=== PATIENT | male | born 1980 | race Caucasian/White ===

== ENCOUNTER → 2020-12-14 14:58 | Outpatient (CLI) | payer MEDICARE, MEDICAID, SELFPAY ==
--- NOTE | ~2020-12-14 | XR_ITS ---
XR knee RT 3V DATE: 12/14/2020 15:35 INDICATION: Right knee pain TECHNIQUE: AP, PA and crosstable lateral views COMPARISON: 10/30/2006 right knee FINDINGS: There is severe diffuse osteopenia. No fracture or dislocation or joint effusion. No periosteal reaction or bone destruction. No radiopaq ue intra-articular loose body or chondrocalcinosis. IMPRESSION: Severe osteopenia Reviewed, dictated and finalized at location A. IMPRESSION: Severe osteopenia
== END ==
PROVIDERS: PCP Internal Medicine; Visit Provider Nurse Practitioner
DX: M25.561 Pain in right knee (principal); M85.861 Other specified disorders of bone density and structure, right lower leg
CPT/HCPCS: 73562

== ENCOUNTER 2022-06-22 15:02 | Observation (INO) | payer MEDICARE, MEDICAID, SELFPAY ==
[2022-06-22] VITALS (20 sets, daily range): BP systolic 78–134; BP diastolic 39–90; PULSE 79–98; RESP 12–23; TEMP 36.4–36.6; O2SAT 96–99; BMI 27.2
--- NOTE | ~2022-06-22 | CT_ITS ---
EXAMINATION: CT abdomen pelvis w con DATE: 06/22/2022 17:20 INDICATION: Leukocytosis, syncope TECHNIQUE: Computed tomography (CT) of the abdomen and pelvis was performed with 100 mL Omnipaque-350 intravenous contrast. Automated exposure control and iterative reconstruction technique were employe d. The dose-length product was 860.61 mGy-cm. COMPARISON: 07/15/2011. FINDINGS: Lower thorax: Bilateral gynecomastia. Bibasilar scar/atelectasis. Liver: Normal. Biliary/Gallbladder: Gallbladder is normal. No bile duct dilation. Pancreas: No mass or duct dilation. Spleen: Normal. Adrenals:No mass. Kidneys: No mass, stone, or hydronephrosis. GI tract: No small or large bowel dilation. Normal appendix. Right lower quadrant colostomy. Mesentery/Peritoneum: No ascites, mass, or free air. Retroperitoneum: No mass. Pelvis: Bladder decompressed by a suprapubic catheter. Soft Tissues: Right-sided infusion pump, catheter enters the spinal canal and terminates above the fi eld-of-view. Bones: Superior endplate deformity and moderate height loss at L3 and L4, new since the prior study. IMPRESSION: Moderate compression deformities at L3 and L4 of uncertain age, correlate with pain/tenderness. Other borges, no acute abdominopelvic process detected Reviewed, dictated and finalized at location K. ER SHREDDER HELPER IMPRESSION: Moderate compression deformities at L3 and L4 of uncertain age, correlate with pain/tenderness. Otherwise, no acute abdominopelvic process detected
--- NOTE | 2022-06-22 15:41 | ECG_ITS ---
Measurements Intervals [place] Rate: 79 P: 52 AL: 196 QRS: 54 QRSD: 109 T: 52 QT: 368 QTc: 424 Interpretive Statements SINUS RHYTHM WITHIN NORMAL LIMITS NO PREVIOUS ECG AVAILABLE FOR COMPARISON Electronically Signed On 06-23-2022 8:02:36 [employer]ATION[employer] FI[employer]MAN by Elier Webber M.D.
[2022-06-22 15:58] LABS: Basophils Percent Auto 0.2 % (0.2-1.2); Eosinophils Percent Auto 0.2 % (0-4.4); Hematocrit 42.1 % (42.0-52.0); Immature Granulocyte Absolute 0.11 K/mm3 (0.00-0.031); Immature Granulocyte Percent A 0.6 % (0-0.5); Immature Platelet Fraction Pct 8.5 % (0.9-11.2); Lymphocytes Absolute Auto 0.66 K/mm3 (0.9-3.2); Lymphocytes Percent Auto 3.4 % (18.3-44.2); Mean Corpuscular HGB Conc 33.3 g/dl (32-36); Mean Corpuscular Hemoglobin 29.9 pg (26-34); Mean Platelet Volume 11.7 fl (7.4-10.4); Monocytes Absolute Auto 1.7 K/mm3 (0.1-0.6); Monocytes Percent Auto 8.9 % (2.6-8.5); Neutrophils Absolute Auto 16.7 K/mm3 (1.3-6.7); Neutrophils Percent Auto 86.7 % (45.5-73.1); Platelet Count Result 127 k/mm3 (150-375); Red Blood Count 4.68 M/mm3 (4.6-6.20); Red Cell Distribution Width 14.3 % (11.5-14.5); White Blood Count 19.3 K/mm3 (4.5-10.0)
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
[2022-06-22 16:09] LABS: Alanine Aminotransferase 27 U/L (6-50); Albumin Level 4.3 g/dL (3.5-5.1); Alkaline Phosphatase 86 U/L (38-126); Anion Gap 5 mmol/L (8-16); Aspartate Amino Transferase 26 U/L (17-59); Bilirubin,Total 0.6 mg/dL (0.2-1.3); Blood Urea Nitrogen 19 mg/dL (9-20); Calcium 9.2 mg/dL (8.4-10.2); Carbon Dioxide 31 mmol/L (22-30); Chloride 94 mmol/L (98-107); Estimated Glomerular Filt Rate > 60; Glucose 89 mg/dL (65-110); Potassium 4.2 mmol/L (3.4-5.0); Sodium 130 mmol/L (137-145)
[2022-06-22] MEDS: SODIUM CHLORIDE 0.9% IV 1,000 ML 999 ML IV CONT ×2 (16:27→18:50)
[2022-06-22 16:41] LABS: Appearance Urine Clear (Clear); Bilirubin Urine Negative (Negative); Blood Urine Trace-intact (Negative); Color Urine Yellow (Yellow); Glucose Urine UA Negative (Negative); Ketones Urine Negative (Negative); Leukocyte Esterase Ur 2+ LEU/UL (Negative); Nitrate Urine Positive (Negative); Protein Urine Negative (Negative); Specific Grav Ur <= 1.005 (1.001-1.035); Urobilinogen Urine 0.2 mg/dL (<2.0)
[2022-06-22 17:05] LABS: Bacteria Urine Trace /hpf; RBC Urine 0-2 /hpf (0-2)
[2022-06-22 17:36] LABS: Add Urine Microscopic? YES
--- NOTE | 2022-06-22 17:45 | PC.NURSE ---
PT PLEASANTLY REFUSING TO CHANGE OUT OF CLOTHES AND GET ON OUR BED. STATED THAT HE CAN USE HIS CHAIR BED PROVIDER AWARE.
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
[2022-06-22 18:54] LABS: Reflex Lactic Acid Yes or No Add Lactic
[2022-06-22 19:38] LABS: Influenza A QL RT-PCR Negative (Negative); Influenza B QL RT-PCR Negative (Negative); SARS-CoV-2 RNA PCR Negative
[2022-06-22 19:59] LABS: Lactic Acid 1.3 mmol/L (0.7-2.0)
[2022-06-22] MEDS: SODIUM CHLORIDE 0.9% IV 1,000 ML 125 ML IV CONT (20:40)
--- NOTE | 2022-06-22 23:05 | PC.NURSE ---
pt a&o x4, able to make needs known. pt admitted for uti/syncopal episodes. urinary suprapubic catheter present, colostomy appliance present, electric wheelchair used for ambulation, hands contracted. pt transferred to bed, call light easily accessible, safety precautions discussed. pt denies pain, comfortably resting in bed. medications reviewed, confirmed. no further questions.
[2022-06-22 23:11] LABS: Anion Gap 5 mmol/L (8-16); Blood Urea Nitrogen 18 mg/dL (9-20); Calcium 8.2 mg/dL (8.4-10.2); Carbon Dioxide 28 mmol/L (22-30); Chloride 98 mmol/L (98-107); Estimated CRCL calculation 113 ml/min; Estimated Glomerular Filt Rate > 60; Glucose 170 mg/dL (65-110); Potassium 3.9 mmol/L (3.4-5.0); Sodium 131 mmol/L (137-145)
[2022-06-23] VITALS (9 sets, daily range): BP systolic 97–111; BP diastolic 55–69; PULSE 60–83; RESP 18–20; TEMP 36.1–36.6; O2SAT 94–99
[2022-06-23 00:07] LABS: Thyroid Stimulating Hormone Reflex 0.742 uIU/mL (0.465-4.68)
[2022-06-23] MEDS: PREGABALIN (*CRX) 50 MG CAPSULE 200 MG PO ×3 (05:33→22:29)
[2022-06-23 06:35] LABS: Anion Gap 1 mmol/L (8-16); Blood Urea Nitrogen 14 mg/dL (9-20); Calcium 8.3 mg/dL (8.4-10.2); Carbon Dioxide 29 mmol/L (22-30); Chloride 102 mmol/L (98-107); Estimated CRCL calculation 186 ml/min; Estimated Glomerular Filt Rate > 60; Glucose 91 mg/dL (65-110); Magnesium 1.9 mg/dL (1.6-2.3); Potassium 3.8 mmol/L (3.4-5.0); Sodium 132 mmol/L (137-145)
[2022-06-23 06:43] LABS: Hematocrit 35.1 % (42.0-52.0); Hemoglobin 11.6 g/dL (14.0-18.0); Immature Platelet Fraction Pct 7.3 % (0.9-11.2); Mean Corpuscular Hemoglobin 29.4 pg (26-34); Mean Corpuscular Volume 89.1 fl (80-100); Mean Platelet Volume 11.6 fl (7.4-10.4); Platelet Count Result 92 k/mm3 (150-375); Red Blood Count 3.94 M/mm3 (4.6-6.20); Red Cell Distribution Width 14.5 % (11.5-14.5); White Blood Count 14.3 K/mm3 (4.5-10.0)
--- NOTE | 2022-06-23 08:47 | PM.IMPN ---
Progress Note: A&P Assessment and Plan (1) Sepsis: Code(s): A41.9 - Sepsis, unspecified organism Status: Acute Assessment and Plan: Unsure of etiology now that urine culture came back negative for infection Blood cultures pending, check CRP and procalcitonin (2) Urinary tract infection: Code(s): N39.0 - Urinary tract infection, site not specified Status: Acute Assessment and Plan: Urinalysis came back positive for nitrates, leuk esterase and white blood cells, however, culture has come back with mixed genital monae only Leukocytosis improving, monitor Thrombocytopenia worsening, continue to monitor (3) Syncope: Qualifiers: Encounter type: initial encounter Code(s): R55 - Syncope and collapse Status: Acute Assessment and Plan: Unsure of etiology, check orthostatics, monitor telemetry (4) Quadriplegia: Code(s): G82.50 - Quadriplegia, unspecified Status: Acute Assessment and Plan: Partial, stable, unchanged Suprapubic bladder catheter in place, stable (5) Colostomy status: Code(s): Z93.3 - Colostomy status Status: Acute Assessment and Plan: Colostomy irrigation tomorrow at 10:00 a.m. per patient is protocol, working well, stable (6) Lactic acidosis: Code(s): E87.20 - Acidosis, unspecified Status: Acute Assessment and Plan: Resolved after IV fluids (7) Hyponatremia: Code(s): E87.1 - Hypo-osmolality and hyponatremia Status: Acute Assessment and Plan: Improving Plan DVT prophylaxis with Lovenox GI prophylaxis not indicated Code status full code Subjective Date/time seen: 06/23/22 08:47 Interval history: No overnight events noted. No chest pain or shortness of breath. No nausea, vomiting or diarrhea. No fevers or chills. Patient states he is feeling much better than when he came in. He has had bladder infections before, but he has never had as many syncopal episodes as he did this time. He is concerned this infection was much more severe than usual. His mother is at bedside and states they are going to do a colostomy irrigation tomorrow prior to discharge. They usually do it at 10:00 a.m. every other day. Review of Systems Review of Systems: 12 point review of systems was assessed and was negative except as noted in the HPI Exam Narrative: General: No acute distress, alert and oriented per baseline HEENT: Atraumatic, normocephalic, mucous membranes moist CV: Regular rate and rhythm, S1, S2 Lungs: Clear to auscultation bilaterally, no rales or crackles noted, no wheezes, good air entry Abdomen: Soft, nontender, nondistended Extremities: Atrophic, contracted bilateral upper extremities, erythema that is blanching and blotchy noted on posterior thighs Psych: Euthymic, normal affect Objective Data Vital Signs Vital Signs: Vital Signs - 24 hr 06/22/22 15:06 06/22/22 15:52 06/22/22 15:51 Temperature 97.5 F L Pulse Rate 82 87 83 Respiratory Rate 18 19 Blood Pressure 78/49 L 117/78 Pulse Oximetry 96 99 Oxygen Delivery Room Air 06/22/22 16:03 06/22/22 16:15 06/22/22 16:16 Temperature Pulse Rate 85 92 86 Respiratory Rate 20 16 15 Blood Pressure 132/90 Pulse Oximetry Oxygen Delivery 06/22/22 16:30 06/22/22 16:32 06/22/22 18:51 Temperature Pulse Rate 95 98 92 Respiratory Rate 14 15 23 H Blood Pressure 134/39 L Pulse Oximetry 99 Oxygen Delivery 06/22/22 19:07 06/22/22 19:15 06/22/22 19:16 Temperature Pulse Rate 90 89 90 Respiratory Rate 18 12 14 Blood Pressure 106/60 Pulse Oximetry 97 Oxygen Delivery 06/22/22 19:30 06/22/22 19:31 06/22/22 19:56 Temperature Pulse Rate 85 83 82 Respiratory Rate 14 13 16 Blood Pressure Pulse Oximetry Oxygen Delivery 06/22/22 20:07 06/22/22 20:22 06/22/22 22:00 Temperature 98 F Pulse R
[2022-06-23] MEDS: ACIDOPHILUS/BULGARICUS CHEWABLE TABLET 2 TABLET BY MOUTH (11:01)
[2022-06-23] MEDS: CYANOCOBALAMIN 1,000 MCG TABLET 1000 MCG PO (11:01)
[2022-06-23] MEDS: FERROUS SULFATE 324 MG TABLET PO (11:01)
[2022-06-23] MEDS: MULTIVITAMINS THERAPEUTIC TAB (*BKC) 1 TABLET PO (11:02)
[2022-06-23] MEDS: methADONE HCL (*CRX) 5 MG TABLET PO ×2 (11:02→22:29)
[2022-06-23] MEDS: SOLIFENACIN 5 MG TABLET 10 MG PO (11:02)
[2022-06-23] MEDS: VITAMIN B COMPLEX CAPSULE 1 CAP PO (11:02)
[2022-06-23] MEDS: polyethylene glycoL 3350 17 GM POWD.PACK PO (11:04)
--- NOTE | 2022-06-23 14:06 | PC.NURSE ---
Spoke with mother at bedside and she requested to do turnings and feedings for the patient while she is here.
[2022-06-23] MEDS: DOCUSATE SODIUM 100 MG CAPSULE 200 MG PO (22:29)
[2022-06-23] MEDS: NORTRIPTYLINE HCL 25 MG CAPSULE PO (22:29)
[2022-06-23] MEDS: MELATONIN 5 MG TABLET PO (22:30)
[2022-06-24] VITALS: PULSE 74
--- NOTE | 2022-06-24 | ECHO_ITS ---
Patient Info Name: Segundo Wetzel Age: 41 years : 1980 Gender: Male Ht: 67 in Wt: 174 lbs BSA: 1.95 m2 HR: 67 bpm BP: 134 / 80 mmHg Heart Rhythm: Sinus Rhythm Technical Quality: Fair Exam Date: 06/24/2022 7:49 AM Exam Location: [facility] Card Pulmonary Patient Status: Inpatient Admit Date: 06/22/2022 Staff Ordering Physician: Brandee Maravilla DO Lung Splitter: [place] RDCS Attending Provider: Claudio Rosado MD Referring Physician: Renita AVILA; Exam Type: CA echo doppler color flow Study Info Indications R55 - Syncope and collapse Complete two-dimensional, color flow and Doppler transthoracic echocardiogram is performed. Summary 1. Complete two-dimensional, color flow and Doppler transthoracic echocardiogram is performed. 2. Left ventricular chamber dimension is normal. 3. Left ventricular systolic function is normal, estimated at 60-65%. 4. The left ventricular diastolic function is normal. 5. E/e' 7 is not elevated. 6. There is trace mitral valve regurgitation. 7. There is trace tricuspid valve regurgitation. 8. No pulmonary hypertension, estimated pulmonary arterial systolic pressure is 17 mmHg. Left Ventricle E/e' 7 is not elevated. Left ventricular chamber dimension is normal. Left ventricular systolic function is normal, estimated at 60-65%. The left ventricular diastolic function is normal. Right Ventricle Right ventricular systolic function is normal and with normal TAPSE 2.1 cm. Right ventricular chamber dimension is normal. Left Atria Left atrial chamber dimension is normal. Right Atria Right atrial chamber dimension is normal. Aortic Valve The aortic valve is trileaflet. There is no aortic valve stenosis. There is no aortic valve regurgitation. Pulmonic Valve There is no pulmonic regurgitation. Mitral Valve There is no mitral valve stenosis. There is trace mitral valve regurgitation. Tricuspid Valve There is trace tricuspid valve regurgitation. No pulmonary hypertension, estimated pulmonary arterial systolic pressure is 17 mmHg. Pericardium/Pleural There is no pericardial effusion. Inferior Vena Cava Normal inferior vena cava with >50% collapse upon inspiration consistent with normal right atrial pressure, 5 mmHg. Aorta The aortic root size at the sinus of Valsalva is normal. Left Ventricular Outflow Tract Name Value Normal LVOT 2D LVOT Diameter 2.1 cm LVOT Doppler LVOT Peak Gradient 2 mmHg LVOT Mean Gradient 1 mmHg LVOT VTI 17 cm LVOT VTI/AV VTI Ratio 0.6 LVOT Stroke Volume 59 ml LVOT CO 3.5 l/min LVOT CI 1.8 l/min/m2 Pulmonic Valve Name Value Normal RVOT Doppler
[2022-06-24] MEDS: diphenhydrAMINE HCl CAP 25 MG CAPSULE 50 MG PO (00:31)
[2022-06-24 04:00] VITALS: PULSE 68
[2022-06-24 04:57] VITALS: BP 134/80; PULSE 105; RESP 18; TEMP 36.2; O2SAT 97
[2022-06-24 05:58] LABS: Basophils Percent Auto 0.1 % (0.2-1.2); Eosinophils Absolute Auto 0.1 K/mm3 (0-0.3); Eosinophils Percent Auto 1.3 % (0-4.4); Hematocrit 36.5 % (42.0-52.0); Hemoglobin 11.9 g/dL (14.0-18.0); Immature Granulocyte Absolute 0.03 K/mm3 (0.00-0.031); Immature Granulocyte Percent A 0.4 % (0-0.5); Lymphocytes Absolute Auto 1.35 K/mm3 (0.9-3.2); Lymphocytes Percent Auto 15.9 % (18.3-44.2); Mean Corpuscular HGB Conc 32.6 g/dl (32-36); Mean Corpuscular Hemoglobin 29.5 pg (26-34); Mean Corpuscular Volume 90.3 fl (80-100); Mean Platelet Volume 11.4 fl (7.4-10.4); Monocytes Absolute Auto 0.8 K/mm3 (0.1-0.6); Monocytes Percent Auto 9.2 % (2.6-8.5); Neutrophils Absolute Auto 6.2 K/mm3 (1.3-6.7); Neutrophils Percent Auto 73.1 % (45.5-73.1); Platelet Count Result 102 k/mm3 (150-375); Red Blood Count 4.04 M/mm3 (4.6-6.20); Red Cell Distribution Width 14.4 % (11.5-14.5); White Blood Count 8.5 K/mm3 (4.5-10.0)
[2022-06-24 06:42] LABS: CRP 23.4 mg/dL (<1.0)
[2022-06-24 06:52] LABS: Procalcitonin 0.6 ng/mL
[2022-06-24 07:45] LABS: Alanine Aminotransferase 30 U/L (6-50); Albumin Level 3.5 g/dL (3.5-5.1); Alkaline Phosphatase 72 U/L (38-126); Anion Gap 2 mmol/L (8-16); Aspartate Amino Transferase 25 U/L (17-59); Bilirubin,Total 0.3 mg/dL (0.2-1.3); Blood Urea Nitrogen 8 mg/dL (9-20); Calcium 8.9 mg/dL (8.4-10.2); Carbon Dioxide 32 mmol/L (22-30); Chloride 101 mmol/L (98-107); Estimated CRCL calculation 238 ml/min; Estimated Glomerular Filt Rate > 60; Glucose 84 mg/dL (65-110); Potassium 3.5 mmol/L (3.4-5.0); Sodium 135 mmol/L (137-145)
[2022-06-24 08:00] VITALS: PULSE 54
[2022-06-24] MEDS: PREGABALIN (*CRX) 50 MG CAPSULE 200 MG PO ×2 (09:25→14:51)
[2022-06-24] MEDS: MULTIVITAMINS THERAPEUTIC TAB (*BKC) 1 TABLET PO (09:28)
[2022-06-24] MEDS: ACIDOPHILUS/BULGARICUS CHEWABLE TABLET 2 TABLET BY MOUTH (09:28)
[2022-06-24] MEDS: FERROUS SULFATE 324 MG TABLET PO (09:28)
[2022-06-24] MEDS: CYANOCOBALAMIN 1,000 MCG TABLET 1000 MCG PO (09:28)
[2022-06-24] MEDS: SOLIFENACIN 5 MG TABLET 10 MG PO (09:28)
[2022-06-24] MEDS: VITAMIN B COMPLEX CAPSULE 1 CAP PO (09:28)
[2022-06-24] MEDS: methADONE HCL (*CRX) 5 MG TABLET PO (09:30)
[2022-06-24 10:30] VITALS: BP 85/51
[2022-06-24 14:00] VITALS: BP 144/79; PULSE 57; RESP 16; TEMP 36.2; O2SAT 95
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
[2022-06-24] MEDS: IBUPROFEN 400 MG TABLET PO (14:51)
== END 2022-06-24 16:03 | disposition home or self-care (01) ==
LOC: ANHED 18:05 → ANH3MED 06-24 14:15
PROVIDERS: Physician Assistant; Admitting Provider Internal Medicine; Emergency Provider Emergency Medicine; PCP Internal Medicine; Visit Provider Student in an Organized Health Care Education/Training Program
DX: A41.9 Sepsis, unspecified organism (principal); N39.0 Urinary tract infection, site not specified; D69.6 Thrombocytopenia, unspecified; R55 Syncope and collapse; G82.50 Quadriplegia, unspecified; T14.90XS Injury, unspecified, sequela; V89.2XXS Person injured in unspecified motor-vehicle accident, traffic, sequela; Z93.3 Colostomy status; E87.20 Acidosis, unspecified; E87.1 Hypo-osmolality and hyponatremia; I95.9 Hypotension, unspecified; G89.4 Chronic pain syndrome; S32.000A Wedge compression fracture of unspecified lumbar vertebra, initial encounter for closed fracture; Z96.0 Presence of urogenital implants; F10.90 Alcohol use, unspecified, uncomplicated; Z20.822 Contact with and (suspected) exposure to COVID-19; F12.90 Cannabis use, unspecified, uncomplicated; Z86.16 Personal history of COVID-19; Z87.440 Personal history of urinary (tract) infections; Z87.891 Personal history of nicotine dependence; Z79.899 Other long term (current) drug therapy
CPT/HCPCS: 36415; 74177; 80048; 80053; 81001; 83605; 83735; 83930; 84145; 84443; 85025; 85027; 85055; 86140; 87040; 87086; 87088; 87636; 93005; 93306; 96361; 96365; 96366; 99285; A9270; G0378; J0696; J1650; J7030; Q9967

== ENCOUNTER 2023-04-30 15:06 | Outpatient (CLI) | payer OTHER, MEDICAID, SELFPAY ==
--- NOTE | ~2023-04-30 | CT_ITS ---
EXAMINATION: CT abdomen pelvis w con DATE: 04/30/2023 16:11 INDICATION: Left lower quadrant, mid abdominal pain TECHNIQUE: Computed tomography (CT) of the abdomen and pelvis was performed with 100 CC Omnipaque 350 intravenous contrast. Automated exposure control and iterative reconstruction technique were employe d. Exam dose: 622.81 mGy-cm total exam DLP. COMPARISON: June 22, 2022 CT abdomen pelvis FINDINGS: There is patchy infiltrate/atelectasis in the dependent aspect of the right lower lobe and to a lesser extent left lower lobe. Borderline heart size. No pericardial or pleural effusion. Mild bilateral gynecomastia. The liver, gallbladder, bile ducts, spleen, pancreas, pancreatic duct, and adrenal glands and kidneys appear normal. No urinary tract calculus or hydroureteronephrosis. There is a cystostomy catheter wi thin the urinary bladder. The bladder wall appears diffusely prominent in thickness which may be due to evacuation of the bladder versus cystitis. The prostate gland appears unremarkable. Normal caliber of the abdominal aorta. No intraperitoneal or retroperitoneal or pelvic mass lesion or adenopathy or ascites is noted. Normal appendix. No bowel obstruction or intraperitoneal free air is detected. There is an infusion pump within the anterior right abdominal wall with catheter terminating in the p osterior thoracic spinal canal at the lower T5 level. Chronic L3 and L4 moderate compression fracture deformities, present on June 22, 2022; new modera tely prominent L1 compression fracture deformity since June 22, 2022. There is squaring of the anterior margin of the thoracic vertebral bodies and ankylosis at the sacroi liac joints suggesting ankylosing spondylitis or other spondyloarthropathy. Bilateral hip osteoarthritis. IMPRESSION: Bilateral patchy dependent lower lobe infiltrate or atelectasis, right greater than left Bilateral mild gynecomastia Cystostomy catheter, bladder wall thickening; cannot exclude cystitis Right anterior abdominal wall infusion pump New moderately prominent L1 compression fracture deformity and chronic L3-L4 moderate compression fra cture deformities Suggestion of ankylosing spondylitis or other spondyloarthropathy Bilateral hip osteoarthritis Reviewed, dictated and finalized at Location [facility]. Reviewed, dictated and finalized at location B. REMENT CONSULTANT IMPRESSION: Bilateral patchy dependent lower lobe infiltrate or atelectasis, r ight greater than left Bilateral mild gynecomastia Cystostomy catheter, bladder wall thickening; cannot exclude cystitis Right anterior abdominal wall infusion pump New moderately prominent L1 compression fracture deformity and chronic L3-L4 mo derate compression fracture deformities Suggestion of ankylosing spondylitis or other spondyloarthropathy Bilateral hip osteoarthritis
== END 2023-04-30 15:07 | disposition home or self-care (01) ==
PROVIDERS: PCP Family Medicine; Visit Provider Nurse Practitioner Family
DX: R91.8 Other nonspecific abnormal finding of lung field (principal); N62 Hypertrophy of breast; S32.010A Wedge compression fracture of first lumbar vertebra, initial encounter for closed fracture; S32.030A Wedge compression fracture of third lumbar vertebra, initial encounter for closed fracture; S32.040A Wedge compression fracture of fourth lumbar vertebra, initial encounter for closed fracture; M16.0 Bilateral primary osteoarthritis of hip; Z93.59 Other cystostomy status; Z97.8 Presence of other specified devices; X58.XXXA Exposure to other specified factors, initial encounter
CPT/HCPCS: 74177; Q9967

== ENCOUNTER 2023-05-04 11:37 | Emergency (ER) | payer OTHER, MEDICAID, SELFPAY ==
[2023-05-04 11:43] VITALS: BP 114/80; PULSE 61; RESP 18; TEMP 36.6; O2SAT 100
--- NOTE | 2023-05-04 12:15 | ED.GENADULT ---
HPI - General Adult General Chief complaint: Unspecified Stated complaint: UTI, broken back Time Seen by Provider: 05/04/23 12:24 Source: patient and other (caregiver Cherelle) Mode of arrival: wheelchair Limitations: no limitations History of Present Illness HPI narrative: 42yo male paraplegic presents with concern for reduced ostomy output and questions about recent imaging. He is on antibiotics (cipro) for a UTI currently; no bloody output. He typically leaves his ostomy site open (states it has been discussed with his colorectal surgeon) and irrigates it frequently while in the shower. However, it has become more difficult with reduced output. He has tried to change diet for higher fiber content. He is on methadone and at baseline uses 2 doses of Miralax every overy other day as well as Colace regularly. He hasn't had a significant amount of stool output for 6 weeks. He did try Senna x1 and this produced a fair amount of output. He feels like maybe he needs a clean out similar to the bowel prep he undergoes for colonoscopies. He underwent CT imaging 04/30/23 which did not comment on stool burden but he is concerned he is constipated. There was notation of an L1 compression fracture. His neurologist expressed concern that this might be due to stool impaction. Colorectal surgeon = Dr Rodas ([facility]) Neurologist @ [facility] for past 20 years (last seen 04/23/23 for baclofen pump replacement; f/u q 3 mos) Related Data Home Medications Medication Instructions Recorded Confirmed Lactobacillus 1 cap PO DAILY 06/22/22 03/27/23 acidophilus-Bifidobac.animalis 2.5 billion cell capsule (Daily Probiotic) cholecalciferol (vitamin D3) 125 125 mcg PO 3XW 06/22/22 03/27/23 mcg (5,000 unit) tablet cyanocobalamin (vitamin B-12) 1 tablet PO DAILY 06/22/22 03/27/23 ibuprofen 200 mg tablet 200 mg PO Q6H PRN Pain (Scale 06/22/22 03/27/23 Score 1-3) multivitamin 1 tablet PO DAILY 06/22/22 03/27/23 nortriptyline 25 mg capsule 25 mg PO HS 06/22/22 03/27/23 polyethylene glycol 3350 17 gram 17 - 34 g PO DAILY PRN Constipation 06/22/22 03/27/23 oral powder packet (Miralax) vitamin B complex 1 cap PO DAILY 06/22/22 03/27/23 Allergies Allergy/AdvReac Type Severity Reaction Status Date / Time adhesive tape Allergy Rash Verified 03/27/23 14:40 PMFSH Past Medical History Medical History Chronic pain syndrome COVID-19 Erectile dysfunction Nephrolithiasis Osteopenia determined by x-ray Peripheral neuropathy Quadriplegia Vitamin D deficiency Surgical History Surgical History History of colostomy History of fusion of cervical spine C2-C6. 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 Code status: Full code. Years smoked: 1 Smoking status: Former smoker Tobacco type: cigars Second hand tobacco smoke exposure: No Smoking end date: 04/28/04 Alcohol intake: current Alcohol use details: Social alcohol use in moderation. Substance use: current Substance use type: marijuana Lack of Transportation: No Lack of Food: Never True Current Housing: I Have Housing Concerned About Future Housing: No Difficulty Paying Gas/Electric Bills: No Difficulty Paying for Meds: No Currently Unemployed: No Education: Bachelor's Degree Difficulty w/ Childcare or Family Care: No Spiritual care concerns: No Exam Const: General: cooperative, comfortable, no acute distress, w
== END 2023-05-04 13:15 | disposition home or self-care (01) ==
PROVIDERS: Emergency Provider Student in an Organized Health Care Education/Training Program; PCP Family Medicine
DX: K59.03 Drug induced constipation (principal); T40.3X5A Adverse effect of methadone, initial encounter; M45.6 Ankylosing spondylitis lumbar region; S32.010A Wedge compression fracture of first lumbar vertebra, initial encounter for closed fracture; N39.0 Urinary tract infection, site not specified; G82.50 Quadriplegia, unspecified; G62.9 Polyneuropathy, unspecified; E55.9 Vitamin D deficiency, unspecified; M85.80 Other specified disorders of bone density and structure, unspecified site; Z93.3 Colostomy status; Z86.16 Personal history of COVID-19; Z87.442 Personal history of urinary calculi; Z87.891 Personal history of nicotine dependence; X58.XXXA Exposure to other specified factors, initial encounter
CPT/HCPCS: 99283

== ENCOUNTER 2023-06-11 12:09 | Inpatient (IN) | payer MEDICARE, MEDICAID, SELFPAY ==
[2023-06-11] VITALS (25 sets, daily range): BP systolic 115–154; BP diastolic 67–103; PULSE 41–61; RESP 8–17; TEMP 34–36.2; O2SAT 95–98
--- NOTE | ~2023-06-11 | XR_ITS ---
EXAMINATION: XR chest 1V portable DATE: 06/13/2023 08:47 INDICATION: Infection TECHNIQUE: frontal view of the chest was obtained. COMPARISON: Chest radiograph dated 08/27/2010 FINDINGS: The lungs are clear with no focal airspace opacities, pulmonary edema, pleural effusion or pneumothor ax. The cardiomediastinal silhouette is normal. Upper thoracic levoscoliosis. Partially visualized in strumented posterior spinal fusion in the lower cervical spine with bilateral vertical rajwinder and latera l mass screw fixation. IMPRESSION: 1. No acute cardiopulmonary disease. Reviewed, dictated and finalized at location A. OR ADMINISTRATOR SUPPORT
--- NOTE | ~2023-06-11 | CT_ITS ---
Non-contrast CT scan of the Abdomen and Pelvis Clinical indication: Infection Technique: 2.5 mm axial scans were obtained through the abdomen and pelvis without intravenous or or al contrast. Dose reduction technique was used on this scan by utilizing automated exposure control a nd iterative reconstruction technique. The dose-length product (DLP) was 906.43 mGy-cm. COMPARISON: 04/30/2023 Findings: Images through the lung bases reveal hazy left upper lobe airspace disease, compatible wit h pneumonia. There is no evidence of renal or ureteral calculi. The kidneys and the ureters are nondilated. The liver, spleen, pancreas, gallbladder, and adrenals appear normal. There is no aortic aneurysm. There is no evidence of bowel obstruction. Partial distal colectomy present with left lower quadrant ostomy in place. Images through the pelvis were performed. There is no evidence of ascites or lymphadenopathy. Urinary bladder collapsed around a suprapubic catheter. Prostate gland and seminal vesicles are unremarkable . L1 compression fractures present, possibly acute to subacute. Chronic appearing compression fractures of L3 and L4 present. Impression: Probable left upper lobe pneumonia. L1 compression fractures likely acute to subacute. Chronic-appearing L3 and L4 compression fractures. Mild bladder wall thickening is probably due to collapsed state with suprapubic catheter in place. Co rrelate clinically and with urinalysis for cystitis. Reviewed, dictated and finalized at [facility]. DRY ENGINEER Impression: Probable left upper lobe pneumonia. L1 compression fractures likely acute to subacute. Chronic-appearing L3 and L4 compression fractures. Mild bladder wall thickening is probably due to collapsed state with suprapubic catheter in place. Correlate clinically and with urinalysis for cystitis.
--- NOTE | ~2023-06-11 | CT_ITS ---
EXAMINATION: CT brain wo con DATE: 06/11/2023 13:35 INDICATION: Altered mental status since yesterday. Quadriplegia TECHNIQUE: Computed tomography (CT) of the head was performed without intravenous contrast. The mA wa s adjusted according to patient size. Iterative reconstruction technique was employed. Exam dose: 68 1.00 mGy-cm total exam DLP. COMPARISON: None FINDINGS: No intracranial mass lesion or hemorrhage or cerebrovascular accident. No midline shift or mass effect. Normal ventricular size. Normal wolfe-white matter differentiation. No subdural or epidur al hematoma. The mastoid air cells are well pneumatized and aerated. Included paranasal sinuses are unremarkable. No fracture or bone destruction of the cranial vault. IMPRESSION: No significant abnormality Reviewed, dictated and finalized at [facility]. Reviewed, dictated and finalized at location B. ATION CHECKER IMPRESSION: No significant abnormality
--- NOTE | ~2023-06-11 | MR_ITS ---
MRI of the brain Clinical History: Altered mental status Technique: Axial and sagittal T1-weighted images were acquired. These were followed by axial T2-weigh rosa, diffusion weighted, gradient, and FLAIR images. Following intravenous administration of 15 cc Mu ltiHance gadolinium, T1-weighted fat-sat imaging was performed in the axial and coronal planes. Findings: No abnormal signal seen in the brain parenchyma. No acute infarct, intracranial hemorrhage, or mass lesion. Ventricles and subarachnoid spaces are unremarkable. Orbits are unremarkable. Paranasal sinuses and m astoid air cells are clear. Major intracranial flow voids are intact. Sagittal midline structures are intact. No abnormal postcontrast enhancement identified. IMPRESSION: Unremarkable exam. Reviewed, dictated and finalized at location M. LER MECHANIC IMPRESSION: Unremarkable exam.
--- NOTE | 2023-06-11 12:11 | ECG_ITS ---
Measurements Intervals [place] Rate: 55 P: ND: 0 QRS: 72 QRSD: 132 T: 66 QT: 472 QTc: 452 Interpretive Statements INDETERMINATE RHYTHM INTRAVENTRICULAR CONDUCTION DELAY [130+ ms QRS DURATION] BASELINE ARTIFACT GREATLY LIMITS INTERPRETATION ABNORMAL ECG Electronically Signed On 06-11-2023 13:19:50 C S S REPRESENTATIVE by Angel De M.D.
[2023-06-11 12:37] LABS: Basophils Percent Auto 0.3 % (0.2-1.2); Eosinophils Absolute Auto 0.1 K/mm3 (0-0.3); Eosinophils Percent Auto 0.8 % (0-4.4); Hematocrit 41.3 % (42.0-52.0); Hemoglobin 13.4 g/dL (14.0-18.0); Immature Granulocyte Absolute 0.03 K/mm3 (0.00-0.031); Immature Granulocyte Percent A 0.5 % (0-0.5); Immature Platelet Fraction Pct 14.3 % (0.9-11.2); Lymphocytes Absolute Auto 0.93 K/mm3 (0.9-3.2); Lymphocytes Percent Auto 15.5 % (18.3-44.2); Mean Corpuscular HGB Conc 32.4 g/dl (32-36); Mean Corpuscular Hemoglobin 30.1 pg (26-34); Mean Corpuscular Volume 92.8 fl (80-100); Mean Platelet Volume 11.9 fl (7.4-10.4); Monocytes Absolute Auto 0.6 K/mm3 (0.1-0.6); Monocytes Percent Auto 9.8 % (2.6-8.5); Neutrophils Absolute Auto 4.4 K/mm3 (1.3-6.7); Neutrophils Percent Auto 73.1 % (45.5-73.1); Platelet Count Result 68 k/mm3 (150-375); Red Blood Count 4.45 M/mm3 (4.6-6.20); Red Cell Distribution Width 16.7 % (11.5-14.5)
[2023-06-11 12:49] LABS: Prothrombin Time 13.5 Seconds (11.1-14.7)
[2023-06-11 12:50] LABS: Partial Thromboplastin Time 43.8 SECONDS (22.3-36.8)
[2023-06-11 12:51] LABS: Alanine Aminotransferase 53 U/L (6-50); Albumin Level 3.8 g/dL (3.5-5.1); Alkaline Phosphatase 98 U/L (38-126); Anion Gap 1 mmol/L (8-16); Aspartate Amino Transferase 42 U/L (17-59); Bilirubin,Total 0.6 mg/dL (0.2-1.3); Blood Urea Nitrogen 12 mg/dL (9-20); Calcium 9.4 mg/dL (8.4-10.2); Carbon Dioxide 35 mmol/L (22-30); Chloride 103 mmol/L (98-107); Estimated CRCL calculation 152 ml/min; Estimated Glomerular Filt Rate > 60; Glucose 85 mg/dL (65-110); Potassium 4.9 mmol/L (3.4-5.0); Sodium 139 mmol/L (137-145)
[2023-06-11 13:02] LABS: Appearance Urine Cloudy (Clear); Bacteria Urine Rare /hpf; Bilirubin Urine Negative (Negative); Blood Urine 2+ (Negative); Budding Yeast Urine Present /hpf; Color Urine Yellow (Yellow); Glucose Urine UA Negative (Negative); Ketones Urine Negative (Negative); Leukocyte Esterase Ur 3+ LEU/UL (Negative); Nitrate Urine Positive (Negative); Non Pathogenic Casts 0-2; Protein Urine Negative (Negative); Specific Grav Ur 1.008 (1.001-1.035); Squamous Epithelial Cell Urine None seen /hpf (Few); Urobilinogen Urine 0.2 mg/dL (<2.0); WBC Urine >100 /hpf
[2023-06-11 13:04] LABS: Add Urine Microscopic? YES
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
[2023-06-11 15:28] LABS: Lactic Acid Reflex < 0.5 mmol/L (0.7-2.0)
--- NOTE | 2023-06-11 16:44 | PC.NURSE ---
700ml urine emptied from suprapubic catheter at this time
--- NOTE | 2023-06-11 17:14 | ADMGEN ---
This patient, Segundo Wetzel, was admitted to Medical Room 248-. Patient/family oriented to hospital policies and general routines including ID bracelet, bed and alarms, visiting hours, pain management, procedures, bathroom and other care routines, personal items, smoking policy, room service/diet, and visiting hours. Information on how to activate the Rapid Response Team has been discussed. Patient/Family are encouraged to report perceived risks to care and to ask questions if they do not understand what they are told or what they should do.
[2023-06-11] MEDS: PREGABALIN (*CRX) 50 MG CAPSULE 200 MG PO (20:37)
[2023-06-11] MEDS: NORTRIPTYLINE HCL 25 MG CAPSULE PO (20:37)
[2023-06-11] MEDS: SOLIFENACIN 5 MG TABLET 10 MG PO (20:37)
[2023-06-11] MEDS: ACETAMINOPHEN 325 MG TABLET 650 MG PO (20:37)
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
[2023-06-12] VITALS (11 sets, daily range): BP systolic 127–138; BP diastolic 59–91; PULSE 54–80; RESP 16–18; TEMP 36.3–36.4; O2SAT 95–97
[2023-06-12] MEDS: PREGABALIN (*CRX) 50 MG CAPSULE 200 MG PO ×3 (04:15→20:34)
[2023-06-12 05:19] LABS: Basophils Percent Auto 0.3 % (0.2-1.2); Eosinophils Absolute Auto 0.1 K/mm3 (0-0.3); Eosinophils Percent Auto 1.6 % (0-4.4); Hematocrit 41.3 % (42.0-52.0); Hemoglobin 13.2 g/dL (14.0-18.0); Immature Granulocyte Absolute 0.03 K/mm3 (0.00-0.031); Immature Granulocyte Percent A 0.8 % (0-0.5); Immature Platelet Fraction Pct 14.8 % (0.9-11.2); Lymphocytes Absolute Auto 0.92 K/mm3 (0.9-3.2); Lymphocytes Percent Auto 25.1 % (18.3-44.2); Mean Corpuscular Volume 93.9 fl (80-100); Mean Platelet Volume 12.1 fl (7.4-10.4); Monocytes Absolute Auto 0.2 K/mm3 (0.1-0.6); Neutrophils Absolute Auto 2.4 K/mm3 (1.3-6.7); Neutrophils Percent Auto 66.2 % (45.5-73.1); Platelet Count Result 68 k/mm3 (150-375); Red Cell Distribution Width 16.6 % (11.5-14.5); White Blood Count 3.7 K/mm3 (4.5-10.0)
[2023-06-12 05:29] LABS: Anion Gap 2 mmol/L (8-16); Blood Urea Nitrogen 10 mg/dL (9-20); Calcium 9.1 mg/dL (8.4-10.2); Carbon Dioxide 34 mmol/L (22-30); Chloride 104 mmol/L (98-107); Estimated CRCL calculation 152 ml/min; Estimated Glomerular Filt Rate > 60; Glucose 69 mg/dL (65-110); Potassium 4.8 mmol/L (3.4-5.0); Sodium 140 mmol/L (137-145)
--- NOTE | 2023-06-12 08:00 | ECG_ITS ---
Measurements Intervals [place] Rate: 72 P: 74 ME: 214 QRS: 84 QRSD: 121 T: 16 QT: 392 QTc: 429 Interpretive Statements SINUS RHYTHM WITH FIRST DEGREE AV BLOCK MODERATE INTRAVENTRICULAR CONDUCTION DELAY [110+ ms QRS DURATION] NONSPECIFIC T-WAVE ABNORMALITY ABNORMAL ECG COMPARED TO ECG 06/11/2023 12:13:48 SINUS RHYTHM NOW PRESENT FIRST DEGREE AV BLOCK NOW PRESENT T-WAVE ABNORMALITY NOW PRESENT Electronically Signed On 06-12-2023 12:40:35 CARPENTER INSPECTOR by Angel De M.D.
[2023-06-12] MEDS: VITAMIN B COMPLEX CAPSULE 1 CAP PO (09:42)
[2023-06-12] MEDS: methADONE HCL (*CRX) 5 MG TABLET PO (09:43)
[2023-06-12] MEDS: MULTIVITAMINS THERAPEUTIC TAB (*BKC) 1 TABLET PO (09:43)
--- NOTE | 2023-06-12 14:27 | PM.IMPN ---
Progress Note: A&P Assessment and Plan (1) Acute UTI: Code(s): N39.0 - Urinary tract infection, site not specified Status: Acute Assessment and Plan: UA: Cloudy, 2+ blood, positive nitrates, 3+ leuk esterase, 6-10 RBC, >100 WBC, yeast budding present, rare bacteria, no epithelial cells - Urine Culture pending - started on ceftriaxone on 06/11 - does not meet SIRS criteria, lactic acid <0.5 - consider suprapubic catheter exchange - no previous UCs on file - pt has been on ciprofloxacin for approximately 1 year due to UTIs. (2) Transient confusion: Code(s): R41.0 - Disorientation, unspecified Status: Acute Assessment and Plan: - no focal deficits - Head CT unremarkable - suspect transient episodes of AMS are secondary to current UTI - if episodes persist despite atb/treatment of UTI, consider consultation to neuro for EEG and to r/o absent seizures - tele monitoring, repeat EKG in AM due to artifact on intake EKG - monitor glucose, hypoglycemia protocol in place - monitor BP, has previously been on midodrine. not currently prescribed this medication (3) Chronic pain syndrome: Code(s): G89.4 - Chronic pain syndrome Status: Acute Assessment and Plan: - continue home medications: Ibuprofen, methadone, nortriptyline, Lyrica Subjective Date/time seen: 06/12/23 14:27 Interval history: Patient is still altered today. Discussed with patient's caregiver apparently patient has been on ciprofloxacin for approximately 1 year due to ongoing UTIs. Discussed with patient's caregiver that this is not standard of care and patient will need to be taken off ciprofloxacin on discharge. Will continue to wait for urine culture. Patient's mental status is likely due to UTI. There are no current cultures on record at [facility] but according to the caregiver patient does have significant history of UTI infections. He does get his urinary catheter exchanged monthly at this time. Exam Narrative: GENERAL: Comfortable, no acute distress HENMT: moist mucous membranes EYES: EOM intact b/l NECK: no lymphadenopathy RESPIRATORY: clear to auscultation CARDIO: RRR GI: soft, nontender, bowel sounds present SKIN: no rashes EXTREMITIES: no edema, redness or tenderness Objective Data Vital Signs Vital Signs: Vital Signs - 24 hr 06/11/23 14:30 06/11/23 15:10 06/11/23 15:15 Temperature Pulse Rate 48 L 45 L 54 L Respiratory Rate 13 14 Blood Pressure 137/101 H Pulse Oximetry 97 98 97 Oxygen Delivery 06/11/23 15:16 06/11/23 15:30 06/11/23 15:31 Temperature Pulse Rate 53 L 46 L 45 L Respiratory Rate 12 8 L Blood Pressure 123/102 H 142/93 H Pulse Oximetry 97 98 97 Oxygen Delivery 06/11/23 15:45 06/11/23 15:46 06/11/23 16:07 Temperature Pulse Rate 55 L 53 L 56 L Respiratory Rate 15 14 Blood Pressure 154/100 H Pulse Oximetry 97 95 Oxygen Delivery 06/11/23 16:20 06/11/23 16:43 06/11/23 17:01 Temperature 93.2 F L Pulse Rate 45 L 41 L 52 L Respiratory Rate 15 Blood Pressure 115/67 124/83 Pulse Oximetry 96 96 Oxygen Delivery 06/11/23 18:43 06/11/23 16:00 06/11/23 20:58 Temperature 97.1 F L Pulse Rate 59 L 61 Respiratory Rate 17 Blood Pressure 125/79 Pulse Oximetry 96 Oxygen Delivery Room Air 06/11/23 21:56 06/11/23 20:00 06/11/23 20:00 Temperature 97.1 F L Pulse Rate 61 46 L Respiratory Rate 17 Blood Pressure Pulse Oximetry 96 Oxygen Delivery Room Air 06/12/23 00:00 06/12/23 05:03 06/12/23 04:00 Temperature 97.4 F L Pulse Rate 64 63 59 L Respiratory Rate 18 Blood Pressure 138/84 Pulse Oximetry 96 Oxygen Delivery 06/12/23 08:09 06/12/23 09:15 06/11/23 17:37 Temperature 93.2 F L Pulse Rate 52 L Respiratory Rate 15 Blood Pressure 124/83 Pulse Oximetry 95 Oxygen Delivery Room Air Room Air Intake/Output Intake/Output: I
--- NOTE | 2023-06-12 15:28 | PC.NURSE ---
On 06/12/23, the student, [Jay De Paz], provided care and completed [facility] documentation on this patient. I have reviewed the student's documentation and agree with the findings.
[2023-06-12 18:34] LABS: Glucose Point of Care 70 mg/dl (65-105)
[2023-06-12] MEDS: SOLIFENACIN 5 MG TABLET 10 MG PO (20:34)
[2023-06-12] MEDS: ACIDOPHILUS/BULGARICUS CHEWABLE TABLET 1 TABLET PO (20:34)
[2023-06-12] MEDS: NORTRIPTYLINE HCL 25 MG CAPSULE PO (20:34)
[2023-06-12] MEDS: DOCUSATE SODIUM LIQ 100 MG/10 ML UDC 50 MG PO (20:39)
[2023-06-12] MEDS: polyethylene glycoL 3350 17 GM POWD.PACK PO (20:40)
[2023-06-12 21:44] LABS: Appearance Urine Clear (Clear); Bacteria Urine None Seen /hpf; Bilirubin Urine Negative (Negative); Color Urine Yellow (Yellow); Glucose Urine UA Negative (Negative); Ketones Urine Trace mg/dL (Negative); Leukocyte Esterase Ur 2+ LEU/UL (NEGATIVE); Need Manual Microscopic Reviewed; Nitrate Urine Positive (Negative); Non Pathogenic Casts 0-2; Protein Urine Negative (Negative); Specific Grav Ur 1.007 (1.001-1.035); Squamous Epithelial Cell Urine None seen /hpf (Few); Urobilinogen Urine 0.2 mg/dL (<2.0); WBC Urine 21-50 /hpf (0-3)
[2023-06-12 21:45] LABS: Add Urine Microscopic? YES
[2023-06-12] MEDS: DEXTROSE 5% 1,000 ML 1,000 ML 100 ML IVPB (21:54)
[2023-06-13] VITALS (9 sets, daily range): BP systolic 96–146; BP diastolic 64–90; PULSE 58–85; RESP 16; TEMP 36.1–36.6; O2SAT 96–98
[2023-06-13 00:33] LABS: Glucose Point of Care 94 mg/dl (65-105)
[2023-06-13 00:33] LABS: Glucose Point of Care 79 mg/dl (65-105)
[2023-06-13] MEDS: DEXTROSE 5% 1,000 ML 1,000 ML 100 ML IVPB (05:56)
[2023-06-13 05:59] LABS: Basophils Percent Auto 0.2 % (0.2-1.2); Eosinophils Absolute Auto 0.1 K/mm3 (0-0.3); Eosinophils Percent Auto 1.4 % (0-4.4); Hematocrit 41.8 % (42.0-52.0); Hemoglobin 13.7 g/dL (14.0-18.0); Immature Granulocyte Absolute 0.02 K/mm3 (0.00-0.031); Immature Granulocyte Percent A 0.4 % (0-0.5); Immature Platelet Fraction Pct 11.8 % (0.9-11.2); Lymphocytes Absolute Auto 1.09 K/mm3 (0.9-3.2); Lymphocytes Percent Auto 21.7 % (18.3-44.2); Mean Corpuscular HGB Conc 32.8 g/dl (32-36); Mean Corpuscular Hemoglobin 30.1 pg (26-34); Mean Corpuscular Volume 91.9 fl (80-100); Mean Platelet Volume 11.9 fl (7.4-10.4); Monocytes Absolute Auto 0.3 K/mm3 (0.1-0.6); Neutrophils Absolute Auto 3.5 K/mm3 (1.3-6.7); Neutrophils Percent Auto 70.3 % (45.5-73.1); Platelet Count Result 73 k/mm3 (150-375); Red Blood Count 4.55 M/mm3 (4.6-6.20); Red Cell Distribution Width 16.3 % (11.5-14.5)
[2023-06-13 06:20] LABS: Alanine Aminotransferase 46 U/L (6-50); Albumin Level 3.9 g/dL (3.5-5.1); Alkaline Phosphatase 103 U/L (38-126); Anion Gap 5 mmol/L (8-16); Aspartate Amino Transferase 38 U/L (17-59); Bilirubin,Total 0.5 mg/dL (0.2-1.3); Blood Urea Nitrogen 8 mg/dL (9-20); Calcium 9.1 mg/dL (8.4-10.2); Carbon Dioxide 31 mmol/L (22-30); Chloride 103 mmol/L (98-107); Estimated CRCL calculation 152 ml/min; Estimated Glomerular Filt Rate > 60; Glucose 88 mg/dL (65-110); Potassium 4.4 mmol/L (3.4-5.0); Sodium 139 mmol/L (137-145)
[2023-06-13 06:30] LABS: Glucose Point of Care 79 mg/dl (65-105)
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
[2023-06-13] MEDS: VANCOMYCIN 1,250 MG/NS 250 ML 1,250 MG/250 ML BAG 166.67 MG IVPB ×2 (09:58→20:15)
[2023-06-13] MEDS: methADONE HCL (*CRX) 5 MG TABLET PO (10:00)
[2023-06-13] MEDS: MICONAZOLE NITRATE 2% CREAM 30 GM TUBE 1 APPLIC TOPICAL (10:01)
[2023-06-13 12:01] LABS: Glucose Point of Care 77 mg/dl (65-105)
[2023-06-13] MEDS: PREGABALIN (*CRX) 50 MG CAPSULE 200 MG PO ×2 (13:15→20:15)
[2023-06-13] MEDS: DEXTROSE 50% 25 GM/50 ML SYRINGE IV PUSH (13:15)
[2023-06-13 14:29] LABS: Glucose Point of Care 125 mg/dl (65-105)
--- NOTE | 2023-06-13 15:06 | PM.IMPN ---
Progress Note: A&P Assessment and Plan (1) Acute UTI: Code(s): N39.0 - Urinary tract infection, site not specified Status: Acute Assessment and Plan: UA: Cloudy, 2+ blood, positive nitrates, 3+ leuk esterase, 6-10 RBC, >100 WBC, yeast budding present, rare bacteria, no epithelial cells - Urine Culture with coag neg staph - Mental status not improving. Family states that he usually needs vancomycin to treat his UTIs. Assuming patient has hx of enterococcus - suprapubic catheter exchange today 06/13/23 - pt has been on ciprofloxacin for approximately 1 year due to UTIs. This was not a maintenance dose but treatment. - Due to being on Cipro for so long urine culture may not be accurate. Will treat with vancomycin at this time. (2) Pneumonia: Code(s): J18.9 - Pneumonia, unspecified organism Status: Acute Assessment and Plan: CT of the abdomen pelvis showing left upper lobe pneumonia. Unlikely aspiration pneumonia due to location. Started patient on azithromycin in addition to vancomycin. MRSA swab ordered. Patient not experiencing any coughing although according to the family he has difficulty coughing due to diaphragm restrictions secondary to quadriplegia. Patient has difficulty fully expanding his lungs (3) Transient confusion: Code(s): R41.0 - Disorientation, unspecified Status: Acute Assessment and Plan: - no focal deficits - Head CT unremarkable - suspect transient episodes of AMS are secondary to current UTI - if episodes persist despite atb/treatment of UTI, consider consultation to neuro for EEG and to r/o absent seizures - tele monitoring, repeat EKG in AM due to artifact on intake EKG - monitor glucose, hypoglycemia protocol in place - monitor BP, has previously been on midodrine. not currently prescribed this medication (4) Chronic pain syndrome: Code(s): G89.4 - Chronic pain syndrome Status: Acute Assessment and Plan: - continue home medications: Ibuprofen, methadone, nortriptyline, Lyrica Subjective Date/time seen: 06/13/23 15:06 Interval history: Had long discussion with patient and family members. Patient's mother and grandmother were in the room. Discussed that patients mental status is likely due to active infection. Will continue to monitor this. Hopeful to patient's mental status will improve with IV antibiotic therapy. Patient continues to have altered mental status will consider EEG. Patient's MRI was negative for acute stroke. Patient did have spine stimulator interrogated which showed his stimulator is working properly. Exam Narrative: GENERAL: Comfortable, no acute distress HENMT: moist mucous membranes EYES: EOM intact b/l NECK: no lymphadenopathy RESPIRATORY: clear to auscultation CARDIO: RRR GI: soft, nontender, bowel sounds present SKIN: no rashes EXTREMITIES: no edema, redness or tenderness Objective Data Vital Signs Vital Signs: Vital Signs - 24 hr 06/12/23 16:00 06/12/23 19:47 06/12/23 20:53 Temperature 97.6 F Pulse Rate 59 L 54 L 61 Respiratory Rate 16 16 Blood Pressure 127/91 H Pulse Oximetry 96 97 Oxygen Delivery Room Air 06/12/23 20:00 06/13/23 00:22 06/13/23 00:00 Temperature 97.8 F Pulse Rate 66 66 71 Respiratory Rate 16 Blood Pressure 113/90 Pulse Oximetry 96 Oxygen Delivery 06/13/23 04:00 06/13/23 06:33 06/13/23 10:00 Temperature 97.7 F Pulse Rate 58 L 60 Respiratory Rate 16 Blood Pressure 146/82 H Pulse Oximetry 98 Oxygen Delivery Room Air 06/13/23 08:00 06/13/23 14:36 06/13/23 12:00 Temperature 96.9 F L Pulse Rate 58 L 65 66 Respiratory Rate 16 Blood Pressure 96/64 L Pulse Oximetry 96 Oxygen Delivery Intake/Output Intake/Output: Intake & Output 06/10/23 06/11/23 06/12/23 06/13/23 23:59 23:59 23:59 23:59 Intake Total 290 1270 1270 Output Total 1200 4150 25
[2023-06-13] MEDS: AZITHROMYCIN 500 MG/NS 250 ML 500 MG/250 ML BAG 250 MG IVPB (15:25)
[2023-06-13 17:49] LABS: MRSA (PCR) NOT DETECTED (NOT DETECTE)
[2023-06-13 18:25] LABS: Glucose Point of Care 196 mg/dl (65-105)
[2023-06-13] MEDS: SOLIFENACIN 5 MG TABLET 10 MG PO (20:15)
[2023-06-13] MEDS: NORTRIPTYLINE HCL 25 MG CAPSULE PO (20:15)
[2023-06-13] MEDS: ACIDOPHILUS/BULGARICUS CHEWABLE TABLET 1 TABLET PO (20:15)
[2023-06-13] MEDS: DOCUSATE SODIUM LIQ 100 MG/10 ML UDC 50 MG PO (20:16)
[2023-06-14 00:37] LABS: Glucose Point of Care 69 mg/dl (65-105)
[2023-06-14] MEDS: DEXTROSE 5% 1,000 ML 1,000 ML 100 ML IVPB (00:43)
[2023-06-14 05:45] LABS: Hematocrit 40.9 % (42.0-52.0); Hemoglobin 13.5 g/dL (14.0-18.0); Immature Platelet Fraction Pct 12.1 % (0.9-11.2); Mean Corpuscular Hemoglobin 30.4 pg (26-34); Mean Corpuscular Volume 92.1 fl (80-100); Mean Platelet Volume 11.7 fl (7.4-10.4); Platelet Count Result 65 k/mm3 (150-375); Red Blood Count 4.44 M/mm3 (4.6-6.20); Red Cell Distribution Width 16.3 % (11.5-14.5)
[2023-06-14 05:49] LABS: Anion Gap 3 mmol/L (8-16); Blood Urea Nitrogen 8 mg/dL (9-20); Calcium 8.8 mg/dL (8.4-10.2); Carbon Dioxide 34 mmol/L (22-30); Chloride 104 mmol/L (98-107); Estimated CRCL calculation 152 ml/min; Estimated Glomerular Filt Rate > 60; Glucose 92 mg/dL (65-110); Potassium 4.1 mmol/L (3.4-5.0); Sodium 141 mmol/L (137-145)
[2023-06-14 06:00] VITALS: BP 119/67; PULSE 60; RESP 16; TEMP 36.6; O2SAT 99
[2023-06-14] MEDS: PREGABALIN (*CRX) 50 MG CAPSULE 200 MG PO ×3 (06:10→20:27)
[2023-06-14 06:14] LABS: Glucose Point of Care 81 mg/dl (65-105)
[2023-06-14] MEDS: VANCOMYCIN 1,250 MG/NS 250 ML 1,250 MG/250 ML BAG 166.67 MG IVPB ×2 (08:32→21:20)
[2023-06-14] MEDS: PANTOPRAZOLE 40 MG TABLET PO (08:33)
[2023-06-14] MEDS: MULTIVITAMINS THERAPEUTIC TAB (*BKC) 1 TABLET PO (08:33)
[2023-06-14] MEDS: VITAMIN B COMPLEX CAPSULE 1 CAP PO (08:33)
[2023-06-14] MEDS: MICONAZOLE NITRATE 2% CREAM 30 GM TUBE 1 APPLIC TOPICAL (08:33)
[2023-06-14] MEDS: methADONE HCL (*CRX) 5 MG TABLET PO (08:33)
[2023-06-14 08:40] VITALS: PULSE 72
[2023-06-14 12:00] VITALS: PULSE 72
[2023-06-14 12:42] LABS: Glucose Point of Care 48 mg/dl (65-105)
[2023-06-14 12:42] LABS: Glucose Point of Care 50 mg/dl (65-105)
[2023-06-14 13:31] LABS: Glucose Point of Care 136 mg/dl (65-105)
--- NOTE | 2023-06-14 14:02 | PM.IMPN ---
Progress Note: A&P Assessment and Plan (1) Acute UTI: Code(s): N39.0 - Urinary tract infection, site not specified Status: Acute Assessment and Plan: UA: Cloudy, 2+ blood, positive nitrates, 3+ leuk esterase, 6-10 RBC, >100 WBC, yeast budding present, rare bacteria, no epithelial cells - Urine Culture with coag neg staph - Mental status not improving. Family states that he usually needs vancomycin to treat his UTIs. Assuming patient has hx of enterococcus - suprapubic catheter exchange today 06/13/23 - pt has been on ciprofloxacin for approximately 1 year due to UTIs. This was not a maintenance dose but treatment. - Due to being on Cipro for so long urine culture may not be accurate. Will treat with vancomycin at this time. - Pts mental status improving. (2) Pneumonia: Code(s): J18.9 - Pneumonia, unspecified organism Status: Acute Assessment and Plan: CT of the abdomen pelvis showing left upper lobe pneumonia. Unlikely aspiration pneumonia due to location. Started patient on azithromycin in addition to vancomycin. MRSA swab negative. Patient not experiencing any coughing although according to the family he has difficulty coughing due to diaphragm restrictions secondary to quadriplegia. Patient has difficulty fully expanding his lungs (3) Transient confusion: Code(s): R41.0 - Disorientation, unspecified Status: Acute Assessment and Plan: - no focal deficits - Head CT unremarkable - suspect transient episodes of AMS are secondary to current UTI - if episodes persist despite atb/treatment of UTI, consider consultation to neuro for EEG and to r/o absent seizures - tele monitoring, repeat EKG in AM due to artifact on intake EKG - monitor glucose, hypoglycemia protocol in place - monitor BP, has previously been on midodrine. not currently prescribed this medication - 06/14/23 mental status improved (4) Chronic pain syndrome: Code(s): G89.4 - Chronic pain syndrome Status: Acute Assessment and Plan: - continue home medications: Ibuprofen, methadone, nortriptyline, Lyrica Subjective Date/time seen: 06/14/23 14:02 Interval history: Patient doing much better today. He denies any pain at this time. He feels more awake and less fatigued today. He is much more talkative than he is alert oriented x4. Continue current management. Exam Narrative: GENERAL: Comfortable, no acute distress HENMT: moist mucous membranes EYES: EOM intact b/l NECK: no lymphadenopathy RESPIRATORY: clear to auscultation CARDIO: RRR GI: soft, nontender, bowel sounds present SKIN: no rashes EXTREMITIES: no edema, redness or tenderness Objective Data Vital Signs Vital Signs: Vital Signs - 24 hr 06/13/23 14:36 06/13/23 16:00 06/13/23 20:16 Temperature 96.9 F L 97.6 F Pulse Rate 65 80 85 Respiratory Rate 16 16 Blood Pressure 96/64 L 117/75 Pulse Oximetry 96 96 Oxygen Delivery 06/13/23 20:00 06/14/23 06:00 06/14/23 08:40 Temperature 97.8 F Pulse Rate 60 72 Respiratory Rate 16 Blood Pressure 119/67 Pulse Oximetry 99 Oxygen Delivery Room Air 06/14/23 08:40 06/14/23 12:00 Temperature Pulse Rate 72 Respiratory Rate Blood Pressure Pulse Oximetry Oxygen Delivery Room Air Intake/Output Intake/Output: Intake & Output 06/11/23 06/12/23 06/13/23 06/14/23 23:59 23:59 23:59 23:59 Intake Total 290 1270 3250 1730 Output Total 1200 4150 3800 2950 Balance -910 -2880 -550 -1220 Meds/Results Medications: Active Medications Generic Name Dose Route Start Last Admin Trade Name Hugoq PRN Reason Stop Dose Admin Acetaminophen 650 mg 06/11/23 14:51 06/11/23 20:37 Acetaminophen 325 Mg Tablet PO 650 mg Q4H PRN Administration Mild Pain (1-3) or Fever Hydrocodone Bitart/Acetaminophen 1 tab 06/11/23 14:51 Hydrocodone/Acetaminophen (*Crx) 5-325 Mg Tablet PO
[2023-06-14 14:06] VITALS: BP 105/59; PULSE 72; RESP 14; TEMP 35.8; O2SAT 98
[2023-06-14] MEDS: AZITHROMYCIN 500 MG/NS 250 ML 500 MG/250 ML BAG 250 MG IVPB (14:36)
[2023-06-14] MEDS: IBUPROFEN 200 MG TABLET PO (14:36)
[2023-06-14 17:13] LABS: Glucose Point of Care 60 mg/dl (65-105)
[2023-06-14 17:44] LABS: Glucose Point of Care 127 mg/dl (65-105)
[2023-06-14 19:40] LABS: Vancomycin Trough 13.9 ug/mL (10.0-20.0)
[2023-06-14] MEDS: SOLIFENACIN 5 MG TABLET 10 MG PO (20:27)
[2023-06-14] MEDS: ACIDOPHILUS/BULGARICUS CHEWABLE TABLET 1 TABLET PO (20:27)
[2023-06-14] MEDS: NORTRIPTYLINE HCL 25 MG CAPSULE PO (20:27)
[2023-06-14 21:11] VITALS: BP 110/63; PULSE 62; RESP 18; TEMP 36.2; O2SAT 97
[2023-06-15 00:44] LABS: Glucose Point of Care 74 mg/dl (65-105)
[2023-06-15] MEDS: PREGABALIN (*CRX) 50 MG CAPSULE 200 MG PO ×2 (05:05→12:02)
[2023-06-15 06:00] VITALS: BP 144/89; PULSE 54; RESP 18; O2SAT 96
[2023-06-15 06:06] LABS: Hematocrit 39.7 % (42.0-52.0); Hemoglobin 12.7 g/dL (14.0-18.0); Immature Platelet Fraction Pct 11.4 % (0.9-11.2); Mean Corpuscular Volume 93.6 fl (80-100); Mean Platelet Volume 11.8 fl (7.4-10.4); Platelet Count Result 64 k/mm3 (150-375); Red Blood Count 4.24 M/mm3 (4.6-6.20); Red Cell Distribution Width 16.4 % (11.5-14.5); White Blood Count 5.7 K/mm3 (4.5-10.0)
[2023-06-15 06:43] LABS: Anion Gap 2 mmol/L (8-16); Blood Urea Nitrogen 9 mg/dL (9-20); Calcium 8.7 mg/dL (8.4-10.2); Carbon Dioxide 33 mmol/L (22-30); Chloride 107 mmol/L (98-107); Estimated CRCL calculation 152 ml/min; Estimated Glomerular Filt Rate > 60; Glucose 65 mg/dL (65-110); Sodium 142 mmol/L (137-145)
[2023-06-15 07:44] LABS: Glucose Point of Care 64 mg/dl (65-105)
[2023-06-15] MEDS: VANCOMYCIN 1,250 MG/NS 250 ML 1,250 MG/250 ML BAG 166.67 MG IVPB (07:55)
[2023-06-15] MEDS: MULTIVITAMINS THERAPEUTIC TAB (*BKC) 1 TABLET PO (07:56)
[2023-06-15] MEDS: methADONE HCL (*CRX) 5 MG TABLET PO (07:56)
[2023-06-15] MEDS: VITAMIN B COMPLEX CAPSULE 1 CAP PO (07:56)
[2023-06-15] MEDS: PANTOPRAZOLE 40 MG TABLET PO (07:56)
[2023-06-15] MEDS: MICONAZOLE NITRATE 2% CREAM 30 GM TUBE 1 APPLIC TOPICAL (07:57)
[2023-06-15] MEDS: AZITHROMYCIN 250 MG TABLET 500 MG PO (08:02)
[2023-06-15 08:18] LABS: Glucose Point of Care 67 mg/dl (65-105)
[2023-06-15 11:50] LABS: Glucose Point of Care 56 mg/dl (65-105)
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
[2023-06-15 13:42] LABS: Glucose Point of Care 78 mg/dl (65-105)
[2023-06-15 14:00] VITALS: BP 99/57; PULSE 69; RESP 16; TEMP 36.2; O2SAT 95
== END 2023-06-15 15:50 | disposition home or self-care (01) | DRG 698 ==
LOC: ANHED 14:50 → ANH2MED 16:28
PROVIDERS: Internal Medicine; Student in an Organized Health Care Education/Training Program; Admitting Provider Internal Medicine; Emergency Provider Emergency Medicine; PCP Family Medicine; Visit Provider Internal Medicine Critical Care Medicine
DX: T83.510A Infection and inflammatory reaction due to cystostomy catheter, initial encounter (principal); G82.50 Quadriplegia, unspecified; J18.9 Pneumonia, unspecified organism; N39.0 Urinary tract infection, site not specified; B95.7 Other staphylococcus as the cause of diseases classified elsewhere; N31.9 Neuromuscular dysfunction of bladder, unspecified; G89.4 Chronic pain syndrome; M85.80 Other specified disorders of bone density and structure, unspecified site; G62.9 Polyneuropathy, unspecified; E55.9 Vitamin D deficiency, unspecified; D50.9 Iron deficiency anemia, unspecified; E16.2 Hypoglycemia, unspecified; Z86.16 Personal history of COVID-19; Z98.1 Arthrodesis status; V89.2XXS Person injured in unspecified motor-vehicle accident, traffic, sequela
CPT/HCPCS: 36415; 70450; 70553; 71045; 74176; 80048; 80053; 80202; 81001; 82948; 83605; 85025; 85027; 85055; 85610; 85730; 87040; 87086; 87181; 87641; 93005; 96365; 96366; 96367; 96368; 96376; 99285; A9270; A9577; G0378; J0456; J0696; J3370; J7070

== ENCOUNTER 2023-06-26 13:52 | Outpatient (CLI) | payer MEDICARE, MEDICAID, SELFPAY ==
--- NOTE | ~2023-06-26 | XR_ITS ---
Right Knee Technique: AP, lateral, and oblique views were obtained. Clinical History: Pain Findings: No fracture or dislocation is seen. Osseous alignment is anatomic. Joint spaces are preserv ed without degenerative or erosive change. Soft tissues are unremarkable. No joint effusion is seen. Impression: Unremarkable right knee radiographs. Reviewed, dictated and finalized at [facility]. T LIME DRAWER Impression: Unremarkable right knee radiographs.
[2023-06-26 14:19] LABS: Hematocrit 37.3 % (42.0-52.0); Hemoglobin 12.1 g/dL (14.0-18.0); Mean Corpuscular HGB Conc 32.4 g/dl (32-36); Mean Corpuscular Hemoglobin 30.7 pg (26-34); Mean Corpuscular Volume 94.7 fl (80-100); Mean Platelet Volume 11.8 fl (7.4-10.4); Platelet Count Result 112 k/mm3 (150-375); Red Blood Count 3.94 M/mm3 (4.6-6.20); Red Cell Distribution Width 16.4 % (11.5-14.5); White Blood Count 4.2 K/mm3 (4.5-10.0)
[2023-06-26 14:25] LABS: Alanine Aminotransferase 54 U/L (6-50); Albumin Level 3.8 g/dL (3.5-5.1); Alkaline Phosphatase 91 U/L (38-126); Anion Gap 2 mmol/L (8-16); Aspartate Amino Transferase 47 U/L (17-59); Bilirubin,Total 0.3 mg/dL (0.2-1.3); Blood Urea Nitrogen 17 mg/dL (9-20); Calcium 9.3 mg/dL (8.4-10.2); Carbon Dioxide 33 mmol/L (22-30); Chloride 103 mmol/L (98-107); Estimated Glomerular Filt Rate > 60; Glucose 91 mg/dL (65-110); Potassium 5.4 mmol/L (3.4-5.0); Sodium 138 mmol/L (137-145)
[2023-06-26 15:22] LABS: Appearance Urine Cloudy (Clear); Bacteria Urine None Seen /hpf; Bilirubin Urine Negative (Negative); Blood Urine Negative (Negative); Budding Yeast Urine Present /hpf; Color Urine Dark Yellow (Yellow); Glucose Urine UA Negative (Negative); Ketones Urine Negative (Negative); Leukocyte Esterase Ur 2+ LEU/UL (NEGATIVE); Nitrate Urine Negative (Negative); Non Pathogenic Casts 0-2; Protein Urine Trace mg/dL (Negative); Specific Grav Ur 1.017 (1.001-1.035); Squamous Epithelial Cell Urine None seen /hpf (Few); Urobilinogen Urine 0.2 mg/dL (<2.0); WBC Urine >100 /hpf (0-3)
[2023-06-26 15:23] LABS: Add Urine Microscopic? YES
[2023-06-26 15:39] LABS: Hemoglobin A1C 4.5 % (<5.7)
== END 2023-06-26 13:53 | disposition home or self-care (01) ==
PROVIDERS: PCP Family Medicine; Visit Provider Family Medicine
DX: M25.561 Pain in right knee (principal); G89.4 Chronic pain syndrome; J18.9 Pneumonia, unspecified organism; M79.2 Neuralgia and neuritis, unspecified; N31.9 Neuromuscular dysfunction of bladder, unspecified; N39.0 Urinary tract infection, site not specified; R41.0 Disorientation, unspecified; L89.90 Pressure ulcer of unspecified site, unspecified stage; R73.9 Hyperglycemia, unspecified; T78.40XA Allergy, unspecified, initial encounter
CPT/HCPCS: 36415; 73562; 80053; 81001; 83036; 85027; 85055; 86003; 87086; 87088; 87106

== ENCOUNTER 2023-06-29 13:08 | Inpatient (IN) | payer MEDICARE, MEDICAID, SELFPAY ==
[2023-06-29] VITALS (10 sets, daily range): BP systolic 66–132; BP diastolic 34–85; PULSE 40–70; RESP 9–18; TEMP 35.1–35.7; O2SAT 96–100; BMI 24.7
--- NOTE | ~2023-06-29 | CT_ITS ---
EXAMINATION: CT brain wo con DATE: 06/29/2023 13:43 INDICATION: Altered mental status. TECHNIQUE: Computed tomography (CT) of the head was performed without intravenous contrast. The mA wa s adjusted according to patient size. Iterative reconstruction technique was employed. The dose-lengt h product was 605.33 mGy-cm. COMPARISON: Head CT 06/11/2023, brain MRI 06/13/2023 FINDINGS: There is no intracranial hemorrhage, acute infarction, or abnormal intracranial mass lesion . The ventricles are normal in size. There is mild mucosal thickening in the paranasal sinuses. The o rbits are normal. The mastoid air cells are normal. IMPRESSION: 1. Normal brain. Reviewed, dictated and finalized at location A. PRESS OPERATOR IMPRESSION: 1. Normal brain.
--- NOTE | ~2023-06-29 | XR_ITS ---
Portable chest x-ray Comparison: 06/29/2023 Clinical History: Pneumonia Findings: Left-sided PICC line is in place. Lungs are clear, without focal consolidation or pleural effusion. Cardiomediastinal silhouette is stable. Bones and soft tissues are unremarkable. Impression: Clear lungs. Left-sided PICC line. Reviewed, dictated and finalized at location . READER Impression: Clear lungs. Left-sided PICC line.
--- NOTE | ~2023-06-29 | XR_ITS ---
EXAMINATION: XR chest 1V DATE: 06/29/2023 13:45 INDICATION: Altered mental status. Bradycardia. TECHNIQUE: A single frontal view of the chest was obtained. COMPARISON: Chest single view 06/13/2023, CT abdomen and pelvis 06/13/2023 FINDINGS: There are mild airspace opacities in left upper lobe and left lower lobe. No pleural effusi on or pneumothorax. The heart size is normal. There are changes of posterior fusion procedure in cerv ical spine. IMPRESSION: 1. Mild airspace opacities in left upper lobe and left lower lobe, likely pneumonia. Reviewed, dictated and finalized at location A. EGG PACKER IMPRESSION: 1. Mild airspace opacities in left upper lobe and left lower lobe, likely pneum onia.
--- NOTE | ~2023-06-29 | CT_ITS ---
EXAMINATION:CT diagnostic chest wo con DATE: 06/30/2023 09:56 INDICATION: Abnormal chest radiograph. Mental status change. TECHNIQUE: Computed tomography (CT) of the chest was performed without intravenous contrast. Automate d exposure control and iterative reconstruction technique were employed. The dose-length product (DLP ) was 702.11 mGy-cm. COMPARISON: CT abdomen and pelvis 06/13/2023, 04/30/23, 06/22/22, chest single view 06/29/2023 FINDINGS: There are centrilobular nodules and tree-in-bud opacities in the upper lobes. There is mild atelectasis in the lower lobes. There are tree-in-bud opacities in left lower lobe. There is a 12 mm nodule in right thyroid lobe, likely not clinically significant. The heart size is normal. No perica rdial effusion. There is bilateral gynecomastia. There is an intrathecal catheter. There are changes of posterior fusion procedure in cervical spine. There is mild thoracic spondylosis. There is a burst fracture of L2 with 2/5 loss of height. There is levoscoliosis of upper thoracic spine. IMPRESSION: 1. Pneumonia involving the upper lobes and left lower lobe. 2. Subacute L2 burst fracture, stable from 04/30/2023. Reviewed, dictated and finalized at location E. S DATA WRITER
--- NOTE | 2023-06-29 13:06 | ED.AMS ---
HPI - Altered Mental Status General Chief Complaint: Altered Mental Status <Elmer Wilson APRN - Last Filed: 06/29/23 16:15> Stated Complaint: ams <Elmer Wilson APRN - Last Filed: 06/29/23 16:15> Time Seen by Provider: 06/29/23 13:10 <Elmer Wilson APRN - Last Filed: 06/29/23 16:15> Source: family, EMS, RN notes reviewed and old records reviewed <Elmer Wilson APRN - Last Filed: 06/29/23 16:15> Mode of arrival: ambulatory <Elmer Wilson APRN - Last Filed: 06/29/23 16:15> Limitations: no limitations <Elmer Wilson APRN - Last Filed: 06/29/23 16:15> History of Present Illness HPI narrative: Segundo is a 42-year-old male quadriplegia patient presenting to the ER today with complaints altered mental status. Mother reports patient has a history of bradycardia and hypothermia. States that he became more altered this morning and he has a current urinary tract infection. Is currently taking Bactrim for the past 2 days for urinary tract infection. Mother reports that he had recent admission to the hospital for urine infection and placed on vanco at that time. Patient is awake and alert to verbal and tactile response. Denies any pain at this time. Blood sugar was 68 upon arrival. <Elmer Wilson APRN - Last Filed: 06/29/23 16:15> Related Data Home Medications: Home Medications Medication Instructions Recorded Confirmed Lactobacillus 1 cap PO HS 06/22/22 06/29/23 acidophilus-Bifidobac.animalis 2.5 billion cell capsule (Daily Probiotic) ibuprofen 200 mg tablet 200 mg PO Q6H PRN Pain (Scale 06/22/22 06/29/23 Score 1-3) multivitamin 1 tablet PO DAILY 06/22/22 06/29/23 nortriptyline 25 mg capsule 25 mg PO HS 06/22/22 06/29/23 polyethylene glycol 3350 17 gram 17 - 34 g PO HS PRN Constipation 06/22/22 06/29/23 oral powder packet (Miralax) vitamin B complex 1 cap PO DAILY 06/22/22 06/29/23 docusate sodium 50 mg capsule 100 mg PO HS 06/11/23 06/29/23 pregabalin 200 mg capsule (Lyrica) 200 mg PO Q8H 06/11/23 06/29/23 ramelteon 8 mg tablet 8 mg PO QHS sleep 06/29/23 06/29/23 <Elmer Wilson APRN - Last Filed: 06/29/23 16:15> Allergies/Adverse Reactions: Allergies Allergy/AdvReac Type Severity Reaction Status Date / Time adhesive tape Allergy Rash Verified 06/26/23 13:03 <Elmer Wilson APRN - Last Filed: 06/29/23 16:15> Review of Systems Review of Systems: Pertinent positives per HPI. Patient denies any fever, chills, rash, headache, visual changes, dizziness, cough, runny nose, sore throat, shortness of breath, chest pain, palpitations, nausea, vomiting, diarrhea, constipation, abdominal pain. <Elmer Wilson APRN - Last Filed: 06/29/23 16:15> [facility] Past Medical History Medical History: Medical History (Updated 06/29/23 @ 17:22 by Neil Welch MD) Anemia Anxiety Chronic pain syndrome Chronic seasonal allergic rhinitis Chronic, continuous use of opioids COVID-19 Erectile dysfunction Hypertriglyceridemia Hypotension Insomnia Nephrolithiasis Osteopenia determined by x-ray Peripheral neuropathy Quadriplegia Sensorineural hearing loss of combined sites, bilateral Vitamin D deficiency <Elmer Wilson APRN - Last Filed: 06/29/23 16:15> Surgical History Surgical History: Surgical History History of colostomy History of fusion of cervical spine C2-C6. History of tracheostomy Status post insertion of spinal cord stimulator <Elmer Wilson APRN - Last Filed: 06/29/23 16:15> Family History Family History: Family History Mother Patient's mother is in good health Sibling Patient's brother is in good health Father Patient's father is in good health <Elmer Wilson APRN - Last Filed: 06/29/23 16:15> Social History Social History: Social Histor
--- NOTE | 2023-06-29 13:12 | ECG_ITS ---
Measurements Intervals Regent Rate: 45 P: 42 AR: 231 QRS: 32 QRSD: 116 T: 58 QT: 456 QTc: 395 Interpretive Statements SINUS BRADYCARDIA WITH FIRST DEGREE AV BLOCK INTRAVENTRICULAR CONDUCTION DELAY BASELINE ARTIFACT- I, II, III, AVR, AVF, V4-V6 ABNORMAL ECG COMPARED TO ECG 06/12/2023 08:25:28 SINUS BRADYCARDIA NOW PRESENT Electronically Signed On 06-29-2023 15:28:09 MOTION PICTURE SET GRIP by Kike Villegas D.O.
[2023-06-29 13:14] LABS: Glucose Point of Care 68 mg/dl (65-105)
[2023-06-29] MEDS: DEXTROSE 50% 25 GM/50 ML SYRINGE IV PUSH (13:21)
[2023-06-29] MEDS: SODIUM CHLORIDE 0.9% IV 1,000 ML 999 ML IV CONT (13:21)
[2023-06-29 13:27] LABS: Basophils Percent Auto 0.2 % (0.2-1.2); Eosinophils Absolute Auto 0.1 K/mm3 (0-0.3); Eosinophils Percent Auto 0.9 % (0-4.4); Hematocrit 38.3 % (42.0-52.0); Hemoglobin 12.4 g/dL (14.0-18.0); Immature Granulocyte Absolute 0.01 K/mm3 (0.00-0.031); Immature Granulocyte Percent A 0.2 % (0-0.5); Immature Platelet Fraction Pct 8.9 % (0.9-11.2); Lymphocytes Absolute Auto 1.58 K/mm3 (0.9-3.2); Lymphocytes Percent Auto 28.6 % (18.3-44.2); Mean Corpuscular HGB Conc 32.4 g/dl (32-36); Mean Corpuscular Hemoglobin 30.5 pg (26-34); Mean Corpuscular Volume 94.1 fl (80-100); Mean Platelet Volume 11.9 fl (7.4-10.4); Monocytes Absolute Auto 0.4 K/mm3 (0.1-0.6); Neutrophils Absolute Auto 3.4 K/mm3 (1.3-6.7); Neutrophils Percent Auto 62.1 % (45.5-73.1); Platelet Count Result 98 k/mm3 (150-375); Red Blood Count 4.07 M/mm3 (4.6-6.20); Red Cell Distribution Width 16.4 % (11.5-14.5); White Blood Count 5.5 K/mm3 (4.5-10.0)
[2023-06-29 13:36] LABS: Prothrombin Time 13.2 Seconds (11.1-14.7)
[2023-06-29 13:37] LABS: Lactic Acid Reflex 0.5 mmol/L (0.7-2.0); Partial Thromboplastin Time 39.6 SECONDS (22.3-36.8)
[2023-06-29 13:39] LABS: Alanine Aminotransferase 55 U/L (6-50); Albumin Level 3.7 g/dL (3.5-5.1); Alkaline Phosphatase 84 U/L (38-126); Anion Gap 1 mmol/L (8-16); Aspartate Amino Transferase 52 U/L (17-59); Bilirubin,Total 0.5 mg/dL (0.2-1.3); Blood Urea Nitrogen 20 mg/dL (9-20); CRP < 0.5 mg/dL (<1.0); Calcium 8.8 mg/dL (8.4-10.2); Carbon Dioxide 31 mmol/L (22-30); Chloride 104 mmol/L (98-107); Estimated Glomerular Filt Rate > 60; Glucose 69 mg/dL (65-110); Potassium 5.6 mmol/L (3.4-5.0); Sodium 136 mmol/L (137-145)
[2023-06-29 14:13] LABS: Influenza A QL RT-PCR Negative (Negative); Influenza B QL RT-PCR Negative (Negative); RSV RNA, RT-PCR Negative (Negative); SARS-CoV-2 RNA PCR Negative (Negative)
[2023-06-29 14:42] LABS: Appearance Urine Clear (Clear); Bacteria Urine None Seen /hpf; Bilirubin Urine Negative (Negative); Blood Urine Negative (Negative); Color Urine Yellow (Yellow); Glucose Urine UA Negative (Negative); Ketones Urine Negative (Negative); Leukocyte Esterase Ur 2+ LEU/UL (Negative); Need Manual Microscopic Reviewed; Nitrate Urine Negative (Negative); Protein Urine Negative (Negative); Specific Grav Ur 1.009 (1.001-1.035); Squamous Epithelial Cell Urine None seen /hpf (Few); Urobilinogen Urine 0.2 mg/dL (<2.0); WBC Urine 21-50 /hpf
[2023-06-29] MEDS: CEFEPIME 1 GM/NS 50 ML 1 GM/50 ML BAG IVPB ×2 (14:50→23:46)
[2023-06-29 14:54] LABS: Add Urine Microscopic? YES
[2023-06-29] MEDS: VANCOMYCIN 1,250 MG/NS 250 ML 1,250 MG/250 ML BAG 166.67 MG IVPB ×2 (15:45→17:13)
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
--- NOTE | 2023-06-29 16:20 | ADMGEN ---
This patient, Segundo Wetzel, was admitted to Medical Room 342-01. Patient/family oriented to hospital policies and general routines including ID bracelet, bed and alarms, visiting hours, pain management, procedures, bathroom and other care routines, personal items, smoking policy, room service/diet, and visiting hours. Information on how to activate the Rapid Response Team has been discussed. Patient/Family are encouraged to report perceived risks to care and to ask questions if they do not understand what they are told or what they should do.
[2023-06-29 16:52] LABS: MRSA (PCR) NOT DETECTED (NOT DETECTE)
[2023-06-29] MEDS: DEXTROSE 5%/0.9% SOD CHL 1,000 ML 100 ML IV CONT (17:13)
[2023-06-29 17:16] LABS: Glucose Point of Care 62 mg/dl (65-105)
[2023-06-29 18:11] LABS: Troponin I < 0.012 ng/mL (0.000-0.034)
[2023-06-29] MEDS: DOXYCYCLINE 100 MG/NS 100 ML 100 MG/100 ML BAG IVPB (20:47)
[2023-06-29] MEDS: FLUCONAZOLE 400 MG/NACL 200 ML 400 MG/200 ML BAG 100 MG IVPB (21:36)
[2023-06-29] MEDS: LACTATED RINGERS 1,000 ML 999 ML IV CONT ×2 (21:50→22:03)
[2023-06-29] MEDS: NALOXONE HCL 0.4 MG/ML VIAL 0.1 MG IV PUSH ×3 (21:51→21:53)
[2023-06-29 22:05] LABS: Alveolar/Arterial O2 Gradient < 0.0 mmHg; Base Excess ABG 0.2 mEq/l (+/-2.0); Fractional Inspired Oxygen 21 %; HCO3 ABG 28.7 mEq/l (22.0-26.0); Oxygen Content ABG 15.7 %vol (16.0-22.0); Oxygen Saturation ABG 93.6 % (95.0-100.0); Oxyhemoglobin 92.7 % THb (90.0-100.0); PO2 ABG 80.1 mmHg (80.0-100.0); PO2 FiO2 Ratio Arterial Blood 3.81 %
[2023-06-29 22:07] LABS: PCO2 ABG 66.8 mmHg (35.0-45.0); pH ABG 7.251 (7.350-7.450)
[2023-06-29 22:08] LABS: Modified Allen's Test Pass; Site Drawn LEFT RADIAL
[2023-06-29 22:15] LABS: Glucose Point of Care 201 mg/dl (65-105)
--- NOTE | 2023-06-29 22:22 | P.PNCROSS_ITS ---
Event Note Event Note Event Note: At 9:31 p.m. notified by patient's nurse he was snoring and unable to be arouse d. Upon evaluation the patient was having a very deep snoring and unable to wake up with deep sternal chest rub. His mother at bedside who is his manufacturing plant manager reports the patient has been in and out of hospitals becoming altered whenever he is sick. However, this is more than usual. Vitals included temperature 95.2? F which is not far from his normal, heart rate 46, respiratory rate 10 blood pressure 78/46. Narcan 0.4 mg IV x1 given and immediately after arterial puncture for ABG the patient woke up back to his normal mental status, reporting the pain will come. He is likely overdosed on methadone/Lyrica due to his hypotension and decreased metabolic clearance among other factors. His Lyrica and methadone have been discontinued altogether. Ammonia level pending. Repeat BMP and magnesium for hyperkalemia is also pending. His ABG demonstrating a pH is 7.2 with a pCO2 of 66.8 and a bicarb 28.7. It appears he has a respiratory acidosis secondary to hypercapnia secondary to somnolence. We do not have ABG comparisons, maybe there is a small component of chronicity given the partial compensation with metabolic alkalosis. None the less BiPAP has been ordered continuously with settings 12/6 and respiratory rate 12. Repeat ABG in the a.m. Avoid sedatives and narcotics He was also given another 2 L of lactated Ringer's for hypotension although correcting his acidosis would be most useful.
[2023-06-29 22:37] LABS: Immature Reticulocyte Fraction 8.5 % (3.0-15.9); Reticulocyte Hemoglobin Conten 32.4 pg (28.2-35.7); Reticulocyte Percent 1.98 % (0.7-4.3); Reticulocytes Absolute 0.08 M/mm3 (0.02-0.1)
[2023-06-29 22:49] LABS: Ammonia < 9 umol/L (9-30); Anion Gap 4 mmol/L (8-16); Blood Urea Nitrogen 15 mg/dL (9-20); Calcium 8.4 mg/dL (8.4-10.2); Carbon Dioxide 25 mmol/L (22-30); Chloride 113 mmol/L (98-107); Estimated CRCL calculation 129 ml/min; Estimated Glomerular Filt Rate > 60; Glucose 154 mg/dL (65-110); Magnesium 2.2 mg/dL (1.6-2.3); Potassium 5.2 mmol/L (3.4-5.0); Sodium 142 mmol/L (137-145)
[2023-06-29 22:49] LABS: Iron 89 ug/dL (49-181)
[2023-06-29 22:58] LABS: Percent Iron Saturation 30 % (20-50)
[2023-06-29 23:06] LABS: Procalcitonin 0.1 ng/mL
[2023-06-29 23:20] LABS: Hepatitis B Surface Antigen Negative (Negative)
[2023-06-29] MEDS: ALBUTEROL SULFATE NEB 2.5 MG/3 ML INH INHALATION (23:30)
[2023-06-29 23:31] LABS: HIV 1/2 Ab P24 Ag Result Negative (Negative)
[2023-06-29 23:57] LABS: Folic Acid 10.7 ng/mL (2.76->20); Vitamin B12 > 1000.0 pg/mL (239-931)
[2023-06-30] VITALS (23 sets, daily range): BP systolic 98–159; BP diastolic 52–95; PULSE 55–96; RESP 8–26; TEMP 33.9–37.2; O2SAT 97–100
[2023-06-30] MEDS: VANCOMYCIN 1,500 MG/NS 500 ML 1,500 MG/500 ML BAG 125 MG IVPB ×2 (03:03→16:41)
[2023-06-30] MEDS: DOXYCYCLINE 100 MG/NS 100 ML 100 MG/100 ML BAG IVPB ×2 (05:48→17:55)
[2023-06-30 05:53] LABS: Alveolar/Arterial O2 Gradient < 0.0 mmHg; Base Excess ABG 2.7 mEq/l (+/-2.0); Fractional Inspired Oxygen 21 %; HCO3 ABG 29.2 mEq/l (22.0-26.0); Oxygen Content ABG 15.7 %vol (16.0-22.0); Oxygen Saturation ABG 97.8 % (95.0-100.0); PCO2 ABG 53.8 mmHg (35.0-45.0); PO2 FiO2 Ratio Arterial Blood 5.29 %; Total Hemoglobin 11.5 g/dL (12.0-18.0); pH ABG 7.352 (7.350-7.450)
[2023-06-30 05:54] LABS: Modified Allen's Test Pass; Site Drawn LEFT RADIAL
[2023-06-30 05:58] LABS: Hematocrit 33.9 % (42.0-52.0); Hemoglobin 10.8 g/dL (14.0-18.0); Immature Platelet Fraction Pct 10.8 % (0.9-11.2); Mean Corpuscular HGB Conc 31.9 g/dl (32-36); Mean Corpuscular Volume 97.4 fl (80-100); Mean Platelet Volume 11.8 fl (7.4-10.4); Platelet Count Result 78 k/mm3 (150-375); Red Blood Count 3.48 M/mm3 (4.6-6.20); Red Cell Distribution Width 16.7 % (11.5-14.5)
[2023-06-30 06:24] LABS: Alanine Aminotransferase 46 U/L (6-50); Alkaline Phosphatase 75 U/L (38-126); Anion Gap -1 mmol/L (8-16); Aspartate Amino Transferase 37 U/L (17-59); Bilirubin,Total 0.2 mg/dL (0.2-1.3); Blood Urea Nitrogen 13 mg/dL (9-20); Calcium 8.2 mg/dL (8.4-10.2); Carbon Dioxide 32 mmol/L (22-30); Chloride 111 mmol/L (98-107); Estimated CRCL calculation 152 ml/min; Estimated Glomerular Filt Rate > 60; Glucose 45 mg/dL (65-110); Potassium 5.2 mmol/L (3.4-5.0); Sodium 142 mmol/L (137-145)
[2023-06-30] MEDS: DEXTROSE 50% 25 GM/50 ML SYRINGE IV PUSH ×2 (06:29→08:29)
[2023-06-30 06:51] LABS: Glucose Point of Care 88 mg/dl (65-105)
[2023-06-30 08:45] LABS: Glucose Point of Care 37 mg/dl (65-105)
[2023-06-30 08:54] LABS: Glucose Point of Care 82 mg/dl (65-105)
[2023-06-30] MEDS: DEXTROSE 10% 1,000 ML 100 ML IV CONT ×2 (09:06→20:20)
[2023-06-30] MEDS: SODIUM BICARBONATE TAB 325 MG TABLET PO (09:12)
[2023-06-30] MEDS: CALCIUM GLUC 1,000 MG/NS 50 ML 1,000 MG/50 ML BAG 100 MG IVPB (09:13)
--- NOTE | 2023-06-30 09:59 | PC.NURSE ---
This patient, Segundo Wetzel, was received from [[id number]] on 06/30/23 at 0959. Patient/family oriented to unit policies and routines
[2023-06-30] MEDS: ALBUTEROL SULFATE NEB 2.5 MG/3 ML INH 10 MG INHALATION (10:20)
--- NOTE | 2023-06-30 10:22 | PC.NURSE ---
This patient, Segundo Wetzel, was transferred to ICU 2 on 06/30/23 at 1022. Personal belongings sent with patient. Report given to Fany. Appropriate documentation sent with patient.
[2023-06-30 10:25] LABS: Glucose Point of Care 111 mg/dl (65-105)
--- NOTE | 2023-06-30 10:47 | WPDCNINT ---
Assessment and Plan Assessment and plan (1) Encephalopathy acute: Code(s): G93.40 - Encephalopathy, unspecified Status: Acute Assessment and Plan: Likely related to underlying infection, could also be related to methadone, Lyrica and nortriptyline -on 06/29/2023 late evening patient was also unresponsive and was given Narcan and woke up back to his normal mental status. His methadone, Lyrica and nortriptyline have been held -patient also hypothermic and hypoglycemic which could be causing altered mental status -patient's mother and the caregiver stated that his body temperature is very between 93 and 97?. They also stated that his blood sugars have also been fluctuating between 40s to 70s -neurology has been consulted 06/29/2023 CT head on admission did not show any acute intracranial hemorrhage, acute infarction abdominal intracranial mass lesion. 06/13/2023 MRI brain showed an unremarkable exam with no abdominal signal seen in the brain parenchyma, no acute infarct, intracranial hemorrhage or mass lesion. (2) Hypoglycemia: Code(s): E16.2 - Hypoglycemia, unspecified Status: Acute Assessment and Plan: Patient does have a history of chronic hyperglycemia according the mother and the caregiver -currently on D10 at 100 mL/hour, PICC line will be placed (3) Hypothermia: Code(s): T68.XXXA - Hypothermia, initial encounter Status: Acute Assessment and Plan: Patient does have a history of chronic hypothermia and his body temperatures ranged between 93-97 F status according to the mother and the caregiver (4) Acute UTI: Code(s): N39.0 - Urinary tract infection, site not specified Status: Acute Assessment and Plan: 06/26/2023 urine cultures growing Nara parapsilosis -patient has been started on fluconazole IV (5) Pneumonia: Code(s): J18.9 - Pneumonia, unspecified organism Status: Acute Assessment and Plan: Continue doxycycline, vancomycin and cefepime as patient has been in out of hospitals -chest x-ray reviewed -currently on room (6) Chronic pain syndrome: Code(s): G89.4 - Chronic pain syndrome Status: Acute Assessment and Plan: History of chronic pain syndrome, on methadone, Lyrica and nortriptyline -06/28 late evening patient was given Narcan after which he woke up and was back to his normal self. -currently methadone, Lyrica and nortriptyline on hold (7) Thrombocytopenia: Code(s): D69.6 - Thrombocytopenia, unspecified Status: Acute Assessment and Plan: History of chronic thrombocytopenia, no bleeding noted, will continue to monitor Plan DVT prophylaxis: SCDs Stress ulcer prophylaxis: Not indicated Nutrition: NPO for now Code Status: Full code Critical Care Time Spent: 49 minutes Discussed with patient's mother and caregiver and updated them with patient's condition and plan of care. Due to a high probability of clinically significant, life threatening deterioration, the patient required my highest level of preparedness to intervene emergently and I personally spent this critical care time directly and personally managing the patient. This critical care time included obtaining a history; examining the patient; pulse oximetry; ordering and review of studies; arranging urgent treatment with development of a management plan; evaluation of patient's response to treatment; frequent reassessment; and discussions with other providers. It was exclusive of separately billable procedures and treating other patients and teaching time. Please see Assessment and Plan section and the rest of the note for further information on patient assessment and treatment This dictation may have been done utilizing a voice recognition system. Attempts have been made to correct errors. However, there may be uncorrected grammatical, spelling, and recognitions errors present. Pullman Car Repairer Consult Note Consult date: 06/30/23 Reas
[2023-06-30] MEDS: LIDOCAINE HCL 1% PF INJ 5 ML VIAL INFILTRATE (11:30)
[2023-06-30] MEDS: CEFEPIME 1 GM/NS 50 ML 1 GM/50 ML BAG IVPB (12:24)
[2023-06-30 12:51] LABS: Glucose Point of Care 134 mg/dl (65-105)
--- NOTE | 2023-06-30 13:22 | P.PNIM_ITS ---
Progress Note: A&P Assessment and Plan (1) Encephalopathy acute: Code(s): G93.40 - Encephalopathy, unspecified Status: Acute Assessment and Plan: * CT brain w/o structural abnormalities * Suspect due to underlying infection (recurrent and resolved with treatment of infection in recent past) * Continue low dose methadone, reduce Lyrica dose, hold nortriptyline and solfenicin * TSH WNL * B12 >1000 * Monitor mental status and pursue further evaluation if not improving (2) Acute UTI: Code(s): N39.0 - Urinary tract infection, site not specified Status: Acute Assessment and Plan: * Urine c/s grew Nara parapsilosis * UA culture pending * He is high risk for fungal UTI due to suprapubic catheter and multiple exposures to antibacterial antibiotics * empiric Amphotericin B, cefepime and vancomycin pending culture results (no azoles due to methadone) (3) Pneumonia: Code(s): J18.9 - Pneumonia, unspecified organism Status: Acute Assessment and Plan: * Faint lung infiltrates in left upper and left lower lobes on CXR w/o cough, congestion, tachypnea, hypoxia * Similar findings at last admission * Could be related to aspiration, vaping, atelectasis, or infection * CT chest: * Empiric doxycycline, cefepime, vancomycin (no azithromycin due to methadone) (4) Hypothermia: Code(s): T68.XXXA - Hypothermia, initial encounter Status: Acute Assessment and Plan: * chronic per mother report - ranges between 93-95 at baseline * Maintain warmth - fluids on warmer * bear hugger if needed (5) Bradycardia: Code(s): R00.1 - Bradycardia, unspecified Status: Acute Assessment and Plan: * Hx baseline bradycardia with NL echo 05/2023 * Likely worsened by hypothermia * Telemetry (6) Chronic pain syndrome: Code(s): G89.4 - Chronic pain syndrome Status: Chronic Assessment and Plan: * takes methadone - d/c overnight by patient transition specialist * Reduce Lyrica due to altered mental status (7) Neuralgia and neuritis, unspecified: Code(s): M79.2 - Neuralgia and neuritis, unspecified Status: Chronic (8) Neurogenic bladder: Code(s): N31.9 - Neuromuscular dysfunction of bladder, unspecified Status: Chronic Assessment and Plan: * Suprapubic catheter site is clean and nontender (9) Thrombocytopenia: Code(s): D69.6 - Thrombocytopenia, unspecified Status: Chronic Assessment and Plan: * Chronic and stable * Possible ITP * Avoid enoxaparin * F/u CBC (10) Hyperkalemia: Code(s): E87.5 - Hyperkalemia Status: Acute Assessment and Plan: * Likely due to trimethoprim inhibiting renal potassium excretion * IVF * Albuterol 10 mg given, sodium bicarb BID (11) Hypoglycemia: Code(s): E16.2 - Hypoglycemia, unspecified Status: Acute Assessment and Plan: * Both fasting and reactive with home glucometer readings as low as 48 * Glucometer QID and prn * Increase to dextrose 10 IV fluids due to poor response to D5 and hypoglycemic protocol (12) Anemia: Code(s): D64.9 - Anemia, unspecified Status: Chronic Assessment and Plan: * Evaluate for nutritional deficiency, blood loss, hemolysis Plan Patient moved to ICU this morning. Subjective Date/time seen: 06/30/23 13:22 Interval history: Went to patient bedside this morning after receiving call from nursing staff regarding patient condition and concerns for acuity o
--- NOTE | 2023-06-30 13:22 | PM.IMPN ---
Progress Note: A&P Assessment and Plan (1) Encephalopathy acute: Code(s): G93.40 - Encephalopathy, unspecified Status: Acute Assessment and Plan: CT brain w/o structural abnormalities Suspect due to underlying infection (recurrent and resolved with treatment of infection in recent past) Continue low dose methadone, reduce Lyrica dose, hold nortriptyline and solfenicin TSH WNL B12 >1000 Monitor mental status and pursue further evaluation if not improving (2) Acute UTI: Code(s): N39.0 - Urinary tract infection, site not specified Status: Acute Assessment and Plan: Urine c/s grew Nara parapsilosis UA culture pending He is high risk for fungal UTI due to suprapubic catheter and multiple exposures to antibacterial antibiotics empiric Amphotericin B, cefepime and vancomycin pending culture results (no azoles due to methadone) (3) Pneumonia: Code(s): J18.9 - Pneumonia, unspecified organism Status: Acute Assessment and Plan: Faint lung infiltrates in left upper and left lower lobes on CXR w/o cough, congestion, tachypnea, hypoxia Similar findings at last admission Could be related to aspiration, vaping, atelectasis, or infection CT chest: Empiric doxycycline, cefepime, vancomycin (no azithromycin due to methadone) (4) Hypothermia: Code(s): T68.XXXA - Hypothermia, initial encounter Status: Acute Assessment and Plan: chronic per mother report - ranges between 93-95 at baseline Maintain warmth - fluids on warmer bear hugger if needed (5) Bradycardia: Code(s): R00.1 - Bradycardia, unspecified Status: Acute Assessment and Plan: Hx baseline bradycardia with NL echo 05/2023 Likely worsened by hypothermia Telemetry (6) Chronic pain syndrome: Code(s): G89.4 - Chronic pain syndrome Status: Chronic Assessment and Plan: takes methadone - d/c overnight by high density finishing operator Reduce Lyrica due to altered mental status (7) Neuralgia and neuritis, unspecified: Code(s): M79.2 - Neuralgia and neuritis, unspecified Status: Chronic (8) Neurogenic bladder: Code(s): N31.9 - Neuromuscular dysfunction of bladder, unspecified Status: Chronic Assessment and Plan: Suprapubic catheter site is clean and nontender (9) Thrombocytopenia: Code(s): D69.6 - Thrombocytopenia, unspecified Status: Chronic Assessment and Plan: Chronic and stable Possible ITP Avoid enoxaparin F/u CBC (10) Hyperkalemia: Code(s): E87.5 - Hyperkalemia Status: Acute Assessment and Plan: Likely due to trimethoprim inhibiting renal potassium excretion IVF Albuterol 10 mg given, sodium bicarb BID (11) Hypoglycemia: Code(s): E16.2 - Hypoglycemia, unspecified Status: Acute Assessment and Plan: Both fasting and reactive with home glucometer readings as low as 48 Glucometer QID and prn Increase to dextrose 10 IV fluids due to poor response to D5 and hypoglycemic protocol (12) Anemia: Code(s): D64.9 - Anemia, unspecified Status: Chronic Assessment and Plan: Evaluate for nutritional deficiency, blood loss, hemolysis Plan Patient moved to ICU this morning. Subjective Date/time seen: 06/30/23 13:22 Interval history: Went to patient bedside this morning after receiving call from nursing staff regarding patient condition and concerns for acuity on the floor. Overnight, he became difficult to arouse and was given Narcan for concern of methadone related cognitive changes. Patient VS taken at that time, but does not appear a BS was charted. Blood sugars were difficult to stabilize this am even with D5, requiring hypoglycemic protocol twice. Patient's mother and supervisory aide at bedside attempting to feed patient breakfast this morning on exam. He is not verbal this morning, but is alert. He is in no acute distress this am. Planned
[2023-06-30] MEDS: CENTRAL LINE FLUSH 10 ML IV PUSH ×2 (13:50→22:35)
[2023-06-30 15:09] LABS: Glucose Point of Care 124 mg/dl (65-105)
[2023-06-30 16:37] LABS: Glucose Point of Care 100 mg/dl (65-105)
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
[2023-06-30] MEDS: PREGABALIN (*CRX) 75 MG CAPSULE PO (20:20)
[2023-06-30] MEDS: FLUCONAZOLE 400 MG/NACL 200 ML 400 MG/200 ML BAG 100 MG IVPB (20:45)
[2023-06-30 20:56] LABS: Glucose Point of Care 93 mg/dl (65-105)
[2023-07-01] VITALS (10 sets, daily range): BP systolic 116–151; BP diastolic 72–85; PULSE 51–547; RESP 11–17; TEMP 34.7–36.5; O2SAT 97–99
[2023-07-01] MEDS: CEFEPIME 1 GM/NS 50 ML 1 GM/50 ML BAG IVPB ×3 (00:06→23:55)
[2023-07-01 00:14] LABS: Glucose Point of Care 93 mg/dl (65-105)
[2023-07-01 03:58] LABS: Basophils Percent Auto 0.4 % (0.2-1.2); Eosinophils Percent Auto 0.8 % (0-4.4); Hematocrit 32.5 % (42.0-52.0); Hemoglobin 10.2 g/dL (14.0-18.0); Immature Granulocyte Absolute 0.01 K/mm3 (0.00-0.031); Immature Granulocyte Percent A 0.2 % (0-0.5); Immature Platelet Fraction Pct 8.1 % (0.9-11.2); Lymphocytes Absolute Auto 1.11 K/mm3 (0.9-3.2); Lymphocytes Percent Auto 21.1 % (18.3-44.2); Mean Corpuscular HGB Conc 31.4 g/dl (32-36); Mean Corpuscular Hemoglobin 30.4 pg (26-34); Mean Corpuscular Volume 96.7 fl (80-100); Mean Platelet Volume 11.1 fl (7.4-10.4); Monocytes Absolute Auto 0.6 K/mm3 (0.1-0.6); Monocytes Percent Auto 11.8 % (2.6-8.5); Neutrophils Absolute Auto 3.5 K/mm3 (1.3-6.7); Neutrophils Percent Auto 65.7 % (45.5-73.1); Platelet Count Result 88 k/mm3 (150-375); Red Blood Count 3.36 M/mm3 (4.6-6.20); Red Cell Distribution Width 16.5 % (11.5-14.5); White Blood Count 5.3 K/mm3 (4.5-10.0)
[2023-07-01 04:07] LABS: Lactic Acid Reflex 0.9 mmol/L (0.7-2.0)
[2023-07-01 04:09] LABS: Ammonia < 9 umol/L (9-30)
[2023-07-01 04:10] LABS: Alanine Aminotransferase 36 U/L (6-50); Albumin Level 2.9 g/dL (3.5-5.1); Alkaline Phosphatase 75 U/L (38-126); Anion Gap 1 mmol/L (8-16); Aspartate Amino Transferase 30 U/L (17-59); Bilirubin,Total 0.3 mg/dL (0.2-1.3); Blood Urea Nitrogen 9 mg/dL (9-20); CRP < 0.5 mg/dL (<1.0); Calcium 8.1 mg/dL (8.4-10.2); Carbon Dioxide 31 mmol/L (22-30); Chloride 103 mmol/L (98-107); Estimated CRCL calculation 152 ml/min; Estimated Glomerular Filt Rate > 60; Glucose 400 mg/dL (65-110); Magnesium 1.7 mg/dL (1.6-2.3); Phosphorus 2.2 mg/dL (2.5-4.5); Potassium 3.7 mmol/L (3.4-5.0); Sodium 135 mmol/L (137-145)
[2023-07-01 04:28] LABS: Glucose Point of Care 90 mg/dl (65-105)
[2023-07-01 05:07] LABS: Vancomycin Trough 16.3 ug/mL (10.0-20.0)
[2023-07-01] MEDS: DOXYCYCLINE 100 MG/NS 100 ML 100 MG/100 ML BAG IVPB ×2 (05:32→17:53)
[2023-07-01] MEDS: CENTRAL LINE FLUSH 10 ML IV PUSH ×3 (05:32→21:47)
[2023-07-01] MEDS: VANCOMYCIN 1,500 MG/NS 500 ML 1,500 MG/500 ML BAG 250 MG IVPB ×2 (05:32→16:58)
[2023-07-01] MEDS: PREGABALIN (*CRX) 75 MG CAPSULE PO ×3 (05:33→21:46)
[2023-07-01] MEDS: DEXTROSE 10% 1,000 ML 100 ML IV CONT ×2 (06:29→13:44)
[2023-07-01 08:03] LABS: Glucose Point of Care 80 mg/dl (65-105)
[2023-07-01] MEDS: POTASSIUM/PHOSPHORUS/SODIUM 1.5 GM PACKET 1 PACKET PO (08:31)
--- NOTE | 2023-07-01 09:35 | WPDNEUROLOGY ---
Neurology EEG Report General Information Date of Study: 07/01/23 TEST eeg DIAGNOSIS Encephalopathy CONDITION OF RECORDING awake drowsy and sleep EEG NUMBER [id number] CLINICAL HISTORY patient was brought into the hospital for urinary tract infection and is handicapped while here he had an episode of unresponsiveness and at present remains nonverbal. EEG DESCRIPTION Basic resting occipital frequency consists of low-voltage 11 to 13 hertz per 2nd alpha admixed with low-voltage 15 to 18 hertz per 2nd beta with poor anterior to posterior gradient. And admixed with multiple movement artifacts and muscle artifacts. Bilateral symmetrical sleep activity is noted with symmetrical sleep spindles. Hyperventilation not done photic stimulation not done as the study was done at the bedside. Non paroxysmal. Nonfocal. Nonlateralizing. IMPRESSION No significant abnormalities noted in this tracing which is particularly during sleep and also admixed with multiple movements artifacts. Clinical correlation recommended.
--- NOTE | 2023-07-01 09:55 | WPDINTPN ---
Progress Note: A&P Assessment and Plan (1) Encephalopathy acute: Code(s): G93.40 - Encephalopathy, unspecified Status: Acute Assessment and Plan: Likely related to underlying infection, could also be related to methadone, Lyrica and nortriptyline -on 06/29/2023 late evening patient was also unresponsive and was given Narcan and woke up back to his normal mental status. His methadone, Lyrica and nortriptyline have been held -patient also hypothermic and hypoglycemic which could be causing altered mental status -patient's mother and the caregiver stated that his body temperature is very between 93 and 97?. They also stated that his blood sugars have also been fluctuating between 40s to 70s -appreciate Neurology evaluation recommendation -06/30: EEG showed no significant abnormalities -patient more awake this morning, back to baseline per mother 06/29/2023 CT head on admission did not show any acute intracranial hemorrhage, acute infarction abdominal intracranial mass lesion. 06/13/2023 MRI brain showed an unremarkable exam with no abdominal signal seen in the brain parenchyma, no acute infarct, intracranial hemorrhage or mass lesion. (2) Hypoglycemia: Code(s): E16.2 - Hypoglycemia, unspecified Status: Acute Assessment and Plan: Patient does have a history of chronic hyperglycemia according the mother and the caregiver -currently on D10 at 100 mL/hour, PICC line will be placed -Will check for adrenal insufficiency, ACTH stimulation test, renin, aldosterone -will check insulin like growth factor (IGF) -autonomic dysfunction can sometimes cause hypoglycemia -patient require noodle press operator for further workup (3) Hypothermia: Code(s): T68.XXXA - Hypothermia, initial encounter Status: Acute Assessment and Plan: Patient does have a history of chronic hypothermia and his body temperatures ranged between 93-97 F status according to the mother and the caregiver -body temperatures are within normal limits (4) Acute UTI: Code(s): N39.0 - Urinary tract infection, site not specified Status: Acute Assessment and Plan: 06/26/2023 urine cultures growing Nara parapsilosis -continue fluconazole IV (5) Pneumonia: Code(s): J18.9 - Pneumonia, unspecified organism Status: Acute Assessment and Plan: Continue doxycycline, vancomycin and cefepime as patient has been in out of hospitals -chest x-ray reviewed -currently on room (6) Chronic pain syndrome: Code(s): G89.4 - Chronic pain syndrome Status: Chronic Assessment and Plan: History of chronic pain syndrome, on methadone, Lyrica and nortriptyline -06/28 late evening patient was given Narcan after which he woke up and was back to his normal self. -holding methadone and nortriptyline -restarted on Lyrica per Neurology recommendation -patient is on [place] prevented methadone withdrawal (7) Thrombocytopenia: Code(s): D69.6 - Thrombocytopenia, unspecified Status: Chronic Assessment and Plan: History of chronic thrombocytopenia, no bleeding noted, will continue to monitor Plan DVT prophylaxis: SCDs Stress ulcer prophylaxis: Not indicated Nutrition: Patient tolerating diet Code Status: Full code Critical Care Time Spent: 33 minutes Discussed with patient's mother and updated them with patient's condition and plan of care. Transfer out of the ICU if okay with hospitalist Due to a high probability of clinically significant, life threatening deterioration, the patient required my highest level of preparedness to intervene emergently and I personally spent this critical care time directly and personally managing the patient. This critical care time included obtaining a history; examining the patient; pulse oximetry; ordering and review of studies; arranging urgent treatment with development of a management plan; evaluation of patient's response to treatment; frequent re
[2023-07-01] MEDS: COSYNTROPIN 0.25 MG/ML VIAL IV PUSH (11:15)
[2023-07-01 12:17] LABS: Cortisol Baseline 4.81 ug/dL
--- NOTE | 2023-07-01 13:59 | PC.NURSE ---
This patient, Segundo Wetzel, was transferred to [ 2 medical bed 246] on 07/01/23 at 1359. Personal belongings sent with patient. Report given to [Nuria DHILLON ]. Appropriate documentation sent with patient.
--- NOTE | 2023-07-01 14:00 | PC.NURSE ---
Received from ICU/ via bed. Bander at bedside. Reyes draining yellow urine. Ostomy contains soft brown stool.
--- NOTE | 2023-07-01 17:01 | PCCDE ---
06/30/23: ?12:05 -12:30 pm ? Consult received:? 07/01/23 admitted Hyperkalemia; h/o Quadriplegia; various infections, colostomy, altered mental status, hypoglycemia which was seen on previous [facility] admission. At that time he was given a glucometer. No Diabetes diagnosis. He has an aide at home, mother also helps care for him. apparently mother with most of the questions, not in room at the time. Answered questions they knew (aide in room w/patient). Educated importance consistent balance meals to prevent hypoglycemia and appropriate treatment of hypoglycemia. Also discussed benefits of CGM (including alarm to wake him if low overnight)
[2023-07-01 17:04] LABS: Glucose Point of Care 95 mg/dl (65-105)
--- NOTE | 2023-07-01 17:12 | PM.IMPN ---
Progress Note: A&P Assessment and Plan (1) Encephalopathy acute: Code(s): G93.40 - Encephalopathy, unspecified Status: Acute Assessment and Plan: -06/30: EEG showed no significant abnormalities -neurology rounding - vitals are more stable pt less confused now temp and sugars better 06/29/2023 CT head on admission did not show any acute intracranial hemorrhage, acute infarction abdominal intracranial mass lesion. 06/13/2023 MRI brain showed an unremarkable exam with no abdominal signal seen in the brain parenchyma, no acute infarct, intracranial hemorrhage or mass lesion. (2) Hypoglycemia: Code(s): E16.2 - Hypoglycemia, unspecified Status: Acute Assessment and Plan: Patient does have a history of chronic hyperglycemia according the mother and the caregiver -currently on D10 at 100 mL/hour (3) Hypothermia: Code(s): T68.XXXA - Hypothermia, initial encounter Status: Acute Assessment and Plan: -body temperatures are within normal limits (4) Acute UTI: Code(s): N39.0 - Urinary tract infection, site not specified Status: Acute Assessment and Plan: 06/26/2023 urine cultures growing Nara parapsilosis -continue fluconazole IV (5) Pneumonia: Code(s): J18.9 - Pneumonia, unspecified organism Status: Acute Assessment and Plan: Continue doxycycline, vancomycin and cefepime (6) Chronic pain syndrome: Code(s): G89.4 - Chronic pain syndrome Status: Chronic Assessment and Plan: History of chronic pain syndrome, on methadone, Lyrica and nortriptyline -patient is on [place] prevents methadone withdrawal (7) Thrombocytopenia: Code(s): D69.6 - Thrombocytopenia, unspecified Status: Chronic Assessment and Plan: History of chronic thrombocytopenia, no bleeding noted, will continue to monitor Subjective Date/time seen: 07/01/23 17:12 Interval history: 42-year-old gentleman who is quadriplegic.? Is been hospitalized 4 times since the beginning of 2023, twice a day [place], twice at [place].? All were due to infections.? With each episode he becomes more confused and unable to speak and experiences increased generalized weakness.? Today his mother noted that he was not speaking as usual, more withdrawn, and more weak.? He was not coughing nor was he complaining of any increasing chronic pain.? To her observation he was not experiencing any fevers chills or sweats.? She noted no change in his urine. She brought him to the emergency department where he was found to have an abnormal chest x-ray with suggestion of mild left upper and lower lobe infiltrates as well as an abnormal urinalysis.? He was given cefepime, azithromycin, and vancomycin, 1 dose each in the emergency department. Pt is better now glucose is better temp is better vitals stable for transfer to medical floor Review of Systems Review of Systems: No specific complaints Exam Narrative: General: Paraplegic gentleman, awake, in no acute distress HEENT:? Pupils equal and reactive sclera is clear Neck:? Supple Respiratory:? Coarse breath sounds bilaterally, decreased at bases, adequate air entry Cardiac:? S1-S2 is Will, regular rate and rhythm Abdomen:? Soft, nontender, nondistended, left-sided ostomy noted, normoactive bowel sounds Extremities:? No edema, contraction of upper extremities and the elbows Neuro:? Patient is awake, opens his eyes, nods intermittently, does not answer any questions or follows simple commands Skin:? Warm and dry Psych:? Unable to assess at this time Objective Data Vital Signs Vital Signs: Vital Signs - 24 hr 06/30/23 18:00 06/30/23 18:00 06/30/23 20:00 Temperature 36.8 C Pulse Rate 77 77 89 Respiratory Rate 13 Blood Pressure 119/68 Pulse Oximetry 97 Oxygen Delivery 06/30/23 20:00 06/30/23 20:00 06/30/23 22:00 Temperature 37.2 C Pulse Rate 89 86 Respiratory Rate 26 H
[2023-07-01 19:32] LABS: IFOB Positive Control Positive; Immunochemical Fecal Occult Bl Negative (N)
[2023-07-01 21:00] LABS: Glucose Point of Care 122 mg/dl (65-105)
[2023-07-01] MEDS: FLUCONAZOLE 400 MG/NACL 200 ML 400 MG/200 ML BAG 100 MG IVPB (21:47)
--- NOTE | 2023-07-01 22:50 | PC.NURSE ---
Called Devi Milligan APRN @0620, because pt requesting medication to sleep. Pt stated he usually takes ramelteon 8 mg for sleep at home. Provider reviewed pt's chart and resumed home med, but was unable to restart for tonight. Called pharmacy to let them know of order and that the medication was wanted for tonight. Pharmacy let me know that the medication was non-formulary and would most likely needed to be changed to Ambien since that is the most common therapeutic substitute. Pharmacy contacted [facility] to get Ambien approved. In the meantime, I let pt know of the therapeutic substitute. Pt stated that he would prefer to not have Ambien because he thought it would be too strong. Pt asked if he could get sleep aid changed to something less strong. Called KELVIN Quinonez @[phone] to let her know pt was wanting something less strong, such as Melatonin, which pt is agreeable to. Received order for Melatonin 5 mg PO HS.
[2023-07-01] MEDS: MELATONIN 5 MG TABLET PO (22:57)
[2023-07-02] MEDS: DEXTROSE 10% 1,000 ML 100 ML IV CONT (00:29)
[2023-07-02] MEDS: CENTRAL LINE FLUSH 10 ML IV PUSH ×3 (05:27→22:04)
[2023-07-02] MEDS: CENTRAL LINE FLUSH 20 ML IV PUSH (05:28)
[2023-07-02] MEDS: DOXYCYCLINE 100 MG/NS 100 ML 100 MG/100 ML BAG IVPB (05:29)
[2023-07-02] MEDS: VANCOMYCIN 1,500 MG/NS 500 ML 1,500 MG/500 ML BAG 250 MG IVPB (05:31)
[2023-07-02] MEDS: PREGABALIN (*CRX) 75 MG CAPSULE PO ×3 (05:34→22:02)
[2023-07-02 05:47] LABS: Hematocrit 31.7 % (42.0-52.0); Hemoglobin 10.3 g/dL (14.0-18.0); Immature Platelet Fraction Pct 9.4 % (0.9-11.2); Mean Corpuscular HGB Conc 32.5 g/dl (32-36); Mean Corpuscular Hemoglobin 30.9 pg (26-34); Mean Corpuscular Volume 95.2 fl (80-100); Mean Platelet Volume 11.7 fl (7.4-10.4); Platelet Count Result 86 k/mm3 (150-375); Red Blood Count 3.33 M/mm3 (4.6-6.20); Red Cell Distribution Width 16.1 % (11.5-14.5); White Blood Count 4.2 K/mm3 (4.5-10.0)
[2023-07-02 06:02] LABS: Alanine Aminotransferase 41 U/L (6-50); Alkaline Phosphatase 77 U/L (38-126); Anion Gap 0 mmol/L (8-16); Aspartate Amino Transferase 39 U/L (17-59); Bilirubin,Total 0.3 mg/dL (0.2-1.3); Blood Urea Nitrogen 8 mg/dL (9-20); Carbon Dioxide 33 mmol/L (22-30); Chloride 105 mmol/L (98-107); Estimated CRCL calculation 184 ml/min; Estimated Glomerular Filt Rate > 60; Glucose 93 mg/dL (65-110); Magnesium 1.8 mg/dL (1.6-2.3); Phosphorus 2.3 mg/dL (2.5-4.5); Potassium 3.4 mmol/L (3.4-5.0); Sodium 138 mmol/L (137-145)
[2023-07-02 07:35] LABS: Hemoglobin A1C 4.5 % (<5.7)
[2023-07-02 08:10] LABS: Glucose Point of Care 71 mg/dl (65-105)
[2023-07-02 09:27] VITALS: BP 132/76; PULSE 54; RESP 18; O2SAT 99
--- NOTE | 2023-07-02 11:04 | PM.IMPN ---
Progress Note: A&P Assessment and Plan (1) Encephalopathy acute: Code(s): G93.40 - Encephalopathy, unspecified Status: Acute Assessment and Plan: 07/01 - Dc D10 pt doing well awaiting full culture reports -06/30: EEG showed no significant abnormalities -neurology rounding - vitals are more stable pt less confused now temp and sugars better 06/29/2023 CT head on admission did not show any acute intracranial hemorrhage, acute infarction abdominal intracranial mass lesion. 06/13/2023 MRI brain showed an unremarkable exam with no abdominal signal seen in the brain parenchyma, no acute infarct, intracranial hemorrhage or mass lesion. (2) Hypoglycemia: Code(s): E16.2 - Hypoglycemia, unspecified Status: Acute Assessment and Plan: Patient does have a history of chronic hyperglycemia according the mother and the caregiver - can DC D10 (3) Hypothermia: Code(s): T68.XXXA - Hypothermia, initial encounter Status: Acute Assessment and Plan: -body temperatures are within normal limits (4) Acute UTI: Code(s): N39.0 - Urinary tract infection, site not specified Status: Acute Assessment and Plan: 06/26/2023 urine cultures growing Nara parapsilosis -continue fluconazole IV (5) Pneumonia: Code(s): J18.9 - Pneumonia, unspecified organism Status: Acute Assessment and Plan: Continue doxycycline, vancomycin and cefepime (6) Chronic pain syndrome: Code(s): G89.4 - Chronic pain syndrome Status: Chronic Assessment and Plan: History of chronic pain syndrome, on methadone, Lyrica and nortriptyline -patient is on [place] prevents methadone withdrawal (7) Thrombocytopenia: Code(s): D69.6 - Thrombocytopenia, unspecified Status: Chronic Assessment and Plan: History of chronic thrombocytopenia, no bleeding noted, will continue to monitor Subjective Date/time seen: 07/02/23 11:05 Interval history: 42-year-old gentleman who is quadriplegic.? Is been hospitalized 4 times since the beginning of 2023, twice a day [place], twice at [place].? All were due to infections.? With each episode he becomes more confused and unable to speak and experiences increased generalized weakness.? Today his mother noted that he was not speaking as usual, more withdrawn, and more weak.? He was not coughing nor was he complaining of any increasing chronic pain.? To her observation he was not experiencing any fevers chills or sweats.? She noted no change in his urine. She brought him to the emergency department where he was found to have an abnormal chest x-ray with suggestion of mild left upper and lower lobe infiltrates as well as an abnormal urinalysis.? He was given cefepime, azithromycin, and vancomycin, 1 dose each in the emergency department. Pt was in ICU transferred to medical floor yesterday Pt is better now glucose is better temp is better vitals stable for transfer to medical floor Pt is doing better awaiting full culture reports Pt still on D 5 will dc today Review of Systems Review of Systems: No specific complaints Exam Narrative: General: Paraplegic gentleman, awake, in no acute distress, alert awake HEENT:? Pupils equal and reactive sclera is clear Neck:? Supple Respiratory:? Clear lungs today Cardiac:? S1-S2 is Will, regular rate and rhythm Abdomen:? Soft, nontender, nondistended, left-sided ostomy noted, normoactive bowel sounds Extremities:? No edema, contraction of upper extremities and the elbows Neuro:? Patient is awake, opens his eyes, nods intermittently, does not answer any questions or follows simple commands Skin:? Warm and dry Objective Data Vital Signs Vital Signs: Vital Signs - 24 hr 07/01/23 14:22 07/01/23 15:15 07/01/23 21:34 Temperature 36.3 C L Pulse Rate 547 H Respiratory Rate 14 14 Blood Pressure 151/85 H Pulse Oximetry 99 98 Oxygen Delivery Room Air
[2023-07-02 11:45] LABS: Glucose Point of Care 116 mg/dl (65-105)
--- NOTE | 2023-07-02 12:44 | WPDNEUROPN ---
Subjective Date/time seen: 07/02/23 12:44 Interval history: 42 years old right-handed male was initially seen by Dr. 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 Patient has been on baclofen pump and Lyrica and nortriptyline is being followed by the neurologist at [facility] his MRI about 2 weeks ago was reportedly negative. He has continued to use the opioids and pneumonia admitted for the change in the mental status in addition the possibility of myoclonic seizure disorder patient was started on pregabalin 20mg 3 times a day for the possibility of use for the anticonvulsant as well as the chronic pain and other treatment was continued as such. At present he looks stable has no specific questions but he will be followed by the physician at [facility] Objective Data Vital Signs Vital Signs: Vital Signs - 24 hr 07/01/23 14:22 07/01/23 15:15 07/01/23 21:34 Temperature 36.3 C L Pulse Rate 547 H Respiratory Rate 14 14 Blood Pressure 151/85 H Pulse Oximetry 99 98 Oxygen Delivery Room Air Room Air 07/01/23 23:59 07/02/23 09:27 07/02/23 08:00 Temperature 36.2 C L Pulse Rate 51 L 54 L Respiratory Rate 17 18 Blood Pressure 145/84 H 132/76 Pulse Oximetry 97 99 Oxygen Delivery Room Air Intake/Output Intake/Output: Intake & Output 06/29/23 06/30/23 07/01/23 07/02/23 23:59 23:59 23:59 23:59 Intake Total 4199 3533 3787 1810 Output Total 415 6050 6575 350 Balance 2178 -3384 -4436 1460 Meds/Results Medications: Active Medications Generic Name Dose Route Start Last Admin Trade Name Freq PRN Reason Stop Dose Admin Acetaminophen 650 mg 06/30/23 22:07 Acetaminophen 325 Mg Tablet PO Q6H PRN Mild Pain (1-3) or Fever Hydrocodone Bitart/Acetaminophen 1 tab 06/30/23 22:07 Hydrocodone/Acetaminophen (*Crx) 5-325 Mg Tablet PO Q6H PRN Pain Rated 4-6 Dextrose 12.5 gm 06/29/23 18:24 06/30/23 08:29 Dextrose 50% 25 Gm/50 Ml Syringe IV PUSH 12.5 gm PRN PRN Administration Hypoglycemia Protocol Glucagon 1 mg 06/29/23 18:24 Glucagon For Inj 1 Mg Vial IM PRN PRN Hypoglycemia Protocol Glucose 15 gm 06/29/23 18:24 Glucose Oral Gel 15 Gm Of Glucse In 37.5 Gm Tube PO PRN PRN Hypoglycemia Protocol Doxycycline Hyclate 100 mg in 100 mls @ 100 mls/hr 06/29/23 18:00 07/02/23 05:29 Vibramycin 100 Mg/Ns 100 Ml IVPB 100 mls/hr Q12H KEV Administration Cefepime HCl 1 gm in 50 mls @ 100 mls/hr 06/30/23 00:00 07/02/23 00:25 Maxipime 1 Gm/Ns 50 Ml IVPB Infused Q12H KEV Infusion Dextrose 1,000 mls @ 100 mls/hr 06/29/23 18:24 Dextrose 5% 1,000 Ml IVPB PRN PRN Hypoglycemia Protocol Fluconazole 400 mg in 200 mls @ 100 mls/hr 06/29/23 20:00 07/01/23 23:47 Diflucan 400 Mg/Nacl 200 Ml IVPB Infused Q24H KEV Infusion Vancomycin HCl 1,500 mg in 500 mls @ 250 mls/hr 07/01/23 05:00 07/02/23 05:31 Vancomycin 1,500 Mg/Ns 500 Ml IVPB 250 mls/hr Q12H KEV Administration Melatonin 5 mg 07/01/23 22:25 07/01/23 22:57 Melatonin 5 Mg Tablet PO 5 mg HS KEV Administration Naloxone HCl 0.1 mg 06/29/23 21:38 06/29/23 21:53 Naloxone Hcl 0.4 Mg/Ml Vial IV PUSH 0.1 mg Q5MIN PRN Administration Sedation Naloxone HCl 1 mg 06/29/23 21:51 Naloxone Hcl Inj 2 Mg/2 Ml Amp IV PUSH Q5MIN PRN Sedation Pregabalin 75 mg 06/30/23 22:00 07/02/23 05:34 Pregabalin (*Crx) 75 Mg Capsule PO 75 mg Q8HR KEV Administration Sodium Chloride 20 ml 06/30/23 12:09 07/02/23 05:28 Central Line Flush IV PUSH 20 ml PRN PRN Administration after blood draws Sodium Chloride 10 ml 06/30/23 12:09 Central Line Flush IV PUSH PRN PRN with TPN bag changes Sodium Chloride 10 ml 06/30/23 14:00 07/02/23 05:27 Central Line Flush IV PUSH 10 ml
[2023-07-02] MEDS: CEFEPIME 1 GM/NS 50 ML 1 GM/50 ML BAG IVPB (12:47)
--- NOTE | 2023-07-02 12:48 | P.CDI_ITS ---
Wrong provider CDI Query Clarification Request Assessment and Plan (1) Encephalopathy acute: ?Code(s): G93.40 - Encephalopathy, unspecified ?Status:?Acute ?Assessment and Plan: 07/01 - Dc D10 pt doing well awaiting full culture reports -06/30:? EEG showed no significant abnormalities -neurology rounding - vitals are more stable pt less confused now temp and sugars better 06/29/2023 CT head on admission did not show any acute intracranial hemorrhage, acute infarction abdominal intracranial mass lesion. Encephalopathy has been documented. Please clarify type of encephalopathy: * Metabolic * Toxic * Hepatic * Hypertensive * Other * Unable to Determine
[2023-07-02 14:01] VITALS: PULSE 57; RESP 18; O2SAT 99
[2023-07-02 17:18] LABS: Glucose Point of Care 99 mg/dl (65-105)
[2023-07-02 17:28] VITALS: BP 170/92
[2023-07-02] MEDS: DOXYCYCLINE HYCLATE 100 MG TABLET PO (18:36)
[2023-07-02 20:44] VITALS: BP 155/92; PULSE 60; RESP 16; TEMP 36.6; O2SAT 96
[2023-07-02 21:37] LABS: Glucose Point of Care 94 mg/dl (65-105)
[2023-07-02] MEDS: FLUCONAZOLE 400 MG/NACL 200 ML 400 MG/200 ML BAG 100 MG IVPB (21:59)
[2023-07-02] MEDS: MELATONIN 5 MG TABLET PO (22:02)
[2023-07-03] MEDS: CENTRAL LINE FLUSH 20 ML IV PUSH (04:47)
[2023-07-03] MEDS: CENTRAL LINE FLUSH 10 ML IV PUSH ×3 (04:47→21:51)
[2023-07-03] MEDS: PREGABALIN (*CRX) 75 MG CAPSULE PO ×3 (04:48→21:50)
[2023-07-03] MEDS: DOXYCYCLINE HYCLATE 100 MG TABLET PO ×2 (04:48→17:27)
[2023-07-03 04:57] LABS: Hematocrit 31.7 % (42.0-52.0); Hemoglobin 10.5 g/dL (14.0-18.0); Mean Corpuscular HGB Conc 33.1 g/dl (32-36); Mean Corpuscular Hemoglobin 30.9 pg (26-34); Mean Corpuscular Volume 93.2 fl (80-100); Mean Platelet Volume 11.6 fl (7.4-10.4); Platelet Count Result 80 k/mm3 (150-375); Red Cell Distribution Width 16.1 % (11.5-14.5); White Blood Count 6.5 K/mm3 (4.5-10.0)
[2023-07-03 05:07] LABS: Alanine Aminotransferase 49 U/L (6-50); Albumin Level 3.1 g/dL (3.5-5.1); Alkaline Phosphatase 102 U/L (38-126); Anion Gap 3 mmol/L (8-16); Aspartate Amino Transferase 40 U/L (17-59); Bilirubin,Total 0.4 mg/dL (0.2-1.3); Blood Urea Nitrogen 5 mg/dL (9-20); Calcium 8.2 mg/dL (8.4-10.2); Carbon Dioxide 34 mmol/L (22-30); Chloride 102 mmol/L (98-107); Estimated CRCL calculation 184 ml/min; Estimated Glomerular Filt Rate > 60; Glucose 74 mg/dL (65-110); Potassium 3.4 mmol/L (3.4-5.0); Sodium 139 mmol/L (137-145)
[2023-07-03 05:53] LABS: Glucose Point of Care 103 mg/dl (65-105)
[2023-07-03 06:01] LABS: Glucose Point of Care 70 mg/dl (65-105)
[2023-07-03 08:32] LABS: Glucose Point of Care 83 mg/dl (65-105)
--- NOTE | 2023-07-03 11:08 | P.CDI_ITS ---
CDI Query Clarification Request Assessment and Plan (1) Encephalopathy acute: ?Code(s): G93.40 - Encephalopathy, unspecified ?Status:?Acute ?Assessment and Plan: 07/01 - Dc D10 pt doing well awaiting full culture reports -06/30:? EEG showed no significant abnormalities -neurology rounding - vitals are more stable pt less confused now temp and sugars better 06/29/2023 CT head on admission did not show any acute intracranial hemorrhage, acute infarction abdominal intracranial mass lesion. Encephalopathy has been documented. Please clarify type of encephalopathy: * Metabolic * Toxic * Hepatic * Hypertensive * Other * Unable to Determine <Penny Jung RN - Last Filed: 07/03/23 11:08> Clarified Diagnosis Clarified Diagnosis: metabolic encephalopathy secondary to hypoglycemia <Chloe Alvarez MD - Last Filed: 07/03/23 15:59>
--- NOTE | 2023-07-03 12:15 | PM.IMPN ---
Progress Note: A&P Assessment and Plan (1) Encephalopathy acute: Code(s): G93.40 - Encephalopathy, unspecified Status: Acute Assessment and Plan: 07/02 - pt having hypoglycemic episode in AM, UC shows nara, BC is not fully back - pt is not a known DM - eating well in hospital - bryn order cpeptide level and insulin level in am - hbaic is 4 - continue to watch in hospital 07/01 - Dc D10 pt doing well awaiting full culture reports -06/30: EEG showed no significant abnormalities -neurology rounding - vitals are more stable pt less confused now temp and sugars better 06/29/2023 CT head on admission did not show any acute intracranial hemorrhage, acute infarction abdominal intracranial mass lesion. 06/13/2023 MRI brain showed an unremarkable exam with no abdominal signal seen in the brain parenchyma, no acute infarct, intracranial hemorrhage or mass lesion. (2) Hypoglycemia: Code(s): E16.2 - Hypoglycemia, unspecified Status: Acute Assessment and Plan: Patient does have a history of chronic hyperglycemia according the mother and the caregiver not a known DM pt seen DM educator in hospital (3) Hypothermia: Code(s): T68.XXXA - Hypothermia, initial encounter Status: Acute Assessment and Plan: -body temperatures are within normal limits (4) Acute UTI: Code(s): N39.0 - Urinary tract infection, site not specified Status: Acute Assessment and Plan: 06/26/2023 urine cultures growing Nara parapsilosis -continue fluconazole IV transition to oral today (5) Pneumonia: Code(s): J18.9 - Pneumonia, unspecified organism Status: Acute Assessment and Plan: Continue doxycycline, vancomycin and cefepime transitioned to oral (6) Chronic pain syndrome: Code(s): G89.4 - Chronic pain syndrome Status: Chronic Assessment and Plan: History of chronic pain syndrome, on methadone, Lyrica and nortriptyline -patient is on [place] prevents methadone withdrawal (7) Thrombocytopenia: Code(s): D69.6 - Thrombocytopenia, unspecified Status: Chronic Assessment and Plan: History of chronic thrombocytopenia, no bleeding noted, will continue to monitor Subjective Date/time seen: 07/03/23 12:15 Interval history: 42-year-old gentleman who is quadriplegic.? Is been hospitalized 4 times since the beginning of 2023, twice a day [place], twice at [place].? All were due to infections.? With each episode he becomes more confused and unable to speak and experiences increased generalized weakness.? Today his mother noted that he was not speaking as usual, more withdrawn, and more weak.? He was not coughing nor was he complaining of any increasing chronic pain.? To her observation he was not experiencing any fevers chills or sweats.? She noted no change in his urine. She brought him to the emergency department where he was found to have an abnormal chest x-ray with suggestion of mild left upper and lower lobe infiltrates as well as an abnormal urinalysis.? He was given cefepime, azithromycin, and vancomycin, 1 dose each in the emergency department. Pt was in ICU transferred to medical floor yesterday Pt is better now glucose is better temp is better vitals stable for transfer to medical floor Pt is doing better awaiting full culture reports Pt still on D 10 will dc today Cultures are not bad However pt still having hypoglycemia events in AM Not a known DM will continue to watch in hospital Review of Systems Review of Systems: Pt drowsy from am hypoglycemia Exam Narrative: General: Paraplegic gentleman, tired and weak HEENT:? Pupils equal and reactive sclera is clear Neck:? Supple Respiratory:? Clear lungs today Cardiac:? S1-S2 is Will, regular rate and rhythm Abdomen:? Soft, nontender, nondistended, left-sided ostomy noted, normoactive bowel sounds Extremities:? No edema, contraction of
[2023-07-03 12:23] LABS: Glucose Point of Care 76 mg/dl (65-105)
[2023-07-03 14:23] VITALS: BP 161/89; PULSE 56; RESP 18; TEMP 36.3; O2SAT 96
[2023-07-03] MEDS: AMOXICILLIN/CLAVULANATE K 500-125 MG TAB 1 TABLET PO ×2 (14:28→21:50)
[2023-07-03 17:00] LABS: Glucose Point of Care 104 mg/dl (65-105)
[2023-07-03] MEDS: ACETAMINOPHEN 325 MG TABLET 650 MG PO (20:02)
[2023-07-03 20:08] VITALS: BP 103/77; PULSE 57; RESP 16; TEMP 36.6; O2SAT 98
[2023-07-03 21:01] LABS: Glucose Point of Care 117 mg/dl (65-105)
[2023-07-03] MEDS: MELATONIN 5 MG TABLET PO (21:50)
[2023-07-03 23:50] VITALS: O2SAT 98
[2023-07-04] MEDS: AMOXICILLIN/CLAVULANATE K 500-125 MG TAB 1 TABLET PO ×2 (05:01→14:47)
[2023-07-04] MEDS: PREGABALIN (*CRX) 75 MG CAPSULE PO ×2 (05:01→14:47)
[2023-07-04] MEDS: CENTRAL LINE FLUSH 10 ML IV PUSH ×2 (05:01→14:47)
[2023-07-04 05:15] LABS: Glucose Point of Care 77 mg/dl (65-105)
[2023-07-04 05:17] VITALS: BP 137/85; PULSE 98; RESP 16; TEMP 36.6; O2SAT 100
[2023-07-04 05:23] LABS: Hematocrit 34.7 % (42.0-52.0); Hemoglobin 11.3 g/dL (14.0-18.0); Immature Platelet Fraction Pct 10.9 % (0.9-11.2); Mean Corpuscular HGB Conc 32.6 g/dl (32-36); Mean Corpuscular Hemoglobin 30.5 pg (26-34); Mean Corpuscular Volume 93.5 fl (80-100); Mean Platelet Volume 11.6 fl (7.4-10.4); Platelet Count Result 93 k/mm3 (150-375); Red Blood Count 3.71 M/mm3 (4.6-6.20); Red Cell Distribution Width 15.9 % (11.5-14.5); White Blood Count 5.5 K/mm3 (4.5-10.0)
[2023-07-04 05:35] LABS: Alanine Aminotransferase 44 U/L (6-50); Albumin Level 3.4 g/dL (3.5-5.1); Alkaline Phosphatase 106 U/L (38-126); Anion Gap 6 mmol/L (8-16); Aspartate Amino Transferase 37 U/L (17-59); Bilirubin,Total 0.5 mg/dL (0.2-1.3); Blood Urea Nitrogen 8 mg/dL (9-20); Calcium 8.6 mg/dL (8.4-10.2); Carbon Dioxide 33 mmol/L (22-30); Chloride 102 mmol/L (98-107); Estimated CRCL calculation 184 ml/min; Estimated Glomerular Filt Rate > 60; Glucose 87 mg/dL (65-110); Potassium 3.2 mmol/L (3.4-5.0); Sodium 141 mmol/L (137-145)
--- NOTE | 2023-07-04 07:57 | PM.IMPN ---
Progress Note: A&P Assessment and Plan (1) Encephalopathy acute: Code(s): G93.40 - Encephalopathy, unspecified Status: Acute (2) Hypoglycemia: Code(s): E16.2 - Hypoglycemia, unspecified Status: Acute (3) Hypothermia: Code(s): T68.XXXA - Hypothermia, initial encounter Status: Acute (4) Acute UTI: Code(s): N39.0 - Urinary tract infection, site not specified Status: Acute (5) Pneumonia: Code(s): J18.9 - Pneumonia, unspecified organism Status: Acute (6) Chronic pain syndrome: Code(s): G89.4 - Chronic pain syndrome Status: Chronic (7) Thrombocytopenia: Code(s): D69.6 - Thrombocytopenia, unspecified Status: Chronic Plan 42-year-old gentleman who is quadriplegic.? Is been hospitalized 4 times since the beginning of 2023, twice a day [place], twice at [facility].? All were due to infections.? With each episode he becomes more confused and unable to speak and experiences increased generalized weakness.? Today his mother noted that he was not speaking as usual, more withdrawn, and more weak.? He was not coughing nor was he complaining of any increasing chronic pain.? To her observation he was not experiencing any fevers chills or sweats.? She noted no change in his urine. She brought him to the emergency department where he was found to have an abnormal chest x-ray with suggestion of mild left upper and lower lobe infiltrates as well as an abnormal urinalysis.? He was given cefepime, azithromycin, and vancomycin, 1 dose each in the emergency department. CT chest revealed pneumonia involving the upper lobes and left lower lobe. Subacute L2 burst fracture stable from 04/30/2023. CT head with normal brain. He was also noted to be hypoglycemic on presentation. MRI brain unremarkable on 06/13/2023 Hypoglycemia could be related to seizure/infection. C-peptide level and insulin level pending A1c is 4.6 not a known diabetic. No hypoglycemic agents Hypothermia normalized now Chronic thrombocytopenia Hypokalemia replaced Urine culture with Nara parapsilosis species complex. Blood culture negative to date treated with fluconazole Pneumonia treated with antibiotics Post traumatic mild clonic seizure Chronic pain syndrome on baclofen pump/Lyrica and nortriptyline also on methadone Subjective Date/time seen: 07/04/23 07:57 Interval history: No new complaints. More awake. Chart reviewed Review of Systems Review of Systems: All systems reviewed & are unremarkable except as noted in HPI and below Exam Narrative: General: Paraplegic gentleman, awake and alert and conversant HEENT:? Pupils equal and reactive sclera is clear Neck:? Supple Respiratory:? Clear lungs Cardiac:? S1-S2 is Will, regular rate and rhythm Abdomen:? Soft, nontender, nondistended, left-sided ostomy noted, normoactive bowel sounds Extremities:? No edema, contraction of upper extremities and the elbows Neuro:? Patient is awake, alert conversant following commands. Objective Data Vital Signs Vital Signs: Vital Signs - 24 hr 07/03/23 08:30 07/03/23 14:23 07/03/23 20:08 Temperature 97.3 F L 97.8 F Pulse Rate 56 L 57 L Respiratory Rate 18 16 Blood Pressure 161/89 H 103/77 Pulse Oximetry 96 98 Oxygen Delivery Room Air 07/04/23 05:17 07/03/23 23:50 Temperature 97.9 F Pulse Rate 98 Respiratory Rate 16 Blood Pressure 137/85 Pulse Oximetry 100 98 Oxygen Delivery Room Air Intake/Output Intake/Output: Intake & Output 07/01/23 07/02/23 07/03/23 07/04/23 23:59 23:59 23:59 23:59 Intake Total 4710 2860 2600 500 Output Total 6575 3400 4250 2850 Balance -0655 -540 -5500 -4352 Meds/Results Medications: Active Medications Generic Name Dose Route Start Last Admin Trade Name Hugoq PRN Reason Stop Dose Admin Acetaminophen 650 mg 06/30/23 22:07 07/03/23 20:02 Acetaminophen 325 Mg Tablet PO 650 mg Q6H PRN Administration Mild Pa
[2023-07-04 08:04] LABS: Glucose Point of Care 73 mg/dl (65-105)
[2023-07-04 08:18] LABS: Glucose Point of Care 104 mg/dl (65-105)
[2023-07-04 08:23] VITALS: O2SAT 98
[2023-07-04] MEDS: FLUCONAZOLE 100 MG TABLET PO (08:47)
[2023-07-04] MEDS: POTASSIUM CHLORIDE 20 MEQ ER TABLET 40 MEQ PO (08:47)
[2023-07-04 12:12] LABS: Glucose Point of Care 75 mg/dl (65-105)
[2023-07-04 14:23] VITALS: BP 103/71; PULSE 66; RESP 18; TEMP 36.6; O2SAT 96
--- NOTE | 2023-07-04 16:04 | PM.DS ---
DS: Admitting Diagnosis Discharge Date 07/04/2023 Admitting Diagnosis Altered mental status DS: Discharge Diagnosis Discharge Diagnosis (1) Encephalopathy acute: Code(s): G93.40 - Encephalopathy, unspecified Status: Acute (2) Hypoglycemia: Code(s): E16.2 - Hypoglycemia, unspecified Status: Acute (3) Hypothermia: Code(s): T68.XXXA - Hypothermia, initial encounter Status: Acute (4) Acute UTI: Code(s): N39.0 - Urinary tract infection, site not specified Status: Acute (5) Pneumonia: Code(s): J18.9 - Pneumonia, unspecified organism Status: Acute (6) Chronic pain syndrome: Code(s): G89.4 - Chronic pain syndrome Status: Chronic (7) Thrombocytopenia: Code(s): D69.6 - Thrombocytopenia, unspecified Status: Chronic DS: Summary Hospital Course Hospital Course: 42-year-old gentleman who is quadriplegic.? Is been hospitalized 4 times since the beginning of 2023, twice a day [place], twice at [place].? All were due to infections.? With each episode he becomes more confused and unable to speak and experiences increased generalized weakness.? Today his mother noted that he was not speaking as usual, more withdrawn, and more weak.? He was not coughing nor was he complaining of any increasing chronic pain.? To her observation he was not experiencing any fevers chills or sweats.? She noted no change in his urine. She brought him to the emergency department where he was found to have an abnormal chest x-ray with suggestion of mild left upper and lower lobe infiltrates as well as an abnormal urinalysis.? He was given cefepime, azithromycin, and vancomycin, 1 dose each in the emergency department.? CT chest revealed pneumonia involving the upper lobes and left lower lobe.? Subacute L2 burst fracture stable from 04/30/2023.? CT head with normal brain.? He was also noted to be hypoglycemic on presentation.? MRI brain unremarkable on 06/13/2023 Hypoglycemia could be related to seizure/infection.? C-peptide level and insulin level pending A1c is 4.6 not a known diabetic.? No hypoglycemic agents. Lyrica is also associated with hypoglycemic episodes dosing has been reduced. Will continue to follow-up as an outpatient basis. Continues glucose monitor at least for short period Might be helpful. Order has been placed however might need to follow-up with his PCP Hypothermia normalized now Chronic thrombocytopenia Hypokalemia replaced Urine culture with Nara parapsilosis species complex.? Blood culture negative to date treated with fluconazole. Will treat with 2 weeks course of fluconazole Pneumonia treated with antibiotics and completes treatment during hospital stay Post traumatic mild clonic seizure Chronic pain syndrome on baclofen pump/Lyrica and nortriptyline also on methadone Time Spent with Patient Time attestation: Total time spent providing and/or coordinating discharge services: 35 minutes Exam Narrative: General: Paraplegic gentleman, awake and alert and conversant HEENT:? Pupils equal and reactive sclera is clear Neck:? Supple Respiratory:? Clear lungs Cardiac:? S1-S2 is Will, regular rate and rhythm Abdomen:? Soft, nontender, nondistended, left-sided ostomy noted, normoactive bowel sounds suprapubic catheter in-situ Extremities:? No edema, contraction of upper extremities and the elbows Neuro:? Patient is awake, alert conversant following commands. DS: Data Data Completed and Pending Labs on day of discharge: Labs from last 24 hours 07/04/23 07/04/23 07/04/23 12:02 08:16 07:53 WBC RBC Hgb Hct MCV MCH MCHC RDW Plt Count MPV % Immature Plt Fraction Sodium Potassium Chloride Carbon Dioxide Anion Gap BUN Creatinine Estim Creat Clear Calc Estimated GFR Glucose POC Capillary Glucose 75 104 73 C-Peptide Calcium Total Bilirubin AST ALT [place]
[2023-07-04 17:00] LABS: Glucose Point of Care 89 mg/dl (65-105)
[2023-07-09 07:25] LABS: C-Peptide 1.98 ng/mL (0.80-3.85)
[2023-07-11 08:59] LABS: IGFBP-1 <5
[2023-07-11 12:27] LABS: Renin 0.12 ng/mL/h (0.25-5.82)
== END 2023-07-04 18:07 | disposition home or self-care (01) | DRG 698 ==
LOC: ANHED 15:29 → ANH3MED 15:53 → ANHICU 06-30 10:04 → ANH2MED 07-01 13:55
PROVIDERS: Family Medicine; General Practice; Internal Medicine; Student in an Organized Health Care Education/Training Program; Admitting Provider Internal Medicine; Emergency Provider Nurse Practitioner Family; PCP Family Medicine; Visit Provider Internal Medicine
DX: T83.510A Infection and inflammatory reaction due to cystostomy catheter, initial encounter (principal); G82.50 Quadriplegia, unspecified; J18.9 Pneumonia, unspecified organism; G93.41 Metabolic encephalopathy; B37.49 Other urogenital candidiasis; R56.1 Post traumatic seizures; R68.0 Hypothermia, not associated with low environmental temperature; E16.2 Hypoglycemia, unspecified; Z20.822 Contact with and (suspected) exposure to COVID-19; G89.4 Chronic pain syndrome; D50.9 Iron deficiency anemia, unspecified; N31.9 Neuromuscular dysfunction of bladder, unspecified; R00.1 Bradycardia, unspecified; E87.5 Hyperkalemia; D53.9 Nutritional anemia, unspecified; D69.6 Thrombocytopenia, unspecified; G62.9 Polyneuropathy, unspecified; F41.9 Anxiety disorder, unspecified; V89.2XXS Person injured in unspecified motor-vehicle accident, traffic, sequela; Z93.3 Colostomy status; Z86.16 Personal history of COVID-19; Z98.1 Arthrodesis status; Z74.01 Bed confinement status
CPT/HCPCS: 36415; 36569; 36600; 70450; 71045; 71250; 80048; 80053; 80202; 81001; 82088; 82140; 82274; 82533; 82607; 82746; 82805; 82948; 83036; 83520; 83540; 83550; 83605; 83735; 84100; 84145; 84244; 84443; 84484; 84681; 85025; 85027; 85046; 85055; 85610; 85730; 86140; 86703; 87040; 87086; 87088; 87106; 87340; 87637; 87641; 93005; 94640; 95816; 96361; 96365; 96366; 96367; 96375; 96376; 99285; A9270; G0378; G0432; J0612; J0692; J0834; J1450; J2310; J3370; J7030; J7042; J7120

== ENCOUNTER 2023-12-05 14:29 | Outpatient (CLI) | payer MEDICARE, MEDICAID, SELFPAY ==
[2023-12-05 15:33] LABS: Add Urine Microscopic? YES; Appearance Urine Clear (Clear); Bacteria Urine None Seen /hpf; Bilirubin Urine Negative (Negative); Blood Urine Negative (Negative); Color Urine Yellow (Yellow); Glucose Urine UA Negative (Negative); Ketones Urine Trace mg/dL (Negative); Leukocyte Esterase Ur 1+ LEU/UL (Negative); Need Manual Microscopic Reviewed; Nitrate Urine Negative (Negative); Non Pathogenic Casts 0-2; Protein Urine Negative (Negative); RBC Urine 0-2 /hpf (0-2); Specific Grav Ur 1.006 (1.001-1.035); Squamous Epithelial Cell Urine None Seen /hpf (Few); Urobilinogen Urine 0.2 mg/dL (<2.0); WBC Urine 0-5 /hpf (0-3)
== END 2023-12-05 14:30 | disposition home or self-care (01) ==
LOC: ANHLAB 14:35
PROVIDERS: PCP Family Medicine; Visit Provider Family Medicine
DX: R30.0 Dysuria (principal)
CPT/HCPCS: 81001; 87086

== ENCOUNTER 2024-05-18 12:53 | Emergency (ER) | payer MEDICARE, MEDICAID, SELFPAY ==
--- NOTE | ~2024-05-18 | XR_ITS ---
Right Knee Technique: AP, lateral, and oblique views were obtained. Clinical History: Pain Findings: No fracture or dislocation is seen. Osseous alignment is anatomic. Joint spaces are preserv ed without degenerative or erosive change. Soft tissues are unremarkable. No joint effusion is seen. Impression: Unremarkable right knee radiographs. Reviewed, dictated and finalized at [facility]. D TO WEAN PRODUCTION TECHNICIAN Impression: Unremarkable right knee radiographs.
--- NOTE | ~2024-05-18 | XR_ITS ---
Right ankle Technique: AP, oblique, and lateral views were obtained. Clinical History: Pain Findings: No acute fracture or dislocation is seen. Marked osteopenia present. Osseous alignment is a natomic. Ankle mortise and other visualized joint spaces are preserved. Soft tissues are otherwise u nremarkable. Impression: No acute abnormality seen. Marked osteopenia. Reviewed, dictated and finalized at location . ETE MANAGER Impression: No acute abnormality seen. Marked osteopenia.
--- NOTE | ~2024-05-18 | XR_ITS ---
Right foot Technique: AP, oblique, and lateral views were obtained. Clinical History: Pain Findings: No acute fracture or dislocation is seen. Marked osteopenia present. Osseous alignment is a natomic. Joint spaces are preserved without erosive or degenerative change. Soft tissues are unremark able. Impression: No acute abnormality seen. Marked generalized osteopenia. Reviewed, dictated and finalized at location . ING CLERK Impression: No acute abnormality seen. Marked generalized osteopenia.
[2024-05-18 12:57] VITALS: BP 115/77; PULSE 59; RESP 16; TEMP 35.5; O2SAT 99
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
[2024-05-18 15:06] VITALS: BP 91/47; PULSE 70; RESP 16; O2SAT 99
--- OUTSIDE RECORDS SUMMARY | 2024-05-20 18:25 | XMS_ITS | Data Portability ---
Author Organization [facility], Main Office Address [address] [place] [address] Assessment No assessment recorded. Plan of Treatment Reminders Order Date Submit Date Provider Last Modified By Organization Details Last Modified Time Details Appointments Follow Up 2024 01:30P M Ronald Lemons DPM Not available Not available Not available Lab None recorded . Referral None recorded . Procedures None recorded . Surgeries None recorded . Imaging None recorded . Medication Orders None recorded . Patient TargetsNo targets recorded. Patient InstructionsNo instructions recorded. Reason for Referral None Reported. Procedures Surgical History Date Name Laterality Status Provider Name and Address Organization Details Recorded Time 4 Nail Debridement completed Ronald Lemons DPM [address], [place], [address], [facility] 04/19/2024 08:34:35 4 Nail Debridement completed Ronald Lemons DPM [address], [place], [address], [facility] 01/20/2024 09:04:07 4 Callus Debridement 2-4 completed Ronald Lemons DPM [address], [address], [place], [address], [facility] 01/20/2024 09:04:15 4 Nail Debridement completed Ronald Lemons DPM [address], [place], [address], [facility] 10/14/2023 10:16:40 Imaging Results None recorded. Procedure Notes None recorded. Medical Equipment None Reported. Allergies No known drug allergies Medications Name Sig Start Date Stop Date Status Note LastModified by Organization Details LastModified Time accu-chek guide test strips strp active Not Available Not Available Not Available Santyl 250 unit/gram topical ointment APPLY 1.8 CM TO AFFECTED WOUND ON BOTTOM ONCE DAILY active Not Available Not Available No t Available ipratropium 0.5 mg-albuterol 3 mg (2.5 mg base)/3 mL nebulization soln USE 1 VIAL VIA NEBULIZER EVERY 4 HOURS NEEDED FOR SHORTNESS OF BREATH active Not Available Not Available No t Available trazodone 50 mg tablet TAKE 1 TABLET BY MOUTH EVERY NIGHT AT BEDTIME NEEDED FOR INSOMNIA active Not Available Not Available No t Available azithromycin 250 mg tablet TK 2 TS PO ON DAY 1, THEN TK 1 T PO D FOR 4 DAYS active Not Available Not Available No t Available Glucagon Emergency Kit 1 mg solution for injection INJECT 1MG SUBCUTANEOU SLY EVERY 20 MINUTES NEEDED FOR HYPOGLYCEMI A UNTIL TARGET BLOOD SUGAR active Not Available Not Available Not Available levetiraceta m 500 mg tablet TAKE 1 TABLET BY MOUTH TWICE DAILY active Not Available Not Available No t Available Nystop 100,000 unit/gram topical powder APPLY EXTERNALLY TO THE AFFECTED AREA TWICE DAILY active Not Available Not Available No t Available methadone 10 mg tablet TAKE 1 TABLET BY MOUTH TWICE DAILY active Not Available Not Available No t Available fluconazole 200 mg tablet TAKE 1 TABLET BY MOUTH DAILY active Not Available Not Available Not Available clonazepam 0.5 mg tablet TAKE 1 TABLET BY MOUTH THREE TIMES DAILY NEEDED FOR ANXIETY active Not Available Not Available Not Available midodrine 5 mg tablet TAKE 1 TABLET BY MOUTH THREE TIMES DAILY NEEDED FOR HYPOTENSION . DO NOT GIVE LAST DOSE OF DAY AFTER 6 PM OR WITHIN 4 HOURS OF BEDTIME active Not Available Not Available No t Available Accu-Chek Softclix Lancets DIRECTED active Not Available Not Available Not Available ciprofloxaci n 250 mg tablet TAKE 1 TABLET BY MOUTH EVERY 12 HOURS active Not Available Not Available No t Available ciprofloxaci n 500 mg tablet TAKE 1 TABLET BY MOUTH EVERY 12 HOURS active Not Available Not Available No t Available sulfamethoxa zole 800 mg-trimethop rim 160 mg tablet TAKE 1 TABLET BY MOUTH EVERY 12 HOURS active Not Available Not Available No t Available nortriptylin e 25 mg capsule active Not Available Not Available Not Available sodium chloride 0.9 % irrigation solution IRRIGATE WOUND EVERY 3-4 HOURS NEEDED active Not Available Not Available No t Available hydrocodone 7.5 mg-acetamino phen 325 mg tablet TAKE 1 TABLET BY MOUTH EVERY 8 HOURS NEEDED FOR PAIN active Not Available Not Available No t Available cephalexin 500 mg capsule TAKE 1 CAPSULE BY MOUTH THREE TIMES DAILY NEEDED FOR UTI active Not Available Not Available No t Available mupirocin 2 % topical ointment APPLY TO NOSTRILS TWICE DAILY STARTING 5 DAYS PRIOR TO SURGERY ENDING THE DAY PRIOR active Not Available Not Available No t Available ergocalcifer ol (vitamin D2) 1,250 mcg (50,000 unit) capsule TAKE 1 CAPSULE BY MOUTH EVERY WEEK ON FRIDAY active Not Available Not Available No t Available albuterol sulfate HFA 90 mcg/actuatio n aerosol inhaler INHALE 1 INHALATION BY MOUTH EVERY 4 HOURS NEEDED FOR SHORTNESS OF BREATH OR WHEEZING active Not Available Not Available Not Available ketoconazole 2 % topical cream active Not Available Not Available Not Available metocloprami de 10 mg tablet TAKE 1 TABLET BY MOUTH EVERY 8 HOURS NEEDED active Not Available Not Available No t Available amoxicillin 875 mg-potassium clavulanate 125 mg tablet TAKE 1 TABLET BY MOUTH EVERY 12 HOURS active Not Available Not Available No t Available tadalafil 10 mg tablet TAKE 1 TABLET BY MOUTH EVERY DAY NEEDED FOR SEXUAL ACTIVITY (30 MIN BEFORE NEEDED) active Not Available Not Available No t Available nitrofuranto in monohydrate/ macrocrystal s 100 mg capsule TAKE 1 CAPSULE BY MOUTH EVERY 12 HOURS WITH FOOD FOR 7 DAYS active Not Available Not Available N ot Available solifenacin 10 mg tablet TAKE 1 TABLET BY MOUTH AT BEDTIME active Not Available Not Available No t Available pregabalin 75 mg capsule TAKE 1 CAPSULE BY MOUTH EVERY 8 HOURS active Not Available Not Available No t Available pregabalin 200 mg capsule TAKE 1 CAPSULE BY MOUTH THREE TIMES DAILY active Not Available Not Available Not Available ramelteon 8 mg tablet TAKE 1 TABLET BY MOUTH 1 TIME AT BEDTIME active Not Available Not Available No t Available Suprep Bowel Prep Kit 17.5 gram-3.13 gram-1.6 gram oral solution active Not Available Not Available Not Available Vios Aerosol Delivery System FOLLOW PACKAGE DIRECTIONS active Not Available Not Available N ot Available Linzess 145 mcg capsule TAKE 1 CAPSULE BY MOUTH EVERY MORNING active Not Available Not Available No t Available Accu-Chek Guide test strips TEST FOUR TO SIX TIMES DAILY DIRECTED active Not Available Not Available Not Available Accu-Chek Guide Me Glucose Meter DIRECTED active Not Available Not Available Not Available Baqsimi 3 mg/actuation nasal spray USE 3 MG NASALLY ONCE A SINGLE DOSE NEEDED FOR HYPOGLYCEMI A active Not Available Not Available No t Available Dexcom G7 Sensor device CHANGE EVERY 10 DAYS active Not Available Not Available No t Available FreeStyle Erich [address] [place] FOLLOW PACKAGE DIRECTIONS active Not Available Not Available N ot Available Vitals Date Recorded Body height Body mass index (BMI) Body weight Provider Name and Address Organization Details Last Updated DateTime 10/13/2023 172.72 cm 24.3 kg/m2 75914.78 g Chan Carreno VENKATANatalie [employer] [facility] [employer] 10/13/2023 16:21:09 Date Recorded Body height Body mass index (BMI) Body weight Oxygen saturation Oxygen saturation in Arterial blood by Pulse oximetry Body temperature Heart rate Provider Name and Address Organization Details Last Updated DateTime 4 172.72 cm 24.3 kg/m2 77942.7 8 g 98 % 98 % 98.2 [degF] 77 /min Chan Carreno VENKATANatalie [employer] [facility] [employer] 4 12:38:35 Date Recorded Body height Body mass index (BMI) Body weight Oxygen saturation Oxygen saturation in Arterial blood by Pulse oximetry Body temperature Heart rate Provider Name and Address Organization Details Last Updated DateTime 4 172.72 cm 24.3 kg/m2 27531.7 8 g 97 % 97 % 98.1 [degF] 79 /min Chan Carreno VENKATANatalie [employer] 4 12:55:35 Social History Question Answer Notes LastModified by Organizat ion Details LastModified Time Tobacco Smoking Status Never Smoker Chan Carreno VENKATANatalie [facility] [employer] 10/13/2023 16:21:59 What Is Your Level Of Alcohol Consumption? None [email or web address] Information not available 10/13/2023 What Is Your Level Of Caffeine Consumption? Moderate Information not available 10/13/2023 What Was The Date Of Your Most Recent Tobacco Screening? 01/19/2024 Information not available 01/19/2024 Do You Use Any Illicit Or Recreational Drugs? No [email or web address] Information not available 10/13/2023 Has Tobacco Cessation Counseling Been Provided? No [email or web address] Information not available 10/13/2023 Do You Or Have You Ever Used Any Other Forms Of Tobacco Or Nicotine? No [email or web address] Information not available 10/13/2023 Sex: Unknown Functional Status None recorded. Mental Status None recorded. Family History Nothing Reported. Medical History Condition Response HYPERTENSION Y DIZZINESS Y Past Encounters Encounter ID Performer Location Encounter Start Date Encounter Closed Date Diagnosis/Indication Diagnosis SNOMED-CT Code Diagnosis ICD10 Code Diagnosis Note [id number] Ronald Lemons DPM [facility] [place] [address] [address] 10/13/2023 16:11:02 12/05/2023 04:00:41 [id number] Ronald Lemons DPM [facility] [place] [address] [address] 01/19/2024 12:37:03 02/21/2024 04:08:09 [id number] Ronald Lemons DPM [facility] [place] [address] [address] 04/16/2024 12:43:07 04/23/2024 04:07:33 Health Concerns Section Related Observation LastModified by Organization Detai ls LastModified Time None Recorded Concern Status LastModified by Organization Details LastModified Time None Recorded Advance Directives Directive None Recorded Payers Encounter Date Sequence Insurance Name Policy Number Policy Mcgregor Covered Member ID Mcgregor Member ID Guarantor Name 10/13/2023 1 [facility] (MEDICARE REPLACEMENT/AD VANTAGE - HMO) [id number] Segundo Wetzel [id number] Segundo Wetzel 10/13/2023 2 [place] MEDICARE OR MEDICARE REPLACEMENT PRIMARY) Segundo Wetzel [id number] Segundo Wetzel 01/19/2024 1 [facility] (MEDICARE REPLACEMENT/AD VANTAGE - HMO) [id number] Segundo Wetzel [id number] Segundo Wetzel 01/19/2024 2 [place]ICARE REPLACEMENT PRIMARY) Segundo Wetzel [id number] Segundo Wetzel 04/16/2024 1 [facility] (MEDICARE REPLACEMENT/AD VANTAGE - HMO) [id number] Segundo Wetzel [id number] Segundo Wetzel 04/16/2024 2 [place] WHEN [place]ARE OR MEDICARE REPLACEMENT PRIMARY) Segundo Wetzel [id number] Segundo Wetzel Notes Date Note Type Note Provider Name and Address Organization Details Recorded Time 10/13/2023 text/html Pt RTC for c/o thick, incurvated toenails marck. Pt is paraplegic in wheelchair w/ very limited ability to use his arm, Lt. Otherwise, completely disabled and RTC in care of caregiver. Ronald Lemons DPM [address], [place], [address], [facility] 10/14/2023 10:16:45 01/19/2024 text/html Paraplegic RTC for c/o nails marck and calluses both feet, outside. Ronald Lemons DPM [address], [place], [address], [facility] 01/20/2024 09:04:20 04/16/2024 text/html Pt RTC for routine c/o nails marck. Painful incurvated and dystrophic. Pt is in wheelchair and quadraplegic, unable to self-tx. Ronald Lemons DPM [address], [place], [address], [facility] 04/19/2024 08:34:41
--- OUTSIDE RECORDS SUMMARY | 2024-05-20 18:25 | XMS_ITS | Encounter Summary ---
Author Organization [facility] Address [address] [place] [address] Phone Care Team Providers Care Hat Cutter Name Role Phone Destiney, Zander CHAPMAN Primary Care Provider [phone] Rick Rodas MD Unavailable [phone] Nicolás Elena MD Primary Care Provider [phone] Emerson Camarillo MD Primary Care Provider [phone] Marquita Berry DPT Unavailable [phone] Emerson Camarillo MD Primary Care Provider [phone] Tiffany Sheppard RN Unavailable Heidi Lane MD Unavailable [phone] Encounter Details Date Type Department Care Team (Late st Contact Info) Description 10/04/2020 Treatment [facility] [address] [place] [address] Cale Morris MD [facility] [address] Social History Tobacco Use Types Packs/Day Years Used Date Smoking Tobacco: Former Cigarettes 2 - 2008 Smokeless Tobacco: Never Comments:cigars Alcohol Use Standard Drinks/Week Comments Never 0 (1 standard drink = 0.6 oz pur e alcohol) AUDIT-C Answer Date Recorded Q1: How often do you have a drink containing alc ohol? Never 09/13/2020 Average Number of Drinks Not on file 021 Q3: How often do you have si x or more drinks on one occasion? 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 Author CCM Chronic Pain Care Plan Chronic Care Management Improving( 3:32 PM SCHOOL CROSSING GUARD SUPERVISOR) Lynette Siddiqi RN Note: Problem: Chronic Pain Goals: 1. Minimize further functional decline 2. Maximize quality of life 3. 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 documented as of this encounter Care Teams Hat Cutter Relationship Specialty Start Date End Date Zander Cabello DO PCP - General Internal Medicine 04/08/18 06/19/22 Nicolás Elena MD [id number] [place] [address] PCP - General Internal Medicine 06/20/22 01/07/23 Emerson Camarillo MD [phone] [place] [address] PCP - General Family Practice 01/08/23 01/08/23 Emerson Camarillo MD [address] [facility] [phone] [place] [address] PCP - General Family Practice 01/14/23 Rick Rodas MD [address] [facility] [id number] [place] [address] Surgeon Colon and Rectal Surgery 06/08/21 Marquita Berry DPT [address] [facility] [address] [place] [address] Physical Therapist Physical Therapy 01/06/23 Tiffany Sheppard RN [address] [facility] [address] [place] [address] [facility] Outpatient Business Management Specialist 05/09/23 06/05/[address] MD [address] [facility] [place] [address] Consulting Physician Pain Management 06/24/18 TARSHA PULLIAM APN [id number] [facility] [id number] Wound Care Nurse Wound Care 05/15/18 documented as of this encounter
--- OUTSIDE RECORDS SUMMARY | 2024-05-20 18:25 | XMS_ITS | Encounter Summary ---
Author Organization [facility] Address [address] [place] [address] Phone Care Team Providers Care Dry Cleaner Hand Name Role Phone Rick Rodas MD Unavailable [phone] Nicolás Elena MD Primary Care Provider [phone] Emerson Camarillo MD Primary Care Provider [phone] Marquita Berry DPT Unavailable [phone] Emerson Camarillo MD Primary Care Provider [phone] Tiffany Sheppard RN Unavailable Heidi Lane MD Unavailable Encounter Details Date Type Department Care Team (Late st Contact Info) Description 12/08/[address] Office [address] [place] [address] Cale Morris MD Replaced by [facility] [address] [address] Social History Tobacco Use Types Packs/Day Years Used Date Smoking Tobacco: Former Cigarettes 2 - 2008 Smokeless Tobacco: Never Comments:cigars Alcohol Use Standard Drinks/Week Comments Never 0 (1 standard drink = 0.6 oz pur e alcohol) AUDIT-C Answer Date Recorded Q1: How often do you have a drink containing alc ohol? 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 Author CCM Chronic Pain Care Plan Chronic Care Management Improving( 3:32 PM FIELD ASSEMBLY SUPERVISOR) Lynette Siddiqi RN Note: Problem: Chronic [...] COVID: Suspected 05/05/2023 05/05/2023 05/05/2023 2:35 PM FIELD ASSEMBLY SUPERVISOR documented as of this encounter Care Teams Dry Cleaner Hand Relationship Specialty Start Date End Date Nicolás Elena MD [address] [facility] [phone] [place] [address] PCP - General Internal Medicine 06/20/22 01/07/23 Emerson Camarillo MD [address] [facility] [phone] [place] [address] PCP - General Family Practice 01/08/23 01/08/23 Emerson Camarillo MD [address] [facility] [phone] [place] [address] PCP - General Family Practice 01/14/23 Rick Rodas MD [address] [facility] [phone] [place] [address] Surgeon Colon and Rectal Surgery 06/08/21 Marquita Berry DPT [address] [facility] [address] [place] [address] Physical Therapist Physical Therapy 01/06/23 Tiffany Sheppard, RN [address] [facility] [address] [place] [address] [facility] Outpatient Color Straining Bag Washer 05/09/23 06/05/[address] MD [address] [facility] [place] [address] Consulting Physician Pain Management 06/24/18 TARSHA PULLIAM APN [id number] [facility] [id number] Wound Care Nurse Wound Care 05/15/18 documented as of this encounter
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
--- OUTSIDE RECORDS SUMMARY | 2024-05-20 18:25 | XMS_ITS | Clinical Summary ---
Author Organization [address] Address [address] [email or web address] [address] Care Team Providers Care Medical Billing Manager Name Role Phone Dayday Baker MD Primary Care Provider [phone] Allergies Active Allergy Reactions Criticality Noted Date Comments Adhesive Rash Medium Medications BACLOFEN INTRATHECAL 800 mcg by IntraTHEcal route continuously. Active solifenacin (VESICARE) 10 mg Tablet Take 10 mg by mouth daily. Active pregabalin (LYRICA) 200 mg Capsule Take 200 mg by mouth 3 times daily. Active omega 1-yxe-boo-fish oil (FISH OIL) 120-180-500 mg Capsule Take 2 Tablets by mouth daily. Active Fish,Saf,Flx,Brg Oils-O3,6,9#2 (FWVX-WVVL-OHCHL E OIL) 351-200-945-50 mg Capsule Take 1 Tablet by mouth daily. Active docusate sodium (COLACE) 100 mg capsule Take 200 mg by mouth daily at bedtime. Active methadone (DOLOPHINE) 10 mg Tablet Take 10 mg by mouth 3 times daily. Active clonazePAM (KlonoPIN) 0.5 mg Tablet Take 0.5 mg by mouth 1 time daily as needed for Anxiety. Active Active Problems Problem Noted Date Diagnosed Date Neuropathic pain 04/08/2018 Colostomy care 02/09/2018 Muscle spasm 01/07/2018 Spasticity 10/15/2017 Muscle spasticity 10/10/2017 Neurogenic bladder 10/10/2017 Presence of intrathecal baclofen pump 10/10/2017 Tetraplegia 10/10/2017 Osteoporosis 10/06/2017 Social History Tobacco Use Types Packs/Day Years Used Date Smoking Tobacco: Former Cigarettes 0.3 2 0 05/13/2004 - 05/13/2006 Smokeless Tobacco: Never Alcohol Use Standard Drinks/Week Comments No 0 (1 standard drink = 0.6 oz pur e alcohol) Sex and Gender Information Value Date Recorded Sex Assigned at Not on file Legal Sex Male 11:14 AM HOT STONE SETTER Gender Identity Not on file Sexual Orientation Not on file Last Filed Vital Signs Vital Sign Reading Time Taken Comments Blood Pressure 60/40 05/13/2018 1:00 PM HOT STONE SETTER Pulse 54 05/13/2018 1:00 PM HOT STONE SETTER Temperature 35.8 ??C (96.5 ??F) 05/13/2018 1:00 PM CS T Respiratory Rate 16 05/13/2018 1:00 PM HOT STONE SETTER Oxygen Saturation - - Inhaled Oxygen Concentration - - Weight 72.6 kg (160 lb) 05/13/2018 1:00 PM HOT STONE SETTER Height 172.7 cm (5' 8 ) 05/13/2018 1:00 PM HOT STONE SETTER Body Mass Index 24.33 05/13/2018 1:00 PM HOT STONE SETTER Plan of Treatment Health Maintenance Due Date Last Done Comments DTAP/TDAP/TD VACCINES (1 - Tdap) 2000 HEPATITIS B VACCINES (1 of 3 - 19+ 3-dose series) 2000 INFLUENZA VACCINE (#1) 2023 HPV VACCINES Aged Out No longer eligi ble based on patient's age to complete this topic PNEUMOCOCCAL VACCINE 0-64 YEARS Aged Out No longer eligible based on patient's age to complete this topic Insurance MEDICARE PART A AND B Care Teams Medical Billing Manager Relationship Specialty Start Date End Date Dayday Baker MD PCP - General Physical Medicine and Rehabilitation 04/15/18
--- OUTSIDE RECORDS SUMMARY | 2024-05-20 18:25 | XMS_ITS | Encounter Summary ---
Author Organization [facility] Address [address] [place] [address] Phone Care Team Providers Care Merchandise Collector Name Role Phone Rick Rodas MD Unavailable [phone] Nicolás Elena MD Primary Care Provider [phone] Emerson Camarillo MD Primary Care Provider [phone] Marquita Berry DPT Unavailable [phone] Emerson Camarillo MD Primary Care Provider [phone] Tiffany Sheppard RN Unavailable Heidi Lane MD Unavailable [phone] Encounter Details Date Type Department Care Team (Late st Contact Info) Description 12/09/[address] Medical Office Building [address] [place] [address] Cale Morris MD [facility] [address] Social History Tobacco Use Types [...] on file Legal Sex Male 12:56 PM STAFFING MGR Gender Identity Not on file Sexual Orientation Not on file documented as of this encounter Plan of Treatment Not on file documented as of this encounter Goals Goal Patient Goal Type Associated Problems Recent Progress Patient-Stated? Author CCM Chronic Pain Care Plan Chronic Care Management Improving( 3:32 PM STAFFING MGR) Lynette Siddiqi RN Note: Problem: Chronic Pain [...] COVID: Suspected 05/05/2023 05/05/2023 05/05/2023 2:35 PM STAFFING MGR documented as of this encounter Care Teams Merchandise Collector Relationship Specialty Start Date End Date Nicolás Elena MD [address] [facility] [phone] [place] [address] PCP - General Internal Medicine 06/20/22 01/07/23 Emerson Camarillo MD [address] [facility] [phone] [place] [address] PCP - General Family Practice 01/08/23 01/08/23 Emerson Camarillo MD [address] [facility] [phone] [place] [address] PCP - General Family Practice 01/14/23 Rick Rodas MD [address] [facility] [phone] [place] [address] Surgeon Colon and Rectal Surgery 06/08/21 Marquita Berry DPT [address] [facility] [address] [place] [address] Physical Therapist Physical Therapy 01/06/23 Tiffany Sheppard, RN [address] [facility] [address] [place] [address] SHOP Outpatient Pin Worker 05/09/23 06/05/[address] MD [address] [facility] [place] [address] Consulting Physician Pain Management 06/24/18 TARSHA PULLIAM APN [id number] [facility] [id number] Wound Care Nurse Wound Care 05/15/18 documented as of this encounter
--- OUTSIDE RECORDS SUMMARY | 2024-05-20 18:25 | XMS_ITS | Encounter Summary ---
Author Organization [facility] Address [address] [place] [address] Phone Care Team Providers Care Stock Hanger Name Role Phone Rick Rodas MD Unavailable [phone] Marquita Berry DPT Unavailable [phone] Emerson Camarillo MD Primary Care Provider [phone] MD Unavailable [phone] Encounter Details Date Type Department Care Team (Late st Contact Info) Description 05/11/2024 Telephone [facility] Orthopaedic Surgery [address] [facility] [address]th [place] [address] [place] [address] Dayday Baker MD [address] [facility] [address] [place] [address] Social History Tobacco Use Types Packs/Day Years Used Date Smoking Tobacco: Former Cigarettes 2 008 - 2008 Smokeless Tobacco: Never Comments:cigars Alcohol Use Standard Drinks/Week Comments Never 0 (1 standard drink = 0.6 oz pur e alcohol) AUDIT-C Answer Date Recorded Q1: How often do you have a drink containing alcohol? Never 08/29/2023 Q2: How many drinks containi ng alcohol do you have on a typical day when you are drinking? Patient does not drink 05/03/202 4 Q3: How often do you have si [...] on file Legal Sex Male 12:56 PM CRAB MEAT PROCESSOR Gender Identity Not on file Sexual Orientation Not on file documented as of this encounter Miscellaneous Notes * Telephone Encounter - Carolynn Garcia CMA - 05/11/2024 10:26 AM CRAB MEAT PROCESSOR Pt called and LVM stating his legs are swollen, purple and yellow discoloration. He is worried there might be blood clots. Asking for an order for a doplar. I called the pt back and advised that he go the the ED today to be assessed. clt MEAT PROCESSOR documented in this encounter Plan of Treatment Not on file documented as of this encounter Goals Goal Patient Goal Type Associated Problems Recent Progress Patient-Stated? Author CCM Chronic Pain Care Plan Chronic Care Management Improving( 3:32 PM CRAB MEAT PROCESSOR) Lynette Siddiqi RN Note: Problem: Chronic Pain Goals: 1. Minimize further functional decline 2. Maximize quality of life 3. Control pain Strategies: - Activity/exercise program recommendation - Conservative stepwise pain medicine strategy with multi-disciplinary approach - Recommend healthy lifestyle strategies and compensatory methods as needed documented as of this encounter Visit Diagnoses Not on filedocumented in this encounter Care Teams Stock Hanger Relationship Specialty Start Date End Date Emerson Camarillo MD [address] [facility] [address] [place] [address] PCP - General Family Practice 01/14/23 Rick Rodas MD [address] [facility] [phone] [place] [address] Surgeon Colon and Rectal Surgery 2/11/22 Marquita Berry DPT [address] [address] Physical Therapist Physical Therapy 01/06/[address] MD [address] [place] [address] Consulting Physician Pain Management 06/24/18 TARSHA PULLIAM APN [id number] [facility] [id number] Wound Care Nurse Wound Care 05/15/18 documented as of this encounter
--- OUTSIDE RECORDS SUMMARY | 2024-05-20 18:25 | XMS_ITS | Encounter Summary ---
Author Organization [facility] Address [address] [place] [address] Phone Care Team Providers Care Caustic Preparer Name Role Phone Rick Rodas MD Unavailable [phone] Nicolás Elena MD Primary Care Provider [phone] Emerson Camarillo MD Primary Care Provider [phone] Marquita Berry DPT Unavailable [phone] Emerson Camarillo MD Primary Care Provider [phone] Tiffany Sheppard RN Unavailable [phone] MD Unavailable Encounter Details Date Type Department Care Team (Late st Contact Info) Description 12/19/[address] Medical Office Building [address] [place] [address] Cale Morris MD [facility] [address] [address] Social History Tobacco Use Types [...] on file Legal Sex Male 12:56 PM STAFF SCIENTIST Gender Identity Not on file Sexual Orientation Not on file documented as of this encounter Plan of Treatment Not on file documented as of this encounter Goals Goal Patient Goal Type Associated Problems Recent Progress Patient-Stated? Author CCM Chronic Pain Care Plan Chronic Care Management Improving( 3:32 PM STAFF SCIENTIST) Lynette Siddiqi RN Note: Problem: Chronic Pain [...] COVID: Suspected 05/05/2023 05/05/2023 05/05/2023 2:35 PM STAFF SCIENTIST documented as of this encounter Care Teams Caustic Preparer Relationship Specialty Start Date End Date Nicolás Elena MD [address] [facility] [phone] [place] [address] PCP - General Internal Medicine 06/20/22 01/07/23 Emerson Camarillo MD [address] [facility] [phone] [place] [address] PCP - General Family Practice 01/08/23 01/08/23 Emerson Camarillo MD [address] [facility] [phone] [place] [address] PCP - General Family Practice 01/14/23 Rick Rodas MD [address] [facility] [phone] [place] [address] Surgeon Colon and Rectal Surgery 06/08/21 Marquita Berry DPT [address] [facility] [address] [place] [address] Physical Therapist Physical Therapy 01/06/23 Tiffany Sheppard, RN [address] [facility] [address] [place] [address] SHOP Outpatient Records Management Clerk 05/09/23 06/05/[address] MD [address] [place] [place] [address] Consulting Physician Pain Management 06/24/18 TARSHA PULLIAM APN [id number] [facility] [id number] Wound Care Nurse Wound Care 05/15/18 documented as of this encounter
--- OUTSIDE RECORDS SUMMARY | 2024-05-20 18:25 | XMS_ITS | Referral Summary ---
Author Organization [facility] Address [address] [place] [address] Care Team Providers Care Insulation Technician Name Role Phone Rick Rodas MD Unavailable [phone] Marquita Berry DPT Unavailable [phone] Emerson Camarillo MD Primary Care Provider [phone] MD Unavailable Encounters Date Type Department Care Team Description 05/11/2024 Telephone [facility] Orthopa[facility] 12th [place] [address] [place] [address] Dayday Baker MD 04/15/2024 Orders Only [facility] Orthopaedic Surgery [address] [place] [address] Medicine 12th [place] [address] [place] [id number] Dayday Baker MD Spasticity (Primary Dx); Presence of intrathecal baclofen pump; 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CMS/HCC) (HCC) 02/23/2024 Telephone [facility] Orth[facility]edic [facility] 12th [place] [address] [place] [address] Dayday Baker MD from Last 3 Months Allergies Active Allergy Reactions Criticality Noted Date Comments Adhesive Rash Medium Medications docusate sodium (COLACE) 100 mg capsule Take 2 capsules (200 mg total) by mouth nightly 200-400mg Active cholecalcifer ol (VITAMIN D-3) 5,000 unit tablet Take 1 tablet (5,000 Units total) by mouth every morning 01/03/20 15 Active omega 9-slf-ekl-fis h oil 120-180-500 mg capsule Take 2 [...] by mouth nightly A ctive blood-glucose sensor (Dexcom G7 Sensor) device continuously Active methadone (DOLOPHINE) [...] mcgIndications:Spasticit y,Presence of intrathecal baclofen pump,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[facility]) ([facility]) 35949 mcg intrathec Continuous 06/02/2024 Active Active Problems Problem Noted Date Diagnosed Date Tetraplegic ([facility]) 05/05/2023 Other osteoporosis without current pathological fracture 10/04/2020 Bladder stones 09/06/2020 Overview (09/06/2020): Added automatically from request for surgery [id number] Autonomic dysfunction 01/04/2020 Screening for malignant neoplasm of colon 2018 Overview (02/26/2019): Added automatically from request for surgery [id number] Colostomy in place ([facility]) 02/26/2019 Overview (02/26/2019): Added automatically from request for surgery [id number] Obstruction of suprapubic catheter ([facility]) 06/2018 Overview (12/29/2018): Added automatically from request for surgery [id number] Skin sensitivity 08/17/2018 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 Neuropathic pain 04/08/2018 Colostomy care 02/09/2018 Muscle spasm 01/07/2018 Spasticity 10/15/2017 Muscle spasticity 10/10/2017 Tetraplegia ([facility]) 10/10/2017 Presence of intrathecal baclofen pump 10/10/2017 Neurogenic bladder 10/10/2017 Osteoporosis 10/06/2017 Social History Tobacco Use Types Packs/Day Years Used Date Smoking Tobacco: Former Cigarettes 2 008 - 2008 Smokeless Tobacco: Never Tobacco Cessation:Counseling [...] on file Legal Sex Male 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 Author CCM Chronic Pain Care Plan Chronic Care Management Improving( 3:32 PM LABORATORY HELPER) Lynette Siddiqi RN Note: Problem: Chronic Pain Goals: 1. Minimize further functional decline 2. Maximize quality of life 3. Control pain Strategies: - Activity/exercise program recommendation - Conservative stepwise pain medicine strategy with multi-disciplinary approach - Recommend healthy lifestyle strategies and compensatory methods as needed Medical Devices Implanted Type Area Lab Rep Device Identifier Shelf Expiration Date Model / Serial / Lot Baclofen Pain Pump Abdomen MEDTRONIC SYNCHROMED II / / Hardware Neck Medtronic Inc Synchromed Ii [employer] Catheter Access Port Suture Loop [id number] - [id number] - [id number] Implanted:Qty: 1 on 08/29/2023 by Segundo Black MD at [facility] Right: Abdomen Medtronic Inc 01/23/2025 [id number] / [id number] / Medtronic Inc Sutureless Connector Revision Catheter Kit Intrathecal Pump [id number] - [id number] Implanted:Qty: 1 on 08/29/2023 by Segundo Black MD at [facility] Right: Abdomen Medtronic Inc 02/27/2025 [id number] / / [id number] Insurance [employer]PA MEDICARE SOLUTIONS MEDICARE SOLUTIONS [employer] MEDICARE SOLUTIONS Advance Directives For more information, please contact: [phone] * LIMITED - No CPR (Latest Code Status on File) Date Activated Date Inactivated Comments 05/05/2023 11:25 PM 05/08/2023 11:52 PM * Full Code Date Activated Date Inactivated Comments 05/05/2023 10:50 PM 05/05/2023 11:25 PM * Full Code Date Activated Date Inactivated Comments 03/29/2019 11:00 AM 03/29/2019 5:48 PM Care Teams Insulation Technician Relationship Specialty Start Date End Date Emerson Camarillo MD [address] [address] PCP - General Family Practice 01/14/23 Rick Rodas MD [address] [facility] [id number] [place] [address] Surgeon Colon and Rectal Surgery 06/08/21 Marquita Berry DPT [address] [address] Physical Therapist Physical Therapy 01/06/[address] MD [address] [place] [address] Consulting Physician Pain Management 06/24/18 TARSHA PULLIAM APN [id number] [facility] [id number] Wound Care Nurse Wound Care 05/15/18
--- OUTSIDE RECORDS SUMMARY | 2024-05-20 18:25 | XMS_ITS | CONTINUITY OF CARE DOCUMENT ---
Author Name gregg gregg Address Unknown Organization [facility] Address [address] [facility] [address] [place] [address] Phone [phone] Care Team Providers Care Holter Scanning Technician Name Role Phone Demarcus SANDOVAL, Keri Unavailable [phone] CHRIS SANDOVAL, BERNARDA Unavailable [phone] BERNARDA PEREZ MD Unavailable [phone] INSURANCE PROVIDERS Payer name Policy type / Coverage type [place] red green party ID [facility] AND FAMILY SERVICES Medicaid 1 [id number] AARP MEDICARE ADVANTAGE HMO-POS HMO [id number]
== END 2024-05-18 15:08 | disposition home or self-care (01) ==
PROVIDERS: Emergency Provider Physician Assistant; PCP Family Medicine
DX: S90.01XA Contusion of right ankle, initial encounter (principal); M25.561 Pain in right knee; G82.50 Quadriplegia, unspecified; S14.104S Unspecified injury at C4 level of cervical spinal cord, sequela; G40.409 Other generalized epilepsy and epileptic syndromes, not intractable, without status epilepticus; E55.9 Vitamin D deficiency, unspecified; E78.1 Pure hyperglyceridemia; G89.4 Chronic pain syndrome; G62.9 Polyneuropathy, unspecified; G47.00 Insomnia, unspecified; M85.871 Other specified disorders of bone density and structure, right ankle and foot; M81.0 Age-related osteoporosis without current pathological fracture; F41.9 Anxiety disorder, unspecified; Z96.82 Presence of neurostimulator; Z98.1 Arthrodesis status; Z87.442 Personal history of urinary calculi; Z87.891 Personal history of nicotine dependence; Z87.440 Personal history of urinary (tract) infections; Z87.01 Personal history of pneumonia (recurrent); Z86.2 Personal history of diseases of the blood and blood-forming organs and certain disorders involving the immune mechanism; Z79.899 Other long term (current) drug therapy; V49.9XXS Car occupant (driver) (passenger) injured in unspecified traffic accident, sequela; W22.8XXA Striking against or struck by other objects, initial encounter
CPT/HCPCS: 73564; 73610; 73630; 99284

== ENCOUNTER 2024-06-23 14:30 | Outpatient (NON) | payer MEDICARE, MEDICAID, SELFPAY ==
[2024-06-23 15:26] LABS: Add Urine Microscopic? YES; Appearance Urine Clear (Clear); Bacteria Urine 1+ /hpf; Bilirubin Urine Negative (Negative); Blood Urine 1+ (Negative); Color Urine Yellow (Yellow); Glucose Urine UA Negative (Negative); Ketones Urine Negative (Negative); Leukocyte Esterase Ur 2+ LEU/UL (Negative); Nitrate Urine Positive (Negative); Non Pathogenic Casts 0-2; Protein Urine Negative (Negative); RBC Urine 0-2 /hpf (0-2); Specific Grav Ur 1.006 (1.001-1.035); Squamous Epithelial Cell Urine None Seen /hpf (Few); Urobilinogen Urine 0.2 mg/dL (<2.0)
--- OUTSIDE RECORDS SUMMARY | 2024-06-23 16:46 | XMS_ITS | Encounter Summary ---
Author Organization [facility] Address [address] [place] [address] Phone Care Team Providers Care Labor Relations Worker Name Role Phone Rick Rodas MD Unavailable [phone] Marquita Berry DPT Unavailable [phone] Emerson Camarillo MD Primary Care Provider [phone] MD Unavailable [phone] Encounter Details Date Type Department Care Team (Late st Contact Info) Description 06/23/2024 Results Follow-Up [facility] Orthopaedic Surgery [address] [facility] 12th [place] [address] [place] [address] Carolynn Garcia, [facility] Social History Tobacco Use Types Packs/Day Years Used Date Smoking Tobacco: Former Cigarettes 2008 Smokeless Tobacco: Never Comments:cigars Alcohol Use [...] on file Legal Sex Male 12:56 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 He asked that the new UA order be sent to [facility]. New order faxed to [phone]. clt TRANSMISSION SPECIALIST documented in this encounter Plan of Treatment Not on file documented as of this encounter Goals Goal Patient Goal Type Associated Problems Recent Progress Patient-Stated? Author CCM Chronic Pain Care Plan Chronic Care Management Improving( 3:32 PM AUTO TRANSMISSION SPECIALIST) Lynette Siddiqi RN Note: Problem: Chronic Pain Goals: 1. Minimize further functional decline 2. Maximize quality of life 3. Control pain Strategies: - Activity/exercise program recommendation - Conservative stepwise pain medicine strategy with multi-disciplinary approach - Recommend healthy lifestyle strategies and compensatory methods as needed documented as of this encounter Visit Diagnoses Not on filedocumented in this encounter Care Teams Labor Relations Worker Relationship Specialty Start Date End Date Emerson Camarillo MD [address] [facility] [address] [place] [address] PCP - General Family Practice 01/14/23 Rick Rodas MD [address] [facility] [phone] [place] [address] Surgeon Colon and Rectal Surgery 06/08/21 Marquita Berry DPT [address] [facility] [address] [place] [address] Physical Therapist Physical Therapy 01/06/23 Heidi Laen MD [address] [facility] [place] [address] Consulting Physician Pain Management 06/24/18 TARSHA PULLIAM APN [id number] [facility] [id number] Wound Care Nurse Wound Care 05/15/18 documented as of this encounter
--- OUTSIDE RECORDS SUMMARY | 2024-06-23 16:46 | XMS_ITS | Encounter Summary ---
Author Organization [facility] Address [address] [place] [address] Phone Care Team Providers Care It Analyst Name Role Phone Destiney, Zander CHAPMAN Primary Care Provider [phone] Rick Rodas MD Unavailable [phone] Nicolás Elena MD Primary Care Provider [phone] Emerson Camarillo MD Primary Care Provider [phone] Marquita Berry DPT Unavailable [phone] Emerson Camarillo MD Primary Care Provider [phone] Tiffany Sheppard RN Unavailable Heidi Lane MD Unavailable Encounter Details Date Type Department Care Team (Late st Contact Info) Description 10/04/2020 Treatment [facility] [address] [facility] Medical Office Building [address] [place] [address] Cale Morris MD [facility] [address] [address] Social History Tobacco Use Types [...] on file Legal Sex Male 12: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 Author CCM Chronic Pain Care Plan Chronic Care Management Improving( 3:32 PM SOLAR SALES ADVISOR) Lynette Siddiqi RN Note: Problem: Chronic Pain [...] COVID: Suspected 05/05/2023 05/05/2023 05/05/2023 2:35 PM SOLAR SALES ADVISOR documented as of this encounter Care Teams It Analyst Relationship Specialty Start Date End Date Zander Cabello DO PCP - General Internal Medicine 04/08/18 06/19/22 Nicolás Elena MD [phone] [place] [address] PCP - General Internal Medicine 06/20/22 01/07/23 Emerson Camarillo MD [address] [facility] [phone] [place] [address] PCP - General Family Practice 01/08/23 01/08/23 Emerson Camarillo MD [address] [facility] [phone] [place] [address] PCP - General Family Practice 01/14/23 Rick Rodas MD [address] [facility] [phone] [place] [address] Surgeon Colon and Rectal Surgery 06/08/21 Marquita Berry DPT [address] [facility] [address] [place] [address] Physical Therapist Physical Therapy 01/06/23 Tiffany Sheppard RN [address] [facility] [address] [place] [address] SHOP Outpatient Food And Drug Research Scientist 05/09/23 06/05/[address] MD [address] [facility] [place] [place] [address] Consulting Physician Pain Management 06/24/18 TARSHA PULLIAM APN [id number] [facility] [id number] Wound Care Nurse Wound Care 05/15/18 documented as of this encounter
--- OUTSIDE RECORDS SUMMARY | 2024-06-23 16:46 | XMS_ITS | Encounter Summary ---
Author Organization [facility] [employer] [facility] Address [address] [place] [address] Phone Care Team Providers Care Interlibrary Loan Services Librarian Name Role Phone Rick Rodas MD Unavailable [phone] Nicolás Elena MD Primary Care Provider [phone] Emerson Camarillo MD Primary Care Provider [phone] Marquita Berry DPT Unavailable [phone] Emerson Camarillo MD Primary Care Provider [phone] Tiffany Sheppard RN Unavailable Heidi Lane MD Unavailable Encounter Details Date Type Department Care Team (Late st Contact Info) Description 12/19/[address] Medical Office Building [address] [place] [address] Cale Morris MD [facility] [address] [address] Social History Tobacco Use Types [...] on file Legal Sex Male 12:56 PM PRINTING PRESS 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 Author CCM Chronic Pain Care Plan Chronic Care Management Improving( 3:32 PM PRINTING PRESS OPERATOR) Lynette Siddiqi RN Note: Problem: Chronic Pain [...] COVID: Suspected 05/05/2023 05/05/2023 05/05/2023 2:35 PM PRINTING PRESS OPERATOR documented as of this encounter Care Teams Interlibrary Loan Services Librarian Relationship Specialty Start Date End Date Nicolás Elena MD [address] [facility] [phone] [place] [address] PCP - General Internal Medicine 06/20/22 01/07/23 Emerson Camarillo MD [address] [facility] [phone] [place] [address] PCP - General Family Practice 01/08/23 01/08/23 Emerson Camarillo MD [address] [facility] [phone] [place] [address] PCP - General Family Practice 01/14/23 Rick Rodas MD [address] [facility] [phone] [place] [address] Surgeon Colon and Rectal Surgery 06/08/21 Marquita Berry DPT [address] [facility] [address] [place] [address] Physical Therapist Physical Therapy 01/06/23 Tiffany Sheppard, RN [address] [facility] [address] [place] [address] SHOP Outpatient Ware Finisher 05/09/23 06/05/[address] MD [address] [place] [address] Consulting Physician Pain Management 06/24/18 TARSHA PULLIAM APN [id number] [facility] [facility] [place] [id number] Wound Care Nurse Wound Care 05/15/18 documented as of this encounter
--- OUTSIDE RECORDS SUMMARY | 2024-06-23 16:46 | XMS_ITS | Clinical Summary ---
Author Organization [facility] Address [address] [place] [address] Care Team Providers Care Auxiliary Engineer Name Role Phone Rick Rodas MD Unavailable [phone] Marquita Berry DPT Unavailable [phone] Emerson Camarillo MD Primary Care Provider [phone] MD Unavailable Allergies Active Allergy Reactions Criticality Noted Date Comments Adhesive Rash Medium Medications docusate sodium (COLACE) 100 mg capsule Take 2 capsules (200 mg total) by mouth nightly 200-400mg Active cholecalciferol (VITAMIN D-3) 5,000 unit tablet Take 1 tablet (5,000 Units total) by mouth every morning 5 Active omega 5-zzc-hlr-fish oil 120-180-500 mg capsule Take 2 tablets by mouth daily after lunch Active vitamin B complex tablet extended release Take 1 tablet by mouth daily before breakfast Active acidophilus-pec tin, citrus 100 million cell-10 mg capsule Take 1 Caplet by mouth nightly Active cyanocobalamin (Vitamin B-12) 100 mcg tablet Take 1 tablet (100 mcg total) by mouth daily before breakfast Active LYRICA 200 mg capsule Take 1 capsule (200 mg total) by mouth 2 (two) times a day 60 capsule 5 9 Active prochlorperazin e (COMPAZINE) 10 mg tablet Take 1 tablet (10 mg total) by mouth every 6 (six) hours as needed 0 9 Active nystatin powder Apply topically 2 (two) times a day 15 g 11 0 Active multivitamin capsule Take 1 capsule by mouth every morning Active ramelteon (ROZEREM) 8 mg tablet Take 1 tablet (8 mg total) by mouth nightly 1 Active zinc 50 mg tablet Take 1 tablet by mouth every morning Active psyllium, aspartame, SF (METAMUCIL SF) 3.4 gram packet Take 1 packet by mouth every other day Active tadalafiL (ADCIRCA) 10 mg tablet Take 1 tablet (10 mg total) by mouth daily as needed 3 Active tiZANidine (ZANAFLEX) 4 mg tablet Take 1 tablet (4 mg total) by mouth every 6 (six) hours as needed for muscle spasms 90 tablet 3 3 Active Additional Information Patient not taking.Informant: Self, Reported on 06/21/2024 ergocalciferol (VITAMIN D) 50,000 unit capsule Take 1 capsule (50,000 Units total) by mouth once a week 4 capsule 11 3 Active Additional Information Patient taking differently:50,000 Units oral Weekly,, Indications: Vitamin D Deficiency, Informant: Self, Reported on 08/18/2023 solifenacin (VESIcare) 10 mg tablet TAKE 1 TABLET(10 MG) BY MOUTH EVERY NIGHT 30 tablet 11 3 Active nortriptyline (PAMELOR) 25 mg capsule TAKE 1 CAPSULE(25 MG) BY MOUTH EVERY NIGHT 90 capsule 11 4 Active polyethylene glycol (MIRALAX) 17 gram packet Take 1 packet (17 g total) by mouth nightly Active blood-glucose sensor (Dexcom G7 Sensor) device continuously Active methadone (DOLOPHINE) 5 mg tablet Take 1 tablet by mouth 2 (two) times a day as needed for pain (Take daily, may take 1 additional on rare occasion.) 45 tablet 4 Active clobetasoL (TEMOVATE) 0.05 % creamIndication s:Contact Dermatitis Apply topically 2 (two) times a day 30 g 2 5 Active Hospital, Clinic, or Other Facility Administered Medication Ordered Dose Route Frequency Start Date End Date Status baclofen (GABLOFEN) 40,000 mcg/20mL (2,000 mcg/mL) intrathecal 80,000 mcgIndications:Spastic ity,Presence of intrathecal baclofen pump,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[facility]) ([facility]) 47456 mcg intrathec Continuous 06/02/2024 Active onabotulinumtoxin A (BOTOX) injection 200 UnitsIndications:Spast ic tetraplegia ([facility]) ([facility]) 200 Units IM Once 06/21/2024 06/22/2024 Ended Active Problems Problem Noted Date Diagnosed Date Tetraplegic ([facility]) 05/05/2023 Other osteoporosis without current pathological fracture 10/04/2020 Bladder stones 09/06/2020 Overview (09/06/2020): Added automatically from request for surgery [id number] Autonomic dysfunction 01/04/2020 Screening for malignant neoplasm of colon 2018 Overview (02/26/2019): Added automatically from request for surgery [id number] Colostomy in place ([facility]) 02/26/2019 Overview (02/26/2019): Added automatically from request for surgery [id number] Obstruction of suprapubic catheter ([facility]) 06/2018 Overview (12/29/2018): Added automatically from request for surgery [id number] Skin sensitivity 08/17/2018 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 Neuropathic pain 04/08/2018 Colostomy care 02/09/2018 Muscle spasm 01/07/2018 Spasticity 10/15/2017 Muscle spasticity 10/10/2017 Tetraplegia ([facility]) 10/10/2017 Presence of intrathecal baclofen pump 10/10/2017 Neurogenic bladder 10/10/2017 Osteoporosis 10/06/2017 Encounters Date Type Department Care Team Description 06/23/2024 Results Follow-Up [facility] [address] [place] [address] [address] [place] [address] [place] [address] Carolynn Garcia CMA 06/23/2024 Orders Only [facility] [address] [place] [address] [address]th [place] [address] [place] [address] Dayday Baker MD Acute UTI (urinary tract infection) (Primary Dx); Neurogenic bladder; Suprapubic catheter (CMS/HCC) (HCC) 06/21/2024 2:16 PM HYDRAULIC BILLET MAKER - 06/21/2024 11:59 PM HYDRAULIC BILLET MAKER Hospital Encounter [facility] [address] [place] [address] Neurogenic bladder; Acute UTI (urinary tract infection) Discharge Disposition: Discharge to home or self care 06/21/2024 12:15 PM HYDRAULIC BILLET MAKER Office Visit [facility] [address] [place] [address] [address] [place] [address] [place] [address] Dayday Baker MD Muscle spasticity (Primary Dx); Obstruction of suprapubic catheter, subsequent encounter; Neurogenic bladder; Acute UTI (urinary tract infection); Presence of intrathecal baclofen pump; Tetraplegia (CMS/HCC) (HCC) 06/02/2024 11:45 AM HYDRAULIC BILLET MAKER Procedure visit [facility] [address] [place] [address] [address] [place] [address] [place] [address] Dayday Baker MD Tetraplegic ([facility] ([facility]) (Primary Dx); 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CMS/HCC) (HCC); Presence of intrathecal baclofen pump; Suprapubic catheter ([facility] ([facility]); Neurogenic bladder 06/02/2024 Orders Only [facility] [address] [place] [address] [address] [place] [address] [place] [address] Dayday Baker MD 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[facility] ([facility]) (Primary Dx) 05/31/2024 Orders Only [facility] [address] [place] [address] [address] [place] [address] [place] [address] Dayday Baker MD 05/11/2024 Telephone [facility] [address] [place] [address] [address] [place] [address] [place] [address] Dayday Baker MD 04/15/2024 Orders Only [facility] [address] [facility] [address] [place] [address] [place] [address] Dayday Baker MD Spasticity (Primary Dx); Presence of intrathecal baclofen pump; 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CMS/HCC) (HCC) from Last 3 Months Surgical History Surgery [...] C4/5, incomplete Anal fissure Neuropathic pain Quadriplegia ([facility]) GERD (gastroesophageal reflux disease) Anemia Neurogenic bowel Neurogenic bladder Chronic pain Spinal cord injury at C1-C4 level without injury of spinal bone (CMS/HCC) (HCC) 02/2004 C4/5 , incomplete - quadripl egic [...] Cigarettes 2 - 2008 Smokeless Tobacco: Never Tobacco Cessation:Counseling [...] on file Legal Sex Male 12:56 PM HYDRAULIC BILLET MAKER Gender Identity Not on file Sexual Orientation Not on file Obstetrics History Last Filed Vital Signs Vital Sign Reading Time Taken Comments Blood Pressure 76/53 06/02/2024 11:53 AM HYDRAULIC BILLET MAKER Pulse 40 06/02/2024 11:53 AM HYDRAULIC BILLET MAKER Temperature 36 C (96.8 F) 01/21/2024 11:15 AM CDT Respiratory Rate 18 06/21/2024 12:28 PM HYDRAULIC BILLET MAKER Oxygen Saturation 96% 01/21/2024 11:15 AM CDT Inhaled Oxygen Concentration - - Weight 74.8 kg (165 lb) 06/21/2024 12:28 PM HYDRAULIC BILLET MAKER Height 170.2 cm (5' 7 ) 06/21/2024 12:28 PM HYDRAULIC BILLET MAKER Body Mass Index 25.84 06/21/2024 12:28 PM HYDRAULIC BILLET MAKER Plan of Treatment Health Maintenance Due Date [...] Plan Chronic Care Management Improving( 3:32 PM HYDRAULIC BILLET MAKER) No Lynette Goodman RN Note: Problem: Chronic Pain Goals: 1. Minimize further functional decline 2. Maximize quality of life 3. Control pain Strategies: - Activity/exercise program recommendation - Conservative stepwise pain medicine strategy with multi-disciplinary approach - Recommend healthy lifestyle strategies and compensatory methods as needed Medical Devices Implanted Type Area Filenet Architect Device Identifier Shelf Expiration Date Model / Serial / Lot Baclofen Pain Pump Abdomen MEDTRONIC SYNCHROMED II / / Hardware Neck Medtronic Inc Synchromed Ii [place] Catheter Access Port Suture Loop [id number] - [id number] - [id number] Implanted:Qty: 1 on 08/29/2023 by Segundo Black MD at [facility] Right: Abdomen Medtronic Inc 01/23/2025 [id number] / [id number] / Medtronic Inc Sutureless Connector Revision Catheter Kit Intrathecal Pump [id number] - [id number] Implanted:Qty: 1 on 08/29/2023 by Segundo Black MD at [facility] Right: Abdomen Medtronic Inc 02/27/2025 [id number] / / [id number] Procedures Procedure Name Priority Date/Time Associated Diagnosis Comments URINALYSIS, MICROSCOPIC ONLY Routine 06/21/2024 1:50 PM HYDRAULIC BILLET MAKER Neurogenic bladder Acute UTI (urinary tract infection) URINE CULTURE Routine 06/21/2024 1:50 PM HYDRAULIC BILLET MAKER URINALYSIS AND REFLEX TO MICROSCOPIC AND CULTURE Routine 06/21/2024 1:50 PM HYDRAULIC BILLET MAKER Neurogenic bladder Acute UTI (urinary tract infection) from Last 3 Months Results * (ABNORMAL) Urinalysis reflex to microscopic and culture Urine, suprapubic catheter (06/21/2024 1:50PM HYDRAULIC BILLET MAKER) Color, ur Straw Yellow Clarity, ur Cloudy(A) Clear [facility] Specific gravity, ur 1.006 1.003 - 1.030 [facility] pH, urine 6.5 [facility] Comment: Interpretive Data U rine pH is affected by diet, medications, systemic acid-base disturbances, and renal tubular function. pH may affect urinary stone formation. For example, urine pH below 6.0 may help reduce the tendency for calcium phosphate stones and pH greater than 6.0 may reduce the tendency for uric acid stone formation. Source: [employer] Current Interpretive Data was last revised on 2017 Protein, ur ql Negative Negative [facility] Glucose, ur ql Negative Negative [facility] Ketones, ur Negative Negative [facility] Bilirubin, ur Negative Negative [facility] Blood, ur Trace(A) Negative [facility] Urobilinogen, ur <2.0 <2.0 mg/dL [facility] Nitrite, ur Positive(A) Negative [facility] Leukocyte esterase, ur 3+(A) Negative [facility] UA reflex comment Reflex to microscopic UA will be performed. [facility] Urine, suprapubic catheter 06/21/2024 1:50 PM HYDRAULIC BILLET MAKER 06/21/2024 3:44 PM HYDRAULIC BILLET MAKER Dayday Baker MD LAB MICROBIOLOGY - GENERAL ORD ERABLES Final Result Performing Organization Address [facility] Co de Phone Number [facility] [place] [place] [address] * (ABNORMAL) Urinalysis, microscopic only (06/21/2024 1:50 PM HYDRAULIC BILLET MAKER) WBC, ur 21-50(A) 0 - 5 /HPF RBC, ur 0-2 0 - 2 /HPF [facility] Bacteria, ur 1+(A) [facility] Mucous, ur Present(A) [facility] Culture Reflex Comment Reflex to urine culture will be performed. [facility] Urine, suprapubic catheter 06/21/2024 1:50 PM HYDRAULIC BILLET MAKER 06/21/2024 3:44 PM HYDRAULIC BILLET MAKER Dayday Baker MD LAB URINE ORDERABLES Final Res ult Performing Organization Address [facility]/ZIP Co de Phone Number [facility] [place] [address] * (ABNORMAL) Urine culture Urine, suprapubic catheter (06/21/2024 1:50 PM HYDRAULIC BILLET MAKER) Report Final Report: Growth indicates contamination with mixed bacterial marga. Please submit a new specimen with special attention given to the collection process and to prompt transport to the laboratory. (.) Organism GROWTH INDICATES CONTAMINATION WITH MIXED MARGA. [facility] Urine, suprapubic catheter 06/21/2024 1:50 PM HYDRAULIC BILLET MAKER 06/21/2024 5:50 PM HYDRAULIC BILLET MAKER Narrative HEATHER DEE - 06/23/2024 11:42 AM HYDRAULIC BILLET MAKER Urine culture reflexed based upon urinalysis results. Testing performed by [facility] ([phone]) us Dayday Baker MD LAB MICROBIOLOGY - GENERAL ORD ERABLES Final Result [facility] [place] [address] from Last 3 Months Insurance [employer] MEDICARE SOLUTIONS IDPA IDPA MEDICARE SOLUTIONS Advance Directives For more information, please contact: [phone] * LIMITED - No CPR (Latest Code Status on File) Date Activated Date Inactivated Comments 05/05/2023 11:25 PM 05/08/2023 11:52 PM * Full Code Date Activated Date Inactivated Comments 05/05/2023 10:50 PM 05/05/2023 11:25 PM * Full Code Date Activated Date Inactivated Comments 03/29/2019 11:00 AM 03/29/2019 5:48 PM Care Teams Auxiliary Engineer Relationship Specialty Start Date End Date Emerson Camarillo MD [address] [facility] [address] [place] [address] PCP - General Family Practice 01/14/23 Rick Rodas MD [address] [facility] [phone] [place] [address] Surgeon Colon and Rectal Surgery 06/08/21 Marquita Berry DPT [address] [facility] [address] [place] [address] Physical Therapist Physical Therapy 01/06/[address] MD [address] [place] [address] Consulting Physician Pain Management 06/24/18 TARSHA PULLIAM APN [id number] [facility] [id number] Wound Care Nurse Wound Care 05/15/18
--- OUTSIDE RECORDS SUMMARY | 2024-06-23 16:46 | XMS_ITS | CONTINUITY OF CARE DOCUMENT ---
Author Name gregg gregg Address Unknown Organization [facility] Address [address] [facility] [address] [place] [address] Phone [phone] Care Team Providers Care Medical Appliance Maker Name Role Phone Demarcus SANDOVAL, Keri Unavailable CHRIS SANDOVAL, BERNARDA Unavailable [phone] BERNARDA PEREZ MD Unavailable [phone] INSURANCE PROVIDERS Payer name Policy type / Coverage type [place] red constitution party ID [facility] Medicaid 1 [id number] AARP MEDICARE ADVANTAGE HMO-POS HMO [id number]
--- OUTSIDE RECORDS SUMMARY | 2024-06-23 16:46 | XMS_ITS | Encounter Summary ---
Author Organization [facility] Address [address] [place] [address] Phone Care Team Providers Care Awning Hanger Name Role Phone Rick Rodas MD Unavailable [phone] Nicolás Elena MD Primary Care Provider [phone] Emerson Camarillo MD Primary Care Provider [phone] Marquita Berry DPT Unavailable [phone] Emerson Camarillo MD Primary Care Provider [phone] Tiffany Sheppard RN Unavailable Heidi Lane MD Unavailable Encounter Details Date Type Department Care Team (Late st Contact Info) Description 12/08/[address] Medical Office [address] [place] [address] Cale Morris MD [facility] [address] [address] Social History Tobacco Use Types [...] on file Legal Sex Male 12:56 PM CHIP APPLYING MACHINE TENDER Gender Identity Not on file Sexual Orientation Not on file documented as of this encounter Plan of Treatment Not on file documented as of this encounter Goals Goal Patient Goal Type Associated Problems Recent Progress Patient-Stated? Author CCM Chronic Pain Care Plan Chronic Care Management Improving( 3:32 PM CHIP APPLYING MACHINE TENDER) Lynette Siddiqi RN Note: Problem: Chronic Pain [...] COVID: Suspected 05/05/2023 05/05/2023 05/05/2023 2:35 PM CHIP APPLYING MACHINE TENDER documented as of this encounter Care Teams Awning Hanger Relationship Specialty Start Date End Date Nicolás Elena MD [address] [facility] [phone] [place] [address] PCP - General Internal Medicine 06/20/22 01/07/23 Emerson [place]ar[place] MD [address] [facility] [phone] [place] [address] PCP - General Family Practice 01/08/23 01/08/23 Emerson Camar[place] MD [address] [facility] [phone] [place] [address] PCP - General Family Practice 01/14/23 Rick Rodas MD [address] [facility] [phone] [place] [address] Surgeon Colon and Rectal Surgery 06/08/21 Marquita Berry DPT [address] [facility] [address] [place] [address] Physical Therapist Physical Therapy 01/06/23 Tiffany Sheppard, RN [address] [facility] [address] [place] [address] SHOP Outpatient Aircraft Painter 05/09/23 06/05/[address] MD [address] [facility] [place] [address] Consulting Physician Pain Management 06/24/18 TARSHA PULLIAM APN [id number] [facility] [facility] [id number] Wound Care Nurse Wound Care 05/15/18 documented as of this encounter
--- OUTSIDE RECORDS SUMMARY | 2024-06-23 16:46 | XMS_ITS | Data Portability ---
Author Organization [employer], Main Office Address [address] [place] [address] Assessment No assessment recorded. Plan of Treatment [...] Nail Debridement completed Ronald Lemons DPM [address], [place], [address], [employer] 04/19/2024 08:34:35 4 Nail Debridement completed Ronald Lemons DPM [address], [place], [address], [employer] 01/20/2024 09:04:07 4 Callus Debridement 2-4 completed Ronald Lemons DPM [address], [place], [address], [employer] 01/20/2024 09:04:15 4 Nail Debridement completed Ronald Lemons DPM [address], [place], [address], [employer] 10/14/2023 10:16:40 Imaging Results None recorded. Procedure [...] Available No t Available [employer] [place] FOLLOW PACKAGE DIRECTIONS active Not Available Not Available N ot Available Vitals Date Recorded Body height Body mass index (BMI) Body weight Provider Name and Address Organization Details Last Updated DateTime 10/13/2023 172.72 cm 24.3 kg/m2 34876.78 g Chan Carreno VENKATANatalie [employer] [facility] [employer] 10/13/2023 16:21:09 Date Recorded Body height Body mass index (BMI) Body weight Oxygen saturation Oxygen saturation in Arterial blood by Pulse oximetry Body temperature Heart rate Provider Name and Address Organization Details Last Updated DateTime 4 172.72 cm 24.3 kg/m2 84589.7 8 g 98 % 98 % 98.2 [degF] 77 /min Chan Carreno VENKATANatalie [employer] [facility] [employer] 4 12:38:35 Date Recorded Body height Body mass index (BMI) Body weight Oxygen saturation Oxygen saturation in Arterial blood by Pulse oximetry Body temperature Heart rate Provider Name and Address Organization Details Last Updated DateTime 4 172.72 cm 24.3 kg/m2 53864.7 8 g 97 % 97 % 98.1 [degF] 79 /min Chan Carreno VENKATANatalie [employer] 4 12:55:35 Social History Question Answer Notes LastModified by Organizat ion Details LastModified Time Tobacco Smoking Status Never Smoker Chan Carreno VENKATANatalie [facility] [employer] 10/13/2023 16:21:59 What Is Your Level Of Alcohol Consumption? None [email or web address] Information not available 10/13/2023 What Is Your Level Of Caffeine Consumption? Moderate [email or web address] Information not available 10/13/2023 What Was The Date Of Your Most Recent Tobacco Screening? 01/19/2024 [email or web address] Information not available 01/19/2024 Do You Use Any Illicit Or Recreational Drugs? No [email or web address] Information not available 10/13/2023 Has Tobacco Cessation Counseling Been Provided? No [email or web address] Information not available 10/13/2023 Do You Or Have You Ever Used Any Other Forms Of Tobacco Or Nicotine? No Information not available 10/13/2023 Sex: Unknown Functional Status None recorded. Mental Status None recorded. Family History Nothing Reported. Medical History Condition Response HYPERTENSION Y DIZZINESS Y Past Encounters Encounter ID Performer Location Encounter Start Date Encounter Closed Date Diagnosis/Indication Diagnosis SNOMED-CT Code Diagnosis ICD10 Code Diagnosis Note [id number] Ronald Lemons DPM [facility] [place] [address] [address] 10/13/2023 16:11:02 12/05/2023 04:00:41 [id number] Ronald Lemons DPM [facility] [place] [address] [address] 01/19/2024 12:37:03 02/21/2024 04:08:09 [id number] Ronald Lemons DPM [facility] [place] [address] [address] 04/16/2024 12:43:07 04/23/2024 04:07:33 Health Concerns Section Related Observation LastModified by Organization Detai ls LastModified Time None Recorded Concern Status LastModified by Organization Details LastModified Time None Recorded Advance Directives Directive None Recorded Payers Encounter Date Sequence Insurance Name Policy Number Policy Mcgregor Covered Member ID Mcgregor Member ID Guarantor Name 10/13/2023 1 [facility] (MEDICARE REPLACEMENT/AD VANTAGE - HMO) [id number] Segundo Wetzel [id number] Segundo Wetzel 10/13/2023 2 [place]ARE OR MEDICARE REPLACEMENT PRIMARY) Segundo Wetzel [id number] Segundo Wetzel 01/19/2024 1 [facility] (MEDICARE REPLACEMENT/AD VANTAGE - HMO) [id number] Segundo Wetzel [id number] Segundo Wetzel 01/19/2024 2 [place] OR [place]IC[place]PLACEMENT [place]IMARY) Segundo Wetzel [id number] Segundo Wetzel 04/16/2024 1 [facility] (MEDICARE REPLACEMENT/AD VANTAGE - HMO) [id number] Segundo Wetzel [id number] Segundo Wetzel 04/16/2024 2 [place] WHEN [place]ARE OR MEDICARE REPLACEMENT PRIMARY) Segundo Wetzel [id number] Segundo Wetzel Notes Date Note Type Note Provider Name and Address Organization Details Recorded Time 10/13/2023 text/html Pt RTC for c/o thick, incurvated toenails marck. Pt is paraplegic in wheelchair w/ very limited ability to use his arm, Lt. Otherwise, completely disabled and RTC in care of caregiver. Ronald Lemons DPM [address], [place], [address], [employer] 10/14/2023 10:16:45 01/19/2024 text/html Paraplegic RTC for c/o nails marck and calluses both feet, outside. Ronald Lemons DPM [address], [place], [address], [employer] 01/20/2024 09:04:20 04/16/2024 text/html Pt RTC for routine c/o nails marck. Painful incurvated and dystrophic. Pt is in wheelchair and quadraplegic, unable to self-tx. Ronald Lemons DPM [address], [place], [address], [employer] 04/19/2024 08:34:41
--- OUTSIDE RECORDS SUMMARY | 2024-06-23 16:46 | XMS_ITS | Encounter Summary ---
Author Organization [facility] Address [address] [place] [address] Phone Care Team Providers Care Coil Placer Name Role Phone Rick Rodas MD Unavailable [phone] Marquita Berry DPT Unavailable [phone] Emerson Camarillo MD Primary Care Provider [phone] MD Unavailable [phone] Encounter Details Date Type Department Care Team (Late st Contact Info) Description 06/23/2024 Orders Only [facility] Orthopaedic Surgery [address] [facility] 12th [place] [address] [place] [id number] Dayday Baker MD [address] [facility] 6A/6B[address]12A [place] [address] Acute UTI (urinary tract infection) (Primary Dx); Neurogenic bladder; Suprapubic catheter (CMS/HCC) (HCC) Social History Tobacco Use Types Packs/Day Years [...] on file Legal Sex Male 12:56 PM DUST COLLECTOR 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 Author CCM Chronic Pain Care Plan Chronic Care Management Improving( 3:32 PM DUST COLLECTOR ORE CRUSHING) Lynette Siddiqi, RN Note: Problem: Chronic Pain Goals: 1. Minimize further functional decline 2. Maximize quality of life 3. Control pain Strategies: - Activity/exercise program recommendation - Conservative stepwise pain medicine strategy with multi-disciplinary approach - Recommend healthy lifestyle strategies and compensatory methods as needed documented as of this encounter Visit Diagnoses Diagnosis Acute UTI (urinary tract infection)- Primary Neurogenic bladder Neurogenic bladder, NOS Suprapubic catheter (CMS/HCC) ([facility]) Other cystostomy status documented in this encounter Care Teams Coil Placer Relationship Specialty Start Date End Date Emerson Camarillo MD [address] [facility] [address] [place] [address] PCP - General Family Practice 01/14/23 Rick Rodas MD [address] [facility] [phone] [place] [address] Surgeon Colon and Rectal Surgery 06/08/21 Marquita Berry DPT [address] [facility] [address] [place] [address] Physical Therapist Physical Therapy 01/06/[address] MD [address] [facility] [place] [address] Consulting Physician Pain Management 06/24/18 TARSHA PULLIAM APN [id number] [facility] [id number] Wound Care Nurse Wound Care 05/15/18 documented as of this encounter
--- OUTSIDE RECORDS SUMMARY | 2024-06-23 16:46 | XMS_ITS | Encounter Summary ---
Author Organization [facility] Address [address] [place] [address] Care Team Providers Care Qa Analyst Name Role Phone Rick Rodas MD Unavailable [phone] Marquita Berry DPT Unavailable [phone] Emerson Camarillo MD Primary Care Provider [phone] MD Unavailable [phone] Encounter Details Date Type Department Care Team (Latest Contact Info) Description 06/21/2024 2:16 PM CARD PLAYER - 06/21/2024 11:59 PM CARD PLAYER Hospital Encounter [address] [address] Neurogenic bladder; Acute UTI (urinary tract infection) Discharge Disposition: Discharge to home or self care Social History Tobacco Use Types Packs/Day Years [...] on file Legal Sex Male 12:56 PM CARD PLAYER Gender Identity Not on file Sexual Orientation Not on file documented as of this encounter Medications at Time of Discharge acidophilus-pect in, citrus 100 million cell-10 mg capsule Take 1 Caplet by mouth nightly blood-glucose sensor (Dexcom G7 Sensor) device continuously cholecalciferol (VITAMIN D-3) 5,000 unit tablet Take 1 tablet (5,000 Units total) by mouth every morning 01/02/2015 clobetasoL (TEMOVATE) 0.05 % creamIndications :Contact Dermatitis Apply topically 2 (two) times a day 30 g 2 05/31/2024 cyanocobalamin (Vitamin B-12) 100 mcg tablet Take 1 tablet (100 mcg total) by mouth daily before breakfast docusate sodium (COLACE) 100 mg capsule Take 2 capsules (200 mg total) by mouth nightly 200-400mg LYRICA 200 mg capsule Take 1 capsule (200 mg total) by mouth 2 (two) times a day 60 capsule 5 09/29/2018 methadone (DOLOPHINE) 5 mg tablet Take 1 tablet by mouth 2 (two) times a day as needed for pain (Take daily, may take 1 additional on rare occasion.) 45 tablet 01/21/2024 multivitamin capsule Take 1 capsule by mouth every morning nortriptyline (PAMELOR) 25 mg capsule TAKE 1 CAPSULE(25 MG) BY MOUTH EVERY NIGHT 90 capsule 11 07/31/2023 nystatin powder Apply topically 2 (two) times a day 15 g 11 10/04/2019 omega 0-uny-vww-fish oil 120-180-500 mg capsule Take 2 tablets by mouth daily after lunch polyethylene glycol (MIRALAX) 17 gram packet Take 1 packet (17 g total) by mouth nightly prochlorperazine (COMPAZINE) 10 mg tablet Take 1 tablet (10 mg total) by mouth every 6 (six) hours as needed 0 12/15/2018 psyllium, aspartame, SF (METAMUCIL SF) 3.4 gram packet Take 1 packet by mouth every other day ramelteon (ROZEREM) 8 mg tablet Take 1 tablet (8 mg total) by mouth nightly 07/12/2020 solifenacin (VESIcare) 10 mg tablet TAKE 1 TABLET(10 MG) BY MOUTH EVERY NIGHT 30 tablet 11 03/06/2023 tadalafiL (ADCIRCA) 10 mg tablet Take 1 tablet (10 mg total) by mouth daily as needed 11/04/2022 tiZANidine (ZANAFLEX) 4 mg tablet Take 1 tablet (4 mg total) by mouth every 6 (six) hours as needed for muscle spasms 90 tablet 3 01/09/2023 vitamin B complex tablet extended release Take 1 tablet by mouth daily before breakfast zinc 50 mg tablet Take 1 tablet by mouth every morning documented as of this encounter Discharge Disposition Disposition Code Departure Means Destination Discharge to home or self care documented in this encounter Plan of Treatment Not on file documented as of this encounter Goals Goal Patient Goal Type Associated Problems Recent Progress Patient-Stated? Author CCM Chronic Pain Care Plan Chronic Care Management Improving( 3:32 PM CARD PLAYER) Lynette Siddiqi RN Note: Problem: Chronic Pain Goals: 1. Minimize further functional decline 2. Maximize quality of life 3. Control pain Strategies: - Activity/exercise program recommendation - Conservative stepwise pain medicine strategy with multi-disciplinary approach - Recommend healthy lifestyle strategies and compensatory methods as needed documented as of this encounter Procedures Procedure Name Priority Date/Time Associated Diagnosis Comments URINALYSIS AND REFLEX TO MICROSCOPIC AND CULTURE Routine 06/21/2024 1:50 PM CARD PLAYER Neurogenic bladder Acute UTI (urinary tract infection) URINALYSIS, MICROSCOPIC ONLY Routine 06/21/2024 1:50 PM CARD PLAYER Neurogenic bladder Acute UTI (urinary tract infection) URINE CULTURE Routine 06/21/2024 1:50 PM CARD PLAYER documented in this encounter Results * (ABNORMAL) Urine culture Urine, suprapubic catheter (06/21/2024 1:50 PM CARD PLAYER) Report Final Report: Growth indicates contamination with mixed bacterial monae. Please submit a new specimen with special attention given to the collection process and to prompt transport to the laboratory. (.) Organism GROWTH INDICATES CONTAMINATION WITH MIXED MONAE. [facility] Urine, suprapubic catheter 06/21/2024 1:50 PM CARD PLAYER 06/21/2024 5:50 PM CARD PLAYER Narrative [facility] - 06/23/2024 11:42 AM CARD PLAYER Urine culture reflexed based upon urinalysis results. Testing performed by [facility] ([phone]) Dayday Baker MD LAB MICROBIOLOGY - GENERAL ORD ERABLES Final Result Performing Organization Address [facility] Co de Phone Number [facility] [place] [address] * (ABNORMAL) Urinalysis, microscopic only (06/21/2024 1:50 PM CARD PLAYER) WBC, ur 21-50(A) 0 - 5 /HPF RBC, ur 0-2 0 - 2 /HPF [facility] Bacteria, ur 1+(A) [facility] Mucous, ur Present(A) [facility] Culture Reflex Comment Reflex to urine culture will be performed. [facility] Urine, suprapubic catheter 06/21/2024 1:50 PM CARD PLAYER 06/21/2024 3:44 PM CARD PLAYER Dayday Baker MD LAB URINE ORDERABLES Final Res ult Performing Organization Address [facility] de Phone Number [facility] Department [place] [address] * (ABNORMAL) Urinalysis reflex to microscopic and culture Urine, suprapubic catheter (06/21/2024 1:50PM CARD PLAYER) Color, ur Straw Yellow Clarity, ur Cloudy(A) Clear [facility] Specific gravity, ur 1.006 1.003 - 1.030 [facility] pH, urine 6.5 [facility] Comment: Interpretive Data U rine pH is affected by diet, medications, systemic acid-base disturbances, and renal tubular function. pH may affect urinary stone formation. For example, urine pH below 6.0 may help reduce the tendency for calcium phosphate stones and pH greater than 6.0 may reduce the tendency for uric acid stone formation. Source: [facility] [employer] Current Interpretive Data was last revised on 2017 Protein, ur ql Negative Negative [facility] Glucose, ur ql Negative Negative [facility] Ketones, ur Negative Negative [facility] Bilirubin, ur Negative Negative [facility] Blood, ur Trace(A) Negative [facility] Urobilinogen, ur <2.0 <2.0 mg/dL [facility] Nitrite, ur Positive(A) Negative [facility] Leukocyte esterase, ur 3+(A) Negative [facility] UA reflex comment Reflex to microscopic UA will be performed. [facility] Urine, suprapubic catheter 06/21/2024 1:50 PM CARD PLAYER 06/21/2024 3:44 PM CARD PLAYER Dayday Baker MD LAB MICROBIOLOGY - GENERAL ORD ERABLES Final Result [facility] Department [place] [address] documented in this encounter Visit Diagnoses Diagnosis Neurogenic bladder Neurogenic bladder, NOS Acute UTI (urinary tract infection) documented in this encounter Care Teams Qa Analyst Relationship Specialty Start Date End Date Emerson Camarillo MD [address] [facility] [address] [place] [address] PCP - General Family Practice 01/14/23 Rick Rodas MD [address] [facility] [phone] [place] [address] Surgeon Colon and Rectal Surgery 06/08/21 Marquita Berry DPT [address] [facility] [address] [place] [address] Physical Therapist Physical Therapy 01/06/[address] MD [address] [facility] [place] [address] Consulting Physician Pain Management 06/24/18 TARSHA PULLIAM APN [id number] [facility] [id number] Wound Care Nurse Wound Care 05/15/18 documented as of this encounter
--- OUTSIDE RECORDS SUMMARY | 2024-06-23 16:46 | XMS_ITS | Encounter Summary ---
Author Organization [facility] Address [address] [place] [address] Phone Care Team Providers Care Application Development Consultant Name Role Phone Rick Rodas MD Unavailable [phone] Nicolás Elena MD Primary Care Provider [phone] Emerson Camarillo MD Primary Care Provider [phone] Marquita Berry DPT Unavailable [phone] Emerson Camarillo MD Primary Care Provider [phone] Tiffany Sheppard RN Unavailable Heidi Lane MD Unavailable Encounter Details Date Type Department Care Team (Late st Contact Info) Description 12/09/[address] Medical Office [address] [place] [address] Cale Morris MD [facility] [address] [address] Social History Tobacco Use Types [...] on file Legal Sex Male 12:56 PM CAR CARDER Gender Identity Not on file Sexual Orientation Not on file documented as of this encounter Plan of Treatment Not on file documented as of this encounter Goals Goal Patient Goal Type Associated Problems Recent Progress Patient-Stated? Author CCM Chronic Pain Care Plan Chronic Care Management Improving( 3:32 PM CAR CARDER) Lynette Siddiqi RN Note: Problem: Chronic Pain [...] COVID: Suspected 05/05/2023 05/05/2023 05/05/2023 2:35 PM CAR CARDER documented as of this encounter Care Teams Application Development Consultant Relationship Specialty Start Date End Date Nicolás Elena MD [address] [facility] [phone] [place] [address] PCP - General Internal Medicine 06/20/22 01/07/23 Emerson Camarillo MD [address] [facility] [phone] [place] [address] PCP - General Family Practice 01/08/23 01/08/23 Emerson Camarillo MD [address] [facility] [phone] [place] [address] PCP - General Family Practice 01/14/23 Rick Rodas MD [address] [facility] [phone] [place] [address] Surgeon Colon and Rectal Surgery 06/08/21 Marquita Berry DPT [address] [facility] [address] [place] [address] Physical Therapist Physical Therapy 01/06/23 Tiffany Sheppard, RN [address] [facility] [address] [place] [address] SHOP Outpatient Top Cleaner 05/09/23 06/05/[address] MD [address] [place] [address] Consulting Physician Pain Management 06/24/18 TARSHA PULLIAM APN [id number] [facility] [id number] Wound Care Nurse Wound Care 05/15/18 documented as of this encounter
--- OUTSIDE RECORDS SUMMARY | 2024-06-23 16:46 | XMS_ITS | Clinical Summary ---
Author Organization [facility] [address] Address [address] [place] [address] Care Team Providers Care Brand Mgr Name Role Phone Dayday Baker MD Primary Care Provider [phone] Allergies Active Allergy Reactions Criticality Noted Date Comments Adhesive Rash Medium Medications BACLOFEN INTRATHECAL 800 mcg by IntraTHEcal route continuously. Active solifenacin (VESICARE) 10 mg Tablet Take 10 mg by mouth daily. Active pregabalin (LYRICA) 200 mg Capsule Take 200 mg by mouth 3 times daily. Active omega 6-bcx-lrw-fish oil (FISH OIL) 120-180-500 mg Capsule Take 2 Tablets by mouth daily. Active Fish,Saf,Flx,Brg Oils-O3,6,9#2 (NYZD-WMJO-XQPVT E OIL) 215-580-314-50 mg Capsule Take 1 Tablet by mouth [...] on file Legal Sex Male 11:14 AM RECORDING ARTIST Gender Identity Not on file Sexual Orientation Not on file Last Filed Vital Signs Vital Sign Reading Time Taken Comments Blood Pressure 60/40 05/13/2018 1:00 PM RECORDING ARTIST Pulse 54 05/13/2018 1:00 PM RECORDING ARTIST Temperature 35.8 C (96.5 F) 05/13/2018 1:00 PM RECORDING ARTIST Respiratory Rate 16 05/13/2018 1:00 PM RECORDING ARTIST Oxygen Saturation - - Inhaled Oxygen Concentration - - Weight 72.6 kg (160 lb) 05/13/2018 1:00 PM RECORDING ARTIST Height 172.7 cm (5' 8 ) 05/13/2018 1:00 PM RECORDING ARTIST Body Mass Index 24.33 05/13/2018 1:00 PM RECORDING ARTIST Plan of Treatment Health Maintenance Due Date Last Done Comments DTAP/TDAP/TD VACCINES (1 - Tdap) 2000 HEPATITIS B VACCINES (1 of 3 - 19+ 3-dose series) 2000 INFLUENZA VACCINE (#1) 2023 HPV VACCINES Aged Out No longer eligi ble based on patient's age to complete this topic Insurance MEDICARE PART A AND B Care Teams Brand Mgr Relationship Specialty Start Date End Date Dayday Baker MD PCP - General Physical Medicine and Rehabilitation 04/15/18
--- OUTSIDE RECORDS SUMMARY | 2024-06-23 16:47 | XMS_ITS | Referral Summary ---
Author Organization [facility] Address [address] [place] [address] Care Team Providers Care Customer Services Manager Name Role Phone Rick Rodas MD Unavailable [phone] Marquita Berry DPT Unavailable [phone] Emerson Camarillo MD Primary Care Provider [phone] MD Unavailable [phone] Encounters Date Type Department Care Team Description 06/23/2024 Results Follow-Up [facility] Orthopaedic Surgery [address] [place] [address] [address]th [place] [address] [place] [address] Carolynn Garcia CMA 06/23/2024 Orders Only [facility] Orthopaedic Surgery [address] [place] [address] 12th [place] [address] [place] [address] Dayday Baker MD Acute UTI (urinary tract infection) (Primary Dx); Neurogenic bladder; Suprapubic catheter ([facility]/HCC) (HCC) 06/21/2024 2:16 PM FUGITIVE DETECTIVE - 06/21/2024 11:59 PM FUGITIVE DETECTIVE Hospital Encounter [address] [address] Neurogenic bladder; Acute UTI (urinary tract infection) Discharge Disposition: Discharge to home or self care 06/21/2024 12:15 PM FUGITIVE DETECTIVE Office Visit [place] [address]th [place] [address] [place] [address] Dayday Baker MD Muscle spasticity (Primary Dx); Obstruction of suprapubic catheter, subsequent encounter; Neurogenic bladder; Acute UTI (urinary tract infection); Presence of intrathecal baclofen pump; Tetraplegia (CMS/HCC) (HCC) 06/02/2024 Orders Only [address] [place] [address] [place] [address] Dayday Baker MD 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CMS/HCC) (HCC) (Primary Dx) 06/02/2024 11:45 AM FUGITIVE DETECTIVE Procedure visit [facility] Orthopaedic [address] [place] [address] [place] [address] Dayday Baker MD Tetraplegic (CMS/HCC) (HCC) (Primary Dx); 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CMS/HCC) (HCC); Presence of intrathecal baclofen pump; Suprapubic catheter (CMS/HCC) (HCC); Neurogenic bladder 05/31/2024 Orders Only [address] [place] [address] [place] [address] Dayday Baker MD 05/11/[address] [place] [address] [place] [address] Dayday Baker MD 04/15/2024 Orders Only [address] [place] [place] [address] [place] [address] Dayday Baker MD Spasticity (Primary Dx); Presence of intrathecal baclofen pump; 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CMS/HCC) (HCC) from Last 3 Months Allergies Active Allergy Reactions Criticality Noted Date Comments Adhesive Rash Medium Medications docusate sodium (COLACE) 100 mg capsule Take 2 capsules (200 mg total) by mouth nightly 200-400mg Active cholecalciferol (VITAMIN D-3) 5,000 unit tablet Take 1 tablet (5,000 Units total) by mouth every morning 5 Active omega 8-ywd-mwq-fish oil 120-180-500 mg capsule Take 2 tablets [...] mcgIndications:Spastic ity,Presence of intrathecal baclofen pump,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[facility]) ([facility]) [address] mcg intrathec Continuous 06/02/2024 Active onabotulinumtoxin A (BOTOX) injection 200 UnitsIndications:Spast ic tetraplegia ([facility]) ([facility]) 200 Units IM Once 06/21/2024 06/22/2024 Ended Active Problems Problem Noted Date Diagnosed Date Tetraplegic ([facility]) 05/05/2023 Other osteoporosis without current pathological fracture 10/04/2020 Bladder stones 09/06/2020 Overview (09/06/2020): Added automatically from request for surgery [id number] Autonomic dysfunction 01/04/2020 Screening for malignant neoplasm of colon 2018 Overview (02/26/2019): Added automatically from request for surgery [id number] Colostomy in place ([facility]) 02/26/2019 Overview (02/26/2019): Added automatically from request for surgery [id number] Obstruction of suprapubic catheter ([facility]) 06/2018 Overview (12/29/2018): Added automatically from request for surgery [id number] Skin sensitivity 08/17/2018 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 Neuropathic pain 04/08/2018 Colostomy care 02/09/2018 Muscle spasm 01/07/2018 Spasticity 10/15/2017 Muscle spasticity 10/10/2017 Tetraplegia (CMS/HCC) 10/10/2017 Presence of intrathecal baclofen pump 10/10/2017 Neurogenic bladder 10/10/2017 Osteoporosis 10/06/2017 Social History Tobacco Use Types Packs/Day Years Used Date Smoking Tobacco: Former Cigarettes 2 008 - 2009 Smokeless Tobacco: Never Tobacco Cessation:Counseling Given: Not [...] on file Legal Sex Male 12:56 PM FUGITIVE DETECTIVE Gender Identity Not on file Sexual Orientation Not on file Last Filed Vital Signs Vital Sign Reading Time Taken Comments Blood Pressure 76/53 06/02/2024 11:53 AM FUGITIVE DETECTIVE Pulse 40 06/02/2024 11:53 AM FUGITIVE DETECTIVE Temperature 36 C (96.8 F) 01/21/2024 11:15 AM CDT Respiratory Rate 18 06/21/2024 12:28 PM FUGITIVE DETECTIVE Oxygen Saturation 96% 01/21/2024 11:15 AM CDT Inhaled Oxygen Concentration - - Weight 74.8 kg (165 lb) 06/21/2024 12:28 PM FUGITIVE DETECTIVE Height 170.2 cm (5' 7 ) 06/21/2024 12:28 PM FUGITIVE DETECTIVE Body Mass Index 25.84 06/21/2024 12:28 PM FUGITIVE DETECTIVE Plan of Treatment Not on file Goals Goal Patient Goal Type Associated Problems Recent Progress Patient-Stated? Author CCM Chronic Pain Care Plan Chronic Care Management Improving( 3:32 PM FUGITIVE DETECTIVE) No Strain, Lynette M., RN Note: Problem: Chronic Pain Goals: 1. Minimize further functional decline 2. Maximize quality of life 3. Control pain Strategies: - Activity/exercise program recommendation - Conservative stepwise pain medicine strategy with multi-disciplinary approach - Recommend healthy lifestyle strategies and compensatory methods as needed Medical Devices Implanted Type Area Building Construction Superintendent Device Identifier Shelf Expiration Date Model / Serial / Lot Baclofen Pain Pump Abdomen MED[employer] SYNCHROMED II / / Hardware Neck [employer] Inc Synchromed Ii Covel Catheter Access Port Suture Loop [id number] - [id number] - [id number] Implanted:Qty: 1 on 08/29/2023 by Segundo Black MD at [facility] Right: Abdomen Med[employer]onic Inc 01/23/2025 [id number] / [id number] / [employer] Inc Sutureless Connector Revision Catheter Kit Intrathecal Pump [id number] - [id number] Implanted:Qty: 1 on 08/29/2023 by Segundo Black MD at [facility] Right: Abdomen [employer] Inc 02/27/2025 [id number] / / [id number] Procedures Procedure Name Priority Date/Time Associated Diagnosis Comments URINALYSIS, MICROSCOPIC ONLY Routine 06/21/2024 1:50 PM FUGITIVE DETECTIVE Neurogenic bladder Acute UTI (urinary tract infection) URINE CULTURE Routine 06/21/2024 1:50 PM FUGITIVE DETECTIVE URINALYSIS AND REFLEX TO MICROSCOPIC AND CULTURE Routine 06/21/2024 1:50 PM FUGITIVE DETECTIVE Neurogenic bladder Acute UTI (urinary tract infection) from Last 3 Months Results * (ABNORMAL) Urinalysis reflex to microscopic and culture Urine, suprapubic catheter (06/21/2024 1:50PM FUGITIVE DETECTIVE) Color, ur Straw Yellow Clarity, ur Cloudy(A) Clear [facility] Specific gravity, ur 1.006 1.003 - 1.030 [facility] pH, urine 6.5 [facility] Comment: Interpretive Data U rine pH is affected by diet, medications, systemic acid-base disturbances, and renal tubular function. pH may affect urinary stone formation. For example, urine pH below 6.0 may help reduce the tendency for calcium phosphate stones and pH greater than 6.0 may reduce the tendency for uric acid stone formation. Source: [facility] Current Interpretive Data was last revised on 2017 Protein, ur ql Negative Negative [facility] Glucose, ur ql Negative Negative [facility] Ketones, ur Negative Negative [facility] Bilirubin, ur Negative Negative [facility] Blood, ur Trace(A) Negative [facility] Urobilinogen, ur <2.0 <2.0 mg/dL [facility] Nitrite, ur Positive(A) Negative [facility] Leukocyte esterase, ur 3+(A) Negative [facility] UA reflex comment Reflex to microscopic UA will be performed. [facility] Urine, suprapubic catheter 06/21/2024 1:50 PM FUGITIVE DETECTIVE 06/21/2024 3:44 PM FUGITIVE DETECTIVE Dayday Baker MD LAB MICROBIOLOGY - GENERAL ORD ERABLES Final Result Performing Organization Address [facility] Co de Phone Number [facility] Department [place] [address] * (ABNORMAL) Urinalysis, microscopic only (06/21/2024 1:50 PM FUGITIVE DETECTIVE) WBC, ur 21-50(A) 0 - 5 /HPF RBC, ur 0-2 0 - 2 /HPF [facility] Bacteria, ur 1+(A) [facility] Mucous, ur Present(A) [facility] Culture Reflex Comment Reflex to urine culture will be performed. [facility] Urine, suprapubic catheter 06/21/2024 1:50 PM FUGITIVE DETECTIVE 06/21/2024 3:44 PM FUGITIVE DETECTIVE Dayday Baker MD LAB URINE ORDERABLES Final Res ult Performing Organization Address City/[facility]/ZIP Co de Phone Number [facility] [place] [address] * (ABNORMAL) Urine culture Urine, suprapubic catheter (06/21/2024 1:50 PM FUGITIVE DETECTIVE) Report Final Report: Growth indicates contamination with mixed bacterial marga. Please submit a new specimen with special attention given to the collection process and to prompt transport to the laboratory. (.) Organism GROWTH INDICATES CONTAMINATION WITH MIXED MARGA. [facility] Urine, suprapubic catheter 06/21/2024 1:50 PM FUGITIVE DETECTIVE 06/21/2024 5:50 PM FUGITIVE DETECTIVE Narrative [facility] - 06/23/2024 11:42 AM FUGITIVE DETECTIVE Urine culture reflexed based upon urinalysis results. Testing performed by [facility] ([phone]) us Dayday Baker MD LAB MICROBIOLOGY - GENERAL ORD ERABLES Final Result [facility] Department [place] [address] from Last 3 Months Insurance [employer]IC[employer]UT[employer] [facility] MEDIC[facility] Address: [address] [address] [place] [address] MEDICARE SOLUTIONS IDPA [employer]PA MED[employer]UTIONS Advance Directives For more information, please contact: [phone] * LIMITED - No CPR (Latest Code Status on File) Date Activated Date Inactivated Comments 05/05/2023 11:25 PM 05/08/2023 11:52 PM * Full Code Date Activated Date Inactivated Comments 05/05/2023 10:50 PM 05/05/2023 11:25 PM * Full Code Date Activated Date Inactivated Comments 03/29/2019 11:00 AM 03/29/2019 5:48 PM Care Teams Customer Services Manager Relationship Specialty Start Date End Date Emerson Camarillo MD [address] [facility] [address] [place] [address] PCP - General Family Practice 01/14/23 Rick Rodas MD [address] [facility] [id number] [place] [address] Surgeon Colon and Rectal Surgery 06/08/21 Marquita Berry DPT [address] [facility] [address] [place] [address] Physical Therapist Physical Therapy 01/06/[address] MD [address] [place] [address] Consulting Physician Pain Management 06/24/18 TARSHA PULLIAM APN [id number] [facility] [id number] Wound Care Nurse Wound Care 05/15/18
== END 2024-06-23 14:31 | disposition home or self-care (01) ==
LOC: ANHLAB 14:31
PROVIDERS: PCP Family Medicine; Visit Provider Family Medicine
DX: N39.0 Urinary tract infection, site not specified (principal); G89.4 Chronic pain syndrome; N31.9 Neuromuscular dysfunction of bladder, unspecified; M79.2 Neuralgia and neuritis, unspecified
CPT/HCPCS: 81001; 87086

== ENCOUNTER 2024-06-23 19:11 | Emergency (ER) | payer MEDICARE, MEDICAID, SELFPAY ==
--- OUTSIDE RECORDS SUMMARY | 2024-06-23 19:14 | XMS_ITS | Encounter Summary ---
Author Organization [facility] Address [address] [place] [address] Phone Care Team Providers Care Rig Site Engineer Name Role Phone Rick Rodas MD Unavailable Marquita Berry DPT Unavailable [phone] Emerson Camarillo MD Primary Care Provider [phone] MD Unavailable Encounter Details Date Type Department Care Team (Late st Contact Info) Description 06/23/2024 Orders Only [facility] Orthopaedic Surgery [address] [facility] 12th [place] [address] [place] [address] Dayday Baker MD [address] [facility] 6A/6B/12A [place] [address] Acute UTI (urinary tract infection) (Primary Dx); [...] on file Legal Sex Male 12:56 PM DISTRICT BRANCH MANAGER Gender Identity Not on file Sexual Orientation Not on file documented as of this encounter Plan of Treatment Scheduled Orders Name Type Priority Associated Diagnoses Orde r Schedule Urinalysis reflex to microscopic and culture Urine, suprapubic catheter Microbiology Routine Neurogenic bladder Acute UTI (urinary tract infection) Suprapubic catheter ([facility]) ([facility]) Expected: 06/24/2024, Expires: 06/23/2025 documented as of this encounter Goals Goal Patient Goal Type Associated Problems Recent Progress Patient-Stated? Author CCM Chronic Pain Care Plan Chronic Care Management Improving( 3:32 PM DISTRICT BRANCH MANAGER) Lynette Siddiqi, RN Note: Problem: Chronic Pain [...] bladder Neurogenic bladder, NOS Suprapubic catheter (CMS/HCC) ([facility]) Other cystostomy status documented in this encounter Care Teams Rig Site Engineer Relationship Specialty Start Date End Date Emerson Camarillo MD [address] [facility] [address] [place] [address] PCP - General Family Practice 01/14/23 Rick Rodas MD [address] [facility] [id number] [place] [address] Surgeon Colon and Rectal Surgery 06/08/21 Marquita Berry DPT [address] [facility] [address] [place] [address] Physical Therapist Physical Therapy 01/06/[address] MD [address] [facility] [place] [address] Consulting Physician Pain Management 06/24/18 TARSHA PULLIAM APN [id number] [facility] [id number] Wound Care Nurse Wound Care 05/15/18 documented as of this encounter
--- OUTSIDE RECORDS SUMMARY | 2024-06-23 19:14 | XMS_ITS | Encounter Summary ---
Author Organization [facility] Address [address] [place] [address] Phone Care Team Providers Care Tag Meter Operator Name Role Phone Rick Rodas MD Unavailable [phone] Nicolás Elena MD Primary Care Provider [phone] Emerson Camarillo MD Primary Care Provider [phone] Marquita Berry DPT Unavailable [phone] Emerson Camarillo MD Primary Care Provider [phone] Tiffany Sheppard RN Unavailable [phone] MD Unavailable [phone] Encounter Details Date Type Department Care Team (Late st Contact Info) Description 12/19/[address] Medical Office Building [address] [place] [address] Cale Morris MD [facility] [address] [address] Social History Tobacco Use Types [...] on file Legal Sex Male 12:56 PM RESTAURANT ASSISTANT Gender Identity Not on file Sexual Orientation Not on file documented as of this encounter Plan of Treatment Not on file documented as of this encounter Goals Goal Patient Goal Type Associated Problems Recent Progress Patient-Stated? Author CCM Chronic Pain Care Plan Chronic Care Management Improving( 3:32 PM RESTAURANT ASSISTANT) Lynette Siddiqi RN Note: Problem: Chronic Pain [...] COVID: Suspected 05/05/2023 05/05/2023 05/05/2023 2:35 PM RESTAURANT ASSISTANT documented as of this encounter Care Teams Tag Meter Operator Relationship Specialty Start Date End Date Nicolás Elena MD [address] [facility] [id number] [place] [address] PCP - General Internal Medicine 06/20/22 01/07/23 Emerson Camarillo MD [address] [facility] [phone] [place] [address] PCP - General Family Practice 01/08/23 01/08/23 Emerson Camarillo MD [address] [facility] [phone] [place] [address] PCP - General Family Practice 01/14/23 Rick Rodas MD [address] [facility] [id number] [place] [address] Surgeon Colon and Rectal Surgery 06/08/21 Marquita Berry DPT [address] [facility] [address] [place] [address] Physical Therapist Physical Therapy 01/06/23 Tiffany Sheppard, RN [address] [facility] [address] [place] [address] SHOP Outpatient Crimper Assembler 05/09/23 06/05/[address] MD [address] [place] [place] [address] Consulting Physician Pain Management 06/24/18 TARSHA PULLIAM APN [id number] [facility] [id number] Wound Care Nurse Wound Care 05/15/18 documented as of this encounter
--- OUTSIDE RECORDS SUMMARY | 2024-06-23 19:14 | XMS_ITS | Encounter Summary ---
Author Organization [facility] Address [address] [place] [address] Phone Care Team Providers Care Watch And Clock Repairer Name Role Phone Rick Rodas MD Unavailable [phone] Marquita Berry DPT Unavailable [phone] Emerson Camarillo MD Primary Care Provider [phone] MD Unavailable Encounter Details Date Type Department Care Team (Late st Contact Info) Description 06/23/2024 Results Follow-Up [facility] Orthopaedic Surgery [address] [facility] 12th [place] [address] [place] [address] Carolynn Garcia, [facility] Social History Tobacco Use Types Packs/Day Years [...] on file Legal Sex Male 12:56 PM SECOND BUTLER Gender Identity Not on file Sexual Orientation Not on file documented as of this encounter Miscellaneous Notes * Result Encounter Note - Carolynn Garcia CMA - 06/23/2024 10:56 AM SECOND BUTLER I spoke to the pt. He asked that the new UA order be sent to [facility]. New order faxed to [phone]. clt [place] BUTLER documented in this encounter Plan of Treatment Not on file documented as of this encounter Goals Goal Patient Goal Type Associated Problems Recent Progress Patient-Stated? Author CCM Chronic Pain Care Plan Chronic Care Management Improving( 3:32 PM SECOND BUTLER) Lynette Siddiqi RN Note: Problem: Chronic Pain Goals: 1. Minimize further functional decline 2. Maximize quality of life 3. Control pain Strategies: - Activity/exercise program recommendation - Conservative stepwise pain medicine strategy with multi-disciplinary approach - Recommend healthy lifestyle strategies and compensatory methods as needed documented as of this encounter Visit Diagnoses Not on filedocumented in this encounter Care Teams Watch And Clock Repairer Relationship Specialty Start Date End Date Emerson Camarillo MD [address] [facility] [address] [place] [address] PCP - General Family Practice 01/14/23 Rick Rodas MD [address] [facility] [id number] [place] [address] Surgeon Colon and Rectal Surgery 06/08/21 Marquita Berry DPT [address] [facility] [address] [place] [address] Physical Therapist Physical Therapy 01/06/[address] MD [address] [facility] [place] [address] Consulting Physician Pain Management 06/24/18 TARSHA PULLIAM APN [id number] [facility] [id number] Wound Care Nurse Wound Care 05/15/18 documented as of this encounter
--- OUTSIDE RECORDS SUMMARY | 2024-06-23 19:14 | XMS_ITS | Encounter Summary ---
Author Organization [facility] [email or web address] [facility] Address [address] [place] [address] Phone Care Team Providers Care Store Planner Name Role Phone Rick Rodas MD Unavailable [phone] Nicolás Elena MD Primary Care Provider [phone] Emerson Camarillo MD Primary Care Provider [phone] Marquita Berry DPT Unavailable [phone] Emerson Camarillo MD Primary Care Provider [phone] Tiffany Sheppard RN Unavailable Heidi Lane MD Unavailable Encounter Details Date Type Department Care Team (Late st Contact Info) Description 12/08/[address] Medical Office Building [address] [place] [address] Cale Morris MD [facility] [address] [address] Social History Tobacco Use Types [...] on file Legal Sex Male 12:56 PM LIFE SKILLS INSTRUCTOR Gender Identity Not on file Sexual Orientation Not on file documented as of this encounter Plan of Treatment Not on file documented as of this encounter Goals Goal Patient Goal Type Associated Problems Recent Progress Patient-Stated? Author CCM Chronic Pain Care Plan Chronic Care Management Improving( 3:32 PM LIFE SKILLS INSTRUCTOR) Lynette Siddiqi RN Note: Problem: Chronic Pain [...] COVID: Suspected 05/05/2023 05/05/2023 05/05/2023 2:35 PM LIFE SKILLS INSTRUCTOR documented as of this encounter Care Teams Store Planner Relationship Specialty Start Date End Date Nicolás Elena MD [address] [facility] [id number] [place] [address] PCP - General Internal Medicine 06/20/22 01/07/23 Emerson Camarillo MD [address] [facility] [id number] [place] [address] PCP - General Family Practice 01/08/23 01/08/23 Emerson Camarillo MD [address] [facility] [id number] [place] [address] PCP - General Family Practice 01/14/23 Rick Rodas MD [address] [facility] [id number] [place] [address] Surgeon Colon and Rectal Surgery 06/08/21 Marquita Berry DPT [address] [facility] [address] [place] [address] Physical Therapist Physical Therapy 01/06/23 Tiffany Sheppard, RN [address] [facility] [address] [place] [address] SHOP Outpatient Professor Of Musicology 05/09/23 06/05/[address] MD [address] [place] [address] Consulting Physician Pain Management 06/24/18 TARSHA PULLIAM APN [id number] [address] [facility] [id number] Wound Care Nurse Wound Care 05/15/18 documented as of this encounter
--- OUTSIDE RECORDS SUMMARY | 2024-06-23 19:14 | XMS_ITS | Encounter Summary ---
Author Organization [facility] Address [address] [place] [address] Phone Care Team Providers Care Cooky Packer Name Role Phone Rick Rodas MD Unavailable [phone] Nicolás Elena MD Primary Care Provider [phone] Emerson Camarillo MD Primary Care Provider [phone] Marquita Berry DPT Unavailable [phone] Emerson Camarillo MD Primary Care Provider [phone] Tiffany Sheppard RN Unavailable [phone] MD Unavailable Encounter Details Date Type Department Care Team (Late st Contact Info) Description 12/09/[address] Medical Office Building [address] [place] [address] Cale Morris MD [facility] [address] Social History Tobacco Use Types [...] on file Legal Sex Male 12:56 PM SERVICE CENTER ASSISTANT Gender Identity Not on file Sexual Orientation Not on file documented as of this encounter Plan of Treatment Not on file documented as of this encounter Goals Goal Patient Goal Type Associated Problems Recent Progress Patient-Stated? Author CCM Chronic Pain Care Plan Chronic Care Management Improving( 3:32 PM SERVICE CENTER ASSISTANT) Lynette Siddiqi RN Note: Problem: Chronic [...] COVID: Suspected 05/05/2023 05/05/2023 05/05/2023 2:35 PM SERVICE CENTER ASSISTANT documented as of this encounter Care Teams Cooky Packer Relationship Specialty Start Date End Date Nicolás Elena MD [address] [facility] [id number] [place] [address] PCP - General Internal Medicine 06/20/22 01/07/23 Emerson Camarillo MD [address] [facility] [id number] [place] [address] PCP - General Family Practice 01/08/23 01/08/23 Emerson Camarillo MD [address] [facility] [id number] [place] [address] PCP - General Family Practice 01/14/23 Rick oRdas MD [address] [facility] [id number] [place] [address] Surgeon Colon and Rectal Surgery 06/08/21 Marquita Berry DPT [address] [facility] [address] [place] [address] Physical Therapist Physical Therapy 01/06/23 Tiffany Sheppard, RN [address] [facility] [address] [place] [address] SHOP Outpatient Microarray Analyst 05/09/23 06/05/[address] MD [address] [place] [address] Consulting Physician Pain Management 06/24/18 TARSHA PULLIAM APN [id number] [facility] [id number] Wound Care Nurse Wound Care 05/15/18 documented as of this encounter
--- OUTSIDE RECORDS SUMMARY | 2024-06-23 19:14 | XMS_ITS | Clinical Summary ---
Author Organization [facility] Address [address] [place] [address] Care Team Providers Care Director Public Name Role Phone Rick Rodas MD Unavailable [phone] Marquita Brery DPT Unavailable [phone] Emerson Camarillo MD Primary Care Provider [phone] MD Unavailable Allergies Active Allergy Reactions Criticality Noted Date Comments Adhesive Rash Medium Medications docusate sodium (COLACE) 100 mg capsule Take 2 capsules (200 mg total) by mouth nightly 200-400mg Active cholecalciferol (VITAMIN D-3) 5,000 unit tablet Take 1 tablet (5,000 Units total) by mouth every morning 5 Active omega 5-ymv-gkr-fish oil 120-180-500 mg capsule Take 2 tablets [...] mcgIndications:Spastic ity,Presence of intrathecal baclofen pump,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[facility]) 01822 mcg intrathec Continuous 06/02/2024 Active onabotulinumtoxin A (BOTOX) injection 200 UnitsIndications:Spast ic tetraplegia ([facility]) ([facility]) 200 Units IM Once 06/21/2024 06/22/2024 Ended Active Problems Problem Noted Date Diagnosed Date Tetraplegic ([facility]) 05/05/2023 Other osteoporosis without current pathological fracture 10/04/2020 Bladder stones 09/06/2020 Overview (09/06/2020): Added automatically from request for surgery [id number] Autonomic dysfunction 01/04/2020 Screening for malignant neoplasm of colon 2018 Overview (02/26/2019): Added automatically from request for surgery [id number] Colostomy in place ([facility]) 02/26/2019 Overview (02/26/2019): Added automatically from request for surgery [id number] Obstruction of suprapubic catheter ([facility]) 06/2018 Overview (12/29/2018): Added automatically from request for surgery [id number] Skin sensitivity 08/17/2018 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 Neuropathic pain 04/08/2018 Colostomy care 02/09/2018 Muscle spasm 01/07/2018 Spasticity 10/15/2017 Muscle spasticity 10/10/2017 Tetraplegia ([facility]) 10/10/2017 Presence of intrathecal baclofen pump 10/10/2017 Neurogenic bladder 10/10/2017 Osteoporosis 10/06/2017 Encounters Date Type Department Care Team Description 06/23/2024 Results Follow-Up [facility] Orthopaedic Surgery [address] [place] [address] [address] [place] [address] [place] [address] Carolynn Garcia CMA 06/23/2024 Orders Only [facility] Orthopaedic Surgery [address] [place] [address] 12th [place] [address] Dayday Baker MD Acute UTI (urinary tract infection) (Primary Dx); Neurogenic bladder; Suprapubic catheter (CMS/HCC) (HCC) 06/21/2024 2:16 PM SENIOR J2EE DEVELOPER - 06/21/2024 11:59 PM SENIOR J2EE DEVELOPER Hospital Encounter [facility] [address] [place] [address] Neurogenic bladder; Acute UTI (urinary tract infection) Discharge Disposition: Discharge to home or self care 06/21/2024 12:15 PM SENIOR J2EE DEVELOPER Office Visit [facility] Orthopaedic Surgery [address] [place] [address] [address] [place] [address] [place] [address] Dayday Baker MD Muscle spasticity (Primary Dx); Obstruction of suprapubic catheter, subsequent encounter; Neurogenic bladder; Acute UTI (urinary tract infection); Presence of intrathecal baclofen pump; Tetraplegia (CMS/HCC) (HCC) 06/02/2024 11:45 AM SENIOR J2EE DEVELOPER Procedure visit [facility] Orthopaedic Surgery [address] [place] [address] [address] [place] [address] [place] [address] Dayday Baker MD Tetraplegic ([facility]) ([facility]) (Primary Dx); 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CMS/HCC) (HCC); Presence of intrathecal baclofen pump; Suprapubic catheter ([facility]) ([facility]); Neurogenic bladder 06/02/2024 Orders Only [facility] Orthopaedic Surgery [address] [place] [address] [address] [place] [address] [place] [address] Dayday Baker MD 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[facility]) (Primary Dx) 05/31/2024 Orders Only [facility] Orthopaedic Surgery [address] [place] [address] [address] [place] [address] [place] [address] Dayday Baker MD 05/11/2024 Telephone [facility] Orthopaedic Surgery [address] [place] [address] [address] [place] [address] [place] [address] Dayday Baker MD 04/15/2024 Orders Only [facility] Orthopaedic Surgery [address] [facility] [address] [place] [address] [place] [address] Dayday Baker MD Spasticity (Primary Dx); Presence [...] C4/5, incomplete Anal fissure Neuropathic pain Quadriplegia ([facility]) GERD (gastroesophageal reflux disease) Anemia Neurogenic [...] on file Legal Sex Male 12:56 PM SENIOR J2EE DEVELOPER Gender Identity Not on file Sexual Orientation Not on file Obstetrics History Last Filed Vital Signs Vital Sign Reading Time Taken Comments Blood Pressure 76/53 06/02/2024 11:53 AM SENIOR J2EE DEVELOPER Pulse 40 06/02/2024 11:53 AM SENIOR J2EE DEVELOPER Temperature 36 C (96.8 F) 01/21/2024 11:15 AM CDT Respiratory Rate 18 06/21/2024 12:28 PM SENIOR J2EE DEVELOPER Oxygen Saturation 96% 01/21/2024 11:15 AM CDT Inhaled Oxygen Concentration - - Weight 74.8 kg (165 lb) 06/21/2024 12:28 PM SENIOR J2EE DEVELOPER Height 170.2 cm (5' 7 ) 06/21/2024 12:28 PM SENIOR J2EE DEVELOPER Body Mass Index 25.84 06/21/2024 12:28 PM SENIOR J2EE DEVELOPER Plan of Treatment Health Maintenance Due Date [...] Plan Chronic Care Management Improving( 3:32 PM SENIOR J2EE DEVELOPER) No Lynette Goodman RN Note: Problem: Chronic Pain Goals: 1. Minimize further functional decline 2. Maximize quality of life 3. Control pain Strategies: - Activity/exercise program recommendation - Conservative stepwise pain medicine strategy with multi-disciplinary approach - Recommend healthy lifestyle strategies and compensatory methods as needed Medical Devices Implanted Type Area Finisher Hand Device Identifier Shelf Expiration Date Model / Serial / Lot Baclofen Pain Pump Abdomen MED[employer]IC SYNCHROMED II / / Hardware Neck [employer] Inc Synchromed Ii [place] Catheter Access Port Suture Loop [id number] - [id number] - [id number] Implanted:Qty: 1 on 08/29/2023 by Segundo Black MD at [facility] Right: Abdomen Med[employer]onic Inc 01/23/2025 [id number] / [id number] / Med[employer]onic Inc Sutureless Connector Revision Catheter Kit Intrathecal Pump [id number] - [id number] Implanted:Qty: 1 on 08/29/2023 by Segundo Black MD at [facility] Right: Abdomen [employer] Inc 02/27/2025 [id number] / / [id number] Procedures Procedure Name Priority Date/Time Associated Diagnosis Comments URINALYSIS, MICROSCOPIC ONLY Routine 06/21/2024 1:50 PM SENIOR J2EE DEVELOPER Neurogenic bladder Acute UTI (urinary tract infection) URINE CULTURE Routine 06/21/2024 1:50 PM SENIOR J2EE DEVELOPER URINALYSIS AND REFLEX TO MICROSCOPIC AND CULTURE Routine 06/21/2024 1:50 PM SENIOR J2EE DEVELOPER Neurogenic bladder Acute UTI (urinary tract infection) from Last 3 Months Results * (ABNORMAL) Urinalysis reflex to microscopic and culture Urine, suprapubic catheter (06/21/2024 1:50PM SENIOR J2EE DEVELOPER) Color, ur Straw Yellow Clarity, ur Cloudy(A) Clear [facility] Specific gravity, ur 1.006 1.003 - 1.030 [facility] pH, urine 6.5 [facility] Comment: Interpretive Data U rine pH is affected by diet, medications, systemic acid-base disturbances, and renal tubular function. pH may affect urinary stone formation. For example, urine pH below 6.0 may help reduce the tendency for calcium phosphate stones and pH greater than 6.0 may reduce the tendency for uric acid stone formation. Source: [employer] Current Interpretive Data was last revised on 2017 Protein, ur ql Negative Negative [facility] Glucose, ur ql Negative Negative [facility] Ketones, ur Negative Negative [facility] Bilirubin, ur Negative Negative [facility] Blood, ur Trace(A) Negative [facility] Urobilinogen, ur <2.0 <2.0 mg/dL [facility] Nitrite, ur Positive(A) Negative [facility] Leukocyte esterase, ur 3+(A) Negative [facility] UA reflex comment Reflex to microscopic UA will be performed. [facility] Urine, suprapubic catheter 06/21/2024 1:50 PM SENIOR J2EE DEVELOPER 06/21/2024 3:44 PM SENIOR J2EE DEVELOPER Dayday Baker MD LAB MICROBIOLOGY - GENERAL ORD ERABLES Final Result Performing Organization Address [facility] Co de Phone Number [facility] [place] [address] * (ABNORMAL) Urinalysis, microscopic only (06/21/2024 1:50 PM SENIOR J2EE DEVELOPER) WBC, ur 21-50(A) 0 - 5 /HPF RBC, ur 0-2 0 - 2 /HPF [facility] Bacteria, ur 1+(A) [facility] Mucous, ur Present(A) [facility] Culture Reflex Comment Reflex to urine culture will be performed. [facility] Urine, suprapubic catheter 06/21/2024 1:50 PM SENIOR J2EE DEVELOPER 06/21/2024 3:44 PM SENIOR J2EE DEVELOPER Dayday Baker MD LAB URINE ORDERABLES Final Res ult Performing Organization Address [facility]/ZIP Co de Phone Number [facility] [place] [address] * (ABNORMAL) Urine culture Urine, suprapubic catheter (06/21/2024 1:50 PM SENIOR J2EE DEVELOPER) Report Final Report: Growth indicates contamination with mixed bacterial marga. Please submit a new specimen with special attention given to the collection process and to prompt transport to the laboratory. (.) Organism GROWTH INDICATES CONTAMINATION WITH MIXED MARGA. [facility] Urine, suprapubic catheter 06/21/2024 1:50 PM SENIOR J2EE DEVELOPER 06/21/2024 5:50 PM SENIOR J2EE DEVELOPER Narrative HEATHER DEE - 06/23/2024 11:42 AM SENIOR J2EE DEVELOPER Urine culture reflexed based upon urinalysis results. Testing performed by [facility] ([phone]) us Dayday Baker MD LAB MICROBIOLOGY - GENERAL ORD ERABLES Final Result [facility] [place] [address] from Last 3 Months Insurance [employer] [place] [address] [employer] Advance Directives For more information, please contact: [phone] * LIMITED - No CPR (Latest Code Status on File) Date Activated Date Inactivated Comments 05/05/2023 11:25 PM 05/08/2023 11:52 PM * Full Code Date Activated Date Inactivated Comments 05/05/2023 10:50 PM 05/05/2023 11:25 PM * Full Code Date Activated Date Inactivated Comments 03/29/2019 11:00 AM 03/29/2019 5:48 PM Care Teams Director Public Relationship Specialty Start Date End Date Emerson Camarillo MD [address] [facility] [address] [place] [address] PCP - General Family Practice 01/14/23 Rick Rodas MD [address] [facility] [phone] [place] [address] Surgeon Colon and Rectal Surgery 06/08/21 Marquita Berry DPT [address] [facility] [address] [place] [address] Physical Therapist Physical Therapy 01/06/[address] MD [address] [facility] [place] [address] Consulting Physician Pain Management 06/24/18 TARSHA PULLIAM APN [id number] [facility] [id number] Wound Care Nurse Wound Care 05/15/18
--- OUTSIDE RECORDS SUMMARY | 2024-06-23 19:14 | XMS_ITS | Clinical Summary ---
Author Organization [facility] [address] Address [address] [place] [address] Care Team Providers Care Paste Thinner Name Role Phone Dayday Baker MD Primary Care Provider Allergies Active Allergy Reactions Criticality Noted Date Comments Adhesive Rash Medium Medications BACLOFEN INTRATHECAL 800 mcg by IntraTHEcal route continuously. Active solifenacin (VESICARE) 10 mg Tablet Take 10 mg by mouth daily. Active pregabalin (LYRICA) 200 mg Capsule Take 200 mg by mouth 3 times daily. Active omega 9-zfy-epw-fish oil (FISH OIL) 120-180-500 mg Capsule Take 2 Tablets by mouth daily. Active Fish,Saf,Flx,Brg Oils-O3,6,9#2 (VDPJ-KXEI-USNQS E OIL) [phone] mg Capsule Take 1 Tablet by mouth [...] on file Legal Sex Male 11:14 AM THERMOSTAT MACHINE TENDER Gender Identity Not on file Sexual Orientation Not on file Last Filed Vital Signs Vital Sign Reading Time Taken Comments Blood Pressure 60/40 05/13/2018 1:00 PM THERMOSTAT MACHINE TENDER Pulse 54 05/13/2018 1:00 PM THERMOSTAT MACHINE TENDER Temperature 35.8 C (96.5 F) 05/13/2018 1:00 PM THERMOSTAT MACHINE TENDER Respiratory Rate 16 05/13/2018 1:00 PM THERMOSTAT MACHINE TENDER Oxygen Saturation - - Inhaled Oxygen Concentration - - Weight 72.6 kg (160 lb) 05/13/2018 1:00 PM THERMOSTAT MACHINE TENDER Height 172.7 cm (5' 8 ) 05/13/2018 1:00 PM THERMOSTAT MACHINE TENDER Body Mass Index 24.33 05/13/2018 1:00 PM THERMOSTAT MACHINE TENDER Plan of Treatment Health Maintenance Due Date Last Done Comments DTAP/TDAP/TD VACCINES (1 - Tdap) 2000 HEPATITIS B VACCINES (1 of 3 - 19+ 3-dose series) 2000 INFLUENZA VACCINE (#1) 2023 HPV VACCINES Aged Out No longer eligi ble based on patient's age to complete this topic Insurance MEDICARE PART A AND B Care Teams Paste Thinner Relationship Specialty Start Date End Date Dayday Baker MD PCP - General Physical Medicine and Rehabilitation 04/15/18
--- OUTSIDE RECORDS SUMMARY | 2024-06-23 19:14 | XMS_ITS | CONTINUITY OF CARE DOCUMENT ---
Author Name gregg gregg Address Unknown Organization [facility] Address [address] [place] [address] Phone [phone] Care Team Providers Care Dinker Name Role Phone Demarcus SANDOVAL, Keri Unavailable CHRIS SANDOVAL, BERNARDA Unavailable [phone] BERNARDA PEREZ MD Unavailable [phone] INSURANCE PROVIDERS Payer name Policy type / Coverage type [place] red green party ID [employer] FAMILY [employer] Medicaid 1 [id number] AARP MEDICARE ADVANTAGE HMO-POS HMO [id number]
--- OUTSIDE RECORDS SUMMARY | 2024-06-23 19:14 | XMS_ITS | Referral Summary ---
Author Organization [facility] Address [address] [place] [address] Care Team Providers Care Safety Tech Name Role Phone Rick Rodas MD Unavailable [phone] Marquita Berry DPT Unavailable [phone] Emerson Camarillo MD Primary Care Provider [phone] MD Unavailable Encounters Date Type Department Care Team Description 06/23/2024 Results Follow-Up [facility] Orthopaedic Surgery [address] [place] [address] [address]th [place] [address] [place] [address] Carolynn Garcia CMA 06/23/2024 Orders Only [facility] Orthopaedic Surgery [address] [place] [address] 12th [place] [address] [place] [address] Dayday Baker MD Acute UTI (urinary tract infection) (Primary Dx); Neurogenic bladder; Suprapubic catheter ([facility]/HCC) (HCC) 06/21/2024 2:16 PM NURSE RN BSN - 06/21/2024 11:59 PM NURSE RN BSN Hospital Encounter [address] [address] Neurogenic bladder; Acute UTI (urinary tract infection) Discharge Disposition: Discharge to home or self care 06/21/2024 12:15 PM NURSE RN BSN Office Visit [place] [address]th [place] [address] [place] [address] Dayday Baker MD Muscle spasticity (Primary Dx); Obstruction of suprapubic catheter, subsequent encounter; Neurogenic bladder; Acute UTI (urinary tract infection); Presence of intrathecal baclofen pump; Tetraplegia (CMS/HCC) (HCC) 06/02/2024 Orders Only [address] [place] [address] [place] [address] Dayday Baker MD 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CMS/HCC) (HCC) (Primary Dx) 06/02/2024 11:45 AM NURSE RN BSN Procedure visit [facility] Orthopaedic [address] [place] [address] [place] [address] Dayday Baker MD Tetraplegic (CMS/HCC) (HCC) (Primary Dx); 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CMS/HCC) (HCC); Presence of intrathecal baclofen pump; Suprapubic catheter (CMS/HCC) (HCC); Neurogenic bladder 05/31/2024 Orders Only [address] [place] [address] [place] [address] Dayday Baker MD 05/11/[address] [place] [address] [place] [address] Dayday Baker MD 04/15/2024 Orders Only [address] [place] [address] [place] [address] Dayday Baker MD Spasticity (Primary Dx); Presence [...] by mouth every morning 5 Active omega 7-imp-zwn-fish oil 120-180-500 mg capsule Take 2 tablets [...] mcgIndications:Spastic ity,Presence of intrathecal baclofen pump,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[facility]) ([facility]) [address] mcg intrathec Continuous 06/02/2024 Active onabotulinumtoxin A (BOTOX) injection 200 UnitsIndications:Spast ic tetraplegia ([facility]) ([facility]) 200 Units IM Once 06/21/2024 06/22/2024 Ended Active Problems Problem Noted Date Diagnosed Date Tetraplegic ([facility]) 05/05/2023 Other osteoporosis without current pathological fracture 10/04/2020 Bladder stones 09/06/2020 Overview (09/06/2020): Added automatically from request for surgery [id number] Autonomic dysfunction 01/04/2020 Screening for malignant neoplasm of colon 2018 Overview (02/26/2019): Added automatically from request for surgery [id number] Colostomy in place ([facility]) 02/26/2019 Overview (02/26/2019): Added automatically from request for surgery [id number] Obstruction of suprapubic catheter ([facility]) 06/2018 Overview (12/29/2018): Added automatically from request for surgery [id number] Skin sensitivity 08/17/2018 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[facility]) 06/26/2018 Neuropathic pain 04/08/2018 Colostomy care 02/09/2018 [...] on file Legal Sex Male 12:56 PM NURSE RN BSN Gender Identity Not on file Sexual Orientation Not on file Last Filed Vital Signs Vital Sign Reading Time Taken Comments Blood Pressure 76/53 06/02/2024 11:53 AM NURSE RN BSN Pulse 40 06/02/2024 11:53 AM NURSE RN BSN Temperature 36 C (96.8 F) 01/21/2024 11:15 AM CDT Respiratory Rate 18 06/21/2024 12:28 PM NURSE RN BSN Oxygen Saturation 96% 01/21/2024 11:15 AM CDT Inhaled Oxygen Concentration - - Weight 74.8 kg (165 lb) 06/21/2024 12:28 PM NURSE RN BSN Height 170.2 cm (5' 7 ) 06/21/2024 12:28 PM NURSE RN BSN Body Mass Index 25.84 06/21/2024 12:28 PM NURSE RN BSN Plan of Treatment Not on file Goals Goal Patient Goal Type Associated Problems Recent Progress Patient-Stated? Author CCM Chronic Pain Care Plan Chronic Care Management Improving( 3:32 PM NURSE RN BSN) No Strain, Lynette M., RN Note: Problem: Chronic Pain Goals: 1. Minimize further functional decline 2. Maximize quality of life 3. Control pain Strategies: - Activity/exercise program recommendation - Conservative stepwise pain medicine strategy with multi-disciplinary approach - Recommend healthy lifestyle strategies and compensatory methods as needed Medical Devices Implanted Type Area Manager Collection Device Identifier Shelf Expiration Date Model / Serial / Lot Baclofen Pain Pump Abdomen MEDTRONIC SYNCHROMED II / / Hardware Neck Med[employer]onic Inc Synchromed Ii [place] Catheter Access Port Suture Loop [id number] - [id number] - [id number] Implanted:Qty: 1 on 08/29/2023 by Segundo Black MD at [facility] Right: Abdomen Med[employer]onic Inc 01/23/2025 [id number] / [id number] / Medtronic Inc Sutureless Connector Revision Catheter Kit Intrathecal Pump [id number] - [id number] Implanted:Qty: 1 on 08/29/2023 by Segundo Black MD at [facility] Right: Abdomen Med[employer]onic Inc 02/27/2025 [id number] / / [id number] Procedures Procedure Name Priority Date/Time Associated Diagnosis Comments URINALYSIS, MICROSCOPIC ONLY Routine 06/21/2024 1:50 PM NURSE RN BSN Neurogenic bladder Acute UTI (urinary tract infection) URINE CULTURE Routine 06/21/2024 1:50 PM NURSE RN BSN URINALYSIS AND REFLEX TO MICROSCOPIC AND CULTURE Routine 06/21/2024 1:50 PM NURSE RN BSN Neurogenic bladder Acute UTI (urinary tract infection) from Last 3 Months Results * (ABNORMAL) Urinalysis reflex to microscopic and culture Urine, suprapubic catheter (06/21/2024 1:50PM NURSE RN BSN) Color, ur Straw Yellow Clarity, ur Cloudy(A) Clear [facility] Specific gravity, ur 1.006 1.003 - 1.[address] [facility] pH, urine 6.5 [facility] Comment: Interpretive Data U rine pH is affected by diet, medications, systemic acid-base disturbances, and renal tubular function. pH may affect urinary stone formation. For example, urine pH below 6.0 may help reduce the tendency for calcium phosphate stones and pH greater than 6.0 may reduce the tendency for uric acid stone formation. Source: [facility] Current Interpretive Data was last revised on 2017 Protein, ur ql Negative Negative [facility] Glucose, ur ql Negative Negative [facility] Ketones, ur Negative Negative [facility] Bilirubin, ur Negative Negative [facility] Blood, ur Trace(A) Negative [facility] Urobilinogen, ur <2.0 <2.0 mg/dL [facility] Nitrite, ur Positive(A) Negative [facility] Leukocyte esterase, ur 3+(A) Negative [facility] UA reflex comment Reflex to microscopic UA will be performed. [facility] Urine, suprapubic catheter 06/21/2024 1:50 PM NURSE RN BSN 06/21/2024 3:44 PM NURSE RN BSN Dayday Baker MD LAB MICROBIOLOGY - GENERAL ORD ERABLES Final Result Performing Organization Address [facility] de Phone Number [facility] [place] [address] * (ABNORMAL) Urinalysis, microscopic only (06/21/2024 1:50 PM NURSE RN BSN) WBC, ur 21-50(A) 0 - 5 /HPF RBC, ur 0-2 0 - 2 /HPF [facility] Bacteria, ur 1+(A) [facility] Mucous, ur Present(A) [facility] Culture Reflex Comment Reflex to urine culture will be performed. [facility] Urine, suprapubic catheter 06/21/2024 1:50 PM NURSE RN BSN 06/21/2024 3:44 PM NURSE RN BSN Dayday Baker MD LAB URINE ORDERABLES Final Res ult Performing Organization Address [facility] Co de Phone Number [facility] Department [place] [address] * (ABNORMAL) Urine culture Urine, suprapubic catheter (06/21/2024 1:50 PM NURSE RN BSN) Report Final Report: Growth indicates contamination with mixed bacterial marga. Please submit a new specimen with special attention given to the collection process and to prompt transport to the laboratory. (.) Organism GROWTH INDICATES CONTAMINATION WITH MIXED MARGA. [facility] Urine, suprapubic catheter 06/21/2024 1:50 PM NURSE RN BSN 06/21/2024 5:50 PM NURSE RN BSN Narrative [facility] - 06/23/2024 11:42 AM NURSE RN BSN Urine culture reflexed based upon urinalysis results. Testing performed by [facility] Laboratory ([phone]) us Dayday Baker MD LAB MICROBIOLOGY - GENERAL ORD ERABLES Final Result [facility] Department [place] [address] from Last 3 Months Insurance [facility] MEDICARE SOLUTIONS MEDICARE SOLUTIONS IDPA IDCT MEDICARE SOLUTIONS Advance Directives For more information, please contact: [phone] * LIMITED - No CPR (Latest Code Status on File) Date Activated Date Inactivated Comments 05/05/2023 11:25 PM 05/08/2023 11:52 PM * Full Code Date Activated Date Inactivated Comments 05/05/2023 10:50 PM 05/05/2023 11:25 PM * Full Code Date Activated Date Inactivated Comments 03/29/2019 11:00 AM 03/29/2019 5:48 PM Care Teams Safety Tech Relationship Specialty Start Date End Date Emerson Camarillo MD [address] [facility] [address] [place] [address] PCP - General Family Practice 01/14/23 Rick Rodas MD [address] [facility] [phone] [place] [address] Surgeon Colon and Rectal Surgery 06/08/21 Marquita Berry DPT [address] [facility] [address] [place] [address] Physical Therapist Physical Therapy 01/06/[address] MD [address] [place] [address] Consulting Physician Pain Management 06/24/18 TARSHA PULLIAM APN [id number] [facility] [phone] Wound Care Nurse Wound Care 05/15/18
--- OUTSIDE RECORDS SUMMARY | 2024-06-23 19:14 | XMS_ITS | Encounter Summary ---
Author Organization [facility] Address [address] [place] [address] Phone Care Team Providers Care Machine Ii Cutter Name Role Phone Destiney, Zander CHAPMAN Primary Care Provider [phone] Rick Rodas MD Unavailable [phone] Nicolás Elena MD Primary Care Provider [phone] Emerson Camarillo MD Primary Care Provider [phone] Marquita Berry DPT Unavailable [phone] Emerson Camarillo MD Primary Care Provider [phone] Tiffany Sheppard RN Unavailable Heidi Lane MD Unavailable Encounter Details Date Type Department Care Team (Late st Contact Info) Description 10/04/2020 Treatment [facility] [address] [facility] Medical Office Building [address] [place] [address] Cale Morris MD [facility] [address] Social History Tobacco Use Types [...] on file Legal Sex Male 12:56 PM DATA ENGINEER Gender Identity Not on file Sexual Orientation Not on file documented as of this encounter Plan of Treatment Not on file documented as of this encounter Goals Goal Patient Goal Type Associated Problems Recent Progress Patient-Stated? Author CCM Chronic Pain Care Plan Chronic Care Management Improving( 3:32 PM DATA ENGINEER) Lynette Siddiqi RN Note: Problem: Chronic Pain [...] COVID: Suspected 05/05/2023 05/05/2023 05/05/2023 2:35 PM DATA ENGINEER documented as of this encounter Care Teams Machine Ii Cutter Relationship Specialty Start Date End Date Zander Cabello DO PCP - General Internal Medicine 04/08/18 06/19/22 Nicolás Elena MD [phone] [place] [address] PCP - General Internal Medicine 06/20/22 01/07/23 Emerson Camarillo MD [address] [facility] [phone] [place] [address] PCP - General Family Practice 01/08/23 01/08/23 Emerson Camarillo MD [address] [facility] [phone] [place] [address] PCP - General Family Practice 01/14/23 Rick Rodas MD [address] [facility] [phone] [place] [address] Surgeon Colon and Rectal Surgery 06/08/21 Marquita Berry DPT [address] [facility] [address] [place] [address] Physical Therapist Physical Therapy 01/06/23 Tiffany Sheppard RN [address] [facility] [address] [place] [address] SHOP Outpatient Credit And Collections Representative 05/09/23 06/05/[address] MD [address] [place] [address] Consulting Physician Pain Management 06/24/18 TARSHA PULLIAM APN [id number] [facility] [phone] Wound Care Nurse Wound Care 05/15/18 documented as of this encounter
--- OUTSIDE RECORDS SUMMARY | 2024-06-23 19:14 | XMS_ITS | Encounter Summary ---
Author Organization [facility] Address [address] [place] [address] Care Team Providers Care Client Advisor Name Role Phone Rick Rodas MD Unavailable [phone] Marquita Berry DPT Unavailable [phone] Emerson Camarillo MD Primary Care Provider [phone] MD Unavailable Encounter Details Date Type Department Care Team (Latest Contact Info) Description 06/21/2024 2:16 PM REMOTE ENCODING CENTER MANAGER - 06/21/2024 11:59 PM REMOTE ENCODING CENTER MANAGER Hospital Encounter [address] [address] Neurogenic bladder; Acute UTI (urinary tract infection) [...] on file Legal Sex Male 12:56 PM REMOTE ENCODING CENTER MANAGER Gender Identity Not on file Sexual [...] a day 15 g 11 10/04/2019 omega 2-spy-trb-fish oil 120-180-500 mg capsule Take 2 tablets [...] Plan Chronic Care Management Improving( 3:32 PM REMOTE ENCODING CENTER MANAGER) Lynette Siddiqi RN Note: Problem: Chronic Pain [...] MICROSCOPIC AND CULTURE Routine 06/21/2024 1:50 PM REMOTE ENCODING CENTER MANAGER Neurogenic bladder Acute UTI (urinary tract infection) URINALYSIS, MICROSCOPIC ONLY Routine 06/21/2024 1:50 PM REMOTE ENCODING CENTER MANAGER Neurogenic bladder Acute UTI (urinary tract infection) URINE CULTURE Routine 06/21/2024 1:50 PM REMOTE ENCODING CENTER MANAGER documented in this encounter Results * (ABNORMAL) Urine culture Urine, suprapubic catheter (06/21/2024 1:50 PM REMOTE ENCODING CENTER MANAGER) Report Final Report: Growth indicates contamination with mixed bacterial monae. Please submit a new specimen with special attention given to the collection process and to prompt transport to the laboratory. (.) Organism GROWTH INDICATES CONTAMINATION WITH MIXED MONAE. [facility] Urine, suprapubic catheter 06/21/2024 1:50 PM REMOTE ENCODING CENTER MANAGER 06/21/2024 5:50 PM REMOTE ENCODING CENTER MANAGER Narrative [facility] - 06/23/2024 11:42 AM REMOTE ENCODING CENTER MANAGER Urine culture reflexed based upon urinalysis results. Testing performed by [facility] Microbiology Laboratory ([phone]) Dayday Baker MD LAB MICROBIOLOGY - GENERAL ORD ERABLES Final Result Performing Organization Address [facility] Co de Phone Number [facility] [place] [address] * (ABNORMAL) Urinalysis, microscopic only (06/21/2024 1:50 PM REMOTE ENCODING CENTER MANAGER) WBC, ur 21-50(A) 0 - 5 /HPF RBC, ur 0-2 0 - 2 /HPF [facility] Bacteria, ur 1+(A) [facility] Mucous, ur Present(A) [facility] Culture Reflex Comment Reflex to urine culture will be performed. [facility] Urine, suprapubic catheter 06/21/2024 1:50 PM REMOTE ENCODING CENTER MANAGER 06/21/2024 3:44 PM REMOTE ENCODING CENTER MANAGER Dayday Baker MD LAB URINE ORDERABLES Final Res ult Performing Organization Address [facility] de Phone Number [facility] Department [place] [address] * (ABNORMAL) Urinalysis reflex to microscopic and culture Urine, suprapubic catheter (06/21/2024 1:50PM REMOTE ENCODING CENTER MANAGER) Color, ur Straw Yellow Clarity, ur Cloudy(A) Clear [facility] Specific gravity, ur 1.006 1.003 - 1.030 [facility] pH, urine 6.5 [facility] Comment: Interpretive Data U rine pH is affected by diet, medications, systemic acid-base disturbances, and renal tubular function. pH may affect urinary stone formation. For example, urine pH below 6.0 may help reduce the tendency for calcium phosphate stones and pH greater than 6.0 may reduce the tendency for uric acid stone formation. Source: [facility] [employer] Current Interpretive Data was last revised on 2017 Protein, ur ql Negative Negative [facility] Glucose, ur ql Negative Negative [facility] Ketones, ur Negative Negative [facility] Bilirubin, ur Negative Negative [facility] Blood, ur Trace(A) Negative [facility] Urobilinogen, ur <2.0 <2.0 mg/dL [facility] Nitrite, ur Positive(A) Negative [facility] Leukocyte esterase, ur 3+(A) Negative [facility] UA reflex comment Reflex to microscopic UA will be performed. [facility] Urine, suprapubic catheter 06/21/2024 1:50 PM REMOTE ENCODING CENTER MANAGER 06/21/2024 3:44 PM REMOTE ENCODING CENTER MANAGER us Dayday Baker MD LAB MICROBIOLOGY - GENERAL ORD ERABLES Final Result [facility] Department [place] [address] documented in this encounter Visit Diagnoses Diagnosis Neurogenic bladder Neurogenic bladder, NOS Acute UTI (urinary tract infection) documented in this encounter Care Teams Client Advisor Relationship Specialty Start Date End Date Emerson Camarillo MD [address] [facility] [address] [place] [address] PCP - General Family Practice 01/14/23 Rick Rodas MD [address] [facility] [phone] [place] [address] Surgeon Colon and Rectal Surgery 06/08/21 Marquita Berry DPT [address] [facility] [address] [place] [address] Physical Therapist Physical Therapy 01/06/[address] MD [address] [facility] [place] [address] Consulting Physician Pain Management 06/24/18 TARSHA PULLIAM APN [id number] [facility] [phone] Wound Care Nurse Wound Care 05/15/18 documented as of this encounter
[2024-06-23 19:16] VITALS: BP 96/65; PULSE 65; RESP 18; TEMP 33.2; O2SAT 98
--- OUTSIDE RECORDS SUMMARY | 2024-06-23 19:52 | XMS_ITS | Clinical Summary ---
Author Organization [address] Address [address] [place] [address] Care Team Providers Care Mangle Operator Garments Name Role Phone Dayday Baker MD Primary Care Provider [phone] Allergies Active Allergy Reactions Criticality Noted Date Comments Adhesive Rash Medium Medications BACLOFEN INTRATHECAL 800 mcg by IntraTHEcal route continuously. Active solifenacin (VESICARE) 10 mg Tablet Take 10 mg by mouth daily. Active pregabalin (LYRICA) 200 mg Capsule Take 200 mg by mouth 3 times daily. Active omega 6-phy-mfv-fish oil (FISH OIL) 120-180-500 mg Capsule Take 2 Tablets by mouth daily. Active Fish,Saf,Flx,Brg Oils-O3,6,9#2 (KBIA-XBJZ-KOJEE E OIL) [phone] mg Capsule Take 1 Tablet by mouth [...] on file Legal Sex Male 11:14 AM PUBLIC SPEAKING INSTRUCTOR Gender Identity Not on file Sexual Orientation Not on file Last Filed Vital Signs Vital Sign Reading Time Taken Comments Blood Pressure 60/40 05/13/2018 1:00 PM PUBLIC SPEAKING INSTRUCTOR Pulse 54 05/13/2018 1:00 PM PUBLIC SPEAKING INSTRUCTOR Temperature 35.8 C (96.5 F) 05/13/2018 1:00 PM PUBLIC SPEAKING INSTRUCTOR Respiratory Rate 16 05/13/2018 1:00 PM PUBLIC SPEAKING INSTRUCTOR Oxygen Saturation - - Inhaled Oxygen Concentration - - Weight 72.6 kg (160 lb) 05/13/2018 1:00 PM PUBLIC SPEAKING INSTRUCTOR Height 172.7 cm (5' 8 ) 05/13/2018 1:00 PM PUBLIC SPEAKING INSTRUCTOR Body Mass Index 24.33 05/13/2018 1:00 PM PUBLIC SPEAKING INSTRUCTOR Plan of Treatment Health Maintenance Due Date Last Done Comments DTAP/TDAP/TD VACCINES (1 - Tdap) 2000 HEPATITIS B VACCINES (1 of 3 - 19+ 3-dose series) 2000 INFLUENZA VACCINE (#1) 2023 HPV VACCINES Aged Out No longer eligi ble based on patient's age to complete this topic Insurance MEDICARE PART A AND B Care Teams Mangle Operator Garments Relationship Specialty Start Date End Date Dayday Baker MD PCP - General Physical Medicine and Rehabilitation 04/15/18
--- OUTSIDE RECORDS SUMMARY | 2024-06-23 19:53 | XMS_ITS | Encounter Summary ---
Author Organization [facility] Address [address] [place] [address] Phone Care Team Providers Care Marksmanship Instructor Name Role Phone Destiney, Zander CHAPMAN Primary Care Provider [phone] Rick Rodas MD Unavailable [phone] Nicolás Elena MD Primary Care Provider [phone] Emerson Camarillo MD Primary Care Provider [phone] Marquita Berry DPT Unavailable [phone] Emerson Camarillo MD Primary Care Provider [phone] Tiffany Sheppard RN Unavailable Heidi Lane MD Unavailable Encounter Details Date Type Department Care Team (Late st Contact Info) Description 10/04/2020 Treatment [facility] 10 [facility] Medical Office Building [address] [place] [address] Cale Morris MD [facility] [address] [address] Social History Tobacco Use Types [...] on file Legal Sex Male 12:56 PM COST ANALYST Gender Identity Not on file Sexual Orientation Not on file documented as of this encounter Plan of Treatment Not on file documented as of this encounter Goals Goal Patient Goal Type Associated Problems Recent Progress Patient-Stated? Author CCM Chronic Pain Care Plan Chronic Care Management Improving( 3:32 PM COST ANALYST) Lynette Siddiqi RN Note: Problem: Chronic Pain [...] COVID: Suspected 05/05/2023 05/05/2023 05/05/2023 2:35 PM COST ANALYST documented as of this encounter Care Teams Marksmanship Instructor Relationship Specialty Start Date End Date Zander Cabello DO PCP - General Internal Medicine 04/08/18 06/19/22 Nicolás Elena MD [phone] [place] [address] PCP - General Internal Medicine 06/20/22 01/07/23 Emerson Camarillo MD [address] [facility] [phone] [place] [address] PCP - General Family Practice 01/08/23 01/08/23 Emerson Camarillo MD [address] [facility] [phone] [place] [address] PCP - General Family Practice 01/14/23 Rick Rodas MD [address] [facility] [phone] [place] [address] Surgeon Colon and Rectal Surgery 06/08/21 Marquita Berry DPT [address] [facility] [address] [place] [address] Physical Therapist Physical Therapy 01/06/23 Tiffany Sheppard RN [address] [facility] [address] [place] [address] SHOP Outpatient Supervisor Transferring And Boxing 05/09/23 06/05/[address] MD [address] [facility] [place] [address] Consulting Physician Pain Management 06/24/18 TARSHA PULLIAM APN [id number] [facility] [phone] Wound Care Nurse Wound Care 05/15/18 documented as of this encounter
--- OUTSIDE RECORDS SUMMARY | 2024-06-23 19:53 | XMS_ITS | Encounter Summary ---
Author Organization [facility] Healthcare Address [address] [place] [address] Care Team Providers Care Military Analyst Name Role Phone Rick Rodas MD Unavailable [phone] Marquita Berry DPT Unavailable [phone] Emerson Camarillo MD Primary Care Provider [phone] MD Unavailable Encounter Details Date Type Department Care Team (Latest Contact Info) Description 06/21/2024 2:16 PM TRACK VEHICLE REPAIRER - 06/21/2024 11:59 PM TRACK VEHICLE REPAIRER Hospital Encounter [address] [address] Neurogenic bladder; Acute UTI (urinary tract infection) [...] on file Legal Sex Male 12:56 PM TRACK VEHICLE REPAIRER Gender Identity Not on file Sexual Orientation [...] a day 15 g 11 10/04/2019 omega 7-zoo-xtn-fish oil 120-180-500 mg capsule Take 2 tablets [...] Plan Chronic Care Management Improving( 3:32 PM TRACK VEHICLE REPAIRER) Lynette Siddiqi RN Note: Problem: Chronic Pain [...] MICROSCOPIC AND CULTURE Routine 06/21/2024 1:50 PM TRACK VEHICLE REPAIRER Neurogenic bladder Acute UTI (urinary tract infection) URINALYSIS, MICROSCOPIC ONLY Routine 06/21/2024 1:50 PM TRACK VEHICLE REPAIRER Neurogenic bladder Acute UTI (urinary tract infection) URINE CULTURE Routine 06/21/2024 1:50 PM TRACK VEHICLE REPAIRER documented in this encounter Results * (ABNORMAL) Urine culture Urine, suprapubic catheter (06/21/2024 1:50 PM TRACK VEHICLE REPAIRER) Report Final Report: Growth indicates contamination with mixed bacterial monae. Please submit a new specimen with special attention given to the collection process and to prompt transport to the laboratory. (.) Organism GROWTH INDICATES CONTAMINATION WITH MIXED MONAE. [facility] Urine, suprapubic catheter 06/21/2024 1:50 PM TRACK VEHICLE REPAIRER 06/21/2024 5:50 PM TRACK VEHICLE REPAIRER Narrative [facility] - 06/23/2024 11:42 AM TRACK VEHICLE REPAIRER Urine culture reflexed based upon urinalysis results. Testing performed by [facility] Microbiology Laboratory ([phone]) Dayday Bakre MD LAB MICROBIOLOGY - GENERAL ORD ERABLES Final Result Performing Organization Address [facility] Co de Phone Number [facility] [place] [address] * (ABNORMAL) Urinalysis, microscopic only (06/21/2024 1:50 PM TRACK VEHICLE REPAIRER) WBC, ur 21-50(A) 0 - 5 /HPF RBC, ur 0-2 0 - 2 /HPF [facility] Bacteria, ur 1+(A) [facility] Mucous, ur Present(A) [facility] Culture Reflex Comment Reflex to urine culture will be performed. [facility] Urine, suprapubic catheter 06/21/2024 1:50 PM TRACK VEHICLE REPAIRER 06/21/2024 3:44 PM TRACK VEHICLE REPAIRER Dayday Baker MD LAB URINE ORDERABLES Final Res ult Performing Organization Address [facility] de Phone Number [facility] Department [place] [address] * (ABNORMAL) Urinalysis reflex to microscopic and culture Urine, suprapubic catheter (06/21/2024 1:50PM TRACK VEHICLE REPAIRER) Color, ur Straw Yellow Clarity, ur Cloudy(A) Clear [facility] Specific gravity, ur 1.006 1.003 - 1.030 [facility] pH, urine 6.5 [facility] Comment: Interpretive Data U rine pH is affected by diet, medications, systemic acid-base disturbances, and renal tubular function. pH may affect urinary stone formation. For example, urine pH below 6.0 may help reduce the tendency for calcium phosphate stones and pH greater than 6.0 may reduce the tendency for uric acid stone formation. Source: [facility] [employer] Current Interpretive Data was last revised on [...] Reflex to microscopic UA will be performed. [facility] Urine, suprapubic catheter 06/21/2024 1:50 PM TRACK VEHICLE REPAIRER 06/21/2024 3:44 PM TRACK VEHICLE REPAIRER us Dayday Baker MD LAB MICROBIOLOGY - GENERAL ORD ERABLES Final Result [facility] [place] [address] documented in this encounter Visit Diagnoses Diagnosis Neurogenic bladder Neurogenic bladder, NOS Acute UTI (urinary tract infection) documented in this encounter Care Teams Military Analyst Relationship Specialty Start Date End Date Emerson Camarillo MD [address] [facility] [address] [place] [address] PCP - General Family Practice 01/14/23 Rick Rodas MD [id number] [place] [address] Surgeon Colon and Rectal Surgery 06/08/21 Marquita Berry DPT [address] [facility] [address] [place] [address] Physical Therapist Physical Therapy 01/06/[address] MD [address] [place] [address] Consulting Physician Pain Management 06/24/18 TARSHA PULLIAM APN [id number] [facility] [id number] Wound Care Nurse Wound Care 05/15/18 documented as of this encounter
--- OUTSIDE RECORDS SUMMARY | 2024-06-23 19:53 | XMS_ITS | Encounter Summary ---
Author Organization [facility] [employer] [facility] Address [address] [place] [address] Phone Care Team Providers Care Data Control Clerk Name Role Phone Rick Rodas MD Unavailable [phone] Nicolás Elena MD Primary Care Provider [phone] Emerson Camarillo MD Primary Care Provider [phone] Marquita Berry DPT Unavailable [phone] Emerson Camarillo MD Primary Care Provider [phone] Tiffany Sheppard RN Unavailable [phone] MD Unavailable Encounter Details Date Type Department Care Team (Late st Contact Info) Description 12/09/[address] Medical Office Building [address] [place] [address] Cale Morris MD [facility] [address] Social History Tobacco Use Types [...] on file Legal Sex Male 12:56 PM PEARL FISHERMAN Gender Identity Not on file Sexual Orientation Not on file documented as of this encounter Plan of Treatment Not on file documented as of this encounter Goals Goal Patient Goal Type Associated Problems Recent Progress Patient-Stated? Author CCM Chronic Pain Care Plan Chronic Care Management Improving( 3:32 PM PEARL FISHERMAN) Lynette Siddiqi RN Note: Problem: Chronic Pain [...] COVID: Suspected 05/05/2023 05/05/2023 05/05/2023 2:35 PM PEARL FISHERMAN documented as of this encounter Care Teams Data Control Clerk Relationship Specialty Start Date End Date Nicolás Elena MD [address] [facility] [phone] [place] [address] PCP - General Internal Medicine 06/20/22 01/07/23 Emerson Camarillo MD [address] [facility] [phone] [place] [address] PCP - General Family Practice 01/08/23 01/08/23 Emerson Camarillo MD [address] [facility] [phone] [place] [address] PCP - General Family Practice 01/14/23 Rick Rodas MD [address] [facility] [phone] [place] [address] Surgeon Colon and Rectal Surgery 06/08/21 Marquita Berry DPT [address] [facility] [address] [place] [address] Physical Therapist Physical Therapy 01/06/23 Tiffany Sheppard, RN [address] [facility] [address] [place] [address] SHOP Outpatient Claims Representative 05/09/23 06/05/[address] MD [address] [facility] [address] Consulting Physician Pain Management 06/24/18 TARSHA PULLIAM APN [id number] [facility] [id number] Wound Care Nurse Wound Care 05/15/18 documented as of this encounter
--- OUTSIDE RECORDS SUMMARY | 2024-06-23 19:53 | XMS_ITS | Encounter Summary ---
Author Organization [facility] [employer] [facility] Address [address] [place] [address] Phone Care Team Providers Care Cook Cashier Food Prep Name Role Phone Rick Rodas MD Unavailable [phone] Nicolás Elena MD Primary Care Provider [phone] Emerson Camarillo MD Primary Care Provider [phone] Marquita Berry DPT Unavailable [phone] Emerson Camarillo MD Primary Care Provider [phone] Tiffany Sheppard RN Unavailable Heidi Lane MD Unavailable Encounter Details Date Type Department Care Team (Late st Contact Info) Description 12/08/[address] Medical Office Building [address] [place] [address] Cale Morris MD [facility] [address] Social History Tobacco Use Types [...] on file Legal Sex Male 12:56 PM SALON SHAMPOO ASSISTANT Gender Identity Not on file Sexual Orientation Not on file documented as of this encounter Plan of Treatment Not on file documented as of this encounter Goals Goal Patient Goal Type Associated Problems Recent Progress Patient-Stated? Author CCM Chronic Pain Care Plan Chronic Care Management Improving( 3:32 PM SALON SHAMPOO ASSISTANT) Lynette Siddiqi RN Note: Problem: Chronic [...] COVID: Suspected 05/05/2023 05/05/2023 05/05/2023 2:35 PM SALON SHAMPOO ASSISTANT documented as of this encounter Care Teams Cook Cashier Food Prep Relationship Specialty Start Date End Date Nicolás Elena MD [address] [facility] [phone] [place] [address] PCP - General Internal Medicine 06/20/22 01/07/23 Emerson Camarillo MD [address] [facility] [phone] [place] [address] PCP - General Family Practice 01/08/23 01/08/23 Emerson Camarillo MD [address] [facility] [phone] [place] [address] PCP - General Family Practice 01/14/23 Rick Rodas MD [address] [facility] [phone] [place] [address] Surgeon Colon and Rectal Surgery 06/08/21 Marquita Berry DPT [address] [facility] [address] [place] [address] Physical Therapist Physical Therapy 01/06/23 Tiffany Sheppard, RN [address] [facility] [address] [place] [address] SHOP Outpatient Duplicator Punch Operator 05/09/23 06/05/[address] MD [address] [facility] [place] [address] Consulting Physician Pain Management 06/24/18 TARSHA PULLIAM APN [id number] [facility] [id number] Wound Care Nurse Wound Care 05/15/18 documented as of this encounter
--- OUTSIDE RECORDS SUMMARY | 2024-06-23 19:53 | XMS_ITS | Encounter Summary ---
Author Organization [facility] Address [address] [place] [address] Phone Care Team Providers Care Circular Stuffer Name Role Phone Rick Rodas MD Unavailable [phone] Marquita Berry DPT Unavailable [phone] Emerson Camraillo MD Primary Care Provider [phone] MD Unavailable Encounter Details Date Type Department Care Team (Late st Contact Info) Description 06/23/2024 Orders Only [facility] Orthopaedic Surgery [address] [facility] 12th [place] [address] [place] [phone] Dayday Baker MD [address] [facility] 6A[address]6B[address]12A [place] [address] Acute UTI (urinary tract infection) (Primary Dx); [...] on file Legal Sex Male 12:56 PM SHOTGUN SHELL REPRINTING UNIT OPERATOR Gender Identity Not on file Sexual Orientation Not on file documented as of this encounter Plan of Treatment Scheduled Orders Name Type Priority Associated Diagnoses Orde r Schedule Urinalysis reflex to microscopic and culture Urine, suprapubic catheter Microbiology Routine Neurogenic bladder Acute UTI (urinary tract infection) Suprapubic catheter ([facility]/HCC) ([facility]) Expected: 06/24/2024, Expires: 06/23/2025 documented as of this encounter Goals Goal Patient Goal Type Associated Problems Recent Progress Patient-Stated? Author CCM Chronic Pain Care Plan Chronic Care Management Improving( 3:32 PM SHOTGUN SHELL REPRINTING UNIT OPERATOR) Lynette Siddiqi, RN Note: Problem: Chronic Pain [...] bladder Neurogenic bladder, NOS Suprapubic catheter (CMS/HCC) ([facility]) Other cystostomy status documented in this encounter Care Teams Circular Stuffer Relationship Specialty Start Date End Date Emerson Camarillo MD [address] [facility] [address] [place] [address] PCP - General Family Practice 01/14/23 Rick Rodas MD [address] [facility] [phone] [place] [address] Surgeon Colon and Rectal Surgery 06/08/21 Marquita Berry DPT [address] [facility] [address] [place] [address] Physical Therapist Physical Therapy 01/06/[address] MD [address] [facility] [place] [address] Consulting Physician Pain Management 06/24/18 TARSHA PULLIAM APN [id number] [facility] [phone] Wound Care Nurse Wound Care 05/15/18 documented as of this encounter
--- OUTSIDE RECORDS SUMMARY | 2024-06-23 19:53 | XMS_ITS | CONTINUITY OF CARE DOCUMENT ---
Author Name gregg gregg Address Unknown Organization [facility] Address [address] [facility] [address] [place] [address] Phone [phone] Care Team Providers Care Design Transferrer Name Role Phone Demarcus SANDOVAL, Keri Unavailable [phone] CHRIS SANDOVAL, BERNARDA Unavailable [phone] BERNARDA PEREZ MD Unavailable [phone] INSURANCE PROVIDERS Payer name Policy type / Coverage type [place] red green party ID [employer] [facility] FAMILY [employer] Medicaid 1 [id number] AARP MEDICARE ADVANTAGE HMO-POS HMO [id number]
--- OUTSIDE RECORDS SUMMARY | 2024-06-23 19:53 | XMS_ITS | Clinical Summary ---
Author Organization [facility] Address [address] [place] [address] Care Team Providers Care Target Network Analyst Name Role Phone Rick Rodas MD Unavailable [phone] Marquita Berry DPT Unavailable [phone] Emerson Camarillo MD Primary Care Provider [phone] MD Unavailable [phone] Allergies Active Allergy Reactions Criticality Noted Date Comments Adhesive Rash Medium Medications docusate sodium (COLACE) 100 mg capsule Take 2 capsules (200 mg total) by mouth nightly 200-400mg Active cholecalciferol (VITAMIN D-3) 5,000 unit tablet Take 1 tablet (5,000 Units total) by mouth every morning 5 Active omega 5-isu-urp-fish oil 120-180-500 mg capsule Take 2 tablets [...] mcgIndications:Spastic ity,Presence of intrathecal baclofen pump,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) ([facility]) 200 Units IM Once 06/21/2024 06/22/2024 Ended Active Problems Problem Noted Date Diagnosed Date Tetraplegic ([facility]) 05/05/2023 Other osteoporosis without current pathological fracture 10/04/2020 Bladder stones 09/06/2020 Overview (09/06/2020): Added automatically from request for surgery [id number] Autonomic dysfunction 01/04/2020 Screening for malignant neoplasm of colon 2018 Overview (02/26/2019): Added automatically from request for surgery [id number] Colostomy in place ([facility]) 02/26/2019 Overview (02/26/2019): Added automatically from request for surgery [id number] Obstruction of suprapubic catheter (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 Neuropathic pain 04/08/2018 Colostomy care 02/09/2018 Muscle spasm 01/07/2018 Spasticity 10/15/2017 Muscle spasticity 10/10/2017 Tetraplegia ([facility]) 10/10/2017 Presence of intrathecal baclofen pump 10/10/2017 Neurogenic bladder 10/10/2017 Osteoporosis 10/06/2017 Encounters Date Type Department Care Team Description 06/23/2024 Results Follow-Up [facility] Orthopaedic Surgery [address] [place] [address] [address] [place] [address] [place] [address] Carolynn Garcia CMA 06/23/2024 Orders Only [facility] Orthopaedic Surgery [address] [place] [address] 12th [place] [address] [place] [address] Dayday Baker MD Acute UTI (urinary tract infection) (Primary Dx); Neurogenic bladder; Suprapubic catheter (CMS/HCC) (HCC) 06/21/2024 2:16 PM FINISHING DEPARTMENT SUPERVISOR - 06/21/2024 11:59 PM FINISHING DEPARTMENT SUPERVISOR Hospital Encounter [facility] [address] [place] [address] Neurogenic bladder; Acute UTI (urinary tract infection) Discharge Disposition: Discharge to home or self care 06/21/2024 12:15 PM FINISHING DEPARTMENT SUPERVISOR Office Visit [facility] Orthopaedic Surgery [address] [place] [address] [address]th [place] [address] [place] [address] Dayday Baker MD Muscle spasticity (Primary Dx); Obstruction of suprapubic catheter, subsequent encounter; Neurogenic bladder; Acute UTI (urinary tract infection); Presence of intrathecal baclofen pump; Tetraplegia (CMS/HCC) (HCC) 06/02/2024 11:45 AM FINISHING DEPARTMENT SUPERVISOR Procedure visit [facility] Orthopaedic Surgery [address] [place] [address] [address] [place] [address] [place] [address] Dayday Baker MD Tetraplegic ([facility]) ([facility]) (Primary Dx); 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CMS/HCC) (HCC); Presence of intrathecal baclofen pump; Suprapubic catheter ([facility]) ([facility]); Neurogenic bladder 06/02/2024 Orders Only [facility] Orthopaedic Surgery [address] [place] [address] [address] [place] [address] [place] [address] Dayday Baker MD 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 [address]th [place] [address] [place] [address] Dayday Baker MD Spasticity (Primary Dx); Presence [...] C4/5, incomplete Anal fissure Neuropathic pain Quadriplegia ([facility]) GERD (gastroesophageal reflux disease) Anemia Neurogenic bowel [...] on file Legal Sex Male 12:56 PM FINISHING DEPARTMENT SUPERVISOR Gender Identity Not on file Sexual Orientation Not on file Obstetrics History Last Filed Vital Signs Vital Sign Reading Time Taken Comments Blood Pressure 76/53 06/02/2024 11:53 AM FINISHING DEPARTMENT SUPERVISOR Pulse 40 06/02/2024 11:53 AM FINISHING DEPARTMENT SUPERVISOR Temperature 36 C (96.8 F) 01/21/2024 11:15 AM CDT Respiratory Rate 18 06/21/2024 12:28 PM FINISHING DEPARTMENT SUPERVISOR Oxygen Saturation 96% 01/21/2024 11:15 AM CDT Inhaled Oxygen Concentration - - Weight 74.8 kg (165 lb) 06/21/2024 12:28 PM FINISHING DEPARTMENT SUPERVISOR Height 170.2 cm (5' 7 ) 06/21/2024 12:28 PM FINISHING DEPARTMENT SUPERVISOR Body Mass Index 25.84 06/21/2024 12:28 PM FINISHING DEPARTMENT SUPERVISOR Plan of Treatment Health Maintenance Due Date [...] Plan Chronic Care Management Improving( 3:32 PM FINISHING DEPARTMENT SUPERVISOR) No Lynette Goodman RN Note: Problem: Chronic Pain Goals: 1. Minimize further functional decline 2. Maximize quality of life 3. Control pain Strategies: - Activity/exercise program recommendation - Conservative stepwise pain medicine strategy with multi-disciplinary approach - Recommend healthy lifestyle strategies and compensatory methods as needed Medical Devices Implanted Type Area Commercial Loan Processor Device Identifier Shelf Expiration Date Model / Serial / Lot Baclofen Pain Pump Abdomen [employer] SYNCHROMED II / / Hardware Neck [employer] Synchromed Ii [place] Catheter Access Port Suture Loop [id number] - [id number] - [id number] Implanted:Qty: 1 on 08/29/2023 by Segundo Black MD at [facility] Right: Abdomen [employer] Inc 01/23/2025 [id number] / [id number] / [employer] Sutureless Connector Revision Catheter Kit Intrathecal Pump [id number] - [id number] Implanted:Qty: 1 on 08/29/2023 by Segundo Black MD at [facility] Right: Abdomen [employer] Inc 02/27/2025 [id number] / / [id number] Procedures Procedure Name Priority Date/Time Associated Diagnosis Comments URINALYSIS, MICROSCOPIC ONLY Routine 06/21/2024 1:50 PM FINISHING DEPARTMENT SUPERVISOR Neurogenic bladder Acute UTI (urinary tract infection) URINE CULTURE Routine 06/21/2024 1:50 PM FINISHING DEPARTMENT SUPERVISOR URINALYSIS AND REFLEX TO MICROSCOPIC AND CULTURE Routine 06/21/2024 1:50 PM FINISHING DEPARTMENT SUPERVISOR Neurogenic bladder Acute UTI (urinary tract infection) from Last 3 Months Results * (ABNORMAL) Urinalysis reflex to microscopic and culture Urine, suprapubic catheter (06/21/2024 1:50PM FINISHING DEPARTMENT SUPERVISOR) Color, ur Straw Yellow Clarity, ur Cloudy(A) Clear [facility] Specific gravity, ur 1.006 1.003 - 1.030 [facility] pH, urine 6.5 [facility] Comment: Interpretive Data U rine pH is affected by diet, medications, systemic acid-base disturbances, and renal tubular function. pH may affect urinary stone formation. For example, urine pH below 6.0 may help reduce the tendency for calcium phosphate stones and pH greater than 6.0 may reduce the tendency for uric acid stone formation. Source: [employer] Current Interpretive Data was last revised on 2017 Protein, ur ql Negative Negative [facility] Glucose, ur ql Negative Negative [facility] Ketones, ur Negative Negative [facility] Bilirubin, ur Negative Negative [facility] Blood, ur Trace(A) Negative [facility] Urobilinogen, ur <2.0 <2.0 mg/dL [facility] Nitrite, ur Positive(A) Negative [facility] Leukocyte esterase, ur 3+(A) Negative [facility] UA reflex comment Reflex to microscopic UA will be performed. [facility] Urine, suprapubic catheter 06/21/2024 1:50 PM FINISHING DEPARTMENT SUPERVISOR 06/21/2024 3:44 PM FINISHING DEPARTMENT SUPERVISOR Dayday Baker MD LAB MICROBIOLOGY - GENERAL ORD ERABLES Final Result Performing Organization Address [facility] Co de Phone Number [facility] Department [place] [address] * (ABNORMAL) Urinalysis, microscopic only (06/21/2024 1:50 PM FINISHING DEPARTMENT SUPERVISOR) WBC, ur 21-50(A) 0 - 5 /HPF RBC, ur 0-2 0 - 2 /HPF [facility] Bacteria, ur 1+(A) [facility] Mucous, ur Present(A) [facility] Culture Reflex Comment Reflex to urine culture will be performed. [facility] Urine, suprapubic catheter 06/21/2024 1:50 PM FINISHING DEPARTMENT SUPERVISOR 06/21/2024 3:44 PM FINISHING DEPARTMENT SUPERVISOR Dayday Baker MD LAB URINE ORDERABLES Final Res ult Performing Organization Address [facility]/ZIP Co de Phone Number [facility] Department [place] [address] * (ABNORMAL) Urine culture Urine, suprapubic catheter (06/21/2024 1:50 PM FINISHING DEPARTMENT SUPERVISOR) Report Final Report: Growth indicates contamination with mixed bacterial marga. Please submit a new specimen with special attention given to the collection process and to prompt transport to the laboratory. (.) Organism GROWTH INDICATES CONTAMINATION WITH MIXED MARGA. [facility] Urine, suprapubic catheter 06/21/2024 1:50 PM FINISHING DEPARTMENT SUPERVISOR 06/21/2024 5:50 PM FINISHING DEPARTMENT SUPERVISOR Narrative HEATHER DEE - 06/23/2024 11:42 AM FINISHING DEPARTMENT SUPERVISOR Urine culture reflexed based upon urinalysis results. Testing performed by [facility] ([phone]) us Dayday Baker MD LAB MICROBIOLOGY - GENERAL ORD ERABLES Final Result [facility] [place] [address] from Last 3 Months Insurance [employer] MEDICARE SOLUTIONS [employer] Advance Directives For more information, please contact: [phone] * LIMITED - No CPR (Latest Code Status on File) Date Activated Date Inactivated Comments 05/05/2023 11:25 PM 05/08/2023 11:52 PM * Full Code Date Activated Date Inactivated Comments 05/05/2023 10:50 PM 05/05/2023 11:25 PM * Full Code Date Activated Date Inactivated Comments 03/29/2019 11:00 AM 03/29/2019 5:48 PM Care Teams Target Network Analyst Relationship Specialty Start Date End Date Emerson Camarillo MD [address] [facility] [address] [place] [address] PCP - General Family Practice 01/14/23 Rick Rodas MD [address] [facility] [phone] [place] [address] Surgeon Colon and Rectal Surgery 06/08/21 Marquita Berry DPT [address] [facility] [address] [place] [address] Physical Therapist Physical Therapy 01/06/[address] MD [address] [facility] [place] [address] Consulting Physician Pain Management 06/24/18 TARSHA PULLIAM APN [id number] [facility] [id number] Wound Care Nurse Wound Care 05/15/18
--- OUTSIDE RECORDS SUMMARY | 2024-06-23 19:53 | XMS_ITS | Encounter Summary ---
Author Organization [facility] Address [address] [place] [address] Phone Care Team Providers Care Unix Systems Administrator Name Role Phone Rick Rodas MD Unavailable [phone] Marquita Berry DPT Unavailable [phone] Emerson Camarillo MD Primary Care Provider [phone] MD Unavailable Encounter Details Date Type Department Care Team (Late st Contact Info) Description 06/23/2024 Results Follow-Up [facility] Orthopaedic Surgery [address] [facility] 12th [place] [address] [place] [address] Carolynn Garcia, [facility] Social History Tobacco Use Types Packs/Day Years [...] on file Legal Sex Male 12:56 PM CERAMIC DESIGNER Gender Identity Not on file Sexual Orientation Not on file documented as of this encounter Miscellaneous Notes * Result Encounter Note - Carolynn Garcia CMA - 06/23/2024 10:56 AM CERAMIC DESIGNER I spoke to the pt. He asked that the new UA order be sent to [facility]. New order faxed to [phone]. clt MIC DESIGNER documented in this encounter Plan of Treatment Not on file documented as of this encounter Goals Goal Patient Goal Type Associated Problems Recent Progress Patient-Stated? Author CCM Chronic Pain Care Plan Chronic Care Management Improving( 3:32 PM CERAMIC DESIGNER) Lynette Siddiqi RN Note: Problem: Chronic Pain Goals: 1. Minimize further functional decline 2. Maximize quality of life 3. Control pain Strategies: - Activity/exercise program recommendation - Conservative stepwise pain medicine strategy with multi-disciplinary approach - Recommend healthy lifestyle strategies and compensatory methods as needed documented as of this encounter Visit Diagnoses Not on filedocumented in this encounter Care Teams Unix Systems Administrator Relationship Specialty Start Date End Date Emerson Camarillo MD [address] [facility] [address] [place] [address] PCP - General Family Practice 01/14/23 Rick Rodas MD [address] [facility] [phone] [place] [address] Surgeon Colon and Rectal Surgery 06/08/21 Marquita Berry DPT [address] [facility] [address] [place] [address] Physical Therapist Physical Therapy 01/06/[address] MD [address] [facility] [place] [address] Consulting Physician Pain Management 06/24/18 TARSHA PULLIAM APN [id number] [facility] [phone] Wound Care Nurse Wound Care 05/15/18 documented as of this encounter
--- OUTSIDE RECORDS SUMMARY | 2024-06-23 19:53 | XMS_ITS | Referral Summary ---
Author Organization [facility] Address [address] [place] [address] Care Team Providers Care Senior Telecommunications Technician Name Role Phone Rick Rodas MD Unavailable [phone] Marquita Berry DPT Unavailable [phone] Emerson Camarillo MD Primary Care Provider [phone] MD Unavailable Encounters Date Type Department Care Team Description 06/23/2024 Results Follow-Up [facility] Orthopaedic Surgery [address] [place] [address] [address]th [place] [address] [place] [address] Carolynn Garcia CMA 06/23/2024 Orders Only [facility] Orthopaedic Surgery [address] [place] [address] 12th [place] [address] [place] [address] Dayday Baker MD Acute UTI (urinary tract infection) (Primary Dx); Neurogenic bladder; Suprapubic catheter ([facility]/HCC) (HCC) 06/21/2024 2:16 PM LATEX DIPPER - 06/21/2024 11:59 PM LATEX DIPPER Hospital Encounter [address] [address] Neurogenic bladder; Acute UTI (urinary tract infection) Discharge Disposition: Discharge to home or self care 06/21/2024 12:15 PM LATEX DIPPER Office Visit [place] [address] [place] [address] [place] [address] Dayday Baker MD Muscle spasticity (Primary Dx); Obstruction of suprapubic catheter, subsequent encounter; Neurogenic bladder; Acute UTI (urinary tract infection); Presence of intrathecal baclofen pump; Tetraplegia (CMS/HCC) (HCC) 06/02/2024 Orders Only [address] [place] [address] [place] [address] Dayday Baker MD 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CMS/HCC) (HCC) (Primary Dx) 06/02/2024 11:45 AM LATEX DIPPER Procedure visit [facility] Orthopaedic [address] [place] [address] [place] [address] Dayday Baker MD Tetraplegic (CMS/HCC) (HCC) (Primary Dx); 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CMS/HCC) (HCC); Presence of intrathecal baclofen pump; Suprapubic catheter (CMS/HCC) (HCC); Neurogenic bladder 05/31/2024 Orders Only [address] [place] [address] [place] [address] Dayday Baker MD 05/11/[address] [place] [address] [place] [address] Dayday Baker MD 04/15/2024 Orders Only [address] [place] [address] [place] [address] Dayday Baker MD Spasticity (Primary Dx); Presence [...] by mouth every morning 5 Active omega 3-xee-auj-fish oil 120-180-500 mg capsule Take 2 tablets [...] mcgIndications:Spastic ity,Presence of intrathecal baclofen pump,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[facility]) ([facility]) [address] mcg intrathec Continuous 06/02/2024 Active onabotulinumtoxin A (BOTOX) injection 200 UnitsIndications:Spast ic tetraplegia ([facility]) ([facility]) 200 Units IM Once 06/21/2024 06/22/2024 Ended Active Problems Problem Noted Date Diagnosed Date Tetraplegic ([facility]) 05/05/2023 Other osteoporosis without current pathological fracture 10/04/2020 Bladder stones 09/06/2020 Overview (09/06/2020): Added automatically from request for surgery [id number] Autonomic dysfunction 01/04/2020 Screening for malignant neoplasm of colon 2018 Overview (02/26/2019): Added automatically from request for surgery [id number] Colostomy in place ([facility]) 02/26/2019 Overview (02/26/2019): Added automatically from request for surgery [id number] Obstruction of suprapubic catheter ([facility]) 06/2018 Overview (12/29/2018): Added automatically from request for surgery [id number] Skin sensitivity 08/17/2018 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 Neuropathic pain 04/08/2018 Colostomy care 02/09/2018 [...] on file Legal Sex Male 12:56 PM LATEX DIPPER Gender Identity Not on file Sexual Orientation Not on file Last Filed Vital Signs Vital Sign Reading Time Taken Comments Blood Pressure 76/53 06/02/2024 11:53 AM LATEX DIPPER Pulse 40 06/02/2024 11:53 AM LATEX DIPPER Temperature 36 C (96.8 F) 01/21/2024 11:15 AM CDT Respiratory Rate 18 06/21/2024 12:28 PM LATEX DIPPER Oxygen Saturation 96% 01/21/2024 11:15 AM CDT Inhaled Oxygen Concentration - - Weight 74.8 kg (165 lb) 06/21/2024 12:28 PM LATEX DIPPER Height 170.2 cm (5' 7 ) 06/21/2024 12:28 PM LATEX DIPPER Body Mass Index 25.84 06/21/2024 12:28 PM LATEX DIPPER Plan of Treatment Not on file Goals Goal Patient Goal Type Associated Problems Recent Progress Patient-Stated? Author CCM Chronic Pain Care Plan Chronic Care Management Improving( 3:32 PM LATEX DIPPER) No Strain, Lynette M., RN Note: Problem: Chronic Pain Goals: 1. Minimize further functional decline 2. Maximize quality of life 3. Control pain Strategies: - Activity/exercise program recommendation - Conservative stepwise pain medicine strategy with multi-disciplinary approach - Recommend healthy lifestyle strategies and compensatory methods as needed Medical Devices Implanted Type Area Dental Billing Specialist Device Identifier Shelf Expiration Date Model / Serial / Lot Baclofen Pain Pump Abdomen MED[employer] SYNCHROMED II / / Hardware Neck [employer] Synchromed Ii Weott Catheter Access Port Suture Loop [id number] - [id number] - [id number] Implanted:Qty: 1 on 08/29/2023 by Segundo Black MD at [facility] Right: Abdomen [employer] Inc 01/23/2025 [id number] / [id number] / [employer] Sutureless Connector Revision Catheter Kit Intrathecal Pump [id number] - [id number] Implanted:Qty: 1 on 08/29/2023 by Segundo Black MD at [facility] Right: Abdomen [employer] 02/27/2025 [id number] / / [id number] Procedures Procedure Name Priority Date/Time Associated Diagnosis Comments URINALYSIS, MICROSCOPIC ONLY Routine 06/21/2024 1:50 PM LATEX DIPPER Neurogenic bladder Acute UTI (urinary tract infection) URINE CULTURE Routine 06/21/2024 1:50 PM LATEX DIPPER URINALYSIS AND REFLEX TO MICROSCOPIC AND CULTURE Routine 06/21/2024 1:50 PM LATEX DIPPER Neurogenic bladder Acute UTI (urinary tract infection) from Last 3 Months Results * (ABNORMAL) Urinalysis reflex to microscopic and culture Urine, suprapubic catheter (06/21/2024 1:50PM LATEX DIPPER) Color, ur Straw Yellow Clarity, ur Cloudy(A) Clear [facility] Specific gravity, ur 1.006 1.003 - 1.030 [facility] pH, urine 6.5 [facility] Comment: Interpretive Data U rine pH is affected by diet, medications, systemic acid-base disturbances, and renal tubular function. pH may affect urinary stone formation. For example, urine pH below 6.0 may help reduce the tendency for calcium phosphate stones and pH greater than 6.0 may reduce the tendency for uric acid stone formation. Source: [facility] Current Interpretive Data was last revised on 2017 Protein, ur ql Negative Negative [facility] Glucose, ur ql Negative Negative [facility] Ketones, ur Negative Negative [facility] Bilirubin, ur Negative Negative [facility] Blood, ur Trace(A) Negative [facility] Urobilinogen, ur <2.0 <2.0 mg/dL [facility] Nitrite, ur Positive(A) Negative [facility] Leukocyte esterase, ur 3+(A) Negative [facility] UA reflex comment Reflex to microscopic UA will be performed. [facility] Urine, suprapubic catheter 06/21/2024 1:50 PM LATEX DIPPER 06/21/2024 3:44 PM LATEX DIPPER Dayday Baker MD LAB MICROBIOLOGY - GENERAL ORD ERABLES Final Result Performing Organization Address [facility] de Phone Number [facility] [place] [address] * (ABNORMAL) Urinalysis, microscopic only (06/21/2024 1:50 PM LATEX DIPPER) WBC, ur 21-50(A) 0 - 5 /HPF RBC, ur 0-2 0 - 2 /HPF [facility] Bacteria, ur 1+(A) [facility] Mucous, ur Present(A) [facility] Culture Reflex Comment Reflex to urine culture will be performed. [facility] Urine, suprapubic catheter 06/21/2024 1:50 PM LATEX DIPPER 06/21/2024 3:44 PM LATEX DIPPER Dayday Baker MD LAB URINE ORDERABLES Final Res ult Performing Organization Address [facility] Co de Phone Number [facility] Department [place] [address] * (ABNORMAL) Urine culture Urine, suprapubic catheter (06/21/2024 1:50 PM LATEX DIPPER) Report Final Report: Growth indicates contamination with mixed bacterial marga. Please submit a new specimen with special attention given to the collection process and to prompt transport to the laboratory. (.) Organism GROWTH INDICATES CONTAMINATION WITH MIXED MARGA. [facility] Urine, suprapubic catheter 06/21/2024 1:50 PM LATEX DIPPER 06/21/2024 5:50 PM LATEX DIPPER Narrative [facility] - 06/23/2024 11:42 AM LATEX DIPPER Urine culture reflexed based upon urinalysis results. Testing performed by [facility] ([phone]) us Dayday Baker MD LAB MICROBIOLOGY - GENERAL ORD ERABLES Final Result [facility] Department [place] [address] from Last 3 Months Insurance [facility] MEDICARE SOLUTIONS MEDICARE SOLUTIONS IDPA IDMT MEDICARE SOLUTIONS Advance Directives For more information, please contact: [phone] * LIMITED - No CPR (Latest Code Status on File) Date Activated Date Inactivated Comments 05/05/2023 11:25 PM 05/08/2023 11:52 PM * Full Code Date Activated Date Inactivated Comments 05/05/2023 10:50 PM 05/05/2023 11:25 PM * Full Code Date Activated Date Inactivated Comments 03/29/2019 11:00 AM 03/29/2019 5:48 PM Care Teams Senior Telecommunications Technician Relationship Specialty Start Date End Date Emerson Camarillo MD [address] [facility] [address] [place] [address] PCP - General Family Practice 01/14/23 Rick Rodas MD [address] [facility] [phone] [place] [address] Surgeon Colon and Rectal Surgery 06/08/21 Marquita Berry DPT [address] [facility] [address] [place] [address] Physical Therapist Physical Therapy 01/06/[address] MD [address] [facility] [place] [address] Consulting Physician Pain Management 06/24/18 TARSHA PULLIAM APN [id number] [facility] [id number] Wound Care Nurse Wound Care 05/15/18
--- OUTSIDE RECORDS SUMMARY | 2024-06-23 19:53 | XMS_ITS | Encounter Summary ---
Author Organization [facility] Address [address] [place] [address] Phone Care Team Providers Care Railroad Auditor Name Role Phone Rick Rodas MD Unavailable [phone] Nicolás Elena MD Primary Care Provider [phone] Emerson Camarillo MD Primary Care Provider [phone] Marquita Berry DPT Unavailable [phone] Emerson Camarillo MD Primary Care Provider [phone] Tiffany Sheppard RN Unavailable Heidi Lane MD Unavailable Encounter Details Date Type Department Care Team (Late st Contact Info) Description 12/19/[address] Medical Office [address] [place] [address] Cale Morris MD [facility] [address] Social History Tobacco Use Types [...] on file Legal Sex Male 12:56 PM EXT JS DEVELOPER Gender Identity Not on file Sexual Orientation Not on file documented as of this encounter Plan of Treatment Not on file documented as of this encounter Goals Goal Patient Goal Type Associated Problems Recent Progress Patient-Stated? Author CCM Chronic Pain Care Plan Chronic Care Management Improving( 3:32 PM EXT JS DEVELOPER) Lynette Siddiqi RN Note: Problem: Chronic Pain [...] COVID: Suspected 05/05/2023 05/05/2023 05/05/2023 2:35 PM EXT JS DEVELOPER documented as of this encounter Care Teams Railroad Auditor Relationship Specialty Start Date End Date Nicolás Elena MD [address] [facility] [phone] [place] [address] PCP - General Internal Medicine 06/20/22 01/07/23 Emerson Camarillo MD [address] [facility] [phone] [place] [address] PCP - General Family Practice 01/08/23 01/08/23 Emerson Camarillo MD [address] [facility] [phone] [place] [address] PCP - General Family Practice 01/14/23 Rick Rodas MD [address] [facility] [phone] [place] [address] Surgeon Colon and Rectal Surgery 06/08/21 Marquita Berry DPT [address] [facility] [address] [place] [address] Physical Therapist Physical Therapy 01/06/23 Tiffany Sheppard, RN [address] [facility] [address] [place] [address] SHOP Outpatient Decision Analyst 05/09/23 06/05/[address] MD [address] [facility] [place] [address] Consulting Physician Pain Management 06/24/18 TARSHA PULLIAM APN [id number] [facility] [id number] Wound Care Nurse Wound Care 05/15/18 documented as of this encounter
[2024-06-23 20:09] LABS: Basophils Percent Auto 0.2 % (0.2-1.2); Eosinophils Percent Auto 0.3 % (0-4.4); Hematocrit 39.2 % (42.0-52.0); Hemoglobin 13.1 g/dL (14.0-18.0); Immature Granulocyte Absolute 0.02 K/mm3 (0.00-0.031); Immature Granulocyte Percent A 0.3 % (0-0.5); Immature Platelet Fraction Pct 14.4 % (0.9-11.2); Lymphocytes Percent Auto 14.9 % (18.3-44.2); Mean Corpuscular HGB Conc 33.4 g/dl (32-36); Mean Corpuscular Volume 92.7 fl (80-100); Monocytes Absolute Auto 0.4 K/mm3 (0.1-0.6); Monocytes Percent Auto 7.3 % (2.6-8.5); Neutrophils Absolute Auto 4.6 K/mm3 (1.3-6.7); Platelet Count Result 52 k/mm3 (150-375); Red Blood Count 4.23 M/mm3 (4.6-6.20); Red Cell Distribution Width 16.1 % (11.5-14.5)
[2024-06-23 20:18] LABS: Alanine Aminotransferase 49 U/L (6-50); Albumin Level 3.8 g/dL (3.5-5.1); Alkaline Phosphatase 95 U/L (38-126); Anion Gap 4 mmol/L (4-12); Aspartate Amino Transferase 36 U/L (17-59); Bilirubin,Total 0.5 mg/dL (0.2-1.3); Blood Urea Nitrogen 16 mg/dL (9-20); Calcium 9.3 mg/dL (8.4-10.2); Carbon Dioxide 30 mmol/L (22-30); Chloride 104 mmol/L (98-107); Estimated Glomerular Filt Rate > 60; Glucose 111 mg/dL (65-110); Potassium 5.4 mmol/L (3.4-5.0); Sodium 138 mmol/L (137-145)
[2024-06-23 20:19] LABS: Lactic Acid Reflex 0.9 mmol/L (0.7-2.0)
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
[2024-06-23 20:28] LABS: Add Urine Microscopic? YES; Appearance Urine Clear (Clear); Bacteria Urine None Seen /hpf; Bilirubin Urine Negative (Negative); Blood Urine Trace (Negative); Color Urine Yellow (Yellow); Glucose Urine UA Negative (Negative); Ketones Urine Negative (Negative); Leukocyte Esterase Ur 2+ LEU/UL (Negative); Need Manual Microscopic Reviewed; Nitrate Urine Positive (Negative); Non Pathogenic Casts 0-2; Protein Urine Negative (Negative); RBC Urine 0-2 /hpf (0-2); Specific Grav Ur 1.007 (1.001-1.035); Squamous Epithelial Cell Urine None Seen /hpf (Few); Urobilinogen Urine 0.2 mg/dL (<2.0)
[2024-06-23 20:33] LABS: Anisocytosis 2+; Platelet Estimate Decreased (Adequate); Schistocytes None Seen
[2024-06-23] MEDS: CEPHALEXIN 500 MG CAPSULE PO (21:21)
[2024-06-23 21:25] VITALS: BP 108/72; PULSE 64; RESP 18; TEMP 35.3; O2SAT 99
== END 2024-06-23 21:25 | disposition home or self-care (01) ==
PROVIDERS: Emergency Provider Student in an Organized Health Care Education/Training Program; PCP Family Medicine
DX: N39.0 Urinary tract infection, site not specified (principal); G82.50 Quadriplegia, unspecified; G90.1 Familial dysautonomia [Riley-Day]; G40.909 Epilepsy, unspecified, not intractable, without status epilepticus; E55.9 Vitamin D deficiency, unspecified; F41.9 Anxiety disorder, unspecified; F11.90 Opioid use, unspecified, uncomplicated; Z46.6 Encounter for fitting and adjustment of urinary device
CPT/HCPCS: 36415; 80053; 81001; 83605; 85025; 85055; 99283; A9270

== ENCOUNTER 2024-06-28 15:24 | Emergency (ER) | payer MEDICARE, MEDICAID, SELFPAY ==
[2024-06-28 15:28] VITALS: BP 101/63; PULSE 63; RESP 20; TEMP 36.3; O2SAT 100
[2024-06-28 15:37] LABS: Glucose Point of Care 73 mg/dl (65-105)
[2024-06-28 17:13] VITALS: BP 121/77; PULSE 65; RESP 18; O2SAT 98
--- NOTE | 2024-06-28 17:30 | ED.AMS ---
HPI - Altered Mental Status General Chief Complaint: Altered Mental Status Stated Complaint: elevated BS, AMS Time Seen by Provider: 06/28/24 17:10 Focused HPI: Patient is a 43-year-old male presents to the ER with increased confusion and dizziness. He reports he was here approximately 3 days ago and treated for a UTI. Patient's mother is concerned because his symptoms have continued even though he has been taking Keflex 500 mg b.i.d. Pt endorses a history of CP, hypoglycemia, chronic UTIs. He denies any new onset of pain. Patient has an ostomy bag and last irrigated it yesterday. GENERAL: Well-appearing, well-nourished, and in no acute distress. Pt in a wheelchair at baseline. HEAD: Normocephalic, atraumatic. CHEST: Clear to auscultation. ?No respiratory distress. HEART: Regular rate and rhythm.? NEURO: ?Alert and oriented x3. Patient screened in triage and initial orders placed.? ?Additional care and disposition to be based upon?diagnostic testing and treatment. Related Data Home Medications ?Medication ?Instructions ?Recorded ?Confirmed ?Last Taken ?Type Lactobacillus 1 cap PO HS 06/22/22 04/26/24 06/28/23 History acidophilus-Bifidobac.animalis 2.5 billion cell capsule (Daily Probiotic) ibuprofen 200 mg tablet 200 mg PO Q6H PRN Pain (Scale 06/22/22 04/26/24 06/11/23 History Score 1-3) multivitamin 1 tablet PO DAILY 06/22/22 04/26/24 06/28/23 History nortriptyline 25 mg capsule 25 mg PO HS 06/22/22 04/26/24 06/28/23 History polyethylene glycol 3350 17 gram 17 - 34 g PO HS PRN Constipation 06/22/22 04/26/24 06/10/23 History oral powder packet (Miralax) vitamin B complex 1 cap PO DAILY 06/22/22 04/26/24 06/11/23 History docusate sodium 50 mg capsule 100 mg PO HS 06/11/23 04/26/24 06/28/23 History levetiracetam 500 mg tablet 500 mg PO Q12H 07/23/23 04/26/24 Unknown History (Nathalie) Allergies Allergy/AdvReac Type Severity Reaction Status Date / Time adhesive tape Allergy Rash Verified 05/18/24 12:54 [facility] Past Medical History Medical History Bloating Nausea Early satiety Epigastric pain Seizure Myoclonic seizure disorder Hypothermia Bradycardia Chronic, continuous use of opioids Encephalopathy acute AMS (altered mental status) Acute hyperkalemia Pneumonia Transient confusion Acute UTI Chronic seasonal allergic rhinitis Sensorineural hearing loss of combined sites, bilateral Chronic pain syndrome Hypotension Quadriplegia Peripheral neuropathy Vitamin D deficiency Pressure ulcer COVID-19 Anxiety Osteopenia determined by x-ray Hypertriglyceridemia Nephrolithiasis Insomnia Erectile dysfunction Anemia Neuralgia and neuritis, unspecified Surgical History Surgical History Status post insertion of spinal cord stimulator History of tracheostomy History of fusion of cervical spine C2-C6. History of colostomy Family History Family History Mother Patient's mother is in good health Sibling Patient's brother is in good health Father Patient's father is in good health Social History Social History Social History: Surrogate medical decision maker: Natalie Wetzel (Dee), mother (proration clerk at [employer] in ED). Resides with parents. Disabled. Code status: Full code. Years smoked: 1 Smoking status: Never smoker Tobacco type: cigars Second hand tobacco smoke exposure: No Smoking end date: 04/28/04 Alcohol intake: former Alcohol use details: Former social drinker, but none for several years. Substance use: current Substance use type: marijuana Other substance usage details: Vapes about 2 puffs at bedtime and sometimes utilizes edibles. Do You Feel Safe in your Home?: Yes Lack of Transportation: No Lack of Food: Never True Current Housing: I Have Housing Concerned About Future Housing: No Difficulty Paying Gas/Electric Bills: No Difficulty Paying for Meds: No Currently Unemployed: No Education: Decline to Answer Difficulty w/ Childcare or Family Care: No Spiritual care concerns: No Course Vital Signs Vital signs: Vital Signs Temperature 36.3 C L 06/28/24 15:28 Pulse Rate 63 06/28/24 15:28 Respiratory Rate 20 06/28/24 15:28 Blood Pressure 101/63 03/03/25 15:28 Pulse Oximetry 100 06/28/24 15:28 Oxygen Delivery Room Air 06/28/24 15:28 Temperature 36.3 C L 06/28/24 15:28 Pulse Rate 55 L 06/28/24 19:25 Respiratory Rate 16 06/28/24 19:25 Blood Pressure 132/87 06/28/24 19:25 Pulse Oximetry 99 06/28/24 19:25 Oxygen Delivery Room Air 06/28/24 15:28 MDM - Altered Mental Status Lab Data 06/28/24 18:06 06/28/24 18:06 Labs: Lab Results 06/28/24 06/28/24 06/28/24 Range/Units 15:34 18:06 19:44 WBC 3.3 L (4.5-10.0) K/mm3 RBC 4.42 L (4.6-6.20) M/mm3 Hgb 13.5 L (14.0-18.0) g/dL Hct 40.0 L (42.0-52.0) % MCV 90.5 (80-100) fl MCH 30.5 (26-34) pg MCHC 33.8 (32-36) g/dl RDW 16.0 H (11.5-14.5) % Plt Count 38 L (150-375) k/mm3 MPV 12.7 H (7.4-10.4) fl Immature Gran % (Auto) Not Reportable Neut % (Auto) Not Reportable Lymph % (Auto) Not Reportable [place] % (Auto) Not Reportable Eos % (Auto) Not Reportable Baso % (Auto) Not Reportable Lymph # (Auto) Not Reportable [place] # (Auto) Not Reportable Eos # (Auto) Not Reportable Baso # (Auto) Not Reportable Abs Immat Gran (auto) Not Reportable Absolute Neuts (auto) Not Reportable Absolute Nucleated RBC Not Reportable Total Counted 100 Neutrophils % (Manual) 53 (46-73) % Band Neutrophils % 2 (0-6) % Lymphocytes % (Manual) 36.0 (18-44) % Monocytes % (Manual) 9 (3-9) % Nucleated RBC % Not Reportable Abs Neuts (Manual) 1.81 (1.3-6.7) K/mm3 Abs Lymphs (Manual) 1.18 (1.1-4.5) K/mm3 Abs Monocytes (Manual) 0.29 (0.1-0.90) K/mm3 Nucleated RBCs 1 % Platelet Estimate Decreased (Adequate) % Immature Plt Fraction 16.2 H (0.9-11.2) % Anisocytosis 2+ Schistocytes None seen PT 12.4 (11.1-14.7) Seconds INR 0.9 APTT 36.7 (22.3-36.8) Seconds Sodium 140 (137-145) mmol/L Potassium 5.5 H (3.4-5.0) mmol/L Chloride 103 (98-107) mmol/L Carbon Dioxide 26 (22-30) mmol/L Anion Gap 11 (4-12) mmol/L BUN 16 (9-20) mg/dL Creatinine 0.50 L (0.7-1.3) mg/dL Estim Creat Clear Calc 163 ml/min Estimated GFR > 60 (59 - ) Glucose 71 (65-110) mg/dL POC Capillary Glucose 73 74 (65-105) mg/dl Lactic Acid 2.3 H (0.7-2.0) mmol/L Calcium 9.4 (8.4-10.2) mg/dL Total Bilirubin 0.4 (0.2-1.3) mg/dL AST 49 (17-59) U/L ALT 66 H (6-50) U/L Alkaline Phosphatase 87 (38-126) U/L C-Reactive Protein < 0.5 (<1.0) mg/dL Total Protein 7.0 (6.3-8.2) g/dL Albumin 4.0 (3.5-5.1) g/dL Urine Color (Yellow) Urine Appearance (Clear) Urine pH (5.0-9.0) Ur Specific [place] (1.001-1.035) Urine Protein (Negative) mg/dL Urine Glucose (UA) (Negative) mg/dL Urine Ketones (Negative) mg/dL Ur Blood (Man) (Negative) Urine Nitrate (Negative) Urine Bilirubin (Negative) Urine Urobilinogen (<2.0) mg/dL Leukocyte Esterase Rfl (Negative) MICHI/UL Urine RBC (0-2) /hpf Urine WBC (0-3) /hpf Ur Squamous Epith Cells (Few) /hpf Urine Bacteria /hpf Urine Casts 06/28/24 Range/Units 19:56 WBC (4.5-10.0) K/mm3 RBC (4.6-6.20) M/mm3 Hgb (14.0-18.0) g/dL Hct (42.0-52.0) % MCV (80-100) fl MCH (26-34) pg MCHC (32-36) g/dl RDW (11.5-14.5) % Plt Count (150-375) k/mm3 MPV (7.4-10.4) fl Immature Gran % (Auto) Neut % (Auto) Lymph % (Auto) [place] % (Auto) Eos % (Auto) Baso % (Auto) Lymph # (Auto) [place] # (Auto) Eos # (Auto) Baso # (Auto) Abs Immat Gran (auto) Absolute Neuts (auto) Absolute Nucleated RBC Total Counted Neutrophils % (Manual) (46-73) % Band Neutrophils % (0-6) % Lymphocytes % (Manual) (18-44) % Monocytes % (Manual) (3-9) % Nucleated RBC % Abs Neuts (Manual) (1.3-6.7) K/mm3 Abs Lymphs (Manual) (1.1-4.5) K/mm3 Abs Monocytes (Manual) (0.1-0.90) K/mm3 Nucleated RBCs % Platelet Estimate (Adequate) % Immature Plt Fraction (0.9-11.2) % Anisocytosis Schistocytes PT (11.1-14.7) Seconds INR APTT (22.3-36.8) Seconds Sodium (137-145) mmol/L Potassium (3.4-5.0) mmol/L Chloride (98-107) mmol/L Carbon Dioxide (22-30) mmol/L Anion Gap (4-12) mmol/L BUN (9-20) mg/dL Creatinine (0.7-1.3) mg/dL Estim Creat Clear Calc ml/min Estimated GFR (59 - ) Glucose (65-110) mg/dL POC Capillary Glucose (65-105) mg/dl Lactic Acid (0.7-2.0) mmol/L Calcium (8.4-10.2) mg/dL Total Bilirubin (0.2-1.3) mg/dL AST (17-59) U/L ALT (6-50) U/L Alkaline Phosphatase (38-126) U/L C-Reactive Protein (<1.0) mg/dL Total Protein (6.3-8.2) g/dL Albumin (3.5-5.1) g/dL Urine Color Yellow (Yellow) Urine Appearance Clear (Clear) Urine pH 5.5 (5.0-9.0) Ur Specific [place] 1.007 (1.001-1.035) Urine Protein Negative (Negative) mg/dL Urine Glucose (UA) Negative (Negative) mg/dL Urine Ketones Negative (Negative) mg/dL Ur Blood (Man) Negative (Negative) Urine Nitrate Positive H (Negative) Urine Bilirubin Negative (Negative) Urine Urobilinogen 0.2 (<2.0) mg/dL Leukocyte Esterase Rfl 2+ H (Negative) MICHI/UL Urine RBC 0-2 (0-2) /hpf Urine WBC 6-10 H (0-3) /hpf Ur Squamous Epith Cells None seen (Few) /hpf Urine Bacteria Rare /hpf Urine Casts 0-2 Discharge Plan Discharge Clinical Impression: Thrombocytopenia, Hyperkalemia, Weakness Patient Disposition: Home, Self-Care Condition: Guarded Prognosis Instructions: Hyperkalemia (ED), Weakness (ED), Thrombocytopenia (ED) Additional Instructions: RETURN IF SYMPTOMS ARE WORSENING , CALL YOUR FAMILY PHYSICIAN FOR APPOINTMENT, TAKE TYLENOL NEEDED FOR ACHES AND PAIN, CONTINUE HOME MEDICATIONS. Patient Language: [place] Prescriptions: No Action midodrine 5 mg tablet 5 mg PO TID PRN (Reason: hypotension) Qty: 10 0RF Rx Instructions: do not give last dose of day after 6PM or within 4 hrs of bedtime levetiracetam [Keppra] 500 mg tablet 500 mg PO Q12H ketoconazole 2 % cream 1 applic topical DAILY Qty: 30 0RF Rx Instructions: Apply to affected and surrounding area(s) once daily until clinical resolution, typically 1 to 3 weeks famotidine [Pepcid] 40 mg tablet 40 mg PO DAILY 30 Days Qty: 30 5RF multivitamin Tablet 1 tablet PO DAILY polyethylene glycol 3350 [Miralax] 17 gram Powder In Packet 17 - 34 g PO HS PRN (Reason: Constipation) Rx Instructions: 1-2 packets daily nortriptyline 25 mg capsule 25 mg PO HS ibuprofen 200 mg Tablet 200 mg PO Q6H PRN (Reason: Pain (Scale Score 1-3)) vitamin B complex Capsule 1 cap PO DAILY Daily Probiotic 2.5 billion cell Capsule 1 cap PO HS docusate sodium 50 mg Capsule 100 mg PO HS cephalexin 500 mg capsule 500 mg PO Q12H 7 Days Qty: 14 0RF nystatin 100,000 unit/gram powder 1 applic topical TID PRN (Reason: apply to groin rash) Qty: 60 0RF sodium chloride 0.9 % (flush) [BD PosiFlush Normal Saline 0.9] Syringe 10 ml intra-catheter WEEKLY Qty: 10 1RF Rx Instructions: flush sodium chloride 0.9 % solution 1 irrig irrigation Q3-4H PRN (Reason: wound care) Qty: 1500 0RF ergocalciferol (vitamin D2) 1,250 mcg (50,000 unit) capsule See Rx Instructions .ROUTE .COMPLEX Qty: 14 0RF Dose Instruction: TAKE 1 CAPSULE BY MOUTH EVERY WEEK ON FRIDAY Rx Instructions: TAKE 1 CAPSULE BY MOUTH EVERY WEEK ON FRIDAY solifenacin [Vesicare] 10 mg tablet 10 mg PO HS Qty: 90 1RF pregabalin 200 mg capsule 200 mg PO TID Qty: 90 2RF ramelteon 8 mg tablet 8 mg PO QHS Qty: 90 1RF ciprofloxacin HCl 500 mg tablet 500 mg PO Q12H Qty: 14 0RF Rx Instructions: DO NOT TAKE WITH METHADONE Follow-up/Referrals: Donte Neal MD [Physician] - 06/29/24 Emerson Camarillo MD [Primary Care Provider] -
[2024-06-28 18:19] LABS: Hemoglobin 13.5 g/dL (14.0-18.0); Immature Platelet Fraction Pct 16.2 % (0.9-11.2); Mean Corpuscular HGB Conc 33.8 g/dl (32-36); Mean Corpuscular Hemoglobin 30.5 pg (26-34); Mean Corpuscular Volume 90.5 fl (80-100); Mean Platelet Volume 12.7 fl (7.4-10.4); Platelet Count Result 38 k/mm3 (150-375); Red Blood Count 4.42 M/mm3 (4.6-6.20); White Blood Count 3.3 K/mm3 (4.5-10.0)
[2024-06-28 18:29] LABS: INR 0.9; Prothrombin Time 12.4 Seconds (11.1-14.7)
[2024-06-28 18:30] LABS: Partial Thromboplastin Time 36.7 Seconds (22.3-36.8)
[2024-06-28 18:32] LABS: Lactic Acid Reflex 2.3 mmol/L (0.7-2.0)
[2024-06-28 18:34] LABS: Alanine Aminotransferase 66 U/L (6-50); Alkaline Phosphatase 87 U/L (38-126); Anion Gap 11 mmol/L (4-12); Aspartate Amino Transferase 49 U/L (17-59); Bilirubin,Total 0.4 mg/dL (0.2-1.3); Blood Urea Nitrogen 16 mg/dL (9-20); Calcium 9.4 mg/dL (8.4-10.2); Carbon Dioxide 26 mmol/L (22-30); Chloride 103 mmol/L (98-107); Estimated CRCL calculation 163 ml/min; Estimated Glomerular Filt Rate > 60; Glucose 71 mg/dL (65-110); Potassium 5.5 mmol/L (3.4-5.0); Sodium 140 mmol/L (137-145)
[2024-06-28 18:46] LABS: CRP < 0.5 mg/dL (<1.0)
[2024-06-28 19:02] LABS: Band Neutrophils Percent 2 % (0-6); Lymphocytes Absolute Manual 1.18 K/mm3 (1.1-4.5); Monocytes Absolute Manual 0.29 K/mm3 (0.1-0.90); Monocytes Percent Manual 9 % (3-9); Neutrophils Absolute Manual 1.81 K/mm3 (1.3-6.7); Neutrophils Percent Manual 53 % (46-73); Nucleated Red Blood Cells 1 %; Platelet Estimate Decreased (Adequate); Total Cells Counted 100
[2024-06-28 19:03] LABS: Anisocytosis 2+; Schistocytes None Seen
--- NOTE | 2024-06-28 19:06 | ED.AMS ---
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 WAS SEEN IN OUR EMERGENCY ROOM RECENTLY AND DISCHARGED ON ANTIBIOTIC FOR URINARY TRACT INFECTION. CURRENTLY PATIENT IS AWAKE, ALERT ORIENTED X4 DOES NOT WANT TO BE HOSPITALIZED, DENYING ANY FEVER, CHILLS, NAUSEA, VOMITING, ABDOMINAL PAIN, BACK PAIN OR ANY OTHER SYMPTOMS. Related Data Home Medications ?Medication ?Instructions ?Recorded ?Confirmed ?Last Taken ?Type Lactobacillus 1 cap PO HS 06/22/22 04/26/24 06/28/23 History acidophilus-Bifidobac.animalis 2.5 billion cell capsule (Daily Probiotic) ibuprofen 200 mg tablet 200 mg PO Q6H PRN Pain (Scale 06/22/22 04/26/24 06/11/23 History Score 1-3) multivitamin 1 tablet PO DAILY 06/22/22 04/26/24 06/28/23 History nortriptyline 25 mg capsule 25 mg PO HS 06/22/22 04/26/24 06/28/23 History polyethylene glycol 3350 17 gram 17 - 34 g PO HS PRN Constipation 06/22/22 04/26/24 06/10/23 History oral powder packet (Miralax) vitamin B complex 1 cap PO DAILY 06/22/22 04/26/24 06/11/23 History docusate sodium 50 mg capsule 100 mg PO HS 06/11/23 04/26/24 06/28/23 History levetiracetam 500 mg tablet 500 mg PO Q12H 07/23/23 04/26/24 Unknown History (Kecadyra) Allergies Allergy/AdvReac Type Severity Reaction Status Date / Time adhesive tape Allergy Rash Verified 05/18/24 12:54 Review of Systems Review of Systems: All systems reviewed & are unremarkable except as noted in HPI and below PMFSH Past Medical History Medical History Bloating Nausea Early satiety Epigastric pain Seizure Myoclonic seizure disorder Hypothermia Bradycardia Chronic, continuous use of opioids Encephalopathy acute AMS (altered mental status) Acute hyperkalemia Pneumonia Transient confusion Acute UTI Chronic seasonal allergic rhinitis Sensorineural hearing loss of combined sites, bilateral Chronic pain syndrome Hypotension Quadriplegia Peripheral neuropathy Vitamin D deficiency Pressure ulcer COVID-19 Anxiety Osteopenia determined by x-ray Hypertriglyceridemia Nephrolithiasis Insomnia Erectile dysfunction Anemia Neuralgia and neuritis, unspecified Surgical History Surgical History Status post insertion of spinal cord stimulator History of tracheostomy History of fusion of cervical spine C2-C6. History of colostomy Family History Family History Mother Patient's mother is in good health Sibling Patient's brother is in good health Father Patient's father is in good health Social History Social History Social History: Surrogate medical decision maker: Natalie Wetzel (Dee), mother (clerk stenographer at [employer] in ED). Resides with parents. Disabled. Code status: Full code. Years smoked: 1 Smoking status: Never smoker Tobacco type: cigars Second hand tobacco smoke exposure: No Smoking end date: 04/28/04 Alcohol intake: former Alcohol use details: Former social drinker, but none for several years. Substance use: current Substance use type: marijuana Other substance usage details: Vapes about 2 puffs at bedtime and sometimes utilizes edibles. Do You Feel Safe in your Home?: Yes Lack of Transportation: No Lack of Food: Never True Current Housing: I Have Housing Concerned About Future Housing: No Difficulty Paying Gas/Electric Bills: No Difficulty Paying for Meds: No Currently Unemployed: No Education: Decline to Answer Difficulty w/ Childcare or Family Care: No Spiritual care concerns: No Exam Narrative: GENERAL APPEARANCE: WELL-DEVELOPED, WELL-NOURISHED, SITTING ON A WHEELCHAIR SKIN: NORMAL COLOR HEAD: NORMOCEPHALIC, NONTRAUMATIC EYES: CLEAR CONJUNCTIVA ENT: OROPHARYNX NORMAL, EARS NORMAL, NOSE NORMAL NECK: SUPPLE, NONTENDER CHEST AND RESPIRATORY: AIRWAY PATENT, NO RESPIRATORY DISTRESS, NO ACCESSORY MUSCLE USE HEART: REGULAR RATE/RHYTHM ABDOMEN: SOFT, NONTENDER, NO ORGANOMEGALY, QUIET BOWEL SOUNDS NEUROLOGIC: ALERT AND ORIENTED ?3, Course Vital Signs Vital signs: Vital Signs Temperature 36.3 C L 06/28/24 15:28 Pulse Rate 63 06/28/24 15:28 Respiratory Rate 20 06/28/24 15:28 Blood Pressure 101/63 06/28/24 15:28 Pulse Oximetry 100 06/28/24 15:28 Oxygen Delivery Room Air 06/28/24 15:28 Temperature 36.3 C L 06/28/24 15:28 Pulse Rate 55 L 06/28/24 19:25 Respiratory Rate 16 06/28/24 19:25 Blood Pressure 132/87 06/28/24 19:25 Pulse Oximetry 99 06/28/24 19:25 Oxygen Delivery Room Air 06/28/24 15:28 MDM - Altered Mental Status MDM Narrative Medical decision making narrative: PATIENT CAME TO THE ED WITH HIS MOM WHO IS TELLING ME THAT HE BEEN LITTLE BIT CONFUSED LATELY. VITAL SIGNS ARE STABLE PHYSICAL EXAMINATION SHOWED A WHEELCHAIR-BOUND PATIENT, ASYMPTOMATIC DIFFERENTIAL DIAGNOSIS INCLUDE URINARY TRACT INFECTION, DEHYDRATION, ELECTROLYTE IMBALANCE, PNEUMONIA, DEPRESSION, ANXIETY, INTRACRANIAL PATHOLOGY BLOOD WORKUP TODAY INCLUDES CBC, CMP, BLOOD CULTURE, LACTIC ACID, CRP SHOWED PLATELET COUNT 38, POTASSIUM OF 5.5, LACTIC ACID 2.3, URINALYSIS SHOWED FINDINGS CONSISTENT WITH FINDINGS ON JUNE 23/2025 URINE CULTURE AT THAT DAY SHOWED NEXT GENITAL MARGA ISOLATED. THE SUPERFICIAL BACTERIA ARE NOT INDICATED OF OF URINARY TRACT INFECTION. CT SCAN HEAD SHOWED NO ACUTE ABNORMALITY CHEST X-RAY SHOWED NO ACUTE ABNORMALITY DIAGNOSIS THROMBOCYTOPENIA, HYPERKALEMIA, WEAKNESS PATIENT DECLINED TO BE HOSPITALIZED AT THE TIME OF DISCHARGE PATIENT'S FAMILY REPORTED THAT PATIENT HAD NOSE BLEED 1 WEEK AGO AND WAS QUITE A BED. I DID EXPLAIN THAT THE BLEEDING HIGH LIKELY SECONDARY TO THROMBOCYTOPENIA AND PATIENT NEED TO BE HOSPITALIZED FOR FURTHER EVALUATION OR TO FOLLOW-UP WITH DR. NEAL Differential Diagnosis Differential diagnosis: Likely other ( ABOVE) Medical Records Attestation: I reviewed the patient's medical records. Lab Data Attestation: I reviewed the patient's lab results. 06/28/24 18:06 06/28/24 18:06 Labs: Lab Results 06/28/24 06/28/24 06/28/24 Range/Units 15:34 18:06 19:44 WBC 3.3 L (4.5-10.0) K/mm3 RBC 4.42 L (4.6-6.20) M/mm3 Hgb 13.5 L (14.0-18.0) g/dL Hct 40.0 L (42.0-52.0) % MCV 90.5 (80-100) fl MCH 30.5 (26-34) pg MCHC 33.8 (32-36) g/dl RDW 16.0 H (11.5-14.5) % Plt Count 38 L (150-375) k/mm3 MPV 12.7 H (7.4-10.4) fl Immature Gran % (Auto) Not Reportable Neut % (Auto) Not Reportable Lymph % (Auto) Not Reportable [place] % (Auto) Not Reportable Eos % (Auto) Not Reportable Baso % (Auto) Not Reportable Lymph # (Auto) Not Reportable [place] # (Auto) Not Reportable Eos # (Auto) Not Reportable Baso # (Auto) Not Reportable Abs Immat Gran (auto) Not Reportable Absolute Neuts (auto) Not Reportable Absolute Nucleated RBC Not Reportable Total Counted 100 Neutrophils % (Manual) 53 (46-73) % Band Neutrophils % 2 (0-6) % Lymphocytes % (Manual) 36.0 (18-44) % Monocytes % (Manual) 9 (3-9) % Nucleated RBC % Not Reportable Abs Neuts (Manual) 1.81 (1.3-6.7) K/mm3 Abs Lymphs (Manual) 1.18 (1.1-4.5) K/mm3 Abs Monocytes (Manual) 0.29 (0.1-0.90) K/mm3 Nucleated RBCs 1 % Platelet Estimate Decreased (Adequate) % Immature Plt Fraction 16.2 H (0.9-11.2) % Anisocytosis 2+ Schistocytes None seen PT 12.4 (11.1-14.7) Seconds INR 0.9 APTT 36.7 (22.3-36.8) Seconds Sodium 140 (137-145) mmol/L Potassium 5.5 H (3.4-5.0) mmol/L Chloride 103 (98-107) mmol/L Carbon Dioxide 26 (22-30) mmol/L Anion Gap 11 (4-12) mmol/L BUN 16 (9-20) mg/dL Creatinine 0.50 L (0.7-1.3) mg/dL Estim Creat Clear Calc 163 ml/min Estimated GFR > 60 (59 - ) Glucose 71 (65-110) mg/dL POC Capillary Glucose 73 74 (65-105) mg/dl Lactic Acid 2.3 H (0.7-2.0) mmol/L Calcium 9.4 (8.4-10.2) mg/dL Total Bilirubin 0.4 (0.2-1.3) mg/dL AST 49 (17-59) U/L ALT 66 H (6-50) U/L Alkaline Phosphatase 87 (38-126) U/L C-Reactive Protein < 0.5 (<1.0) mg/dL Total Protein 7.0 (6.3-8.2) g/dL Albumin 4.0 (3.5-5.1) g/dL Urine Color (Yellow) Urine Appearance (Clear) Urine pH (5.0-9.0) Ur Specific [place] (1.001-1.035) Urine Protein (Negative) mg/dL Urine Glucose (UA) (Negative) mg/dL Urine Ketones (Negative) mg/dL Ur Blood (Man) (Negative) Urine Nitrate (Negative) Urine Bilirubin (Negative) Urine Urobilinogen (<2.0) mg/dL Leukocyte Esterase Rfl (Negative) MICHI/UL Urine RBC (0-2) /hpf Urine WBC (0-3) /hpf Ur Squamous Epith Cells (Few) /hpf Urine Bacteria /hpf Urine Casts 06/28/24 Range/Units 19:56 WBC (4.5-10.0) K/mm3 RBC (4.6-6.20) M/mm3 Hgb (14.0-18.0) g/dL Hct (42.0-52.0) % MCV (80-100) fl MCH (26-34) pg MCHC (32-36) g/dl RDW (11.5-14.5) % Plt Count (150-375) k/mm3 MPV (7.4-10.4) fl Immature Gran % (Auto) Neut % (Auto) Lymph % (Auto) [place] % (Auto) Eos % (Auto) Baso % (Auto) Lymph # (Auto) [place] # (Auto) Eos # (Auto) Baso # (Auto) Abs Immat Gran (auto) Absolute Neuts (auto) Absolute Nucleated RBC Total Counted Neutrophils % (Manual) (46-73) % Band Neutrophils % (0-6) % Lymphocytes % (Manual) (18-44) % Monocytes % (Manual) (3-9) % Nucleated RBC % Abs Neuts (Manual) (1.3-6.7) K/mm3 Abs Lymphs (Manual) (1.1-4.5) K/mm3 Abs Monocytes (Manual) (0.1-0.90) K/mm3 Nucleated RBCs % Platelet Estimate (Adequate) % Immature Plt Fraction (0.9-11.2) % Anisocytosis Schistocytes PT (11.1-14.7) Seconds INR APTT (22.3-36.8) Seconds Sodium (137-145) mmol/L Potassium (3.4-5.0) mmol/L Chloride (98-107) mmol/L Carbon Dioxide (22-30) mmol/L Anion Gap (4-12) mmol/L BUN (9-20) mg/dL Creatinine (0.7-1.3) mg/dL Estim Creat Clear Calc ml/min Estimated GFR (59 - ) Glucose (65-110) mg/dL POC Capillary Glucose (65-105) mg/dl Lactic Acid (0.7-2.0) mmol/L Calcium (8.4-10.2) mg/dL Total Bilirubin (0.2-1.3) mg/dL AST (17-59) U/L ALT (6-50) U/L Alkaline Phosphatase (38-126) U/L C-Reactive Protein (<1.0) mg/dL Total Protein (6.3-8.2) g/dL Albumin (3.5-5.1) g/dL Urine Color Yellow (Yellow) Urine Appearance Clear (Clear) Urine pH 5.5 (5.0-9.0) Ur Specific [place] 1.007 (1.001-1.035) Urine Protein Negative (Negative) mg/dL Urine Glucose (UA) Negative (Negative) mg/dL Urine Ketones Negative (Negative) mg/dL Ur Blood (Man) Negative (Negative) Urine Nitrate Positive H (Negative) Urine Bilirubin Negative (Negative) Urine Urobilinogen 0.2 (<2.0) mg/dL Leukocyte Esterase Rfl 2+ H (Negative) MICHI/UL Urine RBC 0-2 (0-2) /hpf Urine WBC 6-10 H (0-3) /hpf Ur Squamous Epith Cells None seen (Few) /hpf Urine Bacteria Rare /hpf Urine Casts 0-2 Imaging Data Radiologist's impression: Impressions Head CT 06/28/24 17:57 Impression: No acute intracranial hemorrhage or suspicious mass effect. Chest X-Ray 06/28/24 20:02 IMPRESSION: Small left-sided pleural effusion without focal infiltrate. Critical Care Time Critical Care Time Critical Care Time: No Discharge Plan Discharge Clinical Impression: Thrombocytopenia, Hyperkalemia, Weakness Patient Disposition: Home, Self-Care Condition: Guarded Prognosis Instructions: Hyperkalemia (ED), Weakness (ED), Thrombocytopenia (ED) Additional Instructions: RETURN IF SYMPTOMS ARE WORSENING , CALL YOUR FAMILY PHYSICIAN FOR APPOINTMENT, TAKE TYLENOL NEEDED FOR ACHES AND PAIN, CONTINUE HOME MEDICATIONS. Patient Language: German Prescriptions: No Action midodrine 5 mg tablet 5 mg PO TID PRN (Reason: hypotension) Qty: 10 0RF Rx Instructions: do not give last dose of day after 6PM or within 4 hrs of bedtime levetiracetam [Keppra] 500 mg tablet 500 mg PO Q12H ketoconazole 2 % cream 1 applic topical DAILY Qty: 30 0RF Rx Instructions: Apply to affected and surrounding area(s) once daily until clinical resolution, typically 1 to 3 weeks famotidine [Pepcid] 40 mg tablet 40 mg PO DAILY 30 Days Qty: 30 5RF multivitamin Tablet 1 tablet PO DAILY polyethylene glycol 3350 [Miralax] 17 gram Powder In Packet 17 - 34 g PO HS PRN (Reason: Constipation) Rx Instructions: 1-2 packets daily nortriptyline 25 mg capsule 25 mg PO HS ibuprofen 200 mg Tablet 200 mg PO Q6H PRN (Reason: Pain (Scale Score 1-3)) vitamin B complex Capsule 1 cap PO DAILY Daily Probiotic 2.5 billion cell Capsule 1 cap PO HS docusate sodium 50 mg Capsule 100 mg PO HS cephalexin 500 mg capsule 500 mg PO Q12H 7 Days Qty: 14 0RF nystatin 100,000 unit/gram powder 1 applic topical TID PRN (Reason: apply to groin rash) Qty: 60 0RF sodium chloride 0.9 % (flush) [BD PosiFlush Normal Saline 0.9] Syringe 10 ml intra-catheter WEEKLY Qty: 10 1RF Rx Instructions: flush sodium chloride 0.9 % solution 1 irrig irrigation Q3-4H PRN (Reason: wound care) Qty: 1500 0RF ergocalciferol (vitamin D2) 1,250 mcg (50,000 unit) capsule See Rx Instructions .ROUTE .COMPLEX Qty: 14 0RF Dose Instruction: TAKE 1 CAPSULE BY MOUTH EVERY WEEK ON FRIDAY Rx Instructions: TAKE 1 CAPSULE BY MOUTH EVERY WEEK ON FRIDAY solifenacin [Vesicare] 10 mg tablet 10 mg PO HS Qty: 90 1RF pregabalin 200 mg capsule 200 mg PO TID Qty: 90 2RF ramelteon 8 mg tablet 8 mg PO QHS Qty: 90 1RF ciprofloxacin HCl 500 mg tablet 500 mg PO Q12H Qty: 14 0RF Rx Instructions: DO NOT TAKE WITH METHADONE Follow-up/Referrals: Donte Neal MD [Physician] - 06/29/24 Emerson Camarillo MD [Primary Care Provider] -
[2024-06-28 19:25] VITALS: BP 132/87; PULSE 55; RESP 16; O2SAT 99
[2024-06-28 19:49] LABS: Glucose Point of Care 74 mg/dl (65-105)
[2024-06-28 20:04] LABS: Add Urine Microscopic? YES; Appearance Urine Clear (Clear); Bacteria Urine Rare /hpf; Bilirubin Urine Negative (Negative); Blood Urine Negative (Negative); Color Urine Yellow (Yellow); Glucose Urine UA Negative (Negative); Ketones Urine Negative (Negative); Leukocyte Esterase Ur 2+ LEU/UL (Negative); Nitrate Urine Positive (Negative); Non Pathogenic Casts 0-2; Protein Urine Negative (Negative); RBC Urine 0-2 /hpf (0-2); Specific Grav Ur 1.007 (1.001-1.035); Squamous Epithelial Cell Urine None Seen /hpf (Few); Urobilinogen Urine 0.2 mg/dL (<2.0); pH Urine 5.5 (5.0-9.0)
[2024-06-28 21:15] LABS: Reflex Lactic Acid Yes or No Add Lactic
== END 2024-06-28 20:50 | disposition home or self-care (01) ==
PROVIDERS: Registered Nurse; Emergency Provider Emergency Medicine; PCP Family Medicine
DX: R53.1 Weakness (principal); D69.6 Thrombocytopenia, unspecified; E87.5 Hyperkalemia; G82.50 Quadriplegia, unspecified; S14.104S Unspecified injury at C4 level of cervical spinal cord, sequela; G40.409 Other generalized epilepsy and epileptic syndromes, not intractable, without status epilepticus; E55.9 Vitamin D deficiency, unspecified; E78.1 Pure hyperglyceridemia; G89.4 Chronic pain syndrome; G62.9 Polyneuropathy, unspecified; G47.00 Insomnia, unspecified; M85.871 Other specified disorders of bone density and structure, right ankle and foot; M81.0 Age-related osteoporosis without current pathological fracture; F41.9 Anxiety disorder, unspecified; Z96.82 Presence of neurostimulator; Z99.3 Dependence on wheelchair; Z98.1 Arthrodesis status; Z87.442 Personal history of urinary calculi; Z87.891 Personal history of nicotine dependence; Z87.440 Personal history of urinary (tract) infections; Z86.16 Personal history of COVID-19; Z87.01 Personal history of pneumonia (recurrent); Z86.2 Personal history of diseases of the blood and blood-forming organs and certain disorders involving the immune mechanism; Z79.899 Other long term (current) drug therapy; J90 Pleural effusion, not elsewhere classified; V49.9XXS Car occupant (driver) (passenger) injured in unspecified traffic accident, sequela
CPT/HCPCS: 36415; 70450; 71045; 80053; 81001; 82948; 83605; 85025; 85055; 85610; 85730; 86140; 87040; 87086; 96365; 96366; 99284; J0696

== ENCOUNTER 2024-07-01 12:51 | Inpatient (IN) | payer MEDICARE, MEDICAID, SELFPAY ==
[2024-07-01] VITALS (22 sets, daily range): BP systolic 79–153; BP diastolic 59–107; PULSE 43–78; RESP 9–18; TEMP 35.4–35.8; O2SAT 68–98; BMI 23.2; BMI 24.5
--- NOTE | ~2024-07-01 | MR_ITS ---
MR brain/brain stem wo/w con Ordering provider: Kulwant Cabrera MD History: 43 years Male with . seizures . Comparison: CT head performed on July 01, 2024. Technique: MRI brain was performed with and with contrast. 14 ML MultiHance was given IV. FINDINGS: BONES: Normal. CRANIOCERVICAL JUNCTION: normal. PITUITARY: Normal. MAJOR INTRACRANIAL VESSELS: Normal flow void. OPTIC NERVES AND CRANIAL NERVES VII AND VIII COMPLEXES: Grossly normal. BRAIN PARENCHYMA AND CSF SPACES: No visible white matter disease. The brainstem and cerebellum are n ormal. No acute or chronic intracranial hemorrhage. No extra axial fluid collections. Diffusion weigh rosa and ADC mapping images reveal no recent ischemia. No midline shift or mass effect. No abnormal co ntrast enhancement. PARANASAL SINUSES: Normal. MASTOIDS: Normal SUPERFICIAL/SURROUNDING SOFT TISSUES: Normal. IMPRESSION: 1. Normal study. 2. No abnormal enhancement. Reviewed, dictated and finalized at location A. G MACHINE OPERATOR
--- NOTE | ~2024-07-01 | CT_ITS ---
EXAMINATION: CT brain wo con DATE: 07/01/2024 15:37 INDICATION: Altered mental status TECHNIQUE: Computed tomography (CT) of the head was performed without intravenous contrast. Sagittal and coronal reconstructions were performed. The mA was adjusted according to patient size. Iterative reconstruction technique was employed. The dose-length product was 605.33 mGy-cm. COMPARISON: Head CT dated 06/28/2024 FINDINGS: No acute intracranial hemorrhage, acute infarction or abnormal extra axial fluid collection. Ventricl es are normal and symmetric. No mass/mass effect. The orbits, paranasal sinuses and mastoid air cells are normal. IMPRESSION: 1. Normal head CT. Reviewed, dictated and finalized at location L. C PUBLISHER IMPRESSION: 1. Normal head CT.
--- NOTE | ~2024-07-01 | XR_ITS ---
EXAMINATION: XR abdomen/kub 1V DATE: 07/02/2024 16:50 INDICATION: Dislodged pain pump cord TECHNIQUE: A supine view of the abdomen on 2 radiographs was obtained. COMPARISON: CT dated 06/13/2023 FINDINGS: No dilated loops of gas-filled bowel. Intrathecal pain pump projects of the right abdomen with cathet er entering the central canal at level of L4-L5 and extending cephalad with the distal tip at the lev el of T6-T7. Visualized portion of the bilateral mid to lower lungs are clear. Heart size is normal. Mild left-sided and moderate right-sided hip osteoarthritis. Multiple heterotopic ossicles project ov er the bilateral greater trochanters. Couple surgical clip projecting superolateral to the right acet abulum. IMPRESSION: 1. Right abdominal pain pump with distal tip of the intrathecal catheter at the level of T6-T7. Reviewed, dictated and finalized at location B. E [address] FREIGHT
--- NOTE | ~2024-07-01 | US_ITS ---
Limited ABDOMINAL ULTRASOUND (Doppler ultrasound interrogation techniques used as needed for this exa m.) Ordering provider: Gay Rincon PA-C History: . elevated LFTs . Comparison: None. FINDINGS: PANCREAS: Normal flow demonstrated. PORTAL VEIN: Hepatopedal flow demonstrated. LIVER: Normal size and increased echotexture. No focal hepatic lesions or perihepatic fluid collectio ns are identified. BILIARY DUCTS: No intra or extrahepatic biliary dilation. Common bile duct measures 3 mm in diameter which is normal for patient's age. GALLBLADDER: Normal. No stones, sludge, gallbladder wall thickening or pericholecystic fluid. Wall th icknesses 3 mm. Negative sonographic Georges's sign. . FREE FLUID: None visualized within the upper abdomen. IMPRESSION: Fat infiltration of the liver. Otherwise, normal limited abdominal ultrasound. Reviewed, dictated and finalized at location A. ET MANAGER
--- NOTE | 2024-07-01 13:22 | ECG_ITS ---
Test Date: 2024-07-01 13:32:29 Measurements Intervals [place] Rate: 51 P: 61 AK: 231 QRS: 35 QRSD: 121 T: -78 QT: 445 QTc: 412 Interpretive Statements SINUS BRADYCARDIA WITH FIRST DEGREE AV BLOCK WITH OCCASIONAL SUPRAVENTRICULAR PREMATURE COMPLEXES POSSIBLE LEFT ATRIAL ENLARGEMENT [-0.1mV P WAVE IN V1/V2] MODERATE INTRAVENTRICULAR CONDUCTION DELAY [110+ ms QRS DURATION] MODERATE T-WAVE ABNORMALITY, CONSIDER ANTERIOR ISCHEMIA [-0.1+ mV T WAVE IN V3/V4] No previous ECG available for comparison Electronically Signed On 07-01-2024 14:13:16 [employer] by Farzad Awad M.D.
[2024-07-01 13:25] LABS: Glucose Point of Care 65 mg/dl (65-105)
[2024-07-01] MEDS: DEXTROSE 50% 25 GM/50 ML SYRINGE IV PUSH (14:06)
[2024-07-01 14:42] LABS: Eosinophils Percent Auto 1.1 % (0-4.4); Hematocrit 38.9 % (42.0-52.0); Hemoglobin 12.8 g/dL (14.0-18.0); Immature Granulocyte Absolute 0.02 K/mm3 (0.00-0.031); Immature Granulocyte Percent A 0.8 % (0-0.5); Immature Platelet Fraction Pct 14.4 % (0.9-11.2); Lymphocytes Absolute Auto 0.75 K/mm3 (0.9-3.2); Lymphocytes Percent Auto 28.5 % (18.3-44.2); Mean Corpuscular HGB Conc 32.9 g/dl (32-36); Mean Corpuscular Hemoglobin 30.3 pg (26-34); Mean Corpuscular Volume 92.2 fl (80-100); Mean Platelet Volume 12.6 fl (7.4-10.4); Monocytes Absolute Auto 0.1 K/mm3 (0.1-0.6); Monocytes Percent Auto 3.8 % (2.6-8.5); Neutrophils Absolute Auto 1.7 K/mm3 (1.3-6.7); Neutrophils Percent Auto 65.8 % (45.5-73.1); Platelet Count Result 34 k/mm3 (150-375); Red Blood Count 4.22 M/mm3 (4.6-6.20); Red Cell Distribution Width 15.8 % (11.5-14.5); White Blood Count 2.6 K/mm3 (4.5-10.0)
[2024-07-01 14:52] LABS: Alanine Aminotransferase 104 U/L (6-50); Albumin Level 3.8 g/dL (3.5-5.1); Alkaline Phosphatase 81 U/L (38-126); Anion Gap 4 mmol/L (4-12); Aspartate Amino Transferase 66 U/L (17-59); Bilirubin,Total 0.5 mg/dL (0.2-1.3); Blood Urea Nitrogen 18 mg/dL (9-20); Calcium 9.3 mg/dL (8.4-10.2); Carbon Dioxide 34 mmol/L (22-30); Chloride 101 mmol/L (98-107); Estimated CRCL calculation 138 ml/min; Estimated Glomerular Filt Rate > 60; Glucose 208 mg/dL (65-110); Potassium 5.1 mmol/L (3.4-5.0); Sodium 139 mmol/L (137-145)
[2024-07-01 14:59] LABS: Platelet Estimate Decreased (Adequate); Schistocytes None Seen
[2024-07-01 15:13] LABS: Lactic Acid Reflex 0.8 mmol/L (0.7-2.0)
[2024-07-01 15:14] LABS: Add Urine Microscopic? YES; Appearance Urine Clear (Clear); Bacteria Urine Rare /hpf; Bilirubin Urine Negative (Negative); Blood Urine Negative (Negative); Color Urine Yellow (Yellow); Glucose Urine UA 3+ mg/dL (Negative); Ketones Urine Negative (Negative); Leukocyte Esterase Ur 3+ LEU/UL (Negative); Nitrate Urine Positive (Negative); Non Pathogenic Casts 0-2; Protein Urine Negative (Negative); RBC Urine 0-2 /hpf (0-2); Specific Grav Ur 1.018 (1.001-1.035); Squamous Epithelial Cell Urine None Seen /hpf (Few); Urobilinogen Urine 0.2 mg/dL (<2.0); WBC Urine 21-50 /hpf (0-3); pH Urine 6.5 (5.0-9.0)
[2024-07-01 15:14] LABS: Partial Thromboplastin Time 36.9 Seconds (22.3-36.8); Prothrombin Time 13.1 Seconds (11.1-14.7)
--- NOTE | 2024-07-01 15:18 | ED.AMS ---
HPI - Altered Mental Status General Chief Complaint: Altered Mental Status Stated Complaint: increased weak Time Seen by Provider: 07/01/24 14:52 History of Present Illness HPI narrative: Pt presents with altered mental status. Family says he is normally alert and can do things for himself even though he is paraplegic but over the last several weeks he has frequent periods of lethargy and confusion and is no longer able to do any of the self care things he used to do. Pt has been seen several times for this over the last few weeks including a few days ago in the ER here where he apparently had a normal work up. Related Data Home Medications ?Medication ?Instructions ?Recorded ?Confirmed ?Last Taken ?Type Lactobacillus 1 cap PO HS 06/22/22 04/26/24 06/28/23 History acidophilus-Bifidobac.animalis 2.5 billion cell capsule (Daily Probiotic) ibuprofen 200 mg tablet 200 mg PO Q6H PRN Pain (Scale 06/22/22 04/26/24 06/11/23 History Score 1-3) multivitamin 1 tablet PO DAILY 06/22/22 04/26/24 06/28/23 History nortriptyline 25 mg capsule 25 mg PO HS 06/22/22 04/26/24 06/28/23 History polyethylene glycol 3350 17 gram 17 - 34 g PO HS PRN Constipation 06/22/22 04/26/24 06/10/23 History oral powder packet (Miralax) vitamin B complex 1 cap PO DAILY 06/22/22 04/26/24 06/11/23 History docusate sodium 50 mg capsule 100 mg PO HS 06/11/23 04/26/24 06/28/23 History levetiracetam 500 mg tablet 500 mg PO Q12H 07/23/23 04/26/24 Unknown History (Nathalie) Allergies Allergy/AdvReac Type Severity Reaction Status Date / Time adhesive tape Allergy Rash Verified 05/18/24 12:54 Review of Systems Review of Systems: All systems reviewed & are unremarkable except as noted in HPI and below PMFSH Past Medical History Medical History Bloating Nausea Early satiety Epigastric pain Seizure Myoclonic seizure disorder Hypothermia Bradycardia Chronic, continuous use of opioids Encephalopathy acute AMS (altered mental status) Acute hyperkalemia Pneumonia Transient confusion Acute UTI Chronic seasonal allergic rhinitis Sensorineural hearing loss of combined sites, bilateral Chronic pain syndrome Hypotension Quadriplegia Peripheral neuropathy Vitamin D deficiency Pressure ulcer COVID-19 Anxiety Osteopenia determined by x-ray Hypertriglyceridemia Nephrolithiasis Insomnia Erectile dysfunction Anemia Neuralgia and neuritis, unspecified Surgical History Surgical History Status post insertion of spinal cord stimulator History of tracheostomy History of fusion of cervical spine C2-C6. History of colostomy Family History Family History Mother Patient's mother is in good health Sibling Patient's brother is in good health Father Patient's father is in good health Social History Social History Social History: Surrogate medical decision maker: Nataliedanis GordoneFlaquito Rashard, mother (telephone order clerk room service at [facility] [employer] [facility] [employer] in ED). Resides with parents. Disabled. Code status: Full code. Years smoked: 1 Smoking status: Never smoker Tobacco type: cigars Second hand tobacco smoke exposure: No Smoking end date: 04/28/04 Alcohol intake: former Alcohol use details: Former social drinker, but none for several years. Substance use: current Substance use type: marijuana Other substance usage details: Vapes about 2 puffs at bedtime and sometimes utilizes edibles. Do You Feel Safe in your Home?: Yes Lack of Transportation: No Lack of Food: Never True Current Housing: I Have Housing Concerned About Future Housing: No Difficulty Paying Gas/Electric Bills: No Difficulty Paying for Meds: No Currently Unemployed: No Education: Decline to Answer Difficulty w/ Childcare or Family Care: No Spiritual care concerns: No Exam Const: General: no acute distress and alert (for a period then drowsy.) Course Vital Signs Vital signs: Vital Signs Temperature 96.4 F L 07/01/24 12:52 Pulse Rate 53 L 07/01/24 12:52 Respiratory Rate 10 L 07/01/24 12:52 Blood Pressure 124/107 H 07/01/24 12:52 Pulse Oximetry 96 07/01/24 12:52 Oxygen Delivery Room Air 07/01/24 12:52 Temperature 96.4 F L 07/01/24 12:52 Pulse Rate 56 L 07/01/24 20:17 Respiratory Rate 18 07/01/24 20:17 Blood Pressure 116/77 07/01/24 20:01 Pulse Oximetry 96 07/01/24 20:17 Oxygen Delivery Autopap 07/01/24 13:10 MDM - Altered Mental Status MDM Narrative Medical decision making narrative: Pt presents with altered LOC that has been happening for some time off and on. Family has trouble caring for him now due to his mental status. Pt has been seen several times for same and admitted several times. labs and CT and UA unremarkable. discussed with Marilu Chauhan and is not sure what she will do for pt. Family uncomfortable taking pt haome. discussed with Marilu Chauhan again and agrees to observation. Lab Data 07/01/24 14:31 07/01/24 14:31 Labs: Lab Results 07/01/24 07/01/24 07/01/24 Range/Units 13:16 14:31 14:54 WBC 2.6 L (4.5-10.0) K/mm3 RBC 4.22 L (4.6-6.20) M/mm3 Hgb 12.8 L (14.0-18.0) g/dL Hct 38.9 L (42.0-52.0) % MCV 92.2 (80-100) fl MCH 30.3 (26-34) pg MCHC 32.9 (32-36) g/dl RDW 15.8 H (11.5-14.5) % Plt Count 34 L (150-375) k/mm3 MPV 12.6 H (7.4-10.4) fl Immature Gran % (Auto) 0.8 H (0-0.5) % Neut % (Auto) 65.8 (45.5-73.1) % Lymph % (Auto) 28.5 (18.3-44.2) % [place] % (Auto) 3.8 (2.6-8.5) % Eos % (Auto) 1.1 (0-4.4) % Baso % (Auto) 0.0 L (0.2-1.2) % Lymph # (Auto) 0.75 L (0.9-3.2) K/mm3 [place] # (Auto) 0.1 (0.1-0.6) K/mm3 Eos # (Auto) 0.0 (0-0.3) K/mm3 Baso # (Auto) 0.0 (0.0-0.1) K/mm3 Abs Immat Gran (auto) 0.02 (0.00-0.031) K/mm3 Absolute Neuts (auto) 1.7 (1.3-6.7) K/mm3 Absolute Nucleated RBC 0.000 (0.0-0.012) K/mm3 Band Neutrophils % Not Reportable Nucleated RBC % 0.0 (0.0-0.2) % Platelet Estimate Decreased (Adequate) % Immature Plt Fraction 14.4 H (0.9-11.2) % Schistocytes None seen PT 13.1 (11.1-14.7) Seconds INR 1.0 APTT 36.9 H (22.3-36.8) Seconds Sodium 139 (137-145) mmol/L Potassium 5.1 H (3.4-5.0) mmol/L Chloride 101 (98-107) mmol/L Carbon Dioxide 34 H (22-30) mmol/L Anion Gap 4 (4-12) mmol/L BUN 18 (9-20) mg/dL Creatinine 0.55 L (0.7-1.3) mg/dL Estim Creat Clear Calc 138 ml/min Estimated GFR > 60 (59 - ) Glucose 208 H (65-110) mg/dL POC Capillary Glucose 65 (65-105) mg/dl Lactic Acid 0.8 (0.7-2.0) mmol/L Calcium 9.3 (8.4-10.2) mg/dL Total Bilirubin 0.5 (0.2-1.3) mg/dL AST 66 H (17-59) U/L ALT 104 H (6-50) U/L Alkaline Phosphatase 81 (38-126) U/L Total Protein 7.0 (6.3-8.2) g/dL Albumin 3.8 (3.5-5.1) g/dL Procalcitonin ng/mL Urine Color Yellow (Yellow) Urine Appearance Clear (Clear) Urine pH 6.5 (5.0-9.0) Ur Specific [place] 1.018 (1.001-1.035) Urine Protein Negative (Negative) mg/dL Urine Glucose (UA) 3+ H (Negative) mg/dL Urine Ketones Negative (Negative) mg/dL Ur Blood (Man) Negative (Negative) Urine Nitrate Positive H (Negative) Urine Bilirubin Negative (Negative) Urine Urobilinogen 0.2 (<2.0) mg/dL Leukocyte Esterase Rfl 3+ H (Negative) MICHI/UL Urine RBC 0-2 (0-2) /hpf Urine WBC 21-50 H (0-3) /hpf Ur Squamous Epith Cells None seen (Few) /hpf Urine Bacteria Rare /hpf Urine Casts 0-2 07/01/24 Range/Units 16:11 WBC (4.5-10.0) K/mm3 RBC (4.6-6.20) M/mm3 Hgb (14.0-18.0) g/dL Hct (42.0-52.0) % MCV (80-100) fl MCH (26-34) pg MCHC (32-36) g/dl RDW (11.5-14.5) % Plt Count (150-375) k/mm3 MPV (7.4-10.4) fl Immature Gran % (Auto) (0-0.5) % Neut % (Auto) (45.5-73.1) % Lymph % (Auto) (18.3-44.2) % [place] % (Auto) (2.6-8.5) % Eos % (Auto) (0-4.4) % Baso % (Auto) (0.2-1.2) % Lymph # (Auto) (0.9-3.2) K/mm3 [place] # (Auto) (0.1-0.6) K/mm3 Eos # (Auto) (0-0.3) K/mm3 Baso # (Auto) (0.0-0.1) K/mm3 Abs Immat Gran (auto) (0.00-0.031) K/mm3 Absolute Neuts (auto) (1.3-6.7) K/mm3 Absolute Nucleated RBC (0.0-0.012) K/mm3 Band Neutrophils % Nucleated RBC % (0.0-0.2) % Platelet Estimate (Adequate) % Immature Plt Fraction (0.9-11.2) % Schistocytes PT (11.1-14.7) Seconds INR APTT (22.3-36.8) Seconds Sodium (137-145) mmol/L Potassium (3.4-5.0) mmol/L Chloride (98-107) mmol/L Carbon Dioxide (22-30) mmol/L Anion Gap (4-12) mmol/L BUN (9-20) mg/dL Creatinine (0.7-1.3) mg/dL Estim Creat Clear Calc ml/min Estimated GFR (59 - ) Glucose (65-110) mg/dL POC Capillary Glucose (65-105) mg/dl Lactic Acid (0.7-2.0) mmol/L Calcium (8.4-10.2) mg/dL Total Bilirubin (0.2-1.3) mg/dL AST (17-59) U/L ALT (6-50) U/L Alkaline Phosphatase (38-126) U/L Total Protein (6.3-8.2) g/dL Albumin (3.5-5.1) g/dL Procalcitonin 0.1 ng/mL Urine Color (Yellow) Urine Appearance (Clear) Urine pH (5.0-9.0) Ur Specific [place] (1.001-1.035) Urine Protein (Negative) mg/dL Urine Glucose (UA) (Negative) mg/dL Urine Ketones (Negative) mg/dL Ur Blood (Man) (Negative) Urine Nitrate (Negative) Urine Bilirubin (Negative) Urine Urobilinogen (<2.0) mg/dL Leukocyte Esterase Rfl (Negative) MICHI/UL Urine RBC (0-2) /hpf Urine WBC (0-3) /hpf Ur Squamous Epith Cells (Few) /hpf Urine Bacteria /hpf Urine Casts Discharge Plan Discharge Clinical Impression: Altered mental status Patient Disposition: Still a Patient Condition: Stable
--- OUTSIDE RECORDS SUMMARY | 2024-07-01 16:48 | XMS_ITS | Clinical Summary ---
Author Organization [email or web address] [address] Address [address] [place] [address] Care Team Providers Care Exterminator Helper Termite Name Role Phone Dayday Baker MD Primary Care Provider Allergies Active Allergy Reactions Criticality Noted Date Comments Adhesive Rash Medium Medications BACLOFEN INTRATHECAL 800 mcg by IntraTHEcal route continuously. Active solifenacin (VESICARE) 10 mg Tablet Take 10 mg by mouth daily. Active pregabalin (LYRICA) 200 mg Capsule Take 200 mg by mouth 3 times daily. Active omega 0-xkn-ezr-fish oil (FISH OIL) 120-180-500 mg Capsule Take 2 Tablets by mouth daily. Active Fish,Saf,Flx,Brg Oils-O3,6,9#2 (ABXI-KKAM-FQOOW E OIL) [phone] mg Capsule Take 1 Tablet by mouth [...] on file Legal Sex Male 11:14 AM STRIPPER COLOR Gender Identity Not on file Sexual Orientation Not on file Last Filed Vital Signs Vital Sign Reading Time Taken Comments Blood Pressure 60/40 05/13/2018 1:00 PM STRIPPER COLOR Pulse 54 05/13/2018 1:00 PM STRIPPER COLOR Temperature 35.8 C (96.5 F) 05/13/2018 1:00 PM STRIPPER COLOR Respiratory Rate 16 05/13/2018 1:00 PM STRIPPER COLOR Oxygen Saturation - - Inhaled Oxygen Concentration - - Weight 72.6 kg (160 lb) 05/13/2018 1:00 PM STRIPPER COLOR Height 172.7 cm (5' 8 ) 05/13/2018 1:00 PM STRIPPER COLOR Body Mass Index 24.33 05/13/2018 1:00 PM STRIPPER COLOR Plan of Treatment Health Maintenance Due Date Last Done Comments DTAP/TDAP/TD VACCINES (1 - Tdap) 2000 HEPATITIS B VACCINES (1 of 3 - 19+ 3-dose series) 2000 INFLUENZA VACCINE (#1) 2023 HPV VACCINES Aged Out No longer eligi ble based on patient's age to complete this topic Insurance MEDICARE PART A AND B Care Teams Exterminator Helper Termite Relationship Specialty Start Date End Date Dyaday Baker MD PCP - General Physical Medicine and Rehabilitation 04/15/18
--- OUTSIDE RECORDS SUMMARY | 2024-07-01 16:48 | XMS_ITS | CONTINUITY OF CARE DOCUMENT ---
Author Name gregg gregg Address Unknown Organization [facility] Address [address] [place] [address] Phone [phone] Care Team Providers Care Cook Fruit Name Role Phone Demarcus SANDOVAL, Keri Unavailable CHRIS SANDOVAL, BERNARDA Unavailable [phone] BERNARDA PEREZ MD Unavailable [phone] INSURANCE PROVIDERS Payer name Policy type / Coverage type [place] red green party ID [facility] AND FAMILY SERVICES Medicaid 1 [id number] AARP MEDICARE ADVANTAGE HMO-POS HMO [id number]
[2024-07-01 17:05] LABS: Procalcitonin 0.1 ng/mL
[2024-07-01] MEDS: LACTATED RINGERS 1,000 ML 125 ML IV CONT (18:24)
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
--- NOTE | 2024-07-01 21:45 | ADMGEN ---
This patient, Segundo Wetzel, was admitted to 2 Medical Room 259-01. Patient/family oriented to hospital policies and general routines including ID bracelet, bed and alarms, visiting hours, pain management, procedures, bathroom and other care routines, personal items, smoking policy, room service/diet, and visiting hours. Information on how to activate the Rapid Response Team has been discussed. Patient/Family are encouraged to report perceived risks to care and to ask questions if they do not understand what they are told or what they should do.
[2024-07-01] MEDS: NORTRIPTYLINE HCL 25 MG CAPSULE PO (23:40)
[2024-07-02] VITALS (20 sets, daily range): BP systolic 99–135; BP diastolic 50–95; PULSE 66–101; RESP 14–18; TEMP 33.9–36.3; O2SAT 94–99
[2024-07-02] MEDS: LACTATED RINGERS 1,000 ML 125 ML IV CONT ×2 (03:35→11:06)
[2024-07-02 05:25] LABS: Fractional Inspired Oxygen 21 %; HCO3 VBG 31.2 mEq/l (24.0-30.0); PO2 VBG 59.9 mmHg (35.0-45.0); pH VBG 7.303 (7.300-7.400)
[2024-07-02 05:28] LABS: Device ROOM AIR; PCO2 VBG 64.4 mmHg (42.0-48.0)
[2024-07-02 05:39] LABS: Glucose Point of Care 63 mg/dl (65-105)
[2024-07-02 05:45] LABS: Ammonia < 9 umol/L (9-30)
[2024-07-02 05:48] LABS: Creatine Kinase 38 U/L (55-170)
[2024-07-02 06:06] LABS: Hemoglobin A1C 4.7 % (<5.7)
[2024-07-02 06:15] LABS: Glucose Point of Care 116 mg/dl (65-105)
[2024-07-02 06:16] LABS: Hepatitis B Surface Antigen Negative (Negative)
[2024-07-02 06:21] LABS: HAV RESULT Negative (Negative); Hepatitis B Core IgM Result Negative (Negative)
[2024-07-02 06:33] LABS: Hepatitis C Virus Antibody Negative (Negative)
[2024-07-02 06:43] LABS: Vitamin B12 > 1000.0 pg/mL (239-931)
[2024-07-02 06:43] LABS: Alanine Aminotransferase 111 U/L (6-50); Albumin Level 3.8 g/dL (3.5-5.1); Alkaline Phosphatase 86 U/L (38-126); Anion Gap 8 mmol/L (4-12); Aspartate Amino Transferase 64 U/L (17-59); Bilirubin,Total 0.4 mg/dL (0.2-1.3); Blood Urea Nitrogen 16 mg/dL (9-20); Calcium 9.6 mg/dL (8.4-10.2); Carbon Dioxide 31 mmol/L (22-30); Chloride 103 mmol/L (98-107); Estimated CRCL calculation 168 ml/min; Estimated Glomerular Filt Rate > 60; Glucose 57 mg/dL (65-110); Potassium 5.6 mmol/L (3.4-5.0); Sodium 142 mmol/L (137-145)
--- NOTE | 2024-07-02 10:15 | PC.NURSE ---
pt mother administered morning medications to him this morning. she gave lyrica and multivitamin. I educated her that she cannot administer home medications as we will be giving pt medications while he is admitted. Family to take home medications home.
[2024-07-02 11:02] LABS: Glucose Point of Care 60 mg/dl (65-105)
[2024-07-02] MEDS: DEXTROSE 50% 25 GM/50 ML SYRINGE IV PUSH (11:06)
[2024-07-02] MEDS: LORazepam INJ (*CRX) 2 MG/ML VIAL IV PUSH (11:29)
[2024-07-02] MEDS: levETIRAcetam 1000MG/NACL100ML 1,000 MG/100 ML BAG 400 MG IVPB (11:33)
[2024-07-02 11:42] LABS: Glucose Point of Care 144 mg/dl (65-105)
[2024-07-02 12:10] LABS: Glucose Point of Care 79 mg/dl (65-105)
[2024-07-02] MEDS: DEXTROSE 5%/0.9% SOD CHL 1,000 ML 125 ML IV CONT ×2 (14:28→22:30)
--- NOTE | 2024-07-02 14:29 | PC.NURSE ---
[employer] came to decrease dose of baclofen pump by 10%. Dose decreased to 514 mcg/day. was 570 mcg/day prior to decrease
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
[2024-07-02 17:06] LABS: Glucose Point of Care 75 mg/dl (65-105)
[2024-07-02] MEDS: PREGABALIN (*CRX) 50 MG CAPSULE 200 MG PO ×2 (17:08→20:46)
[2024-07-02 19:24] LABS: Iron 74 ug/dL (49-181)
[2024-07-02 19:33] LABS: Percent Iron Saturation 25 % (20-50)
[2024-07-02] MEDS: NORTRIPTYLINE HCL 25 MG CAPSULE PO (20:24)
[2024-07-02] MEDS: SOLIFENACIN 5 MG TABLET 10 MG PO (20:25)
[2024-07-02] MEDS: DOCUSATE SODIUM 100 MG CAPSULE PO (20:25)
[2024-07-02] MEDS: ACIDOPHILUS/BULGARICUS CHEWABLE TABLET 1 TABLET BY MOUTH (20:25)
[2024-07-02] MEDS: levETIRAcetam IV 750 MG in DEXTROSE 5% 100 ML 430 MG IVPB (20:26)
[2024-07-02 21:02] LABS: Glucose Point of Care 90 mg/dl (65-105)
[2024-07-03] VITALS (26 sets, daily range): BP systolic 90–108; BP diastolic 40–64; PULSE 74–104; RESP 16–17; TEMP 32.4–37.3; O2SAT 95–98
[2024-07-03 00:09] LABS: Glucose Point of Care 77 mg/dl (65-105)
[2024-07-03 04:06] LABS: Glucose Point of Care 77 mg/dl (65-105)
[2024-07-03 05:53] LABS: Hematocrit 36.1 % (42.0-52.0); Hemoglobin 11.9 g/dL (14.0-18.0); Immature Platelet Fraction Pct 13.9 % (0.9-11.2); Mean Corpuscular Hemoglobin 30.4 pg (26-34); Mean Corpuscular Volume 92.1 fl (80-100); Mean Platelet Volume 13.1 fl (7.4-10.4); Platelet Count Result 40 k/mm3 (150-375); Red Blood Count 3.92 M/mm3 (4.6-6.20); Red Cell Distribution Width 15.9 % (11.5-14.5); White Blood Count 7.4 K/mm3 (4.5-10.0)
[2024-07-03] MEDS: DEXTROSE 5%/0.9% SOD CHL 1,000 ML 125 ML IV CONT ×2 (05:55→14:45)
[2024-07-03 06:03] LABS: Alanine Aminotransferase 78 U/L (6-50); Albumin Level 3.3 g/dL (3.5-5.1); Alkaline Phosphatase 74 U/L (38-126); Anion Gap 6 mmol/L (4-12); Aspartate Amino Transferase 42 U/L (17-59); Bilirubin,Total 0.4 mg/dL (0.2-1.3); Blood Urea Nitrogen 12 mg/dL (9-20); Carbon Dioxide 29 mmol/L (22-30); Chloride 105 mmol/L (98-107); Estimated CRCL calculation 153 ml/min; Estimated Glomerular Filt Rate > 60; Glucose 91 mg/dL (65-110); Magnesium 1.6 mg/dL (1.6-2.3); Potassium 4.5 mmol/L (3.4-5.0); Sodium 140 mmol/L (137-145)
[2024-07-03] MEDS: PREGABALIN (*CRX) 50 MG CAPSULE 200 MG PO ×3 (08:54→18:16)
[2024-07-03] MEDS: MULTIVITAMINS THERAPEUTIC TAB (*BKC) 1 TABLET PO (08:54)
[2024-07-03] MEDS: levETIRAcetam IV 750 MG in DEXTROSE 5% 100 ML 430 MG IVPB ×2 (08:54→21:09)
--- NOTE | 2024-07-03 10:30 | PC.NURSE ---
spoke with Ry at [employer] regarding patient's baclofen pump. Patient scheduled to get a brain MRI today and will need pump interrogated afterwards. Per MRI, patient should get taken down between [id number]. Asphalt Paving Foreman from [employer] planning to come this afternoon.
[2024-07-03 11:33] LABS: Glucose Point of Care 77 mg/dl (65-105)
--- NOTE | 2024-07-03 13:20 | PC.NURSE ---
Ry from [employer] called for update regarding patient's MRI. MRI has not been completed yet. MRI now plans to take patient for MRI between [id number]. Ry from [employer] will schedule for interrogation first thing tomorrow morning, as the MRI will be done too late for interrogation to be completed tonpauline
--- NOTE | 2024-07-03 15:22 | PC.NURSE ---
pt taken down to MRI
--- NOTE | 2024-07-03 16:15 | PC.NURSE ---
pt returned to room from MRI
[2024-07-03 17:01] LABS: Glucose Point of Care 130 mg/dl (65-105)
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
--- NOTE | 2024-07-03 17:08 | P.CONNEU_ITS ---
Assessment and Plan Assessment and plan (1) Myoclonic seizure disorder: Code(s): G40.409 - Other generalized epilepsy and epileptic syndromes, not intractable, without status epilepticus Status: Acute (2) Quadriplegia: Code(s): G82.50 - Quadriplegia, unspecified Status: Acute Plan The patient is now on Keppra 1000 mg twice a day. In addition he is on many other medications including nortriptyline and also pregabalin 200 mg 3 times a day. Pregabalin also an anticonvulsant and this dose is in the anticonvulsant range nevertheless since he had seizure-like activity I would suggest to keep him on the Keppra for now. An MRI of the brain has been ordered. EEG would be recommended. Consult date: 07/03/24 HPI: Segundo Wetzel is a 43 year old male With history of spinal cord de plegia due to trauma in 2003 and she 4 5 level presented with the seizure spell. Apparently has had a seizure last year also and he was intubated for 36 hours according to the mother however he was not on any anti seizure medications. He was seen by Dr. Hamilton on 07/02/2023. It appears that he is already on pregabalin which also is considered useful for pain and seizures. Review of Systems 2 Review of Systems: All systems reviewed & are unremarkable except as noted in HPI and below PMFSH Past Medical History Medical History Tetraplegia (01/2004) 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 Chronic, continuous use of opioids Chronic seasonal allergic rhinitis Sensorineural hearing loss of combined sites, bilateral Chronic pain syndrome Peripheral neuropathy Vitamin D deficiency COVID-19 Anxiety Osteopenia determined by x-ray Hypertriglyceridemia Nephrolithiasis Erectile dysfunction Anemia Surgical History Surgical History Status post insertion of intrathecal baclofen pump History of tracheostomy History of fusion of cervical spine C2-C6 History of colostomy Family History Family History Mother Patient's mother is in good health Sibling Patient's brother is in good health Father Patient's father is in good health Social History Social History Social History: Surrogate medical decision maker: Natalie Wetzel (Dee), mother ([phone]). Code status: Full code. Years smoked: 1 Smoking status: Former smoker Second hand tobacco smoke exposure: No Alcohol intake: former Alcohol use details: Former social drinker, but none for several years. Substance use: current Substance use type: marijuana Other substance usage details: edibles Do You Feel Safe in your Home?: Yes Lack of Transportation: No Lack of Food: Never True Current Housing: I Have Housing Concerned About Future Housing: No Difficulty Paying Gas/Electric Bills: No Difficulty Paying for Meds: No Currently Unemployed: No Education: Decline to Answer Difficulty w/ Childcare or Family Care: No Additional living arrangements comments: Lives with family in [place]. He has caretakers 8 hours a day. Spiritual care concerns: No Meds Home Medications and Allergies Home Medications ?Medication ?Instructions ?Recorded ?Confirmed ?Type Lactobacillus 1 cap PO HS 06/22/22 07/01/24 History acidophilus-Bifidobac.animalis 2.5 billion cell capsule (Daily Probiotic) ibuprofen 200 mg tablet 200 mg PO Q6H PRN Pain (Scale 06/22/22 07/01/24 History Score 1-3) multivitamin 1 tablet PO DAILY 06/22/22 07/01/24 History nortriptyline 25 mg capsule 25 mg PO HS 06/22/22 07/01/24 History polyethylene glycol 3350 17 gram 17 - 34 g PO HS PRN Constipation 06/22/22 07/01/24 History oral powder packet (Miralax) vitamin B complex 1 cap PO DAILY 06/22/22 07/01/24 History nystatin 100,000 unit/gram topical 1 applic topical TID PRN apply to 03/19/23 07/01/24 Rx powder groin rash #60 grams docusate sodium 50 mg capsule 100 mg PO HS 06/11/23 07/01/24 History sodium chloride 0.9 % (flush) (BD 10 ml intra-catheter WEEKLY #10 mL 10/27/23 07/01/24 Rx PosiFlush Normal Saline 0.9 % injection syringe) sodium chloride 0.9 % irrigation 1 irrig irrigation Q3-4H PRN wound 10/29/23 07/01/24 Rx solution care #1,500 mL ergocalciferol (vitamin D2) 1,250 See Rx Instructions .Route 12/01/23 07/01/24 Rx mcg (50,000 unit) capsule .COMPLEX #14 caps solifenacin 10 mg tablet (Vesicare) 10 mg PO HS #90 tabs 01/19/24 07/01/24 Rx pregabalin 200 mg capsule 200 mg PO TID #90 caps 04/07/24 07/01/24 Rx ramelteon 8 mg tablet 8 mg PO QHS sleep #90 tabs 06/08/24 07/01/24 Rx cephalexin 500 mg capsule 500 mg PO Q12H 7 days #14 caps 06/23/24 07/01/24 Rx methadone 5 mg tablet 5 mg PO DAILY 07/01/24 07/01/24 History Allergies Allergy/AdvReac Type Severity Reaction Status Date / Time adhesive tape Allergy Rash Verified 05/18/24 12:54 Vital Signs Vital Signs - 24 hr 07/02/24 18:32 07/02/24 20:00 07/02/24 20:00 Temperature 97.2 F L Pulse Rate 95 Respiratory Rate Blood Pressure Pulse Oximetry Oxygen Delivery Room Air 07/02/24 20:30 07/02/24 20:39 07/03/24 00:00 Temperature 96.0 F L Pulse Rate 84 83 Respiratory Rate 17 Blood Pressure 127/71 Pulse Oximetry 96 Oxygen Delivery 07/03/24 00:13 07/03/24 04:00 07/03/24 04:00 Temperature 95.7 F L 95.3 F L Pulse Rate 93 Respiratory Rate Blood Pressure Pulse Oximetry Oxygen Delivery 07/03/24 04:05 07/03/24 04:45 07/03/24 05:00 Temperature 95.4 F L 95.5 F L Pulse Rate 93 Respiratory Rate 16 Blood Pressure 101/64 Pulse Oximetry 98 Oxygen Delivery 07/03/24 05:15 07/03/24 05:30 07/03/24 05:45 Temperature 95.7 F L 95.8 F L 95.9 F L Pulse Rate Respiratory Rate Blood Pressure Pulse Oximetry Oxygen Delivery 07/03/24 06:15 07/03/24 06:45 07/03/24 08:00 Temperature 97.1 F L 98.8 F Pulse Rate 98 Respiratory Rate Blood Pressure Pulse Oximetry Oxygen Delivery 07/03/24 08:52 07/03/24 09:00 07/03/24 12:00 Temperature 98.4 F Pulse Rate 104 H 97 Respiratory Rate 16 Blood Pressure 108/63 Pulse Oximetry 95 Oxygen Delivery Room Air 07/03/24 14:40 Temperature 99.1 F Pulse Rate 102 H Respiratory Rate 16 Blood Pressure 98/60 L Pulse Oximetry 98 Oxygen Delivery Exam 2 Narrative: the patient is alert oriented the time place and person. Speech is fluent and. No aphasia or dysarthria in of suggest. He the so for most parts of C6 down to his legs are paralyzed and he has ankle clonus. Results Labs 07/03/24 05:12 07/03/24 05:12 Labs: Short CBC 07/03/24 Range/Units 05:12 WBC 7.4 (4.5-10.0) K/mm3 Hgb 11.9 L (14.0-18.0) g/dL Hct 36.1 L (42.0-52.0) % Plt Count 40 L (150-375) k/mm3 BMP 07/03/24 05:12 Sodium 140 Potassium 4.5 Chloride 105 Carbon Dioxide 29 BUN 12 Creatinine 0.49 L Glucose 91 Calcium 9.0 Liver Function 07/03/24 Range/Units 05:12 Total Bilirubin 0.4 (0.2-1.3) mg/dL AST 42 (17-59) U/L ALT 78 H (6-50) U/L Alkaline Phosphatase 74 (38-126) U/L Albumin 3.3 L (3.5-5.1) g/dL
[2024-07-03 19:49] LABS: Glucose Point of Care 101 mg/dl (65-105)
[2024-07-03 20:26] LABS: Glucose Point of Care 161 mg/dl (65-105)
[2024-07-03] MEDS: NORTRIPTYLINE HCL 25 MG CAPSULE PO (21:09)
[2024-07-03] MEDS: SOLIFENACIN 5 MG TABLET 10 MG PO (21:09)
[2024-07-03] MEDS: DOCUSATE SODIUM 100 MG CAPSULE PO (21:10)
[2024-07-03] MEDS: ACIDOPHILUS/BULGARICUS CHEWABLE TABLET 1 TABLET BY MOUTH (21:10)
[2024-07-03 23:51] LABS: Glucose Point of Care 58 mg/dl (65-105)
[2024-07-04] VITALS (12 sets, daily range): BP systolic 102–127; BP diastolic 51–73; PULSE 56–86; RESP 16–18; TEMP 35.6–36.3; O2SAT 96–97
[2024-07-04 00:08] LABS: Glucose Point of Care 61 mg/dl (65-105)
--- NOTE | 2024-07-04 01:52 | PC.NURSE ---
Daylight Savings Time For Daylight Savings Time Ending in the Fall - Clocks are moved back. For Daylight Savings Time Beginning in the Spring - Clocks are moved ahead. For [facility], the time of change occurs at 0200 hrs. Time is taken from the breakfast server. This entry on the patient's chart recognizes the change in time reflected during documentation. Example: 2 entries for vital signs may be charted for 0200 hrs.
[2024-07-04] MEDS: DEXTROSE 5%/0.9% SOD CHL 1,000 ML 125 ML IV CONT ×3 (03:10→20:36)
[2024-07-04 04:24] LABS: Glucose Point of Care 81 mg/dl (65-105)
[2024-07-04] MEDS: PREGABALIN (*CRX) 50 MG CAPSULE 200 MG PO ×3 (08:37→18:17)
[2024-07-04] MEDS: levETIRAcetam IV 750 MG in DEXTROSE 5% 100 ML 430 MG IVPB ×2 (08:37→20:33)
[2024-07-04 08:38] LABS: Glucose Point of Care 78 mg/dl (65-105)
--- NOTE | 2024-07-04 09:30 | PC.NURSE ---
Ry from [employer] came and checked patient's baclofen pump.
[2024-07-04 09:34] LABS: Hematocrit 34.8 % (42.0-52.0); Hemoglobin 11.6 g/dL (14.0-18.0); Immature Platelet Fraction Pct 11.8 % (0.9-11.2); Mean Corpuscular HGB Conc 33.3 g/dl (32-36); Mean Corpuscular Hemoglobin 30.6 pg (26-34); Mean Corpuscular Volume 91.8 fl (80-100); Mean Platelet Volume 11.6 fl (7.4-10.4); Platelet Count Result 41 k/mm3 (150-375); Red Blood Count 3.79 M/mm3 (4.6-6.20); Red Cell Distribution Width 15.9 % (11.5-14.5); White Blood Count 5.2 K/mm3 (4.5-10.0)
[2024-07-04 09:44] LABS: Anion Gap 8 mmol/L (4-12); Blood Urea Nitrogen 11 mg/dL (9-20); Calcium 9.1 mg/dL (8.4-10.2); Carbon Dioxide 30 mmol/L (22-30); Chloride 104 mmol/L (98-107); Estimated CRCL calculation 150 ml/min; Estimated Glomerular Filt Rate > 60; Glucose 121 mg/dL (65-110); Magnesium 1.8 mg/dL (1.6-2.3); Potassium 3.9 mmol/L (3.4-5.0); Sodium 142 mmol/L (137-145)
[2024-07-04 11:56] LABS: Glucose Point of Care 116 mg/dl (65-105)
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
[2024-07-04 16:56] LABS: Glucose Point of Care 100 mg/dl (65-105)
[2024-07-04] MEDS: NORTRIPTYLINE HCL 25 MG CAPSULE PO (20:34)
[2024-07-04] MEDS: DOCUSATE SODIUM 100 MG CAPSULE PO (20:34)
[2024-07-04] MEDS: SOLIFENACIN 5 MG TABLET 10 MG PO (20:34)
[2024-07-04] MEDS: ACIDOPHILUS/BULGARICUS CHEWABLE TABLET 1 TABLET BY MOUTH (20:34)
[2024-07-04] MEDS: polyethylene glycoL 3350 17 GM POWD.PACK PO (20:41)
[2024-07-05] VITALS: PULSE 62
[2024-07-05 00:15] LABS: Glucose Point of Care 103 mg/dl (65-105)
[2024-07-05 04:00] VITALS: PULSE 59
[2024-07-05] MEDS: DEXTROSE 5%/0.9% SOD CHL 1,000 ML 125 ML IV CONT (04:33)
[2024-07-05 05:08] LABS: Hematocrit 31.5 % (42.0-52.0); Hemoglobin 10.3 g/dL (14.0-18.0); Immature Platelet Fraction Pct 11.5 % (0.9-11.2); Mean Corpuscular HGB Conc 32.7 g/dl (32-36); Mean Corpuscular Hemoglobin 30.2 pg (26-34); Mean Corpuscular Volume 92.4 fl (80-100); Platelet Count Result 41 k/mm3 (150-375); Red Blood Count 3.41 M/mm3 (4.6-6.20); Red Cell Distribution Width 15.5 % (11.5-14.5); White Blood Count 9.1 K/mm3 (4.5-10.0)
[2024-07-05 05:15] LABS: Anion Gap 3 mmol/L (4-12); Blood Urea Nitrogen 10 mg/dL (9-20); Calcium 8.5 mg/dL (8.4-10.2); Carbon Dioxide 30 mmol/L (22-30); Chloride 106 mmol/L (98-107); Estimated CRCL calculation 171 ml/min; Estimated Glomerular Filt Rate > 60; Glucose 123 mg/dL (65-110); Magnesium 1.6 mg/dL (1.6-2.3); Potassium 3.7 mmol/L (3.4-5.0); Sodium 139 mmol/L (137-145)
[2024-07-05 05:57] VITALS: BP 101/58; PULSE 63; RESP 16; TEMP 36.1; O2SAT 98
[2024-07-05 07:02] LABS: Glucose Point of Care 109 mg/dl (65-105)
[2024-07-05 08:00] VITALS: PULSE 62
--- NOTE | 2024-07-05 08:55 | WPDCDIQUERY2 ---
CDI Query Clarification Request Altered Mental Status Please clarify acuity of alteration in mental status: ? Acute ? Chronic ? Acute and Chronic ? Unable to determine ? Other Please clarify the underlying possible/probable/suspected cause for the altered mental status in the progress notes: ? Encephalopathy (metabolic, COVID, hepatic, hypoxic, uremic, Wernicke, other) ? Neurologic condition (CVA/TIA/NPH/seizure) ? Electrolyte/ metabolic imbalance/dehydration ? Infectious process ? Psychiatric condition ? Respiratory condition ? Dementia ? Other specified condition, please specify ? Unknown/ unable to determine The medical record reflects the following: patient was brought to the ER with confusion and lathergy, family suspected patient may had seizures, while in the room patient had a seizures, patient was given Ativan 2mg x1 and discuss with the neurologist Dr. Almazan and recommended to give Keppar and patient was given Keppra 1000mg x1, will continue Keppra at 750mg BID, Also spoke with patient pain management at [facility], as patient baclofen pump medication was increase from 506mcg to 570 mcg in May and neurologist did not suspect that increase in his baclofen would caused increase confusion as patient had been on higher dose in the past, instructed to order KUB and LS spine to check for any malfunctioning leads, KUB showed leads in appropriate place, patient temperature also dropped and patient was placed on Bear-Hugger currently his temperature is close to normal. Patient also has a pancy[place] [id number], consulted elevator installer apprentice for further recommendation. work up is in progress, MRI of brain is pending, patient mother was present in the room.
[2024-07-05] MEDS: PREGABALIN (*CRX) 50 MG CAPSULE 200 MG PO ×2 (09:13→13:45)
[2024-07-05] MEDS: MULTIVITAMINS THERAPEUTIC TAB (*BKC) 1 TABLET PO (09:13)
[2024-07-05] MEDS: VITAMIN B COMPLEX CAPSULE 1 CAP PO (09:13)
[2024-07-05] MEDS: levETIRAcetam IV 750 MG in DEXTROSE 5% 100 ML 430 MG IVPB (09:21)
--- NOTE | 2024-07-05 10:57 | WPDNEUROLOGY ---
Neurology EEG Report General Information Date of Study: 07/05/24 TEST Electroencephalogram DIAGNOSIS seizure disorder, spinal quadriplegia CONDITION OF RECORDING bedside recording EEG NUMBER [id number] CLINICAL HISTORY patient had a seizure 2 days ago and also has had a seizure about a year ago. EEG DESCRIPTION During wakefulness the background activity consists of posterior dominant rhythm in alpha range at 8-9 hertz with an amplitude of 15-30 microvolts. This appears mildly formed. Anteriorly low amplitude mixed frequency activity was seen. There is no significant anteroposterior gradient. Hyperventilation or photic stimulation were not performed. Occasional focal slowing was seen over right mid temporal area extending to central area however this appears poorly defined. IMPRESSION This is a borderline abnormal EEG due to presence of mild focal slowing over right mid temporal area extending to central area raising possibility of mild structural abnormality or deep-seated focal interictal abnormality. Clinical and radiographic correlation are recommended.
[2024-07-05 12:00] VITALS: PULSE 55
[2024-07-05] MEDS: polyethylene glycoL 3350 17 GM POWD.PACK PO (12:32)
--- NOTE | 2024-07-05 13:18 | PM.DS ---
DS: Summary Time Spent with Patient Time attestation: Total time spent providing and/or coordinating discharge services: DS: Data Data Completed and Pending Labs on day of discharge: Labs from last 24 hours 07/05/24 07/05/24 07/05/24 06:01 04:39 00:08 WBC 9.1 RBC 3.41 L Hgb 10.3 L Hct 31.5 L MCV 92.4 MCH 30.2 MCHC 32.7 RDW 15.5 H Plt Count 41 L MPV 12.0 H % Immature Plt Fraction 11.5 H Sodium 139 Potassium 3.7 Chloride 106 Carbon Dioxide 30 Anion Gap 3 L BUN 10 Creatinine 0.43 L Estim Creat Clear Calc 171 Estimated GFR > 60 Glucose 123 H POC Capillary Glucose 109 H 103 Calcium 8.5 Magnesium 1.6 07/04/24 16:51 WBC RBC Hgb Hct MCV MCH MCHC RDW Plt Count MPV % Immature Plt Fraction Sodium Potassium Chloride Carbon Dioxide Anion Gap BUN Creatinine Estim Creat Clear Calc Estimated GFR Glucose POC Capillary Glucose 100 Calcium Magnesium Discharge Plan Discharge Attending physician on discharge: Kayla Gloria Consulting providers: Aminata Almazan; Donte Neal Discharging Clinician: Kulwant Cabrera Patient Disposition: Home, Self-Care Activity: as tolerated Diet: heart healthy Discharge Instructions: patient to follow up with his neurologist, consulting practice director and PM&R, as soon as possible, patient is instructed if any symptoms worsen, seizures, bleeding or bruising, please call 911 and go to nearest ER. Patient to follow up with his primary care provider as soon as possible. Patient Instructions: Antibiotic Form Patient Language: Trinidadian Stand Alone Forms: General Discharge Information Follow-up/Referrals: Donte Neal MD [Physician] - Emerson Camarillo MD [Primary Care Provider] - Aminata Almazan MD [Physician] - Discharge Medications: New levetiracetam [Keppra] 750 mg tablet 750 mg PO BID Qty: 60 1RF Continued multivitamin Tablet 1 tablet PO DAILY polyethylene glycol 3350 [Miralax] 17 gram Powder In Packet 17 - 34 g PO HS PRN (Reason: Constipation) Rx Instructions: 1-2 packets daily nortriptyline 25 mg capsule 25 mg PO HS ibuprofen 200 mg Tablet 200 mg PO Q6H PRN (Reason: Pain (Scale Score 1-3)) vitamin B complex Capsule 1 cap PO DAILY Daily Probiotic 2.5 billion cell Capsule 1 cap PO HS docusate sodium 50 mg Capsule 100 mg PO HS cephalexin 500 mg capsule 500 mg PO Q12H 7 Days Qty: 14 0RF methadone 5 mg tablet 5 mg PO DAILY nystatin 100,000 unit/gram powder 1 applic topical TID PRN (Reason: apply to groin rash) Qty: 60 0RF sodium chloride 0.9 % (flush) [BD PosiFlush Normal Saline 0.9] Syringe 10 ml intra-catheter WEEKLY Qty: 10 1RF Rx Instructions: flush sodium chloride 0.9 % solution 1 irrig irrigation Q3-4H PRN (Reason: wound care) Qty: 1500 0RF ergocalciferol (vitamin D2) 1,250 mcg (50,000 unit) capsule See Rx Instructions .ROUTE .COMPLEX Qty: 14 0RF Dose Instruction: TAKE 1 CAPSULE BY MOUTH EVERY WEEK ON FRIDAY Rx Instructions: TAKE 1 CAPSULE BY MOUTH EVERY WEEK ON FRIDAY solifenacin [Vesicare] 10 mg tablet 10 mg PO HS Qty: 90 1RF pregabalin 200 mg capsule 200 mg PO TID Qty: 90 2RF ramelteon 8 mg tablet 8 mg PO QHS Qty: 90 1RF Date of admission: 07/02/24 08:43 Primary Care Provider: Emerson Camarillo Admitting Provider: Kayla Gloria Attending physician on admission: Kayla Gloria Condition: Stable
[2024-07-05 13:57] VITALS: BP 150/90; PULSE 100; RESP 22; TEMP 36; O2SAT 98
[2024-07-08 21:28] LABS: Platelet Ab,Indirect (IgA) NEGATIVE (NEGATIVE); Platelet Ab,Indirect (IgG) NEGATIVE (NEGATIVE); Platelet Ab,Indirect (IgM) NEGATIVE (NEGATIVE)
== END 2024-07-05 14:03 | disposition home or self-care (01) | DRG 100 ==
LOC: ANHED 18:15 → ANH3MEDSUR 19:21 → ANH2MED 20:32
PROVIDERS: Emergency Medicine; Internal Medicine Hematology & Oncology; Physician Assistant; Admitting Provider Internal Medicine; Emergency Provider Emergency Medicine; PCP Family Medicine; Visit Provider Family Medicine
DX: G40.409 Other generalized epilepsy and epileptic syndromes, not intractable, without status epilepticus (principal); G82.50 Quadriplegia, unspecified; D61.818 Other pancytopenia; K59.2 Neurogenic bowel, not elsewhere classified; J96.10 Chronic respiratory failure, unspecified whether with hypoxia or hypercapnia; F05 Delirium due to known physiological condition; R44.3 Hallucinations, unspecified; E87.5 Hyperkalemia; D69.6 Thrombocytopenia, unspecified; G62.9 Polyneuropathy, unspecified; M85.80 Other specified disorders of bone density and structure, unspecified site; G47.33 Obstructive sleep apnea (adult) (pediatric); N31.9 Neuromuscular dysfunction of bladder, unspecified; G89.4 Chronic pain syndrome; R82.81 Pyuria; R73.9 Hyperglycemia, unspecified; Z86.16 Personal history of COVID-19; Z98.1 Arthrodesis status; Z93.3 Colostomy status; S14.105S Unspecified injury at C5 level of cervical spinal cord, sequela; V89.2XXS Person injured in unspecified motor-vehicle accident, traffic, sequela; Z97.8 Presence of other specified devices
CPT/HCPCS: 36415; 70450; 70553; 74018; 76705; 80048; 80053; 80074; 81001; 82140; 82550; 82607; 82728; 82803; 82948; 83036; 83540; 83550; 83605; 83735; 84145; 84238; 84443; 85025; 85027; 85055; 85610; 85730; 86022; 86023; 87086; 93005; 95816; 96374; 99285; A9270; A9579; G0378; J1953; J2060; J7042; J7120

== ENCOUNTER 2024-07-13 16:34 | Outpatient (CLI) | payer MEDICARE, MEDICAID, SELFPAY ==
[2024-07-13 16:58] LABS: Basophils Percent Auto 0.2 % (0.2-1.2); Eosinophils Percent Auto 0.6 % (0-4.4); Hematocrit 37.9 % (42.0-52.0); Hemoglobin 12.5 g/dL (14.0-18.0); Immature Granulocyte Absolute 0.09 K/mm3 (0.00-0.031); Immature Granulocyte Percent A 1.8 % (0-0.5); Lymphocytes Percent Auto 22.2 % (18.3-44.2); Mean Corpuscular Hemoglobin 30.3 pg (26-34); Mean Platelet Volume 10.7 fl (7.4-10.4); Monocytes Absolute Auto 0.3 K/mm3 (0.1-0.6); Monocytes Percent Auto 6.5 % (2.6-8.5); Neutrophils Absolute Auto 3.4 K/mm3 (1.3-6.7); Neutrophils Percent Auto 68.7 % (45.5-73.1); Platelet Count Result 176 k/mm3 (150-375); Red Blood Count 4.12 M/mm3 (4.6-6.20); Red Cell Distribution Width 15.9 % (11.5-14.5)
--- OUTSIDE RECORDS SUMMARY | 2024-07-13 17:57 | XMS_ITS | Referral Summary ---
Author Organization [facility] Address [address] [place] [address] Care Team Providers Care Production Support Consultant Name Role Phone Rick Rodas MD Unavailable [phone] Marquita Berry DPT Unavailable [phone] Emerson Camarillo MD Primary Care Provider [phone] MD Unavailable [phone] Encounters Date Type Department Care Team Description 07/02/2024 Telephone [facility] Orthopaedic Surgery [address] [place] [address] Advanced Medicine [address]th [place] [address] [place] [address] Dayday Baker MD 06/29/2024 Telephone [facility] Orthopaedic Surgery [address] [place] [address] Advanced Medicine 12th [place] [address] [place] [address] Dayday Baker MD 06/23/2024 Results Follow-Up [facility] Orthopaedic Surgery [address] [place] [address] 12th [place] [address] [place] [address] Carolynn Garcia CMA 06/23/2024 Orders Only [facility] Orthopaedic Surgery [address] [place] [address] 12th [place] [address] [place] [address] Dayday Baker MD Acute UTI (urinary tract infection) (Primary Dx); Neurogenic bladder; Suprapubic catheter (HCC) 06/21/2024 2:16 PM STANDPIPE TENDER - 06/21/2024 11:59 PM STANDPIPE TENDER Hospital Encounter [address] [address] Neurogenic bladder; Acute UTI (urinary tract infection) Discharge Disposition: Discharge to home or self care 06/21/2024 12:15 PM STANDPIPE TENDER Office Visit [facility] Orthopaedic [address] [place] [address] [place] [address] Dayday Baker MD Muscle spasticity (Primary Dx); Obstruction of suprapubic catheter, subsequent encounter; Neurogenic bladder; Acute UTI (urinary tract infection); Presence of intrathecal baclofen pump; Tetraplegia (HCC) 06/02/2024 Orders Only [address] [place] [address] [place] [address] Dayday Baker MD 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HCC) (Primary Dx) 06/02/2024 11:45 AM STANDPIPE TENDER Procedure visit [address] [place] [address] [place] [address] Dayday Baker MD Tetraplegic (HCC) (Primary Dx); 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HCC); Presence of intrathecal baclofen pump; Suprapubic catheter (HCC); Neurogenic bladder 05/31/2024 Orders Only [address] [place] [address] [place] [address] Dayday Baker MD 05/11/2024 Telephone [facility] Orthopaedic [address] [place] [address] [place] [address] Dayday Baker MD 04/15/2024 Orders Only [address] [place] [address] [place] [address] Dayday Baker MD Spasticity (Primary Dx); Presence of intrathecal baclofen pump; 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HCC) from Last 3 Months Allergies Active Allergy Reactions Criticality Noted Date Comments Adhesive Rash Medium Medications docusate sodium (COLACE) 100 mg capsule Take 2 capsules (200 mg total) by mouth nightly 200-400mg Active cholecalciferol (VITAMIN D-3) 5,000 unit tablet Take 1 tablet (5,000 Units total) by mouth every morning 5 Active omega 8-ymv-lwd-fish oil 120-180-500 mg capsule Take 2 tablets [...] mcgIndications:Spastic ity,Presence of intrathecal baclofen pump,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HCC) 23291 mcg intrathec Continuous 06/02/2024 Active onabotulinumtoxin A (BOTOX) injection 200 UnitsIndications:Spast ic tetraplegia (HCC) 200 Units IM Once 06/21/2024 06/21/2024 Ende d Active Problems Problem Noted Date Diagnosed Date Tetraplegic 05/05/2023 Other osteoporosis without current pathological fracture 10/04/2020 Bladder stones 09/06/2020 Overview (09/06/2020): Added automatically from request for surgery [id number] Autonomic dysfunction 01/04/2020 Screening for malignant neoplasm of colon 2018 Overview (02/26/2019): Added automatically from request for surgery [id number] Colostomy in place 02/26/2019 Overview (02/26/2019): Added automatically from request for surgery [id number] Obstruction of suprapubic catheter 12/29/2018 Overview (12/29/2018): Added automatically from request for surgery [id number] Skin sensitivity 08/17/2018 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 Neuropathic pain 04/08/2018 Colostomy care 02/09/2018 Muscle spasm 01/07/2018 Spasticity 10/15/2017 Muscle spasticity 10/10/2017 Tetraplegia 10/10/2017 Presence of intrathecal baclofen pump 10/10/2017 [...] on file Legal Sex Male 12:56 PM STANDPIPE TENDER Gender Identity Not on file Sexual Orientation Not on file Last Filed Vital Signs Vital Sign Reading Time Taken Comments Blood Pressure 76/53 06/02/2024 11:53 AM STANDPIPE TENDER Pulse 40 06/02/2024 11:53 AM STANDPIPE TENDER Temperature 36 C (96.8 F) 01/21/2024 11:15 AM CDT Respiratory Rate 18 06/21/2024 12:28 PM STANDPIPE TENDER Oxygen Saturation 96% 01/21/2024 11:15 AM CDT Inhaled Oxygen Concentration - - Weight 74.8 kg (165 lb) 06/21/2024 12:28 PM STANDPIPE TENDER Height 170.2 cm (5' 7 ) 06/21/2024 12:28 PM STANDPIPE TENDER Body Mass Index 25.84 06/21/2024 12:28 PM STANDPIPE TENDER Plan of Treatment Not on file Goals Goal Patient Goal Type Associated Problems Recent Progress Patient-Stated? Author CCM Chronic Pain Care Plan Chronic Care Management Improving( 3:32 PM STANDPIPE TENDER) Lynette Siddiqi RN Note: Problem: Chronic Pain Goals: 1. Minimize further functional decline 2. Maximize quality of life 3. Control pain Strategies: - Activity/exercise program recommendation - Conservative stepwise pain medicine strategy with multi-disciplinary approach - Recommend healthy lifestyle strategies and compensatory methods as needed Medical Devices Implanted Type Area Video Effects Editor Device Identifier Shelf Expiration Date Model / Serial / Lot Baclofen Pain Pump Abdomen MED[employer] SYNCHROMED II / / Hardware Neck [employer] Synchromed Ii [place] Catheter Access Port Suture Loop [id number] - [id number] - [id number] Implanted:Qty: 1 on 08/29/2023 by Segundo Black MD at [facility] Right: Abdomen Med[employer] Inc 01/23/2025 [id number] / [id number] / [employer] Inc Sutureless Connector Revision Catheter Kit Intrathecal Pump [id number] - [id number] Implanted:Qty: 1 on 08/29/2023 by Segundo Black MD at [facility] Right: Abdomen Med[employer] Inc 02/27/2025 [id number] / / [id number] Procedures Procedure Name Priority Date/Time Associated Diagnosis Comments URINALYSIS, MICROSCOPIC ONLY Routine 06/21/2024 1:50 PM STANDPIPE TENDER Neurogenic bladder Acute UTI (urinary tract infection) URINE CULTURE Routine 06/21/2024 1:50 PM STANDPIPE TENDER URINALYSIS AND REFLEX TO MICROSCOPIC AND CULTURE Routine 06/21/2024 1:50 PM STANDPIPE TENDER Neurogenic bladder Acute UTI (urinary tract infection) BOTOX INJECTION Routine 06/21/2024 12:15 PM STANDPIPE TENDER Muscle spasticity from Last 3 Months Results * (ABNORMAL) Urinalysis reflex to microscopic and culture Urine, suprapubic catheter (06/21/2024 1:50PM STANDPIPE TENDER) Color, ur Straw Yellow Clarity, ur Cloudy(A) Clear [facility] Specific gravity, ur 1.006 1.003 - 1.030 [facility] pH, urine 6.5 [facility] Comment: Interpretive Data U rine pH is affected by diet, medications, systemic acid-base disturbances, and renal tubular function. pH may affect urinary stone formation. For example, urine pH below 6.0 may help reduce the tendency for calcium phosphate stones and pH greater than 6.0 may reduce the tendency for uric acid stone formation. Source: [facility] Current Interpretive Data was last revised on 2017 Protein, ur ql Negative Negative [facility] Glucose, ur ql Negative Negative [facility] Ketones, ur Negative Negative [facility] Bilirubin, ur Negative Negative [facility] Blood, ur Trace(A) Negative [facility] Urobilinogen, ur <2.0 <2.0 mg/dL [facility] Nitrite, ur Positive(A) Negative [facility] Leukocyte esterase, ur 3+(A) Negative [facility] UA reflex comment Reflex to microscopic UA will be performed. [facility] Urine, suprapubic catheter 06/21/2024 1:50 PM STANDPIPE TENDER 06/21/2024 3:44 PM STANDPIPE TENDER Dayday Baker MD LAB MICROBIOLOGY - GENERAL ORD ERABLES Final Result [facility] Department [place] [address] * (ABNORMAL) Urinalysis, microscopic only (06/21/2024 1:50 PM STANDPIPE TENDER) WBC, ur 21-50(A) 0 - 5 /HPF RBC, ur 0-2 0 - 2 /HPF [facility] Bacteria, ur 1+(A) [facility] Mucous, ur Present(A) [facility] Culture Reflex Comment Reflex to urine culture will be performed. [facility] Urine, suprapubic catheter 06/21/2024 1:50 PM STANDPIPE TENDER 06/21/2024 3:44 PM STANDPIPE TENDER Dayday Baker MD LAB URINE ORDERABLES Final Res ult Performing Organization Address [facility] Co de Phone Number [facility] Department [place] [address] * (ABNORMAL) Urine culture Urine, suprapubic catheter (06/21/2024 1:50 PM STANDPIPE TENDER) Report Final Report: Growth indicates contamination with mixed bacterial marga. Please submit a new specimen with special attention given to the collection process and to prompt transport to the laboratory. (.) Organism GROWTH INDICATES CONTAMINATION WITH MIXED MARGA. [facility] Urine, suprapubic catheter 06/21/2024 1:50 PM STANDPIPE TENDER 06/21/2024 5:50 PM STANDPIPE TENDER Narrative [facility] - 06/23/2024 11:42 AM STANDPIPE TENDER Urine culture reflexed based upon urinalysis results. Testing performed by [facility] ([phone]) us Dayday Baker MD LAB MICROBIOLOGY - GENERAL ORD ERABLES Final Result Performing Organization Address [facility] Co de Phone Number [facility] Department [place] [address] * Botox Injection (06/21/2024 12:15 PM STANDPIPE TENDER) Narrative Dayday Baker MD - 06/21/2024 12:15 PM STANDPIPE TENDER Dayday Baker MD 06/25/2024 7:25 PM Botox Injection Performed by: Dayday Baker MD Authorized by: Dayday Baker MD [place] Protocol: Consent Given by: Patient Site marked: the procedure site was marked Timeout: prior to procedure the correct patient, procedure, and site was verified Procedure Details - Botox Injection: Procedure Details: Buy and Bill Botox 200 Units onabotulinumtoxin A (botulinum toxin type A, BOTOX) 100 unit injection us Dayday Baker MD IN CLINIC/BEDSIDE ORDERABLES F inal Result from Last 3 Months Insurance [employer] MEDICARE [employer] MEDICARE SOLUTIONS [employer] Advance Directives For more information, please contact: [phone] * LIMITED - No CPR (Latest Code Status on File) Date Activated Date Inactivated Comments 05/05/2023 11:25 PM 05/08/2023 11:52 PM * Full Code Date Activated Date Inactivated Comments 05/05/2023 10:50 PM 05/05/2023 11:25 PM * Full Code Date Activated Date Inactivated Comments 03/29/2019 11:00 AM 03/29/2019 5:48 PM Care Teams Production Support Consultant Relationship Specialty Start Date End Date Emerson Camarillo MD [address] [place] [address] PCP - General Family Practice 01/14/23 Rick Rodas MD [address] [facility] [id number] [place] [address] Surgeon Colon and Rectal Surgery 06/08/21 Marquita Berry DPT [address] [place] [address] Physical Therapist Physical Therapy 01/06/[address] MD [address] [facility] [place] [address] Consulting Physician Pain Management 06/24/18 TARSHA PULLIAM APN [id number] [facility] [id number] Wound Care Nurse Wound Care 05/15/18
--- OUTSIDE RECORDS SUMMARY | 2024-07-13 17:57 | XMS_ITS | Clinical Summary ---
Author Organization [facility] Address [address] [place] [address] Care Team Providers Care Knitted Goods Shaper Name Role Phone Rick Rodas MD Unavailable [phone] Marquita Berry DPT Unavailable [phone] Emerson Camarillo MD Primary Care Provider [phone] MD Unavailable Allergies Active Allergy Reactions Criticality Noted Date Comments Adhesive Rash Medium Medications docusate sodium (COLACE) 100 mg capsule Take 2 capsules (200 mg total) by mouth nightly 200-400mg Active cholecalciferol (VITAMIN D-3) 5,000 unit tablet Take 1 tablet (5,000 Units total) by mouth every morning 5 Active omega 7-mjo-yhj-fish oil 120-180-500 mg capsule Take 2 tablets [...] ity,Presence of intrathecal baclofen pump,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HCC) 67783 mcg intrathec Continuous 06/02/2024 Active onabotulinumtoxin A (BOTOX) injection 200 UnitsIndications:Spast ic tetraplegia (HCC) 200 Units IM Once 06/21/2024 06/21/2024 Ende d Active Problems Problem Noted Date Diagnosed Date Tetraplegic 05/05/2023 Other osteoporosis without current pathological fracture 10/04/2020 Bladder stones 09/06/2020 Overview (09/06/2020): Added automatically from request for surgery [id number] Autonomic dysfunction 01/04/2020 Screening for malignant neoplasm of colon 2018 Overview (02/26/2019): Added automatically from request for surgery [id number] Colostomy in place 02/26/2019 Overview (02/26/2019): Added automatically from request for surgery [id number] Obstruction of suprapubic catheter 12/29/2018 Overview (12/29/2018): Added automatically from request for surgery [id number] Skin sensitivity 08/17/2018 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 Neuropathic pain 04/08/2018 Colostomy care 02/09/2018 Muscle spasm 01/07/2018 Spasticity 10/15/2017 Muscle spasticity 10/10/2017 Tetraplegia 10/10/2017 Presence of intrathecal baclofen pump 10/10/2017 Neurogenic bladder 10/10/2017 Osteoporosis 10/06/2017 Encounters Date Type Department Care Team Description 07/02/2024 Telephone [facility] Orthopaedic Surgery [address] [facility] [address]th [place] [address] [place] [address] Dayday Baker MD 06/29/2024 Telephone [facility] Orthopaedic Surgery [address] [facility] 12th [place] [address] [place] [phone] Dayday Baker MD 06/23/2024 Results Follow-Up [facility] Orthopaedic Surgery [address] [place] [address] [address]th [place] [address] [place] [address] Carolynn Garcia CMA 06/23/2024 Orders Only [facility] Orthopaedic Surgery [address] [place] [address] 12th [place] [address] Dayday Baker MD Acute UTI (urinary tract infection) (Primary Dx); Neurogenic bladder; Suprapubic catheter (HCC) 06/21/2024 2:16 PM [employer] - 06/21/2024 11:59 PM [employer] Hospital Encounter [address] [address] Neurogenic bladder; Acute UTI (urinary tract infection) Discharge Disposition: Discharge to home or self care 06/21/2024 12:15 PM [employer] Office Visit [facility] Orthopaedic Surgery [address] [place] [address] [place] [address] [place] [address] Dayday Baker MD Muscle spasticity (Primary Dx); Obstruction of suprapubic catheter, subsequent encounter; Neurogenic bladder; Acute UTI (urinary tract infection); Presence of intrathecal baclofen pump; Tetraplegia (HCC) 06/02/2024 11:45 AM [employer] Procedure visit [facility] Orthopaedic Surgery [address] [place] [address] [place] [address] [place] [address] Dayday Baker MD Tetraplegic (HCC) (Primary Dx); 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HCC); Presence of intrathecal baclofen pump; Suprapubic catheter (HCC); Neurogenic bladder 06/02/2024 Orders Only [facility] Orthopaedic Surgery [address] [place] [address] [place] [address] [place] [address] Dayday Baker MD 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HCC) (Primary Dx) 05/31/2024 Orders Only [facility] Orthopaedic Surgery [address] [place] [address] [place] [address] [place] [address] Dayday Baker MD 05/11/2024 Telephone [facility] Orthopaedic Surgery [address] [place] [address] [address]th [place] [address] [place] [address] Dayday Baker MD 04/15/2024 Orders Only [facility] Orthopaedic Surgery [address] [facility] 12th [place] [address] [place] [address] Dayday Baker MD Spasticity (Primary Dx); Presence of intrathecal baclofen pump; 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HCC) from Last 3 Months Surgical History [...] C4/5, incomplete Anal fissure Neuropathic pain Quadriplegia (HCC) GERD (gastroesophageal reflux disease) Anemia Neurogenic bowel Neurogenic bladder Chronic pain Spinal cord injury at C1-C4 level without injury of spinal bone (HCC) 02/2004 C4/5 , incomplete - quadriplegic w some movement in LUE and 'phantom [...] on file Legal Sex Male 12:56 PM [employer] Gender Identity Not on file Sexual Orientation Not on file Obstetrics History Last Filed Vital Signs Vital Sign Reading Time Taken Comments Blood Pressure 76/53 06/02/2024 11:53 AM [employer] Pulse 40 06/02/2024 11:53 AM [employer] Temperature 36 C (96.8 F) 01/21/2024 11:15 AM CDT Respiratory Rate 18 06/21/2024 12:28 PM [employer] Oxygen Saturation 96% 01/21/2024 11:15 AM CDT Inhaled Oxygen Concentration - - Weight 74.8 kg (165 lb) 06/21/2024 12:28 PM [employer] Height 170.2 cm (5' 7 ) 06/21/2024 12:28 PM [employer] Body Mass Index 25.84 06/21/2024 12:28 PM [employer] Plan of Treatment Health Maintenance Due Date [...] Plan Chronic Care Management Improving( 3:32 PM [employer]) Lynette Siddiqi RN Note: Problem: Chronic Pain Goals: 1. Minimize further functional decline 2. Maximize quality of life 3. Control pain Strategies: - Activity/exercise program recommendation - Conservative stepwise pain medicine strategy with multi-disciplinary approach - Recommend healthy lifestyle strategies and compensatory methods as needed Medical Devices Implanted Type Area Manager Package Device Identifier Shelf Expiration Date Model / Serial / Lot Baclofen Pain Pump Abdomen MED[employer] SYNCHROMED II / / Hardware Neck [employer] Synchromed Ii [place] Catheter Access Port Suture Loop [id number] - [id number] - [id number] Implanted:Qty: 1 on 08/29/2023 by Segundo Black MD at [facility] Right: Abdomen [employer] Inc 01/23/2025 [id number] / [id number] / [employer] Sutureless Connector Revision Catheter Kit Intrathecal Pump [id number] - [id number] Implanted:Qty: 1 on 08/29/2023 by Segundo Black MD at [facility] Right: Abdomen [employer] Inc 02/27/2025 [id number] / / [id number] Procedures Procedure Name Priority Date/Time Associated Diagnosis Comments URINALYSIS, MICROSCOPIC ONLY Routine 06/21/2024 1:50 PM [employer] Neurogenic bladder Acute UTI (urinary tract infection) URINE CULTURE Routine 06/21/2024 1:50 PM [employer] URINALYSIS AND REFLEX TO MICROSCOPIC AND CULTURE Routine 06/21/2024 1:50 PM [employer] Neurogenic bladder Acute UTI (urinary tract infection) BOTOX INJECTION Routine 06/21/2024 12:15 PM [employer] Muscle spasticity from Last 3 Months Results * (ABNORMAL) Urinalysis reflex to microscopic and culture Urine, suprapubic catheter (06/21/2024 1:50PM [employer]) Color, ur Straw Yellow Clarity, ur Cloudy(A) Clear [facility] Specific gravity, ur 1.006 1.003 - 1.030 [facility] pH, urine 6.5 [facility] Comment: Interpretive Data U rine pH is affected by diet, medications, systemic acid-base disturbances, and renal tubular function. pH may affect urinary stone formation. For example, urine pH below 6.0 may help reduce the tendency for calcium phosphate stones and pH greater than 6.0 may reduce the tendency for uric acid stone formation. Source: [facility] Current Interpretive Data was last revised on 2017 Protein, ur ql Negative Negative [facility] Glucose, ur ql Negative Negative [facility] Ketones, ur Negative Negative [facility] Bilirubin, ur Negative Negative [facility] Blood, ur Trace(A) Negative [facility] Urobilinogen, ur <2.0 <2.0 mg/dL [facility] Nitrite, ur Positive(A) Negative [facility] Leukocyte esterase, ur 3+(A) Negative [facility] UA reflex comment Reflex to microscopic UA will be performed. [facility] Urine, suprapubic catheter 06/21/2024 1:50 PM [employer] 06/21/2024 3:44 PM [employer] Dayday Baker MD LAB MICROBIOLOGY - GENERAL ORD ERABLES Final Result Performing Organization Address City/[facility]/ZIP Co de Phone Number [facility] [place] [address] * (ABNORMAL) Urinalysis, microscopic only (06/21/2024 1:50 PM [employer]) WBC, ur 21-50(A) 0 - 5 /HPF RBC, ur 0-2 0 - 2 /HPF [facility] Bacteria, ur 1+(A) [facility] Mucous, ur Present(A) [facility] Culture Reflex Comment Reflex to urine culture will be performed. [facility] Urine, suprapubic catheter 06/21/2024 1:50 PM [employer] 06/21/2024 3:44 PM [employer] us Dayady Baker MD LAB URINE ORDERABLES Final Res ult [facility] [place] [address] * (ABNORMAL) Urine culture Urine, suprapubic catheter (06/21/2024 1:50 PM [employer]) Report Final Report: Growth indicates contamination with mixed bacterial marga. Please submit a new specimen with special attention given to the collection process and to prompt transport to the laboratory. (.) Organism GROWTH INDICATES CONTAMINATION WITH MIXED MARGA. [facility] Urine, suprapubic catheter 06/21/2024 1:50 PM [employer] 06/21/2024 5:50 PM [employer] Narrative [facility] - 06/23/2024 11:42 AM [employer] Urine culture reflexed based upon urinalysis results. Testing performed by [facility] ([phone]) us Dayday Baker MD LAB MICROBIOLOGY - GENERAL ORD ERABLES Final Result [facility] Department [place] [address] * Botox Injection (06/21/2024 12:15 PM [employer]) Narrative Dayday Baker MD - 06/21/2024 12:15 PM [employer] Dayday Baker MD 06/25/2024 7:25 PM Botox Injection Performed by: Dayday Baker MD Authorized by: Dayday Baker MD [place] Protocol: Consent Given by: Patient Site marked: the procedure site was marked Timeout: prior to procedure the correct patient, procedure, and site was verified Procedure Details - Botox Injection: Procedure Details: Buy and Bill Botox 200 Units onabotulinumtoxin A (botulinum toxin type A, BOTOX) 100 unit injection us Dayday Baker MD IN CLINIC/BEDSIDE ORDERABLES F inal Result from Last 3 Months Insurance IDPA MEDICARE [employer] MEDICARE SOLUTIONS [facility] IDPA MEDICARE SOLUTIONS [facility] MEDICARE Address: [address] [address] [place] [address] Advance Directives For more information, please contact: [phone] * LIMITED - No CPR (Latest Code Status on File) Date Activated Date Inactivated Comments 05/05/2023 11:25 PM 05/08/2023 11:52 PM * Full Code Date Activated Date Inactivated Comments 05/05/2023 10:50 PM 05/05/2023 11:25 PM * Full Code Date Activated Date Inactivated Comments 03/29/2019 11:00 AM 03/29/2019 5:48 PM Care Teams Knitted Goods Shaper Relationship Specialty Start Date End Date Emerson Camarillo MD [address] [facility] [address] [place] [address] PCP - General Family Practice 01/14/23 Rick Rodas MD [address] [facility] [phone] [place] [address] Surgeon Colon and Rectal Surgery 06/08/21 Marquita Berry DPT [address] [place] [address] Physical Therapist Physical Therapy 01/06/[address] MD [address] [facility] [place] [address] Consulting Physician Pain Management 06/24/18 TARSHA PULLIAM APN [id number] [facility] [id number] Wound Care Nurse Wound Care 05/15/18
--- OUTSIDE RECORDS SUMMARY | 2024-07-13 17:57 | XMS_ITS | Encounter Summary ---
Author Organization [facility] Address [address] [place] [address] Phone Care Team Providers Care Cloth Spreader Name Role Phone Destiney, Zander CHAPMAN Primary Care Provider [phone] Rick Rodas MD Unavailable [phone] Nicolás Elena MD Primary Care Provider [phone] Emerson Camarillo MD Primary Care Provider [phone] Marquita Berry DPT Unavailable [phone] Emerson Camarillo MD Primary Care Provider [phone] Tiffany Sheppard RN Unavailable Heidi Lane MD Unavailable [phone] Encounter Details Date Type Department Care Team (Late st Contact Info) Description 10/04/2020 Treatment [facility] [address] [facility] Medical [facility] Building [address] [place] [address] Cale Morris MD [facility] [address] [address] Social History Tobacco Use Types [...] on file 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 Author CCM Chronic Pain Care Plan Chronic Care Management Improving( 3:32 PM FRUIT LOADER MACHINE OPERATOR) Lynette Siddiqi RN Note: Problem: Chronic [...] COVID: Suspected 05/05/2023 05/05/2023 05/05/2023 2:35 PM FRUIT LOADER MACHINE OPERATOR documented as of this encounter Care Teams Cloth Spreader Relationship Specialty Start Date End Date Zander Cabello DO PCP - General Internal Medicine 04/08/18 06/19/22 Nicolás Elena MD [address] [facility] [phone] [place] [address] PCP - General Internal Medicine 06/20/22 01/07/23 Emerson Camarillo MD [address] [facility] [phone] [place] [address] PCP - General Family Practice 01/08/23 01/08/23 Emerson Camarillo MD [address] [facility] [phone] [place] [address] PCP - General Family Practice 01/14/23 Rick Rodas MD [address] [facility] [phone] [place] [address] Surgeon Colon and Rectal Surgery 06/08/21 Marquita Berry DPT [address] [facility] [address] [place] [address] Physical Therapist Physical Therapy 01/06/23 Tiffany Sheppard RN [address] [facility] [address] [place] [address] SHOP Outpatient Manager Implementation 05/09/23 06/05/[address] MD [address] [facility] [place] [address] Consulting Physician Pain Management 06/24/18 TARSHA PULLIAM APN [id number] [facility] [id number] Wound Care Nurse Wound Care 05/15/18 documented as of this encounter
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
--- OUTSIDE RECORDS SUMMARY | 2024-07-13 17:57 | XMS_ITS | Encounter Summary ---
Author Organization [facility] Address [address] [place] [address] Phone Care Team Providers Care Coarse Wire Drawer Name Role Phone Rick Rodas MD Unavailable [phone] Marquita Berry DPT Unavailable [phone] Emerson Camarillo MD Primary Care Provider [phone] MD Unavailable Encounter Details Date Type Department Care Team (Late st Contact Info) Description 06/23/2024 Results Follow-Up [facility] Orthopaedic Surgery [address] [facility] 12th [place] [address] [place] [address] Carolynn Garcia, [facility] Social History Tobacco Use Types Packs/Day Years [...] on file 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 He asked that the new UA order be sent to [facility]. New order faxed to [phone]. clt INE ATTENDANT documented in this encounter Plan of Treatment Not on file documented as of this encounter Goals Goal Patient Goal Type Associated Problems Recent Progress Patient-Stated? Author CCM Chronic Pain Care Plan Chronic Care Management Improving( 3:32 PM TURBINE ATTENDANT) Lynette Siddiqi RN Note: Problem: Chronic Pain Goals: 1. Minimize further functional decline 2. Maximize quality of life 3. Control pain Strategies: - Activity/exercise program recommendation - Conservative stepwise pain medicine strategy with multi-disciplinary approach - Recommend healthy lifestyle strategies and compensatory methods as needed documented as of this encounter Visit Diagnoses Not on filedocumented in this encounter Care Teams Coarse Wire Drawer Relationship Specialty Start Date End Date Emerson Camarillo MD [address] [place] [address] PCP - General Family Practice 01/14/23 Rick Rodas MD [id number] [place] [address] Surgeon Colon and Rectal Surgery 06/08/21 Marquita Berry DPT [address] [place] [address] Physical Therapist Physical Therapy 01/06/[address] MD [address] [facility] [place] [address] Consulting Physician Pain Management 06/24/[id number] [facility] [id number] Wound Care Nurse Wound Care 05/15/18 documented as of this encounter
--- OUTSIDE RECORDS SUMMARY | 2024-07-13 17:57 | XMS_ITS | Encounter Summary ---
Author Organization [facility] Address [address] [place] [address] Phone Care Team Providers Care Water Pump Assembler Name Role Phone Rick Rodas MD Unavailable [phone] Marquita Berry DPT Unavailable [phone] Emerson Camarillo MD Primary Care Provider [phone] MD Unavailable Encounter Details Date Type Department Care Team (Late st Contact Info) Description 06/29/2024 Telephone [facility] Orthopaedic Surgery [address] [facility] [address]th [place] [address] [place] [address] Dayday Baker MD [address] [facility] [address] [place] [address] Social History Tobacco Use Types Packs/Day Years [...] on file 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 Baker. Alanna - [phone]. clt N PLANNING TEACHER documented in this encounter Plan of Treatment Not on file documented as of this encounter Goals Goal Patient Goal Type Associated Problems Recent Progress Patient-Stated? Author CCM Chronic Pain Care Plan Chronic Care Management Improving( 3:32 PM URBAN PLANNING TEACHER) Lynette Siddiqi, ALEJO Note: Problem: Chronic Pain Goals: 1. Minimize further functional decline 2. Maximize quality of life 3. Control pain Strategies: - Activity/exercise program recommendation - Conservative stepwise pain medicine strategy with multi-disciplinary approach - Recommend healthy lifestyle strategies and compensatory methods as needed documented as of this encounter Visit Diagnoses Not on filedocumented in this encounter Care Teams Water Pump Assembler Relationship Specialty Start Date End Date Emerson Camarillo MD [address] [place] [address] PCP - General Family Practice 01/14/23 Rick Rodas MD [id number] [place] [address] Surgeon Colon and Rectal Surgery 06/08/21 Marquita Berry, VIVEKT [address] [place] [address] Physical Therapist Physical Therapy 01/06/[address] MD [address] [facility] [place] [address] Consulting Physician Pain Management 06/24/18 TARSHA PULLIAM APN [id number] [facility] [id number] Wound Care Nurse Wound Care 05/15/18 documented as of this encounter
--- OUTSIDE RECORDS SUMMARY | 2024-07-13 17:57 | XMS_ITS | Encounter Summary ---
Author Organization [facility] Address [address] [place] [address] Phone Care Team Providers Care Vocational Evaluator Name Role Phone Rick Rodas MD Unavailable [phone] Nicolás Elena MD Primary Care Provider [phone] Emerson Camarillo MD Primary Care Provider [phone] Marquita Berry DPT Unavailable [phone] Emerson Camarillo MD Primary Care Provider [phone] Tiffany Sheppard RN Unavailable Heidi Lane MD Unavailable Encounter Details Date Type Department Care Team (Late st Contact Info) Description 12/19/[address] [place] [address] Cale Morris MD [facility] [address] Social History Tobacco Use Types [...] on file Legal 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 Author CCM Chronic Pain Care Plan Chronic Care Management Improving( 3:32 PM SCRAP WORKER) Lynette Siddiqi RN Note: Problem: Chronic Pain [...] COVID: Suspected 05/05/2023 05/05/2023 05/05/2023 2:35 PM SCRAP WORKER documented as of this encounter Care Teams Vocational Evaluator Relationship Specialty Start Date End Date Nicolás Elena MD [address] [facility] [phone] [place] [address] PCP - General Internal Medicine 06/20/22 01/07/23 Emerson Camarillo MD [address] [facility] [phone] [place] [address] PCP - General Family Practice 01/08/23 01/08/23 Emerson Camarillo MD [address] [facility] [phone] [place] [address] PCP - General Family Practice 01/14/23 Rick Rodas MD [address] [facility] [phone] [place] [address] Surgeon Colon and Rectal Surgery 06/08/21 Marquita Berry DPT [address] [place] [address] Physical Therapist Physical Therapy 01/06/23 Tiffany Sheppard, ALEJO [address] [facility] [address] [place] [address] SHOP Outpatient Hearing Aid Assistant 05/09/23 06/05/[address] MD [address] [facility] [place] [address] Consulting Physician Pain Management 06/24/18 TARSHA PULLIAM APN [id number] [facility] [id number] Wound Care Nurse Wound Care 05/15/18 documented as of this encounter
--- OUTSIDE RECORDS SUMMARY | 2024-07-13 17:57 | XMS_ITS | Data Portability ---
Author Organization [email or web address], Main Office Address [address] [place] [address] Assessment No assessment recorded. Plan of Treatment Reminders Order Date Submit Date Provider Last Modified By Organization Details Last Modified Time Details Appointments Any 15 025 03:00PM Ronald Lemons DPM Not available Not available Not available Lab None record ed. Referral None record ed. Procedures None record ed. Surgeries None record ed. Imaging None record ed. Medication Orders None record ed. Patient TargetsNo targets recorded. Patient InstructionsNo instructions recorded. Reason for Referral None Reported. Procedures Surgical History Date Name Laterality Status Provider Name and Address Organization Details Recorded Time 4 Nail Debridement completed Ronald Lemons DPM [address], [place], [address], [email or web address] 04/19/2024 08:34:35 4 Nail Debridement completed Ronald Lemons DPM [address], [place], [address], [email or web address] 01/20/2024 09:04:07 4 Callus Debridement 2-4 completed Ronald Lemons DPM [address], [address], [place], [address], [email or web address] 01/20/2024 09:04:15 4 Nail Debridement completed Ronald Lemons DPM [address], [address], [place], [address], [email or web address] 10/14/2023 10:16:40 Imaging Results None recorded. Procedure [...] active Not Available Not Available Not Available famotidine 40 mg tablet TAKE 1 TABLET BY MOUTH [...] Not Available Not Available No t Available clobetasol 0.05 % topical cream APPLY TOPICALLY TO THE AFFECTED AREA TWICE DAILY active [...] TAKE 1 TABLET BY MOUTH EVERY DAY AT BEDTIME FOR SLEEP active Not Available Not Available No t [...] Available No t Available FreeStyle Erich 3 [place] FOLLOW PACKAGE DIRECTIONS active Not Available Not Available N ot Available Vitals Date Recorded Body height Body mass index (BMI) Body weight Provider Name and Address Organization Details Last Updated DateTime 10/13/2023 172.72 cm 24.3 kg/m2 94271.78 g KENDRA Mor[place]aya [employer] [facility] [facility] 10/13/2023 16:21:09 Date Recorded Body height Body mass index (BMI) Body weight Oxygen saturation Oxygen saturation in Arterial blood by Pulse oximetry Body temperature Heart rate Provider Name and Address Organization Details Last Updated DateTime 4 172.72 cm 24.3 kg/m2 80609.7 8 g 98 % 98 % 98.2 [degF] 77 /min KENDRA Mor[employer] [facility] [employer] [facility] 4 12:38:35 Date Recorded Body height Body mass index (BMI) Body weight Oxygen saturation Oxygen saturation in Arterial blood by Pulse oximetry Body temperature Heart rate Provider Name and Address Organization Details Last Updated DateTime 4 172.72 cm 24.3 kg/m2 44812.7 8 g 97 % 97 % 98.1 [degF] 79 /min KENDRA [employer] [facility] [facility] 4 12:55:35 Social History Question Answer Notes LastModified by Organizat ion Details LastModified Time Tobacco Smoking Status Never Smoker KENDRA Morataya [facility] [facility] 10/13/2023 16:21:59 What Is Your Level Of Alcohol Consumption? None [email or web address] Information not available 10/13/2023 What Is Your Level Of Caffeine Consumption? Moderate [email or web address] Information not available 10/13/2023 What Was The Date Of Your Most Recent Tobacco Screening? 01/19/2024 [email or web address] Information not available 01/19/2024 Do You Use Any Illicit Or Recreational Drugs? No [email or web address] Information not available 10/13/2023 Has Tobacco Cessation Counseling Been Provided? No Information not available 10/13/2023 Do You Or Have You Ever Used Any Other Forms Of Tobacco Or Nicotine? No [email or web address] Information not available 10/13/2023 Sex: Unknown Functional Status None recorded. Mental Status None recorded. Family History Nothing Reported. Medical History Condition Response HYPERTENSION Y DIZZINESS Y Past Encounters Encounter ID Performer Location Encounter Start Date Encounter Closed Date Diagnosis/Indication Diagnosis SNOMED-CT Code Diagnosis ICD10 Code Diagnosis Note [id number] Ronald Lemons DPM [facility] [place] [address] [place] [address] 18483-979 1 10/13/2023 16:11:02 12/05/2023 04:00:41 [id number] Ronald Lemons DPM [facility] [place] [address] [place] [address]405-[address] 1 01/19/2024 12:37:03 02/21/2024 04:08:09 [id number] Ronald Lemons DPM [facility] [place] [address] [place] [address]83-719 1 04/16/2024 12:43:07 04/23/2024 04:07:33 Health Concerns Section Related Observation LastModified by Organization Detai ls LastModified Time None Recorded Concern Status LastModified by Organization Details LastModified Time None Recorded Advance Directives Directive None Recorded Payers Encounter Date Sequence Insurance Name Policy Number Policy Mcgregor Covered Member ID Mcgregor Member ID Guarantor Name 10/13/2023 1 [facility] (MEDICARE REPLACEMENT/AD VANTAGE - HMO) [id number] Segundo Wetzel [id number] Segundo Wetzel 10/13/2023 2 [place]ARE OR MEDICARE REPLACEMENT PRIMARY) Segundo Wetzel [id number] Segundo Wetzel 01/19/2024 1 [facility] (MEDICARE REPLACEMENT/AD VANTAGE - HMO) [id number] Segundo Rashard [id number] Segundo Rashard 01/19/2024 2 [place] REPLACEMENT PRIMARY) Segundo Rashard [id number] Segundo Rashard 04/16/2024 1 [facility] (MEDICARE REPLACEMENT/AD VANTAGE - HMO) [id number] Segundo Rashard [id number] Segundo Wetzel 04/16/2024 2 [place] MEDICARE REPLACEMENT PRIMARY) Segundo Rashard [id number] Segundo Wetzel Notes Date Note Type Note Provider Name and Address Organization Details Recorded Time 10/13/2023 text/html Pt RTC for c/o thick, incurvated toenails marck. Pt is paraplegic in wheelchair w/ very limited ability to use his arm, Lt. Otherwise, completely disabled and RTC in care of caregiver. Ronald Lemons DPM [address], [place], [address], [employer] 10/14/2023 10:16:45 01/19/2024 text/html Paraplegic RTC for c/o nails marck and calluses both feet, outside. Ronald Lemons DPM [address], [place], [address], [employer] 01/20/2024 09:04:20 04/16/2024 text/html Pt RTC for routine c/o nails marck. Painful incurvated and dystrophic. Pt is in wheelchair and quadraplegic, unable to self-tx. Ronald Lemons DPM [address], [place], [address], [employer] 04/19/2024 08:34:41
--- OUTSIDE RECORDS SUMMARY | 2024-07-13 17:57 | XMS_ITS | Clinical Summary ---
Author Organization [facility] [address] Address [address] [place] [address] Care Team Providers Care Clinical Admissions Manager Name Role Phone Emerson Camarillo MD Primary Care Provider [phone] Allergies Active Allergy Reactions Criticality Noted Date Comments Adhesive Rash Medium Medications pregabalin (LYRICA) 200 mg Capsule Take 200 mg by mouth daily at bedtime. Active levETIRAcetam (KEPPRA) 750 mg Tablet Take 750 mg by mouth 2 times daily. Active methadone (DOLOPHINE) 5 mg Tablet Take 5 mg by mouth daily. Active solifenacin (VESICARE) 5 mg Tablet Take 15 mg by mouth daily. Active nortriptyline (PAMELOR) 25 mg capsule Take 25 mg by mouth daily at bedtime. Active BACLOFEN INTRATHECAL 800 mcg by IntraTHEcal route continuously. 025 Discontinu ed(Alterna te therapy prescribed ) Active Problems Problem Noted Date Diagnosed Date Neuropathic pain 04/08/2018 Colostomy care 02/09/2018 Muscle spasm 01/07/2018 Spasticity 10/15/2017 Muscle spasticity 10/10/2017 Neurogenic bladder 10/10/2017 Presence of intrathecal baclofen pump 10/10/2017 Tetraplegia 10/10/2017 Osteoporosis 10/06/2017 Encounters Date Type Department Care Team Description 07/13/2024 3:00 PM CDT Office Visit 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 3 Months Family History Medical History Relation Name Comments No Known Problems Brother 1 No Known Problems Brother 2 No Known Problems Brother 3 No Known Problems Father No Known Problems Mother No Known Problems Sister Relation Name Status Comments Brother 1 Brother 2 Alive Brother 3 Alive Father Alive Mother Alive Sister Alive Social History Tobacco Use Types Packs/Day Years Used Date Smoking Tobacco: Never Smokeless Tobacco: Never Alcohol Use Standard Drinks/Week Comments No 0 (1 standard drink = 0.6 oz pur e alcohol) Sex and Gender Information Value Date Recorded Sex Assigned at Not on file 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 - [place] [address] [facility] [address] [place] [address] Donte Neal MD [address] [facility] [address] [place] [address] Health Maintenance Due Date Last Done Comments DTAP/TDAP/TD VACCINES (1 - Tdap) 2000 HEPATITIS B VACCINES (1 of 3 - 19+ 3-dose series) 2000 Traditional Medicare (ACO) A nnual Wellness Visit 2000 INFLUENZA VACCINE (#1) 2023 HPV VACCINES Aged Out No longer eligi ble based on patient's age to complete this topic Insurance MEDICARE PART A AND B MEDICARE PART A AND B [place], [place] [id number] [place] [id number] Care Teams Clinical Admissions Manager Relationship Specialty Start Date End Date Emerson Camarillo MD [address] [place] [id number] PCP - General Family Practice 07/13/24
--- OUTSIDE RECORDS SUMMARY | 2024-07-13 17:57 | XMS_ITS | Encounter Summary ---
Author Organization [facility] [employer] [facility] Address [address] [place] [address] Phone Care Team Providers Care Contract Preparer Name Role Phone Rick Rodas MD Unavailable [phone] Nicolás Elena MD Primary Care Provider [phone] Emerson Camarillo MD Primary Care Provider [phone] Marquita Berry DPT Unavailable [phone] Emerson Camarillo MD Primary Care Provider [phone] Tiffany Sheppard RN Unavailable Heidi Lane MD Unavailable Encounter Details Date Type Department Care Team (Late st Contact Info) Description 12/08/[address] Medical Office Building [address] [place] [address] Cale Morris MD [facility] [address] [address] Social History Tobacco Use Types [...] on file 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 BURNER OPERATOR documented as of this encounter Care Teams Contract Preparer Relationship Specialty Start Date End Date Nicolás Elena MD [address] [facility] [id number] [place] [address] PCP - General Internal Medicine 06/20/22 01/07/23 Emerson Camarillo MD [address] [facility] [id number] [place] [address] PCP - General Family Practice 01/08/23 01/08/23 Emerson Camarillo MD [address] [facility] [id number] [place] [address] PCP - General Family Practice 01/14/23 Rick Rodas MD [address] [facility] [id number] [place] [address] Surgeon Colon and Rectal Surgery 06/08/21 Marquita Berry DPT [address] [place] [address] Physical Therapist Physical Therapy 01/06/23 Tiffany Sheppard, ALEJO [address] [facility] [address] [place] [address] SHOP Outpatient Heel Lift Gouger 05/09/23 06/05/[address] MD [address] [facility] [place] [address] Consulting Physician Pain Management 06/24/18 TARSHA PULLIAM APN [id number] [facility] [phone] Wound Care Nurse Wound Care 05/15/18 documented as of this encounter
--- OUTSIDE RECORDS SUMMARY | 2024-07-13 17:57 | XMS_ITS | Encounter Summary ---
Author Organization [facility] Address [address] [place] [address] Phone Care Team Providers Care Post Acute Care Registered Nurse Name Role Phone Rick Rodas MD Unavailable [phone] Nicolás Elena MD Primary Care Provider [phone] Emerson Camarillo MD Primary Care Provider [phone] Marquita Berry DPT Unavailable [phone] Emerson Camarillo MD Primary Care Provider [phone] Tiffany Sheppard RN Unavailable Heidi Lane MD Unavailable Encounter Details Date Type Department Care Team (Late st Contact Info) Description 12/09/[address] Medical Office Building [address] [place] [address] Cale Morris MD [facility] [address] [address] Social History Tobacco Use Types [...] on file 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 Author CCM Chronic Pain Care Plan Chronic Care Management Improving( 3:32 PM DISEASE CASE MANAGER) Lynette Siddiqi RN Note: Problem: Chronic [...] COVID: Suspected 05/05/2023 05/05/2023 05/05/2023 2:35 PM DISEASE CASE MANAGER documented as of this encounter Care Teams Post Acute Care Registered Nurse Relationship Specialty Start Date End Date Nicolás Elena MD [address] [facility] [phone] [place] [address] PCP - General Internal Medicine 06/20/22 01/07/23 Emerson Camarillo MD [address] [facility] [phone] [place] [address] PCP - General Family Practice 01/08/23 01/08/23 Emerson Camarillo MD [address] [facility] [phone] [place] [address] PCP - General Family Practice 01/14/23 Rick Rodas MD [address] [facility] [phone] [place] [address] Surgeon Colon and Rectal Surgery 06/08/21 Marquita Berry DPT [address] [place] [address] Physical Therapist Physical Therapy 01/06/23 Tiffany Sheppard, ALEJO [address] [facility] [address] [place] [address] SHOP Outpatient [place] Manager 05/09/23 06/05/[address] MD [address] [facility] [place] [address] Consulting Physician Pain Management 06/24/18 TARSHA PULLIAM APN [id number] [facility] [address] Wound Care Nurse Wound Care 05/15/18 documented as of this encounter
--- OUTSIDE RECORDS SUMMARY | 2024-07-13 17:57 | XMS_ITS | CONTINUITY OF CARE DOCUMENT ---
Author Name gregg gregg Address Unknown Organization [facility] Address [address] [facility] [address] [place] [address] Phone [phone] Care Team Providers Care Community Affairs Director Name Role Phone Demarcus SANDOVAL, Keri Unavailable CHRIS SANDOVAL, BERNARDA Unavailable [phone] BERNARDA PEREZ MD Unavailable [phone] INSURANCE PROVIDERS Payer name Policy type / Coverage type [place] red democrat ID [facility] [facility] FAMILY [facility] Medicaid 1 [id number] AARP MEDICARE ADVANTAGE HMO-POS HMO [id number]
[2024-07-13 20:41] LABS: Alanine Aminotransferase 42 U/L (6-50); Albumin Level 4.3 g/dL (3.5-5.1); Alkaline Phosphatase 111 U/L (38-126); Anion Gap 9 mmol/L (4-12); Aspartate Amino Transferase 34 U/L (17-59); Bilirubin,Total 0.3 mg/dL (0.2-1.3); Blood Urea Nitrogen 14 mg/dL (9-20); Calcium 9.8 mg/dL (8.4-10.2); Carbon Dioxide 30 mmol/L (22-30); Chloride 100 mmol/L (98-107); Estimated Glomerular Filt Rate > 60; Glucose 81 mg/dL (65-110); Potassium 6.1 mmol/L (3.4-5.0); Sodium 139 mmol/L (137-145)
== END 2024-07-13 16:35 | disposition home or self-care (01) ==
PROVIDERS: PCP Family Medicine; Visit Provider Internal Medicine Hematology & Oncology
DX: D69.59 Other secondary thrombocytopenia (principal)
CPT/HCPCS: 36415; 80053; 85025

== ENCOUNTER 2024-07-21 10:46 | Inpatient (IN) | payer MEDICARE, MEDICAID, SELFPAY ==
[2024-07-21] VITALS (68 sets, daily range): BP systolic 57–183; BP diastolic 34–141; PULSE 65–132; RESP 11–31; TEMP 36.3–36.7; O2SAT 14–98; BMI 23.7
--- NOTE | ~2024-07-21 | XR_ITS ---
EXAMINATION: XR chest 1V portable DATE: 07/22/2024 05:49 INDICATION: Intubation. TECHNIQUE: A single frontal view of the chest was obtained. COMPARISON: Chest single view 07/21/2024 FINDINGS: There are airspace opacities in all lung zones bilaterally, right worse than left. No pleur al effusion or pneumothorax. The heart size is normal. The endotracheal tube tip is 4.6 cm above the brianna. The nasogastric tube tip is in the stomach with proximal side port in the distal esophagus. A left subclavian central venous catheter is seen with tip at the superior cavoatrial junction. IMPRESSION: 1. Stable diffuse lung disease, right worse than left, consistent with pneumonia. 2. Nasogastric tube proximal side port in the distal esophagus. Advancement 8 cm is recommended. Reviewed, dictated and finalized at location A. IMPRESSION: 1. Stable diffuse lung disease, right worse than left, consistent with pneumoni a. 2. Nasogastric tube proximal side port in the distal esophagus. Advancement 8 c m is recommended.
--- NOTE | ~2024-07-21 | XR_ITS ---
XR chest 1V portable 07/21/2024 11:10 Indication: Cough Procedure: 2 view chest Comparison: Comparison to multiple prior studies sequentially, with oldest reviewed study dated 06/13. Findings: There is diffuse right-sided airspace disease. There is left basilar consolidation. No sign ificant effusion. No pneumothorax. Impression: 1: Bilateral airspace disease, right greater than left, compatible with pneumonia. Reviewed, dictated and finalized at location A. Impression: 1: Bilateral airspace disease, right greater than left, compatible with pneumon ia.
--- NOTE | ~2024-07-21 | XR_ITS ---
EXAMINATION: XR chest ET placement, XR abdomen gastric tube insert DATE: 07/21/2024 15:57 INDICATION: Endotracheal tube placement. Orogastric tube placement. TECHNIQUE: 1. Frontal view of the chest was obtained. 2. AP view of the upper abdomen was obtained. COMPARISON: Chest radiograph dated 07/21/2024 at 3:08 PM FINDINGS: Interval placement of an endotracheal tube with distal tip 5.1 cm above the brianna. Left subclavian c entral venous catheter with distal tip at the superior cavoatrial junction. Orogastric tube tip in th e body the stomach with distal tip at level of the gastroesophageal junction. Dense airspace opacities with air bronchograms throughout the right lung with central predominance an d without significant corresponding volume loss consistent with pneumonia. Less dense airspace opacit ies in the left perihilar and lower lung zones also consistent with pneumonia. No pleural effusion or pneumothorax. Heart size is normal. IMPRESSION: 1. Lines and tubes in expected position. Consider advancement of the orogastric [address] proxim al side-port below level of the gastroesophageal junction. Line 2. Bilateral lung disease, right greater than left consistent with multifocal pneumonia. Reviewed, dictated and finalized at location B. IMPRESSION: 1. Lines and tubes in expected position. Consider advancement of the orogastric [address] side-port below level of the gastroesophageal junction . Line 2. Bilateral lung disease, right greater than left consistent with multifocal p neumonia.
--- NOTE | ~2024-07-21 | CT_ITS ---
EXAMINATION: CTA chest PE protocol DATE: 07/21/2024 13:25 INDICATION: Hypoxia. TECHNIQUE: Computed tomography angiography (CTA) of the chest was performed with 100 mL Omnipaque-350 intravenous contrast timed to evaluate the pulmonary arteries. Coronal maximum intensity projection 3D-reconstructions were created by the technologist. Automated exposure control and iterative reconst ruction technique were employed. The dose-length product was 514.20 mGy-cm. COMPARISON: Chest CT 06/30/2023 FINDINGS: There are airspace opacities in all lobes bilaterally. There are centrilobular nodules in t he upper lobes and right middle lobe. There is volume loss of the lower lobes. There is a 1.4 cm nodu le in right thyroid lobe, likely not clinically significant. The heart size is normal. No pericardial effusion. There is no pulmonary embolus. There is bilateral gynecomastia. There is an intrathecal ca theter. IMPRESSION: 1. Bilateral pneumonia. 2. No pulmonary embolus. Reviewed, dictated and finalized at location A.
--- NOTE | ~2024-07-21 | XR_ITS ---
XR chest port-a-cath/central 07/21/2024 15:11 Indication: Central line insertion Procedure: AP portable chest Comparison: 06/29/2023 Findings: There is bilateral airspace disease, right greater than left, compatible with pneumonia yoav jason asymmetric edema. Interval placement of central venous catheter, tip in the SVC. No pneumothorax. Possible small left effusion. Impression: 1: Central venous catheter tip in the SVC. Reviewed, dictated and finalized at location A. Impression: 1: Central venous catheter tip in the SVC.
--- NOTE | ~2024-07-21 | XR_ITS ---
XR chest ET placement Ordering provider: Marilu Ordonez APRN History: 43 years Male with . ETT Placement . Comparison: None. FINDINGS: MEDIASTINUM: The cardiac silhouette is not enlarged. Left central line with the tip overlying superio r vena cava. Endotracheal tube with the tip above the brianna by about 6 cm centimeters. Nasogastric t ube is seen with the tip in the stomach and the sidehole at the gastroesophageal junction. LUNGS: No effusions or pneumothorax. Opacification in the right upper and lower lobe and left lower l obe suggestive of pneumonia. OTHER: No free air under the diaphragm. IMPRESSION: Bilateral pneumonia more on the right side. Reviewed, dictated and finalized at location A.
--- NOTE | 2024-07-21 10:45 | PC.NURSE ---
pt refused to get into a gown. pt is A&OX4
--- NOTE | 2024-07-21 10:52 | ECG_ITS ---
Test Date: 2024-07-21 11:25:59 Measurements Intervals Rotan Rate: 96 P: 50 AL: 195 QRS: 39 QRSD: 111 T: 46 QT: 331 QTc: 419 Interpretive Statements SINUS RHYTHM WITH OCCASIONAL VENTRICULAR PREMATURE COMPLEXES POSSIBLE LEFT ATRIAL ENLARGEMENT [-0.1mV P WAVE IN V1/V2] NONSPECIFIC T-WAVE ABNORMALITY Compared to ECG 07/01/2024 13:32:29 Ventricular premature complex(es) now present Sinus bradycardia no longer present First degree AV block no longer present Possible ischemia no longer present T-wave abnormality still present Electronically Signed On 07-22-2024 10:42:00 CDT by Farzad Awad M.D.
[2024-07-21] MEDS: SODIUM CHLORIDE 0.9% IV 1,000 ML 999 ML IV CONT ×3 (11:32→17:45)
[2024-07-21] MEDS: SODIUM CHLORIDE 0.9% IV 100 ML 999 ML IV CONT (11:32)
--- NOTE | 2024-07-21 11:35 | ED_ITS ---
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 (Clear) Urine pH (5.0-9.0) Ur Specific [place] (1.001-1.035) Urine Protein (Negative) mg/dL Urine Glucose (UA) (Negative) mg/dL Urine Ketones (Negative) mg/dL Ur Blood (Man) (Negative) Urine Nitrate (Negative) Urine Bilirubin (Negative) Urine Urobilinogen (<2.0) mg/dL Add Ur Microanalysis Leukocyte Esterase Rfl (Negative) MICHI/UL Urine RBC (0-2) /hpf Urine WBC (0-3) /hpf Ur Squamous Epith Cells (Few) /hpf Urine Bacteria /hpf Urine Casts Hyaline Casts (None) /lpf Nasal MRSA (PCR) (NOT DETECTE) Influenza A (RT-PCR) (Negative) Influenza B (RT-PCR) (Negative) RSV (RT-PCR) (Negative) SARS-CoV-2 RNA (RT-PCR) (Negative) <Renaldo Shaver MD - Last Filed: 07/21/24 19:35> ABG Data ABG results: 07/21/24 07/21/24 15:10 16:22 Puncture Site Left brachial Right radial ABG pH 7.298 L* 7.198 L* ABG pCO2 42.6 61.4 H* ABG pO2 53.6 L 66.7 L ABG PO2/FiO2 Ratio 0.54 0.67 ABG HCO3 20.4 L 23.4 ABG O2 Saturation 84.4 L* 88.2 L ABG O2 Content 13.2 L 14.9 L ABG Base Excess -5.8 -5.4 A-a Gradient 616.8 584.9 Oxyhemoglobin 83.2 L* 87.5 L* Carboxyhemoglobin 0.6 Reduced Hemoglobin 16.1 H Total Hemoglobin 11.3 L 12.1 O2 Delivery Device High flow therapy Ventilator O2 Liters/Min 50.0 Not Reportable Vent Rate 20 FiO2 100 100 <Keke Doan, KELVIN - Last Filed: 07/21/24 17:49> 07/21/24 07/21/24 15:10 16:22 Puncture Site Left brachial Right radial ABG pH 7.298 L* 7.198 L* ABG pCO2 42.6 61.4 H* ABG pO2 53.6 L 66.7 L ABG PO2/FiO2 Ratio 0.54 0.67 ABG HCO3 20.4 L 23.4 ABG O2 Saturation 84.4 L* 88.2 L ABG O2 Content 13.2 L 14.9 L ABG Base Excess -5.8 -5.4 A-a Gradient 616.8 584.9 Oxyhemoglobin 83.2 L* 87.5 L* Carboxyhemoglobin 0.6 Reduced Hemoglobin 16.1 H Total Hemoglobin 11.3 L 12.1 O2 Delivery Device High flow therapy Ventilator O2 Liters/Min 50.0 Not Reportable Vent Rate 20 FiO2 100 100 <Renaldo Shaver MD - Last Filed: 07/21/24 19:35> Imaging Data Radiologist's impression: Impressions Chest X-Ray 07/21/24 11:10 Impression: 1: Bilateral airspace disease, right greater than left, compatible with pneumonia. Chest CTA 07/21/24 13:28 IMPRESSION: 1. Bilateral pneumonia. 2. No pulmonary embolus. Chest X-Ray 07/21/24 15:14 Impression: 1: Central venous catheter tip in the SVC. Abdomen X-Ray 07/21/24 16:07 IMPRESSION: 1. Lines and tubes in expected position. Consider advancement of the orogastric [address] side-port below level of the gastroesophageal junction. Line 2. Bilateral lung disease, right greater than left consistent with multifocal pneumonia. Chest X-Ray 07/21/24 16:07 IMPRESSION: 1. Lines and tubes in expected position. Consider advancement of the orogastric [address] side-port below level of the gastroesophageal junction. Line 2. Bilateral lung disease, right greater than left consistent with multifocal pneumonia. <Keke Doan, TEST ENGINE EVALUATOR - Last Filed: 07/21/24 17:49> Critical Care Time Critical Care Time Critical Care Time: Yes <Keke Doan, TEST ENGINE EVALUATOR - Last Filed: 07/21/24 17:49> Yes <Renaldo Shaver MD - Last Filed: 07/21/24 19:35> Total Critical Care Time: 35 <Keke Robb August, TEST ENGINE EVALUATOR - Last Filed: 07/21/24 17:49> 105 (Critical care time exclusive of the separately billed procedures above and includes management of severe septic shock with vasopressor titration, hypoxia requiring oxygen titration, ventilator management, ABG interpretation and titration of ventilator settings, discussions with family and management consultant) < Renaldo Shaver MD - Last Filed: 07/21/24 19:35> Discharge Plan Discharge Clinical Impression: Septic shock, Hypoxia, Influenza A, Respiratory failure requiring intubation Bilateral pneumonia Qualifiers: Pneumonia type: due to unspecified organism Lung location: unspecified part of lung Qualified Code(s): J18.9 - Pneumonia, unspecified organism <Keke Doan APRN - Last Filed: 07/21/24 17:49> Patient Disposition: Still a Patient <Keke Doan APRN - Last Filed: 07/21/24 17:49> Condition: Critical <Keke Doan APRN - Last Filed: 07/21/24 17:49> Time of Disposition: 16:50 <Keke Doan APRN - Last Filed: 07/21/24 17:49> 16:50 <Renaldo Shaver MD - Last Filed: 07/21/24 19:35>
[2024-07-21] MEDS: ALBUTEROL SULFATE NEB 2.5 MG/3 ML INH 10 MG INHALATION (11:38)
[2024-07-21] MEDS: IPRATROPIUM BR 0.02% INH SOLN 0.5 MG/2.5 ML VIAL 1 MG INHALATION (11:38)
--- NOTE | 2024-07-21 12:00 | PC.NURSE ---
2 RN attempted for an IV. ultrasound was called to get IV. IV was successful but no blood work. will hydrate the pt and reattempt getting the blood work. EDP would like to get the blood cultures administered and not worry about getting blood cultures first
[2024-07-21] MEDS: CEFEPIME 2 GM/NS 50 ML 2 GM/50 ML BAG IVPB ×2 (12:04→19:56)
--- OUTSIDE RECORDS SUMMARY | 2024-07-21 12:24 | XMS_ITS | Encounter Summary ---
Author Organization [facility] Address [address] [place] [address] Care Team Providers Care Windows Mobile Developer Name Role Phone Emerson Camarillo MD Primary Care Provider [phone] Encounter Details Date Type Department Care Team (Late Contact Info) Description 07/15/2024 Orders Only [facility] Oncology [facility] [address] [place] [address] Donte Neal MD [facility] [employer] Guide [address] [place] [address] Social History Tobacco Use Types Packs/Day Years Used Date Smoking Tobacco: Never Smokeless Tobacco: Never Alcohol Use Standard Drinks/Week Comments No 0 (1 standard drink = 0.6 oz pur e alcohol) Sex and Gender Information Value Date Recorded Sex Assigned at Not on file 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 Gender Identity Not on file Sexual Orientation Not on file documented as of this encounter Plan of Treatment Upcoming Encounters Date Type Department Care Team (Late st Contact Info) Description 11/19/2024 12:00 PM CDT Office Visit [facility] Oncology [facility] Hematology [facility] [address] [place] [address] Donte Neal MD [facility] [employer] Guide [address] [place] [address] documented as of this encounter Procedures Procedure Name Priority Date/Time Associated Diagnosis Comments CBC WITH DIFFERENTIAL Routine 07/13/2024 8:24 AM CDT documented in this encounter Results * CBC WITH DIFFERENTIAL (07/13/2024 8:24 AM CDT) Blood us Donte Neal MD HEMATOLOGY ORDERABLES Final Res ult documented in this encounter Visit Diagnoses Not on filedocumented in this encounter Care Teams Windows Mobile Developer Relationship Specialty Start Date End Date Emerson Camarillo MD [address] [place] [address] PCP - General Family Practice 07/13/24 documented as of this encounter
--- OUTSIDE RECORDS SUMMARY | 2024-07-21 12:24 | XMS_ITS | Clinical Summary ---
Author Organization [facility] [address] Address [address] [place] [address] Care Team Providers Care Bus Greaser Name Role Phone Emerson Camarillo MD Primary Care Provider [phone] Allergies Active Allergy Reactions Criticality Noted Date [...] Encounters Date Type Department Care Team Description 07/20/2024 4:15 PM CDT Telephone Check Up [facility] Oncology and Hematology - [place] [address] [place] [address] Donte Neal MD Chronic anemia (Primary Dx) 07/20/2024 External Device Data STL ABSTRACTION Provider, Abstract 07/15/2024 Orders Only [facility] Oncology and Hematology - [place] [address] [place] [phone] Donte Neal MD 07/14/2024 External Device Data STL ABSTRACTION Provider, Abstract 07/14/2024 External Device Data STL ABSTRACTION Provider, Abstract 07/13/2024 3:00 PM CDT Office Visit [facility] Oncology and Hematology [facility] [address] [place] [phone] Donte Neal MD Other secondary thrombocytopenia (Primary [...] on file 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 Gender Identity Not on file Sexual Orientation [...] Description 11/19/2024 12:00 PM CDT Office Visit [facility] Oncology and Hematology [place] [address] [place] [phone] Donte Neal MD [address] [facility] [address] [place] [address] Health Maintenance Due Date Last Done Comments DTAP/TDAP/TD VACCINES (1 - Tdap) 2000 HEPATITIS B VACCINES (1 of 3 - 19+ 3-dose series) 2000 Traditional Medicare (ACO) A nnual Wellness Visit 2000 INFLUENZA VACCINE (#1) 2023 HPV VACCINES Aged Out No longer eligi ble based on patient's age to complete this topic Procedures Procedure Name Priority Date/Time Associated Diagnosis Comments CBC WITH DIFFERENTIAL Routine 07/13/2024 8:24 AM CDT from Last 3 Months Results * CBC WITH DIFFERENTIAL (07/13/2024 8:24 AM CDT) Blood us Donte Neal MD HEMATOLOGY ORDERABLES Final Res ult from Last 3 Months Insurance MEDICARE PART A AND B MEDICARE PART A AND B MEDICAID [place] [address] [id number] Care Teams Bus Greaser Relationship Specialty Start Date End Date Emerson Camarillo MD [address] [place] [phone] PCP - General Family Practice 07/13/24
--- OUTSIDE RECORDS SUMMARY | 2024-07-21 12:25 | XMS_ITS | Referral Summary ---
Author Organization [facility] Address [address] [place] [address] Care Team Providers Care Rawhide Bone Roller Name Role Phone Rick Rodas MD Unavailable [phone] Marquita Berry DPT Unavailable [phone] Emerson Camarillo MD Primary Care Provider [phone] MD Unavailable Encounters Date Type Department Care Team Description 07/02/2024 Telephone [facility] Orthopaedic Surgery [address] [place] [address] Advanced Medicine 12th [place] [address] [place] [address] Dayday Baker MD 06/29/2024 Telephone [facility] Orthopa[facility] Surgery [address] [place] [address] Advanced Medicine 12th [place] [address] [place] [address] Dayday Baker MD 06/23/2024 Results Follow-Up [facility] [address] [place] [address] 12th [place] [address] [place] [address] Carolynn Garcia CMA 06/23/2024 Orders Only [facility] [address] [place] [address] 12th [place] [address] [place] [address] Dayday Baker MD Acute UTI (urinary tract infection) (Primary Dx); Neurogenic bladder; Suprapubic catheter (HCC) 06/21/2024 2:16 PM BAIT MAN - 06/21/2024 11:59 PM BAIT MAN Hospital Encounter [address] [address] Neurogenic bladder; Acute UTI (urinary tract infection) Discharge Disposition: Discharge to home or self care 06/21/2024 12:15 PM BAIT MAN Office Visit [facility] Orthopa[facility] Surgery [address] [place] [address] [place] [address] [place] [address] Dayday Baker MD Muscle spasticity (Primary Dx); Obstruction of suprapubic catheter, subsequent encounter; Neurogenic bladder; Acute UTI (urinary tract infection); Presence of intrathecal baclofen pump; Tetraplegia (HCC) 06/02/2024 Orders Only [facility] [address] [place] [address] [place] [address] Dayday Baker MD 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HCC) (Primary Dx) 06/02/2024 11:45 AM BAIT MAN Procedure visit [facility] [address] [place] [address] [place] [address] Dayday Baker MD Tetraplegic (HCC) (Primary Dx); 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HCC); Presence of intrathecal baclofen pump; Suprapubic catheter (HCC); Neurogenic bladder 05/31/2024 Orders Only [address] [place] [address] [place] [address] [place] [address] Dayday Baker MD 05/11/2024 Telephone [facility] [address] [place] [address] [place] [address] Dayday Baker MD from Last 3 Months Allergies Active Allergy Reactions Criticality Noted Date Comments Adhesive Rash Medium Medications docusate sodium (COLACE) 100 mg capsule Take 2 capsules (200 mg total) by mouth nightly 200-400mg Active cholecalciferol (VITAMIN D-3) 5,000 unit tablet Take 1 tablet (5,000 Units total) by mouth every morning 5 Active omega 9-ows-yhp-fish oil 120-180-500 mg capsule Take 2 tablets [...] mcgIndications:Spasticit y,Presence of intrathecal baclofen pump,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HCC) 25368 mcg intrathec Continuous 06/02/2024 Active Active Problems Problem Noted Date Diagnosed Date Tetraplegic 05/05/2023 Other osteoporosis without current pathological fracture 10/04/2020 Bladder stones 09/06/2020 Overview (09/06/2020): Added automatically from request for surgery [id number] Autonomic dysfunction 01/04/2020 Screening for malignant neoplasm of colon 2018 Overview (02/26/2019): Added automatically from request for surgery [id number] Colostomy in place 02/26/2019 Overview (02/26/2019): Added automatically from request for surgery [id number] Obstruction of suprapubic catheter 12/29/2018 Overview (12/29/2018): Added automatically from request for surgery [id number] Skin sensitivity 08/17/2018 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 Neuropathic [...] on file Legal Sex Male 12:56 PM BAIT MAN Gender Identity Not on file Sexual Orientation Not on file Last Filed Vital Signs Vital Sign Reading Time Taken Comments Blood Pressure 76/53 06/02/2024 11:53 AM BAIT MAN Pulse 40 06/02/2024 11:53 AM BAIT MAN Temperature 36 C (96.8 F) 01/21/2024 11:15 AM CDT Respiratory Rate 18 06/21/2024 12:28 PM BAIT MAN Oxygen Saturation 96% 01/21/2024 11:15 AM CDT Inhaled Oxygen Concentration - - Weight 74.8 kg (165 lb) 06/21/2024 12:28 PM BAIT MAN Height 170.2 cm (5' 7 ) 06/21/2024 12:28 PM BAIT MAN Body Mass Index 25.84 06/21/2024 12:28 PM BAIT MAN Plan of Treatment Not on file Goals Goal Patient Goal Type Associated Problems Recent Progress Patient-Stated? Author CCM Chronic Pain Care Plan Chronic Care Management Improving( 3:32 PM BAIT MAN) No Lynette Goodman RN Note: Problem: Chronic Pain Goals: 1. Minimize further functional decline 2. Maximize quality of life 3. Control pain Strategies: - Activity/exercise program recommendation - Conservative stepwise pain medicine strategy with multi-disciplinary approach - Recommend healthy lifestyle strategies and compensatory methods as needed Medical Devices Implanted Type Area Casing Tier Device Identifier Shelf Expiration Date Model / Serial / Lot Baclofen Pain Pump Abdomen MEDTR[employer]IC SYNCHROMED II / / Hardware Neck [employer] Synchromed Ii [place] Catheter Access Port Suture Loop [id number] - [id number] - [id number] Implanted:Qty: 1 on 08/29/2023 by Segundo Black MD at [facility] Right: Abdomen Med[employer]onic Inc 01/23/2025 [id number] / [id number] / Med[employer]onic Inc Sutureless Connector Revision Catheter Kit Intrathecal Pump [id number] - [id number] Implanted:Qty: 1 on 08/29/2023 by Segundo Black MD at [facility] Right: Abdomen [employer] Inc 02/27/2025 [id number] / / [id number] Procedures Procedure Name Priority Date/Time Associated Diagnosis Comments URINALYSIS, MICROSCOPIC ONLY Routine 06/21/2024 1:50 PM BAIT MAN Neurogenic bladder Acute UTI (urinary tract infection) URINE CULTURE Routine 06/21/2024 1:50 PM BAIT MAN URINALYSIS AND REFLEX TO MICROSCOPIC AND CULTURE Routine 06/21/2024 1:50 PM BAIT MAN Neurogenic bladder Acute UTI (urinary tract infection) BOTOX INJECTION Routine 06/21/2024 12:15 PM BAIT MAN Muscle spasticity from Last 3 Months Results * (ABNORMAL) Urinalysis reflex to microscopic and culture Urine, suprapubic catheter (06/21/2024 1:50PM BAIT MAN) Color, ur Straw Yellow Clarity, ur Cloudy(A) Clear [facility] Specific gravity, ur 1.006 1.003 - 1.030 [facility] pH, urine 6.5 [facility] Comment: Interpretive Data U rine pH is affected by diet, medications, systemic acid-base disturbances, and renal tubular function. pH may affect urinary stone formation. For example, urine pH below 6.0 may help reduce the tendency for calcium phosphate stones and pH greater than 6.0 may reduce the tendency for uric acid stone formation. Source: [facility] [employer] Current Interpretive Data was last revised on 2017 Protein, ur ql Negative Negative [facility] Glucose, ur ql Negative Negative [facility] Ketones, ur Negative Negative [facility] Bilirubin, ur Negative Negative [facility] Blood, ur Trace(A) Negative [facility] Urobilinogen, ur <2.0 <2.0 mg/dL [facility] Nitrite, ur Positive(A) Negative [facility] Leukocyte esterase, ur 3+(A) Negative [facility] UA reflex comment Reflex to microscopic UA will be performed. [facility] Urine, suprapubic catheter 06/21/2024 1:50 PM BAIT MAN 06/21/2024 3:44 PM BAIT MAN us Dayday Baker MD LAB MICROBIOLOGY - GENERAL ORD ERABLES Final Result Performing Organization Address [facility] Co de Phone Number [facility] [employer] [place], [place] [id number] * (ABNORMAL) Urinalysis, microscopic only (06/21/2024 1:50 PM BAIT MAN) WBC, ur 21-50(A) 0 - 5 /HPF RBC, ur 0-2 0 - 2 /HPF [facility] Bacteria, ur 1+(A) [facility] Mucous, ur Present(A) [facility] Culture Reflex Comment Reflex to urine culture will be performed. [facility] Urine, suprapubic catheter 06/21/2024 1:50 PM BAIT MAN 06/21/2024 3:44 PM BAIT MAN us Dayday Baker MD LAB URINE ORDERABLES Final Res ult Performing Organization Address City/[facility]/ZIP Co de Phone Number [facility] [employer] [place] [address] * (ABNORMAL) Urine culture Urine, suprapubic catheter (06/21/2024 1:50 PM BAIT MAN) Report Final Report: Growth indicates contamination with mixed bacterial marga. Please submit a new specimen with special attention given to the collection process and to prompt transport to the laboratory. (.) Organism GROWTH INDICATES CONTAMINATION WITH MIXED MARGA. [facility] Urine, suprapubic catheter 06/21/2024 1:50 PM BAIT MAN 06/21/2024 5:50 PM BAIT MAN Narrative HEATHER HOWELL - 06/23/2024 11:42 AM BAIT MAN Urine culture reflexed based upon urinalysis results. Testing performed by [facility] Microbiology Laboratory ([phone]) us Dayday Baker MD LAB MICROBIOLOGY - GENERAL ORD ERABLES Final Result [facility] Department [place] [address] * Botox Injection (06/21/2024 12:15 PM BAIT MAN) Narrative Dayday Baker MD - 06/21/2024 12:15 PM BAIT MAN Dayday Baker MD 06/25/2024 7:25 PM Botox Injection Performed by: Dayday Baker MD Authorized by: Dayday Baker MD [place] Protocol: Consent Given by: Patient Site marked: the procedure site was marked Timeout: prior to procedure the correct patient, procedure, and site was verified Procedure Details - Botox Injection: Procedure Details: Buy and Bill Botox 200 Units onabotulinumtoxin A (botulinum toxin type A, BOTOX) 100 unit injection us Dayday Baker MD IN CLINIC/BEDSIDE ORDERABLES F inal Result from Last 3 Months Insurance IDPA [facility] MEDICARE ADVANTAGE [facility] MEDICARE ADVANTAGE IDPA IDPA [facility] MEDICARE ADVANTAGE [facility] MEDIC[facility] Address: [address] [address] [place] [address] Advance Directives For more information, please contact: [phone] * LIMITED - No CPR (Latest Code Status on File) Date Activated Date Inactivated Comments 05/05/2023 11:25 PM 05/08/2023 11:52 PM * Full Code Date Activated Date Inactivated Comments 05/05/2023 10:50 PM 05/05/2023 11:25 PM * Full Code Date Activated Date Inactivated Comments 03/29/2019 11:00 AM 03/29/2019 5:48 PM Care Teams Rawhide Bone Roller Relationship Specialty Start Date End Date Emerson Camarillo MD [address] [facility] [address] [place] [address] PCP - General Family Practice 01/14/23 Rick Rodas MD [address] [facility] [phone] [place] [address] Surgeon Colon and Rectal Surgery 06/08/21 Marquita Berry DPT [address] [facility] [address] [place] [address] Physical Therapist Physical Therapy 01/06/[address] MD [address] [facility] [facility] [place] [address] Consulting Physician Pain Management 06/24/18 TARSHA PULLIAM APN [id number] [facility] [id number] Wound Care Nurse Wound Care 05/15/18
--- OUTSIDE RECORDS SUMMARY | 2024-07-21 12:25 | XMS_ITS | Encounter Summary ---
Author Organization [facility] [facility] Address [address] [place] [address] Phone Care Team Providers Care Property Investor Name Role Phone Rick Rodas MD Unavailable [phone] Nicolás Elena MD Primary Care Provider [phone] Emerson Camarillo MD Primary Care Provider [phone] Marquita Berry DPT Unavailable [phone] Emerson Camarillo MD Primary Care Provider [phone] Tiffany Sheppard RN Unavailable Heidi Lane MD Unavailable Encounter Details Date Type Department Care Team (Late st Contact Info) Description 12/09/[address] Medical Office [address] [place] [address] Cale Morris MD [facility] [address] [address] Social History Tobacco Use Types [...] on file Legal Sex Male 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 Author CCM Chronic Pain Care Plan Chronic Care Management Improving( 3:32 PM JEWEL INSPECTOR) Lynette Siddiqi RN Note: Problem: Chronic Pain [...] COVID: Suspected 05/05/2023 05/05/2023 05/05/2023 2:35 PM JEWEL INSPECTOR documented as of this encounter Care Teams Property Investor Relationship Specialty Start Date End Date Nicolás Elena MD [address] [facility] [phone] [place] [address] PCP - General Internal Medicine 06/20/22 01/07/23 Emerson Camarillo MD [address] [facility] [phone] [place] [address] PCP - General Family Practice 01/08/23 01/08/23 Emerson Camarillo MD [address] [facility] [phone] [place] [address] PCP - General Family Practice 01/14/23 Rick Rodas MD [address] [facility] [phone] [place] [address] Surgeon Colon and Rectal Surgery 06/08/21 Marquita Berry DPT [address] [place] [address] Physical Therapist Physical Therapy 01/06/23 Tiffany Sheppard, ALEJO [address] [facility] [address] [place] [address] SHOP Outpatient Under Water Assistant 05/09/23 06/05/[address] MD [address] [facility] [place] [address] Consulting Physician Pain Management 06/24/18 TARSHA PULLIAM APN [id number] [facility] [id number] Wound Care Nurse Wound Care 05/15/18 documented as of this encounter
--- OUTSIDE RECORDS SUMMARY | 2024-07-21 12:25 | XMS_ITS | Encounter Summary ---
Author Organization [facility] Address [address] [place] [address] Phone Care Team Providers Care Chemical Treatment Plant Technician Name Role Phone Rick Rodas MD Unavailable [phone] Nicolás Elena MD Primary Care Provider [phone] Emerson Camarillo MD Primary Care Provider [phone] Marquita Berry DPT Unavailable [phone] Emerson Camarillo MD Primary Care Provider [phone] Tiffany Sheppard RN Unavailable [phone] MD Unavailable Encounter Details Date Type Department Care Team (Late st Contact Info) Description 12/19/[address] Medical Office Building [address] [place] [address] Cale Morris MD [facility] [address] Social History Tobacco Use Types [...] on file Legal Sex Male 12:56 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 Author CCM Chronic Pain Care Plan Chronic Care Management Improving( 3:32 PM STEWARD/STEWARDESS LOUNGE) Lynette Siddiqi RN Note: Problem: Chronic Pain [...] COVID: Suspected 05/05/2023 05/05/2023 05/05/2023 2:35 PM STEWARD/STEWARDESS LOUNGE documented as of this encounter Care Teams Chemical Treatment Plant Technician Relationship Specialty Start Date End Date Nicolás Elena MD [address] [facility] [place] [phone] [place] [address] PCP - General Internal Medicine 06/20/22 01/07/23 Emerson Camarillo MD [address] [facility] [place] [place] [phone] [place] [address] PCP - General Family Practice 01/08/23 01/08/23 Emerson Camarillo MD [address] [facility] [place] [phone] [place] [address] PCP - General Family Practice 01/14/23 Rick Rodas MD [address] [facility] [place] [place] [facility] [place] [phone] [place] [address] Surgeon Colon and Rectal Surgery 06/08/21 Marquita Berry DPT [address] [place] [address] Physical Therapist Physical Therapy 01/06/23 Tiffany Sheppard, ALEJO [address] [facility] [address] [place] [address] SHOP Outpatient Manager Estate 05/09/23 06/05/[address] MD [address] [facility] [place] [address] Consulting Physician Pain Management 06/24/18 TARSHA PULLIAM APN [id number] [facility] [id number] Wound Care Nurse Wound Care 05/15/18 documented as of this encounter
--- OUTSIDE RECORDS SUMMARY | 2024-07-21 12:25 | XMS_ITS | Data Portability ---
Author Organization [facility], Main Office Address [address] [place] [address] Assessment No assessment recorded. Plan of Treatment Reminders Order Date Submit Date Provider Last Modified By Organization Details Last Modified Time Details Appointments Establish ed Patient 15 2024 03:15P Hai Torres DPM Not available Not available Not available Lab None recorded. Referral None recorded. Procedures None recorded. Surgeries None recorded. Imaging None recorded. Medication Orders None recorded. Patient TargetsNo targets recorded. Patient InstructionsNo instructions recorded. Reason for Referral None Reported. Procedures Surgical History Date Name Laterality Status Provider Name and Address Organization Details Recorded Time 5 Nail Debridement completed Ronald Lemons DPM [address], [place], [address], [facility] 07/19/2024 08:46:17 4 Nail Debridement completed Ronald Lemons DPM [address], [place], [address], [facility] 04/19/2024 08:34:35 4 Nail Debridement completed Ronald Lemons DPM [address], [place], [address], [employer] 01/20/2024 09:04:07 4 Callus Debridement 2-4 completed Ronald Lemons DPM [address], [place], [address], [facility] 01/20/2024 09:04:15 4 Nail Debridement completed Ronald Lemons DPM [address], [place], [address], [place] [facility] 10/14/2023 10:16:40 Imaging Results None recorded. Procedure [...] 1 CAPSULE BY MOUTH EVERY 12 HOURS FOR 7 DAYS active Not Available Not Available N ot Available levetiraceta m 750 mg tablet TAKE 1 TABLET BY MOUTH [...] Available No t Available [employer] 3 [place] FO[employer] P[employer] DIRECTIONS active Not Available Not Available N ot Available Vitals Date Recorded Body height Body mass index (BMI) Body weight Provider Name and Address Organization Details Last Updated DateTime 10/13/2023 172.72 cm 24.3 kg/m2 38516.78 g Chan Carreno [facility] [email or web address] [facility] [employer] 10/13/2023 16:21:09 Date Recorded Body height Body mass index (BMI) Body weight Oxygen saturation Oxygen saturation in Arterial blood by Pulse oximetry Body temperature Heart rate Provider Name and Address Organization Details Last Updated DateTime 4 172.72 cm 24.3 kg/m2 65774.7 8 g 98 % 98 % 98.2 [degF] 77 /min Chan Carreno [facility] [email or web address] [facility] [employer] 4 12:38:35 Date Recorded Body height Body mass index (BMI) Body weight Oxygen saturation Oxygen saturation in Arterial blood by Pulse oximetry Body temperature Heart rate Provider Name and Address Organization Details Last Updated DateTime 4 172.72 cm 24.3 kg/m2 24235.7 8 g 97 % 97 % 98.1 [degF] 79 /min Chan Carreno [facility] [email or web address] [facility] [employer] 4 12:55:35 Date Recorded Body height Body mass index (BMI) Body weight Heart rate Respiratory rate Body temperature Oxygen saturation Oxygen saturation in Arterial blood by Pulse oximetry Provider Name and Address Organization Details Last Updated DateTime 172.72 cm 24.3 kg/m2 14378.7 8 g 76 /min 14 /min 97.6 [degF] 97 % 97 % Shanti James Snappli [employer] 16:06:55 Social History Question Answer Notes LastModified by Organizat ion Details LastModified Time Tobacco Smoking Status Never Smoker Chan GutiérrezKENDRA wallace, [facility] 10/13/2023 16:21:59 What Is Your Level Of Alcohol Consumption? None [email or web address] Information not available 10/13/2023 What Is Your Level Of Caffeine Consumption? Moderate [email or web address] Information not available 10/13/2023 What Was The Date Of Your Most Recent Tobacco Screening? 01/19/2024 [email or web address] Information not available 01/19/2024 Do You Use Any Illicit Or Recreational Drugs? No [email or web address] Information not available 10/13/2023 Has Tobacco Cessation Counseling Been Provided? No [email or web address] Information not available 10/13/2023 Do You Or Have You Ever Used Any Other Forms Of Tobacco Or Nicotine? No [email or web address] Information not available 10/13/2023 Sex: Unknown Functional Status None recorded. Mental Status None recorded. Family History Nothing Reported. Medical History Condition Response HYPERTENSION Y DIZZINESS Y Past Encounters Encounter ID Performer Location Encounter Start Date Encounter Closed Date Diagnosis/Indication Diagnosis SNOMED-CT Code Diagnosis ICD10 Code Diagnosis Note [id number] [facility] [facility] [place] [address] [address] 10/13/2023 16:11:02 12/05/2023 04:00:41 [id number] [place] [facility] [place] [address] [address] 01/19/2024 12:37:03 02/21/2024 04:08:09 [id number] [place] [address] [address] [facility] [address] [place] [address] 04/16/2024 12:43:07 04/23/2024 04:07:33 [id number] Ronald Lemons DPM [facility] 2043 [facility] [address] [place] [address] 07/14/2024 16:03:16 07/19/2024 10:54:21 Health Concerns Section Related Observation LastModified by Organization Detai ls LastModified Time None Recorded Concern Status LastModified by Organization Details LastModified Time None Recorded Advance Directives Directive None Recorded Payers Encounter Date Sequence Insurance Name Policy Number Policy Mcgregor Covered Member ID Mcgregor Member ID Guarantor Name 10/13/2023 1 [facility] (MEDICARE REPLACEMENT/AD VANTAGE - HMO) [id number] Segundo Wetzel [id number] Segundo Wetzel 10/13/2023 2 [place]ARE OR MEDICARE REPLACEMENT PRIMARY) Segundo Wetzel [id number] Segundo Wetzel 01/19/2024 1 [facility] (MEDICARE REPLACEMENT/AD VANTAGE - HMO) [id number] Segundo Wetzel [id number] Segundo Wetzel 01/19/2024 2 [place]IC[place] REPLACEMENT PRIMARY) Segundo Wetzel [id number] Segundo Wetzel 04/16/2024 1 [facility] (MEDICARE REPLACEMENT/AD VANTAGE - HMO) [id number] Segundo Wetzel [id number] Segundo Wetzel 04/16/2024 2 [place] OR MEDICARE REPLACEMENT PRIMARY) Segundo Wetzel [id number] Segundo Wetzel 07/14/2024 1 [facility] (MEDICARE REPLACEMENT/AD VANTAGE - HMO) [id number] Segundo Wetzel [id number] Segundo Wetzel 07/14/2024 2 [place] OR MEDICARE REPLACEMENT PRIMARY) Segundo Wetzel [id number] Segundo Wetzel Notes Date Note Type Note Provider Name and Address Organization Details Recorded Time 10/13/2023 text/html Pt RTC for c/o thick, incurvated toenails marck. Pt is paraplegic in wheelchair w/ very limited ability to use his arm, Lt. Otherwise, completely disabled and RTC in care of caregiver. Ronald Lemons DPM [address], [place], [address], [employer] 10/14/2023 10:16:45 01/19/2024 text/html Paraplegic RTC f or c/o nails marck and calluses both feet, outside. Ronald Lemons DPM [address], [place], [address], [employer] 01/20/2024 09:04:20 04/16/2024 text/html Pt RTC for routi ne c/o nails marck. Painful incurvated and dystrophic. Pt is in wheelchair and quadraplegic, unable to self-tx. Ronald Lemons DPM [address], [place], [address], [employer] 04/19/2024 08:34:41 07/14/2024 text/html Pt RTC for routi ne nail care. Pt is a quadraplegic unable to trim his own nails.l Ronald Lemons DPM [address], [place], [address], [employer] 07/19/2024 08:46:22
--- OUTSIDE RECORDS SUMMARY | 2024-07-21 12:25 | XMS_ITS | Encounter Summary ---
Author Organization [facility] Address [address] [place] [address] Phone Care Team Providers Care Belt Fixer Name Role Phone Rick Rodas MD Unavailable [phone] Nicolás Elena MD Primary Care Provider [phone] Emerson Camarillo MD Primary Care Provider [phone] Marquita Berry DPT Unavailable [phone] Emerson Camarillo MD Primary Care Provider [phone] Tiffany Sheppard RN Unavailable Heidi Lane MD Unavailable Encounter Details Date Type Department Care Team (Late st Contact Info) Description 12/08/[address] Medical Office [address] [place] [address] Cale Morris MD [facility] [address] [address] Social History Tobacco Use Types [...] on file Legal Sex Male 12:56 PM LITIGATION ASSOCIATE Gender Identity Not on file Sexual Orientation Not on file documented as of this encounter Plan of Treatment Not on file documented as of this encounter Goals Goal Patient Goal Type Associated Problems Recent Progress Patient-Stated? Author CCM Chronic Pain Care Plan Chronic Care Management Improving( 3:32 PM LITIGATION ASSOCIATE) Lynette Siddiqi RN Note: Problem: Chronic Pain [...] COVID: Suspected 05/05/2023 05/05/2023 05/05/2023 2:35 PM LITIGATION ASSOCIATE documented as of this encounter Care Teams Belt Fixer Relationship Specialty Start Date End Date Nicolás Elena MD [address] [facility] [place] [phone] [place] [address] PCP - General Internal Medicine 06/20/22 01/07/23 Emerson Camarillo MD [address] [facility] [place] [phone] [place] [address] PCP - General Family Practice 01/08/23 01/08/23 Emerson Camarillo MD [address] [facility] [place] [phone] [place] [address] PCP - General Family Practice 01/14/23 Rick Rodas MD [address] [facility] [place] [phone] [place] [address] Surgeon Colon and Rectal Surgery 06/08/21 Marquita Berry DPT [address] [place] [address] Physical Therapist Physical Therapy 01/06/23 Tiffany Sheppard, ALEJO [address] [facility] [address] [place] [address] SHOP Outpatient Mixer [employer] 05/09/23 06/05/[address] MD [address] [facility] [place] [address] Consulting Physician Pain Management 06/24/18 TARSHA PULILAM APN [id number] [facility] [id number] Wound Care Nurse Wound Care 05/15/18 documented as of this encounter
--- OUTSIDE RECORDS SUMMARY | 2024-07-21 12:25 | XMS_ITS | Clinical Summary ---
Author Organization [facility] Address [address] [place] [address] Care Team Providers Care Bead Picker Name Role Phone Rick Rodas MD Unavailable [phone] Marquita Berry DPT Unavailable [phone] Emerson Camarillo MD Primary Care Provider [phone] MD Unavailable Allergies Active Allergy Reactions Criticality Noted Date Comments Adhesive Rash Medium Medications docusate sodium (COLACE) 100 mg capsule Take 2 capsules (200 mg total) by mouth nightly 200-400mg Active cholecalciferol (VITAMIN D-3) 5,000 unit tablet Take 1 tablet (5,000 Units total) by mouth every morning 5 Active omega 8-wry-lag-fish oil 120-180-500 mg capsule Take 2 tablets [...] y,Presence of intrathecal baclofen pump,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HCC) 50142 mcg intrathec Continuous 06/02/2024 Active Active Problems Problem Noted Date Diagnosed Date Tetraplegic 05/05/2023 Other osteoporosis without current pathological fracture 10/04/2020 Bladder stones 09/06/2020 Overview (09/06/2020): Added automatically from request for surgery [id number] Autonomic dysfunction 01/04/2020 Screening for malignant neoplasm of colon 2018 Overview (02/26/2019): Added automatically from request for surgery [id number] Colostomy in place 02/26/2019 Overview (02/26/2019): Added automatically from request for surgery [id number] Obstruction of suprapubic catheter 12/29/2018 Overview (12/29/2018): Added automatically from request for surgery [id number] Skin sensitivity 08/17/2018 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 Neuropathic pain 04/08/2018 Colostomy care 02/09/2018 Muscle spasm 01/07/2018 Spasticity 10/15/2017 Muscle spasticity 10/10/2017 Tetraplegia 10/10/2017 Presence of intrathecal baclofen pump 10/10/2017 Neurogenic bladder 10/10/2017 Osteoporosis 10/06/2017 Encounters Date Type Department Care Team Description 07/02/2024 Telephone [facility] Orthopaedic [facility] [address]th [place] [address] [place] [id number] Dayday Baker MD 06/29/2024 Telephone [facility] Orthopaedic [facility] 12th [place] [address] [place] [address] Dayday Baker MD 06/23/2024 Results Follow-Up [facility] Orthopaedic Surgery [address] [place] [address] 12th [place] [address] [place] [id number] Carolynn Garcia, [facility] 06/23/2024 Orders Only [facility] Orthopaedic Surgery [address] [place] [address] 12th [place] [address] [place] [address] Dayday Baker MD Acute UTI (urinary tract infection) (Primary Dx); Neurogenic bladder; Suprapubic catheter (HCC) 06/21/2024 2:16 PM JD EDWARDS CONSULTANT - 06/21/2024 11:59 PM JD EDWARDS CONSULTANT Hospital Encounter [address] [address] Neurogenic bladder; Acute UTI (urinary tract infection) Discharge Disposition: Discharge to home or self care 06/21/2024 12:15 PM JD EDWARDS CONSULTANT Office Visit [facility] Orthopaedic Surgery [address] [place] [address] [place] [address] [place] [address] Dayday Baker MD Muscle spasticity (Primary Dx); Obstruction of suprapubic catheter, subsequent encounter; Neurogenic bladder; Acute UTI (urinary tract infection); Presence of intrathecal baclofen pump; Tetraplegia (HCC) 06/02/2024 11:45 AM JD EDWARDS CONSULTANT Procedure visit [facility] Orthopaedic Surgery [address] [place] [address] [place] [address] [place] [address] Dayday Baker MD Tetraplegic (HCC) (Primary Dx); 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HCC); Presence of intrathecal baclofen pump; Suprapubic catheter (HCC); Neurogenic bladder 06/02/2024 Orders Only [facility] Orthopaedic Surgery [address] [place] [address] [place] [address] [place] [address] Dayday Baker MD 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HCC) (Primary Dx) 05/31/2024 Orders Only [facility] Orthopaedic Surgery [address] [place] [address] [place] [address] [place] [address] Dayday Baker MD 05/11/2024 Telephone [facility] Orthopaedic Surgery [address] [place] [address] [address]th [place] [address] [place] [address] Dayday Baker MD from Last 3 Months [...] on file Legal Sex Male 12:56 PM JD EDWARDS CONSULTANT Gender Identity Not on file Sexual Orientation Not on file Obstetrics History Last Filed Vital Signs Vital Sign Reading Time Taken Comments Blood Pressure 76/53 06/02/2024 11:53 AM JD EDWARDS CONSULTANT Pulse 40 06/02/2024 11:53 AM JD EDWARDS CONSULTANT Temperature 36 C (96.8 F) 01/21/2024 11:15 AM CDT Respiratory Rate 18 06/21/2024 12:28 PM JD EDWARDS CONSULTANT Oxygen Saturation 96% 01/21/2024 11:15 AM CDT Inhaled Oxygen Concentration - - Weight 74.8 kg (165 lb) 06/21/2024 12:28 PM JD EDWARDS CONSULTANT Height 170.2 cm (5' 7 ) 06/21/2024 12:28 PM JD EDWARDS CONSULTANT Body Mass Index 25.84 06/21/2024 12:28 PM JD EDWARDS CONSULTANT Plan of Treatment Health Maintenance Due Date [...] Plan Chronic Care Management Improving( 3:32 PM JD EDWARDS CONSULTANT) Lynette Siddiqi, RN Note: Problem: Chronic Pain Goals: 1. Minimize further functional decline 2. Maximize quality of life 3. Control pain Strategies: - Activity/exercise program recommendation - Conservative stepwise pain medicine strategy with multi-disciplinary approach - Recommend healthy lifestyle strategies and compensatory methods as needed Medical Devices Implanted Type Area Dobby Loom Weaver Device Identifier Shelf Expiration Date Model / Serial / Lot Baclofen Pain Pump Abdomen MEDTRONIC SYNCHROMED II / / Hardware Neck Medtronic Inc Synchromed Ii [place] Catheter Access Port Suture Loop [id number] - [id number] - [id number] Implanted:Qty: 1 on 08/29/2023 by Segundo Black MD at [facility] Right: Abdomen Medtronic Inc 01/23/2025 [id number] / [id number] / Medtronic Inc Sutureless Connector Revision Catheter Kit Intrathecal Pump [id number] - [id number] Implanted:Qty: 1 on 08/29/2023 by Segundo Black MD at [facility] Right: Abdomen Med[employer]onic Inc 02/27/2025 [id number] / / [id number] Procedures Procedure Name Priority Date/Time Associated Diagnosis Comments URINALYSIS, MICROSCOPIC ONLY Routine 06/21/2024 1:50 PM JD EDWARDS CONSULTANT Neurogenic bladder Acute UTI (urinary tract infection) URINE CULTURE Routine 06/21/2024 1:50 PM JD EDWARDS CONSULTANT URINALYSIS AND REFLEX TO MICROSCOPIC AND CULTURE Routine 06/21/2024 1:50 PM JD EDWARDS CONSULTANT Neurogenic bladder Acute UTI (urinary tract infection) BOTOX INJECTION Routine 06/21/2024 12:15 PM JD EDWARDS CONSULTANT Muscle spasticity from Last 3 Months Results * (ABNORMAL) Urinalysis reflex to microscopic and culture Urine, suprapubic catheter (06/21/2024 1:50PM JD EDWARDS CONSULTANT) Color, ur Straw Yellow Clarity, ur Cloudy(A) Clear [facility] Specific gravity, ur 1.006 1.003 - 1.[address] [facility] pH, urine 6.[address] [facility] Comment: Interpretive Data U rine pH is affected by diet, medications, systemic acid-base disturbances, and renal tubular function. pH may affect urinary stone formation. For example, urine pH below 6.0 may help reduce the tendency for calcium phosphate stones and pH greater than 6.0 may reduce the tendency for uric acid stone formation. Source: [facility] [employer] Current Interpretive Data was last revised on 2017 Protein, ur ql Negative Negative [facility] Glucose, ur ql Negative Negative [facility] Ketones, ur Negative Negative [facility] Bilirubin, ur Negative Negative [facility] Blood, ur Trace(A) Negative [facility] Urobilinogen, ur <2.0 <2.0 mg/dL [facility] Nitrite, ur Positive(A) Negative [facility] Leukocyte esterase, ur 3+(A) Negative [facility] UA reflex comment Reflex to microscopic UA will be performed. [facility] Urine, suprapubic catheter 06/21/2024 1:50 PM JD EDWARDS CONSULTANT 06/21/2024 3:44 PM JD EDWARDS CONSULTANT Dayday Baker MD LAB MICROBIOLOGY - GENERAL ORD ERABLES Final Result Performing Organization Address [facility] Co de Phone Number [facility] Department [place] [address] * (ABNORMAL) Urinalysis, microscopic only (06/21/2024 1:50 PM JD EDWARDS CONSULTANT) WBC, ur 21-50(A) 0 - 5 /HPF RBC, ur 0-2 0 - 2 /HPF [facility] Bacteria, ur 1+(A) [facility] Mucous, ur Present(A) [facility] Culture Reflex Comment Reflex to urine culture will be performed. [facility] Urine, suprapubic catheter 06/21/2024 1:50 PM JD EDWARDS CONSULTANT 06/21/2024 3:44 PM JD EDWARDS CONSULTANT Dayday Baker MD LAB URINE ORDERABLES Final Res ult Performing Organization Address [facility] Co de Phone Number [facility] Department [place] [address] * (ABNORMAL) Urine culture Urine, suprapubic catheter (06/21/2024 1:50 PM JD EDWARDS CONSULTANT) Report Final Report: Growth indicates contamination with mixed bacterial monae. Please submit a new specimen with special attention given to the collection process and to prompt transport to the laboratory. (.) Organism GROWTH INDICATES CONTAMINATION WITH MIXED MONAE. [facility] Urine, suprapubic catheter 06/21/2024 1:50 PM JD EDWARDS CONSULTANT 06/21/2024 5:50 PM JD EDWARDS CONSULTANT Narrative [facility] - 06/23/2024 11:42 AM JD EDWARDS CONSULTANT Urine culture reflexed based upon urinalysis results. Testing performed by [facility] Microbiology Laboratory ([phone]) us Dayday Baker MD LAB MICROBIOLOGY - GENERAL ORD ERABLES Final Result [facility] Department [place] [address] * Botox Injection (06/21/2024 12:15 PM JD EDWARDS CONSULTANT) Narrative Dayday Baker MD - 06/21/2024 12:15 PM JD EDWARDS CONSULTANT Dayday Baker MD 06/25/2024 7:25 PM Botox Injection Performed by: Dayday Baker MD Authorized by: Dayday Baker MD [place] Protocol: Consent Given by: Patient Site marked: the procedure site was marked Timeout: prior to procedure the correct patient, procedure, and site was verified Procedure Details - Botox Injection: Procedure Details: Buy and Bill Botox 200 Units onabotulinumtoxin A (botulinum toxin type A, BOTOX) 100 unit injection us Dayday Baker MD IN CLINIC/BEDSIDE ORDERABLES F inal Result from Last 3 Months Insurance IDPA [facility] MEDICARE ADVANTAGE [facility] MEDICARE ADVANTAGE IDPA IDPA [facility] MEDICARE ADVANTAGE Advance Directives For more information, please contact: [phone] * LIMITED - No CPR (Latest Code Status on File) Date Activated Date Inactivated Comments 05/05/2023 11:25 PM 05/08/2023 11:52 PM * Full Code Date Activated Date Inactivated Comments 05/05/2023 10:50 PM 05/05/2023 11:25 PM * Full Code Date Activated Date Inactivated Comments 03/29/2019 11:00 AM 03/29/2019 5:48 PM Care Teams Bead Picker Relationship Specialty Start Date End Date Emerson Camarillo MD [address] [place] [address] PCP - General Family Practice 01/14/23 Rick Rodas MD [address] [facility] [phone] [place] [address] Surgeon Colon and Rectal Surgery 06/08/21 Marquita Berry DPT [address] [place] [address] Physical Therapist Physical Therapy 01/06/[address] MD [address] [place] [address] Consulting Physician Pain Management 06/24/18 TARSHA PULLIAM APN [id number] [facility] [phone] Wound Care Nurse Wound Care 05/15/18
--- OUTSIDE RECORDS SUMMARY | 2024-07-21 12:25 | XMS_ITS | Encounter Summary ---
Author Organization [facility] [email or web address] [facility] Address [address] [place] [address] Care Team Providers Care Dumbwaiter Operator Name Role Phone Emerson Camarillo MD Primary Care Provider [phone] Encounter Details Date Type Department Care Team (Late st Contact Info) Description 07/20/2024 4:15 PM CDT Telephone Check Up [facility] [address] [facility] [address] [place] [address] Donte Neal MD [address] [facility] [address] [place] [address] Chronic anemia (Primary Dx) Social History Tobacco Use Types Packs/Day Years Used Date Smoking Tobacco: Never Smokeless Tobacco: Never Alcohol Use Standard Drinks/Week Comments No 0 (1 standard drink = 0.6 oz pur e alcohol) Sex and Gender Information Value Date Recorded Sex Assigned at Not on file Legal Sex Male 11:14 AM [employer] [facility] Gender Identity Not on file Sexual Orientation Not on file documented as of this encounter Progress Notes * Donte Neal MD - 07/20/2024 3:43 PM CDT HEMATOLOGY / ONCOLOGY PROGRESS NOTE Patient Identification: Name: Segundo Wetzel Age: 43 y.o. Sex: male : 1980 DIAGNOSIS Chronic anemia Thrombocytopenia CURRENT TREATMENT Expectant TREATMENT HISTORY SUBJECTIVE This is a phone visit with patient. He denies any bleeding and bruising. Denies any excessive tiredness and fatigue. He was complaining of tachycardia and low oxygen saturation but now feeling better. No other new complaints. Review of system Constitutional: Patient did not mention fevers, sweats, fatigue, malaise, weight loss HEENT: Patient did not mention sinus congestion, hearing or vision problems Respiratory: Patient did not mention cough, dyspnea, wheeze Cardiovascular: Patient did not mention chest pain, exertional chest pressure/discomfort, nausea, syncope, shortness of breath GI: Patient did not mention constipation, diarrhea, dsyphagia, reflux symptoms, vomiting, melena : Patient did not mention dysuria, frequency, incontinence, urgency Integumentary system: no lymphadenopathy, sweats, flushing Musculoskeletal: Patient not mention: myalgia, arthralgia Neurological: Patient did not mention blurry or disturbed vision, numbness/weakness, dizziness Skin: No lumps, bumps or rashes. Objective: Vital signs in last 24 hours: As per nursing note Exam: This is a phone visit [facility] Labs from July 13 showed WBC 5.0 hemoglobin 12.5 platelet 176,000 creatinine 0.6 @IMAGEIMP@ Assessment: Plan: Patient Active Problem List Diagnosis Date Noted Neuropathic pain 04/08/2018 Colostomy care ([facility]) 02/09/2018 Muscle spasm 01/07/2018 Spasticity 10/15/2017 Muscle spasticity 10/10/2017 Neurogenic bladder 10/10/2017 Presence of intrathecal baclofen pump 10/10/2017 Tetraplegia ([facility]) 10/10/2017 Osteoporosis 10/06/2017 Thrombocytopenia. Likely secondary to infection and drug-induced. Now resolved with normal plateletcount. No further workup is needed at this time. Chronic anemia. I have instructed him to take oral iron 65 mg and B12 500 mcg daily. I will check iron studies and B12 level on return to clinic in 4 months. Frequent UTI. Patient is on Bactrim. Seizure disorder. Stable on Keppra 750 mg twice a day. Muscle spasm. He is on baclofen intrathecally. Hypoxia and tachycardia. I recommended return to primary care physician. Follow-up in 4 months ? TOBACCO COUNSELING He is not a tobacco/nicotine user. 07/20/2024 Donte Neal MD Patient's identity confirmed yes Patient gave verbal consent to have these services billed to their insurance and expressed understanding that co-insurance and deductible may apply: yes Patient was located at home. This encounter was completed via two-way synchronous audio only communication. Video technology available to provider, but patient not capable of, or doesn't consent to, use of video. Time spent in discussion with patient: 20 minutes. documented in this encounter Plan of Treatment Upcoming Encounters Date Type Department Care Team (Late st Contact Info) Description 11/19/2024 12:00 PM CDT Office Visit [facility] - [place] [address] [facility] [address] [place] [address] Donte Neal MD [address] [facility] [address] [place] [address] Scheduled Orders Name Type Priority Associated Diagnoses Orde r Schedule CBC WITHOUT DIFFERENTIAL Lab Stat Chronic anemia Expected: 11/09/2024, Expires: 07/20/2025 FERRITIN Lab Routine Chronic anemia Expected: 11/09/2024, Expires: 07/20/2025 IRON, TIBC, AND PERCENT SATURATION Lab Routine Chronic anemia Expected: 11/09/2024, Expires: 07/20/2025 VITAMIN B12 AND FOLATE Lab Routine Chronic anemia Expected: 11/09/2024, Expires: 07/20/2025 BASIC METABOLIC PANEL Lab Stat Chronic anemia Expected: 11/09/2024, Expires: 07/20/2025 documented as of this encounter Visit Diagnoses Diagnosis Chronic anemia- Primary Anemia, unspecified documented in this encounter Care Teams Dumbwaiter Operator Relationship Specialty Start Date End Date Emerson Camarillo MD [address] [place] [address] PCP - General Family Practice 07/13/24 documented as of this encounter
--- OUTSIDE RECORDS SUMMARY | 2024-07-21 12:25 | XMS_ITS | CONTINUITY OF CARE DOCUMENT ---
Author Name gregg gregg Address Unknown Organization [facility] Address [address] [place] [address] Phone [phone] Care Team Providers Care Tie Tamper Name Role Phone Demarcus SANDOVAL, Keri Unavailable [phone] CHRIS SANDOVAL, BERNARDA Unavailable [phone] BERNARDA PEREZ MD Unavailable [phone] INSURANCE PROVIDERS Payer name Policy type / Coverage type Eddy red constitution party ID [facility] [facility] Medicaid 1 [id number] AARP MEDICARE ADVANTAGE HMO-POS HMO [id number]
--- OUTSIDE RECORDS SUMMARY | 2024-07-21 12:25 | XMS_ITS | Encounter Summary ---
Author Organization [facility] Address [address] [place] [address] Phone Care Team Providers Care Rope Machine Setter Name Role Phone Rick Rodas MD Unavailable [phone] Marquita Berry DPT Unavailable [phone] Emerson Camarillo MD Primary Care Provider [phone] MD Unavailable Encounter Details Date Type Department Care Team (Late st Contact Info) Description 06/29/2024 Telephone [facility] Orthopaedic Surgery [address]th [place] [address] [place] [address] Dayday Baker MD [address] [facility] [address] [place] [address] Social History Tobacco Use Types Packs/Day Years [...] on file Legal Sex Male 12:56 PM TRIMMING PRESS OPERATOR Gender Identity Not on file Sexual Orientation Not on file documented as of this encounter Miscellaneous Notes * Telephone Encounter - Carolynn Garcia CMA - 06/29/2024 3:38 PM TRIMMING PRESS OPERATOR Pt's mom called and LVM stating that the pt is having neurological issues and would like to speak w/ Dr. Baker. Alanna - [phone]. clt MING PRESS OPERATOR documented in this encounter Plan of Treatment Not on file documented as of this encounter Goals Goal Patient Goal Type Associated Problems Recent Progress Patient-Stated? Author CCM Chronic Pain Care Plan Chronic Care Management Improving( 3:32 PM TRIMMING PRESS OPERATOR) Lynette Siddiqi, ALEJO Note: Problem: Chronic Pain Goals: 1. Minimize further functional decline 2. Maximize quality of life 3. Control pain Strategies: - Activity/exercise program recommendation - Conservative stepwise pain medicine strategy with multi-disciplinary approach - Recommend healthy lifestyle strategies and compensatory methods as needed documented as of this encounter Visit Diagnoses Not on filedocumented in this encounter Care Teams Rope Machine Setter Relationship Specialty Start Date End Date Emerson Camarillo MD [address] [place] [address] PCP - General Family Practice 01/14/23 Rick Rodas MD [phone] [place] [address] Surgeon Colon and Rectal Surgery 06/08/21 Marquita Berry, VIVEKT [address] [place] [address] Physical Therapist Physical Therapy 01/06/[address] MD [address] [place] [address] Consulting Physician Pain Management 06/24/18 TARSHA PULLIAM APN [id number] [facility] [phone] Wound Care Nurse Wound Care 05/15/18 documented as of this encounter
--- OUTSIDE RECORDS SUMMARY | 2024-07-21 12:25 | XMS_ITS | Encounter Summary ---
Author Organization [facility] Address [address] [place] [address] Phone Care Team Providers Care Edge Plugger Name Role Phone Rick Rodas MD Unavailable [phone] Marquita Berry DPT Unavailable [phone] Emerson Camarillo MD Primary Care Provider [phone] MD Unavailable Encounter Details Date Type Department Care Team (Late st Contact Info) Description 06/23/2024 Results Follow-Up [facility] Orthopaedic Surgery [address] [facility] 12th [place] [address] [place] [address] Carolynn Garcia, [facility] Social History Tobacco Use Types Packs/Day [...] on file Legal Sex Male 12:56 PM SPANISH LITERATURE PROFESSOR Gender Identity Not on file Sexual Orientation Not on file documented as of this encounter Miscellaneous Notes * Result Encounter Note - Carolynn Garcia CMA - 06/23/2024 10:56 AM SPANISH LITERATURE PROFESSOR I spoke to the pt. He asked that the new UA order be sent to [facility]. New order faxed to [phone]. clt ISH LITERATURE PROFESSOR documented in this encounter Plan of Treatment Not on file documented as of this encounter Goals Goal Patient Goal Type Associated Problems Recent Progress Patient-Stated? Author CCM Chronic Pain Care Plan Chronic Care Management Improving( 3:32 PM SPANISH LITERATURE PROFESSOR) Lynette Siddiqi RN Note: Problem: Chronic Pain Goals: 1. Minimize further functional decline 2. Maximize quality of life 3. Control pain Strategies: - Activity/exercise program recommendation - Conservative stepwise pain medicine strategy with multi-disciplinary approach - Recommend healthy lifestyle strategies and compensatory methods as needed documented as of this encounter Visit Diagnoses Not on filedocumented in this encounter Care Teams Edge Plugger Relationship Specialty Start Date End Date Emerson Camarillo MD [address] [place] [address] PCP - General Family Practice 01/14/23 Rick Rodas MD [phone] [place] [address] Surgeon Colon and Rectal Surgery 06/08/21 Marquita Berry DPT [address] [place] [address] Physical Therapist Physical Therapy 01/06/[address] MD [address] [facility] [place] [address] Consulting Physician Pain Management 06/24/18 TARSHA PULLIAM APN [id number] [facility] [id number] Wound Care Nurse Wound Care 05/15/18 documented as of this encounter
--- OUTSIDE RECORDS SUMMARY | 2024-07-21 12:25 | XMS_ITS | Encounter Summary ---
Author Organization [facility] Address [address] [place] [address] Care Team Providers Care Office Employee Name Role Phone Emerson Camarillo MD Primary Care Provider [phone] Encounter Details Date Type Department Care Team (Late st Contact Info) Description 07/20/2024 External Device Data STL ABSTRACTION Provider, Abstract NO ADDRESS ON FILE Social History Tobacco Use Types Packs/Day Years Used Date Smoking Tobacco: Never Smokeless Tobacco: Never Alcohol Use Standard Drinks/Week Comments No 0 (1 standard drink = 0.6 oz pur e alcohol) Sex and Gender Information Value Date Recorded Sex Assigned at Not on file Legal Sex Male 11:14 AM ELECTRICAL ENGINEERING DRAFTING OFFICER Gender Identity Not on file Sexual Orientation Not on file documented as of this encounter Plan of Treatment Upcoming Encounters Date Type Department Care Team (Late st Contact Info) Description 11/19/2024 12:00 PM CDT Office Visit [facility] Oncology and Hematology [facility] [address] [address] [place] [address] [place] [address] [address] [place] [address] documented as of this encounter Visit Diagnoses Not on filedocumented in this encounter Care Teams Office Employee Relationship Specialty Start Date End Date Emerson Camarillo MD [address] [place] [address] PCP - General Family Practice 07/13/24 documented as of this encounter
--- OUTSIDE RECORDS SUMMARY | 2024-07-21 12:25 | XMS_ITS | Encounter Summary ---
Author Organization [facility] Address [address] [place] [address] Phone Care Team Providers Care Webmaster Name Role Phone Destiney, Zander CHAPMAN Primary Care Provider [phone] Rick Rodas MD Unavailable [phone] Nicolás Elena MD Primary Care Provider [phone] Emerson Camarillo MD Primary Care Provider [phone] Marquita Berry DPT Unavailable [phone] Emerson Camarillo MD Primary Care Provider [phone] Tiffany Sheppard RN Unavailable [phone] MD Unavailable Encounter Details Date Type Department Care Team (Late st Contact Info) Description 10/04/2020 Treatment [facility] [address] [facility] Medical Office Building [address] [place] [address] Cale Morris MD [facility] [address] Social History Tobacco Use Types [...] on file Legal Sex Male 12:56 PM CURB ATTENDANT Gender Identity Not on file Sexual Orientation Not on file documented as of this encounter Plan of Treatment Not on file documented as of this encounter Goals Goal Patient Goal Type Associated Problems Recent Progress Patient-Stated? Author CCM Chronic Pain Care Plan Chronic Care Management Improving( 3:32 PM CURB ATTENDANT) Lynette Siddiqi RN Note: Problem: Chronic [...] COVID: Suspected 05/05/2023 05/05/2023 05/05/2023 2:35 PM CURB ATTENDANT documented as of this encounter Care Teams Webmaster Relationship Specialty Start Date End Date Zander Cabello DO PCP - General Internal Medicine 04/08/18 06/19/22 Nicolás Elena MD [phone] [place] [address] PCP - General Internal Medicine 06/20/22 01/07/23 Emerson Camarillo MD [phone] [place] [address] PCP - General Family Practice 01/08/23 01/08/23 Emerson Camarillo MD [address] [facility] [phone] [place] [address] PCP - General Family Practice 01/14/23 Rick Rodas MD [address] [facility] [phone] [place] [address] Surgeon Colon and Rectal Surgery 06/08/21 Marquita Berry DPT [address] [facility] [address] [place] [address] Physical Therapist Physical Therapy 01/06/23 Tiffany Sheppard RN [address] [facility] [address] [place] [address] SHOP Outpatient Email Production Specialist 05/09/23 06/05/[address] MD [address] [facility] [place] [address] Consulting Physician Pain Management 06/24/18 TARSHA PULLIAM APN [address] [facility] [phone] Wound Care Nurse Wound Care 05/15/18 documented as of this encounter
[2024-07-21] MEDS: VANCOMYCIN 1,750 MG/NS 500 ML 1,750 MG/500 ML BAG 250 MG IVPB (12:33)
[2024-07-21 12:43] LABS: Hematocrit 33.3 % (42.0-52.0); Hemoglobin 11.1 g/dL (14.0-18.0); Immature Granulocyte Absolute 0.01 K/mm3 (0.00-0.031); Immature Granulocyte Percent A 1.6 % (0-0.5); Immature Platelet Fraction Pct 8.3 % (0.9-11.2); Lymphocytes Absolute Auto 0.11 K/mm3 (0.9-3.2); Lymphocytes Percent Auto 17.7 % (18.3-44.2); Mean Corpuscular HGB Conc 33.3 g/dl (32-36); Mean Platelet Volume 11.5 fl (7.4-10.4); Monocytes Absolute Auto 0.1 K/mm3 (0.1-0.6); Monocytes Percent Auto 11.3 % (2.6-8.5); Neutrophils Absolute Auto 0.4 K/mm3 (1.3-6.7); Neutrophils Percent Auto 69.4 % (45.5-73.1); Platelet Count Result 34 k/mm3 (150-375); Red Blood Count 3.58 M/mm3 (4.6-6.20); Red Cell Distribution Width 16.5 % (11.5-14.5)
[2024-07-21 12:51] LABS: Lactic Acid Reflex 2.8 mmol/L (0.7-2.0)
[2024-07-21 12:56] LABS: Alanine Aminotransferase 21 U/L (6-50); Albumin Level 2.8 g/dL (3.5-5.1); Alkaline Phosphatase 88 U/L (38-126); Anion Gap 6 mmol/L (4-12); Aspartate Amino Transferase 24 U/L (17-59); Bilirubin,Total 0.1 mg/dL (0.2-1.3); Blood Urea Nitrogen 16 mg/dL (9-20); Calcium 8.1 mg/dL (8.4-10.2); Carbon Dioxide 25 mmol/L (22-30); Chloride 100 mmol/L (98-107); Estimated CRCL calculation 93 ml/min; Estimated Glomerular Filt Rate > 60; Glucose 92 mg/dL (65-110); Potassium 4.6 mmol/L (3.4-5.0); Sodium 131 mmol/L (137-145)
[2024-07-21 13:02] LABS: Troponin I < 0.012 ng/mL (0.000-0.034)
[2024-07-21 13:04] LABS: Add Urine Microscopic? YES; Appearance Urine Cloudy (Clear); Bacteria Urine Rare /hpf; Bilirubin Urine Negative (Negative); Blood Urine Negative (Negative); Color Urine Yellow (Yellow); Glucose Urine UA Negative (Negative); Hyaline Casts Urine Present /lpf; Ketones Urine Negative (Negative); Leukocyte Esterase Ur Trace LEU/UL (Negative); Need Manual Microscopic Reviewed; Nitrate Urine Negative (Negative); Non Pathogenic Casts >20; Protein Urine Trace mg/dL (Negative); RBC Urine 0-2 /hpf (0-2); Squamous Epithelial Cell Urine Few /hpf (Few); Urobilinogen Urine 0.2 mg/dL (<2.0); WBC Urine 0-5 /hpf (0-3); pH Urine 5.5 (5.0-9.0)
[2024-07-21 13:05] LABS: CRP 22.2 mg/dL (<1.0)
[2024-07-21 13:06] LABS: Influenza A QL RT-PCR Positive (Negative); Influenza B QL RT-PCR Negative (Negative); RSV RNA, RT-PCR Negative (Negative); SARS-CoV-2 RNA PCR Negative (Negative)
[2024-07-21 13:09] LABS: White Blood Count 0.6 K/mm3 (4.5-10.0)
[2024-07-21 13:12] LABS: Anisocytosis 1+; Platelet Estimate Decreased (Adequate); Schistocytes None Seen
[2024-07-21 13:17] LABS: INR 1.3; Partial Thromboplastin Time 51.9 Seconds (22.3-36.8); Prothrombin Time 16.9 Seconds (11.1-14.7)
[2024-07-21 14:37] LABS: Reflex Lactic Acid Yes or No Add Lactic
--- NOTE | 2024-07-21 14:37 | PC.NURSE ---
this RN called ED RT to let them know the pt pulse ox was 88% at this time to have the come and adjust pt venturi mask
[2024-07-21] MEDS: NOREPINEPHRINE 8 MG/D5W 250 ML 8 MG/250 ML BAG 9.38 MG IV CONT (14:48)
--- NOTE | 2024-07-21 14:50 | PC.NURSE ---
EDP GHADA Felix said she did not want restraints for this pt when hes intubated
--- NOTE | 2024-07-21 14:50 | PC.NURSE ---
pt gave verbal consent to get a central line at this time
--- NOTE | 2024-07-21 14:54 | PC.NURSE ---
EDP Dr. Shaver at bedside at this time. Dr. Shaver gave verbal order to up titrate of norepinephrine to 15mcg
--- NOTE | 2024-07-21 15:02 | PC.NURSE ---
EDP Dr. Shaver gave verbal order to titrate norepinephrine
[2024-07-21 15:14] LABS: Alveolar/Arterial O2 Gradient 616.8 mmHg; Base Excess ABG -5.8 mEq/l (+/-2.0); Carboxyhemoglobin 0.6 % THb (0-2.0); Fractional Inspired Oxygen 100 %; HCO3 ABG 20.4 mEq/l (22.0-26.0); Methemoglobin ABG 0.1 %THb (0-1.5); Oxygen Content ABG 13.2 %vol (16.0-22.0); PCO2 ABG 42.6 mmHg (35.0-45.0); PO2 ABG 53.6 mmHg (80.0-100.0); PO2 FiO2 Ratio Arterial Blood 0.54 %; Reduced Hemoglobin 16.1 %THb (0-5.0); Total Hemoglobin 11.3 g/dL (12.0-18.0)
[2024-07-21 15:17] LABS: pH ABG 7.298 (7.350-7.450)
[2024-07-21 15:18] LABS: Oxygen Saturation ABG 84.4 % (95.0-100.0)
[2024-07-21 15:20] LABS: Oxyhemoglobin 83.2 % THb (90.0-100.0); Site Drawn LEFT BRACHIAL
[2024-07-21 15:21] LABS: MRSA (PCR) NOT DETECTED (NOT DETECTE)
[2024-07-21 15:21] LABS: Device HIGH FLOW THERAPY
--- NOTE | 2024-07-21 15:28 | PC.NURSE ---
called RT at this time to let them know pt oxygen was 88% on room air and to up the pt oxygen while on the venturi. RT said they would adjust soon
--- NOTE | 2024-07-21 15:33 | PC.NURSE ---
RT, EDP Dr. Shaver and GHADA Felix at bedside at this time including another RN 20 etomidate pushed at 1538 100 rocuronium pushed at 1539 7.5 ETT placed at 1540, 23 at the lip, bilateral lung sounds heard
[2024-07-21 15:49] LABS: Lactic Acid 1.3 mmol/L (0.7-2.0)
--- NOTE | 2024-07-21 16:06 | PCCCNOTE ---
Called to the ED room to talk to the family. Assisted mom, grandma and grandpa to the family room and spoke to them. Stated the pt was diagnosed with Influenza A on 07/19/24 but was past the time to get Tamiflu but started on Prednisone. Stated he has been taking Nebulizers as needed and noted his pulse ox to be in the high 70's low 80's for the past two days so called for help. Spoke to the nurse who was made aware as soon as the pt is stable would like to be at the pt's side. Mom denies having any further Care Coordination needs at this time.-claritza
[2024-07-21] MEDS: RAPID SEQUENCE INTUBATION KIT (16:11)
[2024-07-21] MEDS: FENTANYL 2,500MCG/NS250ML(*CRX 2,500 MCG/250 ML BAG IV CONT (16:13)
[2024-07-21 16:25] LABS: Alveolar/Arterial O2 Gradient 584.9 mmHg; Base Excess ABG -5.4 mEq/l (+/-2.0); Fractional Inspired Oxygen 100 %; HCO3 ABG 23.4 mEq/l (22.0-26.0); Oxygen Content ABG 14.9 %vol (16.0-22.0); Oxygen Saturation ABG 88.2 % (95.0-100.0); PO2 ABG 66.7 mmHg (80.0-100.0); PO2 FiO2 Ratio Arterial Blood 0.67 %; Total Hemoglobin 12.1 g/dL (12.0-18.0)
[2024-07-21 16:28] LABS: Oxyhemoglobin 87.5 % THb (90.0-100.0); PCO2 ABG 61.4 mmHg (35.0-45.0); pH ABG 7.198 (7.350-7.450)
[2024-07-21 16:29] LABS: Arterial Blood Gas PEEP 8 cmH2O; Arterial Blood Gas Tidal Volume 400 ml; Arterial Blood Gas Vent Mode CMV; Arterial Blood Gas Ventilator rate 20 /MIN; Device VENTILATOR; Modified Allen's Test Pass; Site Drawn RIGHT RADIAL
[2024-07-21] MEDS: MIDAZOLAM 100MG/NS 100ML(*CRX) 100 MG/100 ML BAG IV CONT (17:44)
[2024-07-21] MEDS: MIDAZOLAM HCL (*CRX) 2 MG/2 ML VIAL 4 MG IV PUSH (17:44)
[2024-07-21] MEDS: SODIUM BICARBONATE 8.4% 50 MEQ/50 ML SYRINGE IV PUSH (17:44)
[2024-07-21] MEDS: AZITHROMYCIN 500 MG/NS 250 ML 500 MG/250 ML BAG 250 MG IVPB (17:45)
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
--- NOTE | 2024-07-21 18:06 | PC.NURSE ---
Patient arrived to the floor at 1650pm via stretcher from the ER. Intubated and on mechanical ventilator. Accompanied by ER nurse, body technician/painter and two respiratory therapist. This RN went into the room and assisted with transfer from the stretcher to the bed. Placed shelter monitor on, and obtained vital signs. Skin is noted to be intact at this time, however it is evident that he recent skin injury. His mother and grandfather came into the room and his mother stated that he is allergic to the Mepilex and that we should not put them on him. She states that the wound is from previously having one on and that he appears to be allergic to them. This RN stated that she would note that. This RN reviewed the medications with his mother and informed the provider. The patient was noted to be having active seizures while this RN was in the room. Head noted to be twitching back and forth. His mother states that she believes he had a couple of seizures non-focal, prior to EMS picking him up from home. This RN called the back up scan coordinator and orders received. Updated the patients mother on the plan of care and carried out such orders. The patient is noted to have a colostomy bag that has brown stool in it, the mother states that the patient uses a certain kind of colostomy bag and that she would change it out for him. He is also noted to have a suprapubic belcher catheter in place. Skin around both the colostomy and suprapubic catheter is intact.
[2024-07-21] MEDS: IPRATROPIUM 0.5 MG/ALBUTEROL SULFATE 2.5 MG AMPUL.NEB 3 ML INHALATION (19:54)
[2024-07-21] MEDS: OSELTAMIVIR PHOSPHATE 75 MG CAPSULE FEED TUBE (19:57)
[2024-07-21 20:17] LABS: Procalcitonin 31.1 ng/mL
[2024-07-21 21:01] LABS: Glucose Point of Care 70 mg/dl (65-105)
[2024-07-21] MEDS: DEXTROSE 5%/LACTATED RINGERS 1,000 ML 75 ML IV CONT (21:03)
[2024-07-21] MEDS: PREGABALIN (*CRX) 50 MG CAPSULE 200 MG PO (21:06)
[2024-07-21] MEDS: levETIRAcetam IV 750 MG in DEXTROSE 5% 100 ML 430 MG IVPB (21:06)
[2024-07-21] MEDS: IPRATROPIUM 0.5 MG/ALBUTEROL SULFATE 2.5 MG AMPUL.NEB 3 ML 6 ML NEBULIZE (21:20)
--- NOTE | 2024-07-21 21:35 | P.RRN_ITS ---
Critical Care Event Note Summary Code activated: No Narrative: This case had a high probability of a clinically significant, sudden, or life threatening deterioration of this patient's condition which required my full and direct attention, intervention and personal management. The patient was intubated earlier today due to acute respiratory failure secondary to bilateral pneumonia and influenza a. Started on cefepime, azithromycin, and vancomycin. MRSA negative today, 07/21. However, patient continues to decline and will add vancomycin back to patient's antibiotic regimen. Upon my arrival, the patient was hypoxic in the upper 70s to mid 80s. The patient's PEEP and tidal volume were increased without affect. Repeat chest x-ray performed. Per my personal review, no significant changes compared to CXR done earlier this evening post intubation. Clinical Trial Specialist notified of change in condition. Recommended re-dosing with rocuronium and increasing PEEP to 12. The patient was manually bagged for 30 minutes post rocuronium with a DuoNeb treatment in line. Despite these interventions, the patient remained hypoxic. ABG showed pH 7.384, pCO2 37.2, pO2 42.3, HCO3 21.8, O2 sat 77.6%. Patient was then placed in a lateral recumbent position on his left side. O2 saturations increased to 90-92%. Plan to place patient in prone position with Nimbex. The patient's critical condition was discussed with his mother, Michelle, at the bedside. If positioning does not increase or or maintain the patient's oxygen saturation, she would like to transition to comfort care. Patient to be a modified code, no CPR, per the patient's POA (Michelle, Mother). Critical care time: 30 - 74 mins
[2024-07-21] MEDS: RAPID SEQUENCE INTUBATION KIT 1 EACH (21:39)
[2024-07-21] MEDS: ROCURONIUM BROMIDE 50 MG/5 ML VIAL 100 MG IV PUSH (21:39)
[2024-07-21 21:53] LABS: Alveolar/Arterial O2 Gradient 633.3 mmHg; Base Excess ABG -2.8 mEq/l (+/-2.0); Fractional Inspired Oxygen 100 %; HCO3 ABG 21.8 mEq/l (22.0-26.0); Oxygen Content ABG 13.2 %vol (16.0-22.0); PCO2 ABG 37.4 mmHg (35.0-45.0); PO2 FiO2 Ratio Arterial Blood 0.42 %; pH ABG 7.384 (7.350-7.450)
[2024-07-21 21:55] LABS: PO2 ABG 42.3 mmHg (80.0-100.0)
[2024-07-21 21:56] LABS: Oxygen Saturation ABG 77.6 % (95.0-100.0); Oxyhemoglobin 78.6 % THb (90.0-100.0)
[2024-07-21 21:57] LABS: Device AMBU BAG; Modified Allen's Test Pass; Site Drawn LEFT RADIAL
--- NOTE | 2024-07-21 22:30 | PC.NURSE ---
Patient desatting to 84% at 2120. FiO2 already at 100%, so patient was suctioned with very little oral or endotracheal secretions. RT Mckinnon at bedside and Marilu Ordonez NP, notified of decompensation in patient's status. Marilu Ordonez at bedside and patient's SpO2 dropping into 70's. RT bagged patient and STAT CXR obtained. Marilu Ordonez NP, on phone with Dr. Unger and received orders to administer 100 mg Rocuronium IVP and increase patient's PEEP to 12. Patient received additional Duoneb treatment while being bagged by RT. ABG obtained and critical values charted: O2 Saturation 77.6, PaO2 42.3, and oxyhemoglobin 78.6. Patient was bagged by RT for 35 minutes before being placed back on mechanical ventilation with subsequent changes made to the ventilator settings as ordered. Patient placed on left side with good lung down to promote increased oxygenation and oxygen saturations began to improve. Patient's mom at bedside and patient's grandmother arrived during incident. Will continue to monitor.
[2024-07-22] VITALS (16 sets, daily range): BP systolic 91–122; BP diastolic 52–70; PULSE 117–128; RESP 24–26; TEMP 36.2–36.9; O2SAT 87–91
[2024-07-22] MEDS: HYDROCORTISONE SODIUM SUCCINATE 100 MG/2 ML VIAL 50 MG IV PUSH ×2 (00:06→05:34)
[2024-07-22] MEDS: VANCOMYCIN 1,250 MG/NS 250 ML 1,250 MG/250 ML BAG 166.67 MG IVPB (00:06)
[2024-07-22] MEDS: ALBUMIN HUMAN 25% 25 GM/100 ML 100 ML IVPB ×2 (00:07→05:34)
[2024-07-22 00:26] LABS: Glucose Point of Care 86 mg/dl (65-105)
[2024-07-22] MEDS: IPRATROPIUM 0.5 MG/ALBUTEROL SULFATE 2.5 MG AMPUL.NEB 3 ML INHALATION (01:51)
[2024-07-22] MEDS: NOREPINEPHRINE 8 MG/D5W 250 ML 8 MG/250 ML BAG 28.13 MG IV CONT (02:12)
[2024-07-22] MEDS: CEFEPIME 2 GM/NS 50 ML 2 GM/50 ML BAG IVPB (02:13)
[2024-07-22 05:04] LABS: Eosinophils Percent Auto 1.1 % (0-4.4); Hemoglobin 10.5 g/dL (14.0-18.0); Immature Granulocyte Absolute 0.01 K/mm3 (0.00-0.031); Immature Granulocyte Percent A 1.1 % (0-0.5); Immature Platelet Fraction Pct 4.6 % (0.9-11.2); Lymphocytes Absolute Auto 0.11 K/mm3 (0.9-3.2); Lymphocytes Percent Auto 12.1 % (18.3-44.2); Mean Corpuscular HGB Conc 32.8 g/dl (32-36); Mean Corpuscular Hemoglobin 30.3 pg (26-34); Mean Corpuscular Volume 92.5 fl (80-100); Monocytes Percent Auto 4.4 % (2.6-8.5); Neutrophils Absolute Auto 0.7 K/mm3 (1.3-6.7); Neutrophils Percent Auto 81.3 % (45.5-73.1); Platelet Count Result 72 k/mm3 (150-375); Red Blood Count 3.46 M/mm3 (4.6-6.20); Red Cell Distribution Width 16.6 % (11.5-14.5)
[2024-07-22 05:17] LABS: Potassium 4.7 mmol/L (3.4-5.0)
[2024-07-22 05:19] LABS: Alanine Aminotransferase 18 U/L (6-50); Albumin Level 2.8 g/dL (3.5-5.1); Alkaline Phosphatase 85 U/L (38-126); Anion Gap 8 mmol/L (4-12); Aspartate Amino Transferase 30 U/L (17-59); Bilirubin,Total 0.4 mg/dL (0.2-1.3); Blood Urea Nitrogen 16 mg/dL (9-20); Carbon Dioxide 23 mmol/L (22-30); Chloride 104 mmol/L (98-107); Estimated CRCL calculation 121 ml/min; Estimated Glomerular Filt Rate > 60; Glucose 83 mg/dL (65-110); Magnesium 1.5 mg/dL (1.6-2.3); Phosphorus 3.7 mg/dL (2.5-4.5); Sodium 135 mmol/L (137-145)
[2024-07-22 05:21] LABS: Alveolar/Arterial O2 Gradient 603.8 mmHg; Base Excess ABG -4.5 mEq/l (+/-2.0); Fractional Inspired Oxygen 100 %; HCO3 ABG 22.2 mEq/l (22.0-26.0); Oxygen Content ABG 16.6 %vol (16.0-22.0); Oxygen Saturation ABG 89.1 % (95.0-100.0); Oxyhemoglobin 89.6 % THb (90.0-100.0); PCO2 ABG 47.1 mmHg (35.0-45.0); PO2 ABG 62.1 mmHg (80.0-100.0); PO2 FiO2 Ratio Arterial Blood 0.62 %; Total Hemoglobin 13.2 g/dL (12.0-18.0)
[2024-07-22 05:24] LABS: Device VENTILATOR; Modified Allen's Test Pass; Site Drawn LEFT RADIAL; pH ABG 7.291 (7.350-7.450)
[2024-07-22 05:25] LABS: Arterial Blood Gas Minute Volume 9.3 LPM; Arterial Blood Gas PEEP 12 cmH2O; Arterial Blood Gas Tidal Volume 393 ml; Arterial Blood Gas Vent Mode ASSIST CONTROL; Arterial Blood Gas Ventilator rate 24 /MIN
[2024-07-22 05:29] LABS: White Blood Count 0.9 K/mm3 (4.5-10.0)
[2024-07-22 05:30] LABS: Anisocytosis 1+; Macrocytosis 1+ (NORMAL); Platelet Estimate Decreased (Adequate); Schistocytes None Seen
--- NOTE | 2024-07-22 06:04 | P.PNCROSS_ITS ---
Event Note Event Note Event Note: Called by bedside nurse that family decided to extubate and make him comfort me asures only. DNR and comfort measure orders placed. I spoke with family at the bedside and they agree with terminal extubation as he has been a quadriplegic for 20 years and never wanted to be intubated. Now he presented with bilateral pneumonia, Influenza A and Sepsis requiring intubation and Levophed support. Patient was given morphine, Ativan, and extubated successfully at 0615 this a.m. to a 100% nonrebreather mask. Family is at the bedside.
[2024-07-22] MEDS: LORazepam INJ (*CRX) 2 MG/ML VIAL IV PUSH (06:13)
[2024-07-22] MEDS: MORPHINE SULFATE INJ (*CRX) 10 MG/ML AMP 5 MG IV PUSH (06:20)
--- NOTE | 2024-07-22 06:22 | PC.NURSE ---
Patient placed on comfort measures at 0610. Extubated at 0615. Devi Milligan NP at bedside with this RN and Pratibha RT
[2024-07-23 06:39] LABS: Levetiracetam Keppra 19.3 mcg/mL (6.0-46.0)
--- NOTE | 2024-07-27 12:29 | PM.DDS ---
Discharge Summary Date and Time Date of : 07/22/24 Time of : 06:30 Provider Pronounced By: 2 RNs Name of First RN That Pronounced: Gregorio Najera Name of Second RN That Pronounced: Amish Dobson Probable Cause of Probable Cause of : septic shock, pneumonia, acute respiratory failure, influenza Summary Hospital Course: 43-year-old male presented here with weakness, lethargy, and shortness of breath on 07/21. He was found to be influenza A positive and chest x-ray showed bilateral airspace disease right greater than left compatible with pneumonia. CTA did not show any PE and redemonstrated the bilateral pneumonia. While in the emergency department, the patient became persistently hypoxic despite oxygen administration with multiple modalities including nasal cannula, airvo, non-rebreather. After discussion with the patient, his mother, and his grandmother he was intubated for the persistent hypoxia and acute respiratory distress. He was then admitted to the ICU with antibiotics, stress dose steroids, and placed on a pressor with a central line for septic shock. Later in the evening on 07/21, the patient became persistently hypoxic despite changes in the ventilator and a DuoNeb. The patient was re-paralyzed without improvement and repeat CXR was virtually unchanged from prior. He was placed in a left lateral recumbent and his O2 sat improved into the low 90s. Discussed goals of care with the patient's mother and his grandmother. The patient's mother, his medical POA, elected to transition the patient from full code to modified code, no CPR. The patient became hypoxic early in the morning on 07/22, family then requested the patient be transitioned to comfort measures and the patient was terminally extubated. He was given Morphine, Ativan, and extubated successfully at 6:15 a.m. The patient passed at 6:30 a.m. with his family at the bedside. Additional Data Confirmation of as documented by pronouncing clinician: Pupillary Reflex, Palpable Pulses, Response to Stimuli, Heart Tones and Breath Sounds Name of Provider Notified: Devi Milligan APRN Time Provider Notified: 06:38 Provider Requests Autopsy: No Family Requests Autopsy: No Assistant Floor Covering Printer Notified: Yes Date [facility] Notified of : 07/22/24 Time [facility] Notified of : 06:47
== END 2024-07-22 06:30 | disposition expired | DRG 871 ==
LOC: ANHED 16:39 → ANHICU 07-23 10:06
PROVIDERS: Internal Medicine; Admitting Provider Internal Medicine; Emergency Provider Nurse Practitioner Family; PCP Family Medicine; Visit Provider Student in an Organized Health Care Education/Training Program
DX: A41.89 Other specified sepsis (principal); G82.54 Quadriplegia, C5-C7 incomplete; J10.00 Influenza due to other identified influenza virus with unspecified type of pneumonia; J96.00 Acute respiratory failure, unspecified whether with hypoxia or hypercapnia; R65.21 Severe sepsis with septic shock; K59.2 Neurogenic bowel, not elsewhere classified; N31.9 Neuromuscular dysfunction of bladder, unspecified; D64.9 Anemia, unspecified; G89.4 Chronic pain syndrome; G62.9 Polyneuropathy, unspecified; G40.409 Other generalized epilepsy and epileptic syndromes, not intractable, without status epilepticus; M85.80 Other specified disorders of bone density and structure, unspecified site; Z66 Do not resuscitate; Z98.1 Arthrodesis status; V89.2XXS Person injured in unspecified motor-vehicle accident, traffic, sequela; Z93.3 Colostomy status
CPT/HCPCS: 31500; 36415; 36556; 36600; 71045; 71275; 80053; 80177; 81001; 82375; 82805; 82948; 83050; 83605; 83735; 84100; 84145; 84484; 85018; 85025; 85055; 85610; 85730; 86140; 87040; 87637; 87641; 93005; 94002; 94003; 94640; 96361; 96365; 96375; 99291; A9270; C1751; J0456; J0692; J1720; J1953; J2060; J2250; J2270; J3010; J3370; J7030; J7121; P9047; Q9967